=== PATIENT | male | born 1940 | race Caucasian/White ===

== ENCOUNTER → 2023-11-26 09:20 | Outpatient (REF) | payer MEDICARE, OTHER, SELFPAY | LOC: HWRCS 09:20 | PROVIDERS: ATTENDING PHYSICIAN Internal Medicine Cardiovascular Disease; FAMILY PHYSICIAN Family Medicine | DX: I50.20 Unspecified systolic (congestive) heart failure (principal) | CPT/HCPCS: 93306 ==

== ENCOUNTER 2023-12-29 03:27 | Inpatient (IN) | payer MEDICARE, OTHER, SELFPAY ==
[2023-12-28 23:34] VITALS: BP 122/65
[2023-12-28 23:35] VITALS: BP 122/65
[2023-12-28 23:58] LABS: % Basophils 0.3 % (0-2); % Eosinophils 2.2 % (0-6); % Immature Granulocytes 0.3 % (0-0.5); % Lymphocytes 23.5 % (20.5-51.1); % Monocytes 7.6 % (1.7-9.3); % Neutrophils 66.1 % (42.2-75.2); Absolute Eosinophils 0.2 10^3/uL (0-0.7); Absolute Lymphocytes 2.2 10^3/uL (1.2-3.4); Absolute Monocytes 0.7 10^3/uL (0.1-0.6); Hemoglobin 15.1 g/dL (13.0-18.0); Mean Corp Hgb Conc. 35.1 g/dL (33.0-37.0); Mean Corpuscular Hgb 31.5 pg (27.0-31.0); Mean Corpuscular Volume 89.8 fL (80.0-94.0); Mean Platelet Volume 10.3 fL (7.4-10.4); Nucleated Red Blood Cells % 0 % (-); Platelet Count 162 10^3/uL (130-400); Red Blood Cell Count 4.79 10^6/uL (4.70-6.10); Red Cell Dist. Width 15.1 % (11.5-14.5); White Blood Cell Count 9.1 10^3/uL (4.8-10.8)
[2023-12-28 23:59] VITALS: BMI 31.4
[2023-12-29] VITALS (11 sets, daily range): BP systolic 84–128; BP diastolic 59–93; BMI 30.9
[2023-12-29 00:11] LABS: ALT (SGPT) 25 U/L (0-50); AST (SGOT) 31 U/L (17-59); Albumin 4.3 g/dl (3.5-5.0); Alkaline Phosphatase 169 U/L (38-126); Blood Urea Nitrogen 36 mg/dl (9-20); Calcium 9.4 mg/dl (8.4-10.2); Carbon Dioxide 23 mmol/L (22-30); Chloride 104 mmol/L (98-107); Estimated Creatinine Clearance 56 ml/min; Glucose 119 mg/dl (70-99); INR 3.16; PT 32.4 Sec (11.4-14.6); Potassium 5.1 mmol/L (3.5-5.1); Sodium 141 mmol/L (135-145); Total Bilirubin 2.4 mg/dl (0.2-1.3); Total Protein 6.7 g/dl (6.3-8.2); eGFR 55.19
[2023-12-29 00:23] LABS: NT-proBNP 4170 pg/ml; Troponin I < 0.012 ng/ml
--- NOTE | 2023-12-29 00:57 | ED.GENMED ---
History of Present Illness
General
Chief Complaint: Cardiac Symptoms
Source: patient
Exam Limitations: none
Time Seen by Provider: 12/28/23 23:40
Nursing documentation reviewed up to this point in time: agreed with
History of Present Illness
History of Present Illness:
This is an 83-year-old gentleman who has history of permanent A-fib, chronically maintained on Coumadin, history of cardiomyopathy with AICD in place, history of interstitial lung disease/pulmonary fibrosis, PTCA with prior history of stents,
hyperlipidemia, hypertension. He presents tonight with complaints that his defibrillator has repeatedly fired. Prior to tonight he has been feeling well. He denies a sense of palpitations, denies dizziness nor lightheadedness, no chest pain other
than when AICD fires.
3-4 episodes of AICD discharge prior to arrival and then another 3 AICD shocks since arrival to the ED.
AICD replaced in February 2023 due to end-of-life with original AICD. He has remote history of AICD discharge due to tachycardia a number of years ago that resolved with medication change.
No history of AICD discharge with this current defibrillator, he has had no palpitations, no recent URI, no chest pain. He does admit to mild chronic shortness of breath that has been stable and unchanged. No recent change in weight. No leg pain
or swelling.
No recent change in medications.
He follows with Dr. Davenport.
AICD replacement February 2023 performed at [facility].
Echocardiogram November 25 of this year shows EF of 30 to 35%. Normal LV size, mild to moderate . Overall similar and unchanged from previous echo 1 year ago.
Past History
Past History
ED Past Medical History: Arrthythmia (Permanent atrial fibrillation; V. tach), CAD, CHF, HTN and Hypercholesterolemia
ED Past Surgical History: Cardiac (AICD placement x 2 most recently February 2023; PTCA with stents) and Other (Hernia repair)
Social History
Tobacco: Non-smoker
Alcohol: None
Personal:
Living: with family
Employment: Retired
Family History
Family History: Other (Noncontributory)
Phy Exam
Physical Exam
Physical Exam:
GENERAL: 83-year-old gentleman appears his stated age, intermittently yelping in pain which coincides with indiscriminate ICD firing. Magnet immediately applied over ICD with complete cessation of indiscriminate ICD firing
EYE: anicteric
NECK: Supple, nontender, no meningismus, no significant adenopathy. No JVD.
ENT: oral mucosa is moist. No rhinorrhea.
CARDIAC: Irregularly irregular mildly bradycardic,. no murmur.
LUNGS: Clear breath sounds bilaterally, no acute respiratory distress, no wheezes/rales/rhonchi
ABDOMEN: Soft, nondistended, without focal tenderness, normoactive BS.
NEUROLOGICAL: Alert and oriented x3, no focal neuro deficits.
SKIN: Warm and dry, normal color, skin intact. No rash.
MUSCULOSKELETAL: No C/C/E. peripheral pulses are full and equal b/l. No palpable tenderness.
PSYCH: Normal and appropriate interaction.
Course
Orders/Labs/Results
Orders:
Orders
12/28/23 23:45
Electrocardiogram (*1) Urgent
Reason for Study: Other
Other Reason for Exam: Respiratory Distress
Cardiac Monitoring- Treatment ONCE
EKG- Treatment ONCE
IV Insert/Care/Rem.- Treatment PRN
Interrogate Pacemaker- Treatment ONCE
O2 Therapy [RESP] Urgent
Titrate/Wean O2 to maintain O2 sat greater than (%): 93
Special Instructions: TO MAINTAIN CONTINUOUS O2 SATS >/= 93%
Pulse Ox/cont/shift [RESP] Urgent
Quantity: 1
Special Instructions: continuous pulse ox
12/28/23 23:47
Comprehensive Metabolic Panel Urgent
NT-proBNP Urgent
PT/INR [Prothrombin Time] Urgent
Troponin I Urgent
12/28/23 23:48
Complete Blood Count/With Diff Urgent
12/29/23 00:00
CR Chest Portable - 1 View Urgent
Reason For Exam: AICD firing, SOB
Reason Study Needs to be Portable: Patient Unstable
12/29/23 03:20
Admit/Transfer Patient As Directed
Co-Sign Provider:
Level of Care: Inpatient admission
Assign to:: IVU
Physician / Group: Hospitalist
Diagnosis: defribillator firing
Reason for Hospitalization: device firing
Expected length of stay greater than two midnights?: Yes
ELOS- Estimated Length of Stay in days: 2
I certify the patient meets the requirements for IP care: Yes
PRN Pain Medication Management As Directed
May give lesser potent ordered pain med per pt: Yes
preference::
Protocol:: Medication orders for pain may be administered in a
manner that supports deferring to patient preference
when the pt is:
- Requesting an ordered lesser potent pain medication.
Least to most potent pain medications are defined
as: acetaminophen < NSAID < tramadol < opioids
(morphine, oxycodone, hydromorphone).
- Requesting a lesser dose of the same medication IF
ORDERED.
- Requesting a less intrusive route of administration
if both routes are prescribed by the provider (PO <
IV).
12/29/23 03:21
Code Status As Directed
Resuscitation Status: Full Code
12/29/23 04:00
Flush (0.9% Sodium Chloride) [Flush (Nss)] See Dose Instructions IV PER PROTOCOL
12/29/23 04:04
HF DIETARY CONSULT Routine
HF EDUCATOR CONSULT Routine
Comment:
VTE Contraindication Routine
VTE Mechanical Device Contraindication: Medical Contraindication
Pharmocologic Contraindication: Medical Contraindication
Activity As Directed
Activity Level: With Assistance
Intake/ Output As Directed
Frequency: Per unit guidelines
Patient Education As Directed
Type: CHF folder
Comment: give on admission. Document in Interdisciplinary Education record
Sleep Apnea Assessment by RN As Directed
Comment:
Physician Instructions:
Vital Signs As Directed
Frequency: Other
Additional Instructions:: Q12 or per unit guidelines if more frequent.
Weight As Directed
Frequency: Daily
Type of Scale: Standing Scale
Comment: Daily morning weight. If unable to stand, use balanced bed scale.
Weight As Directed
Frequency: Once
Type of Scale: Standing Scale
Comment: Upon Admission. If unable to stand, use balanced bed scale.
O2 Therapy [RESP] Routine
Nasal Cannula Liter Flow: 2 LPM
Titrate/Wean O2 to maintain O2 sat greater than (%): 93
Pulse Ox/cont/shift [RESP] Routine
Quantity: 1
Special Instructions: Daily pulse oximetry at rest. If greater than 92% at rest also obtain pulse oximetry
while ambulating as tolerated.
12/29/23 06:00
Echo 2D MMode Color/Doppler IN AM
Reason for Study: heart failure
Basic Metabolic Panel IN AM
Magnesium IN AM
12/29/23 08:00
Carvedilol [Coreg] 12.5 mg PO BID
Clopidogrel Bisulfate [Plavix] 75 mg PO DAILY
Dorzolamide HCl [Trusopt 2% Ophthalmic Solution] 2 drop BOTH EYES BID
Empagliflozin [Jardiance] 10 mg PO DAILY
Furosemide [Lasix] 40 mg PO DAILY
Rosuvastatin Calcium [Crestor] 5 mg PO MoWeFr@0800
Spironolactone [Aldactone] 25 mg PO DAILY
latanoprost 2 drop BOTH EYES BID
12/29/23 Dinner
Cholesterol Lowering
At Your Request: Full Participation
Cholesterol Lowering: Sodium, 2 Gram
12/29/23 18:00
Warfarin [Coumadin] 5 mg PO MoWeFr@1800
12/29/23 22:00
Magnesium Oxide 500 mg PO HS
Valsartan [Diovan] 160 mg PO HS
12/30/23 06:00
Basic Metabolic Panel IN AM
12/30/23 18:00
Warfarin [Coumadin] 4 mg PO SuTuThSa@1800
12/31/23 06:00
Basic Metabolic Panel IN AM
Abnormal Lab Results
12/28/23 12/28/23
23:47 23:48
MCH 31.5 H pg
(27.0-31.0)
RDW 15.1 H %
(11.5-14.5)
Absolute Monos (auto) 0.7 H 10^3/uL
(0.1-0.6)
PT 32.4 H Sec
(11.4-14.6)
BUN 36 H mg/dl
(9-20)
Glucose 119 H mg/dl
(70-99)
Total Bilirubin 2.4 H mg/dl
(0.2-1.3)
Alkaline Phosphatase 169 H U/L
(38-126)
12/28/23 23:48
12/28/23 23:47
Vital Signs
Initial and Last Documented VS:
Initial Vital Signs
Temp Pulse Resp BP Pulse Ox
98.5 F 78 17 122/65 87
12/28/23 23:34 12/28/23 23:34 12/28/23 23:34 12/28/23 23:34 12/28/23 23:34
Last Documented Vital Signs
Temp Pulse Resp BP Pulse Ox
98.2 F 70 19 126/93 94
12/29/23 04:03 12/29/23 04:01 12/29/23 04:03 12/29/23 04:01 12/29/23 04:09
MDM/Problems Addressed
Differential Diagnosis Includes:
Patient presents with indiscriminate ICD firing that began tonight, multiple episodes of discharge with no associated tachyarrhythmia, no episodes of V. tach or V-fib. He remains hemodynamically stable.
ICD firing has completely resolved after magnet applied over AICD left chest wall.
Monitor shows atrial fibrillation with bradycardic ventricular response with intermittent ventricular pacing that appears to be capturing. He remains hemodynamically stable.
Significant concern for lead rupture/ICD malfunction.
Will check labs, chest x-ray and will consult cardiology.
Will continue nurse monitoring.
Chronic conditions affecting care: HTN, CAD and Cardiomyopathy
*Radiology
Radiology exam reviewed: preliminary read by ED provider ( Chest x-ray shows cardiomegaly, interstitial lung disease with marked increased interstitial markings at the bases concern for infiltrate versus CHF versus chronic interstitial disease. No
old films to compare.)
*Pulse Oximetry
Patient hypoxic: yes
*EKG
Interpreted by ED Provider?: Yes
Interpretation: abnormal
Comparison EKG: changes noted
Rate: bradycardiac
Rhythm: a-fib and ventricular paced
[place]: left axis deviation
QRS Pattern: left bundle branch block
Ischemia: non-specific ST changes
*[employer] C[employer] Spinner Interpretation
Rate: bradycardiac
Interpretation: abnormal
Rhythm: a-fib
*Critical Care Note
Total Time (30-74mins, 75-104mins- exclusive of procedures): Not Applicable
Update Note
Update Note:
12/29/2023 00:30 AM
No further AICD discharge after magnet promptly placed over AICD.
AICD interrogated by [employer] who notes failure of RV wire. [employer] sales representative supervisor has reprogrammed to turn off AICD and to initiate demand pacemaker mode.
Patient remains in atrial fibrillation with slow ventricular response. There has been no episodes of tachyarrhythmia.
I have spoken with cardiology, Doe Bowie. He will speak with [employer] sales representative supervisor himself but request patient be admitted to hospitalist service with consult to cardiology.
Patient remains hemodynamically stable.
Moderate hypoxemia noted on pulse ox but patient continues to have no respiratory distress. He has history of interstitial lung disease/pulmonary fibrosis which I suspect is cause for low pulse ox. Has been placed on nasal cannula oxygen.
Will admit to hospitalist service.
ED Attending Note
-
Portions of this chart may have been created with voice recognition software.� Occasional wrong word or��sound alike� substitutions may have occurred due to the inherent limitations of voice recognition software.
Discharge Plan
Departure
Patient Disposition: Admit
Date of Disposition: 12/29/23
Time of Disposition: 01:06
Admit to: Telemetry
Admit to doctor: Naveed
Presentation/result/management discussed w/ accepting MD/DO: Hospitalist
Condition: Fair
Discharge Problem:
AICD discharge, AICD lead malfunction, Chronic interstitial lung disease, Hypoxemia requiring supplemental oxygen
Interventions
Interventions:
*Risk Screen - Suicide Last Done: 12/29/23 04:02
*General Assessment Last Done: 12/28/23 23:34
*Neglect/Abuse Screening Last Done: 12/29/23 00:06
ED- Fall Risk Assessment Last Done: 12/29/23 00:05
*Nursing Disposition Last Done: 12/29/23 04:09
ED- Pulmonary Assessment Last Done: 12/29/23 00:02
ED- Cardiac Assessment Last Done: 12/29/23 00:02
Discharge Date and Time
Discharge Date/Time: 12/29/23 04:09
--- NOTE | 2023-12-29 01:12 | CON.CAR ---
Consultation
Consultation Request
Date/Time Consultation Requested: 12/29/2023 00 30
Date/Time Consultation Performed: 12/29/2023 115
Requesting Provider: Dr. De La Cruz
Performing Provider: Dr. Bowie
Reason for Consultation: ICD fired/ICD malfunction
Medical History
-
History of Present Illness:
Primary health education specialist Dr. Davenport
83-year-old male with past medical history noted below who presented for multiple ICD shocks. Patient seen and ER and noted to have inappropriate ICD shocks. Remote device interrogation with [employer]. Reviewed with rep. Patient appears to have
RV lead fracture causing inappropriate ICD shocks. Pacing now set at VOO
Patient states that he was feeling fine tonight he was brushing his teeth and then suddenly his defibrillator went off they called the ambulance but his device went off about 5 times at home he thinks it went off in the ambulance and then went off
about 5 times in the ER. Spoke with the ER physician who said device went off even though no arrhythmia was seen..
[employer] device reviewed appears device therapy is off. In total it appears patient had 13 ICD shocks. Pacing thresholds appear stable
Currently without shortness of breath. Prior to ICD shocks no chest discomfort no orthopnea or increased lower extremity edema. weight stable. Since last visit with Dr Davenport n June, Digoxin stopped. no other recent changes in medical therapy.
Patient actually had HRIS SPECIALIST-D upgrade with LB APL 02/2023 then had loss of LBBB capture and had lead revision.
06/2023 revision of ICD with new ICD lead from right subclavian tunneled to generator on left. AV node ablation. (Chronic left-sided LB AP lead extracted new right sided LB AP lead implanted and tunneled to the left)
Past medical history
Ischemic cardiomyopathy ejection fraction 25%
Heart failure reduced ejection fraction
Permanent atrial fibrillation
Chronic anticoagulation with Coumadin
ICD/[employer]ronik
Coronary artery disease. Stenting of RCA and circumflex
ventricular tachycardia
Previous VT ablation 2014
AVJ ablation 06/2023 [facility]
Hypertension
Right bundle branch block hypercholesterolemia
Dilated ascending aorta
ECG with ventricular pacing PVCs and underlying A-fib.
There is a question regarding appropriate pacing based on the space between PVCs. Patient has since had device interrogated pacing status VOO as noted below
06/2023 revision of ICD with new ICD lead from right subclavian tunneled to generator on left. AV node ablation. (Chronic left-sided LB AP lead extracted new right sided LB AP lead implanted and tunneled to the left)
Echocardiogram ejection fraction 30 to 35% mild to moderate aortic stenosis mild to moderate tricuspid regurgitation mild aortic regurgitation PA pressure 47 dilated ascending aorta 4.4 cm
Past Medical History
Past Medical History: Other (Above)
Social History
Tobacco: Former Smoker
Employment: Other (CAD)
Family History
Family History: CAD and Other
Allergies / Home Medications
Allergy/AdvReac Type Severity Reaction Status Date / Time
Cephalosporins Allergy Nausea / Verified 12/28/23 23:33
Vomiting
penicillin G Allergy Nausea / Verified 12/28/23 23:33
Vomiting
Penicillins Allergy Nausea / Verified 12/28/23 23:33
Vomiting
�Medication �Instructions �Recorded �Confirmed �Type
Coreg 12.5 mg PO BID 12/29/23 12/29/23 History
Jardiance 10 mg PO DAILY 12/29/23 12/29/23 History
Lasix 40 mg PO DAILY 12/29/23 12/29/23 History
Plavix 75 mg PO DAILY 12/29/23 12/29/23 History
digoxin 125 mcg PO DAILY 12/29/23 12/29/23 History
dorzolamide 2 drp BOTH EYES BID 12/29/23 12/29/23 History
latanoprost 2 drp BOTH EYES BID 12/29/23 12/29/23 History
magnesium 400 mg PO QHS 12/29/23 12/29/23 History
rosuvastatin 5 mg PO QMWF 12/29/23 12/29/23 History
spironolactone 25 mg PO DAILY 12/29/23 12/29/23 History
valsartan 160 mg PO QHS 12/29/23 12/29/23 History
warfarin 4 mg PO QTUTHSASU 12/29/23 12/29/23 History
warfarin 5 mg PO QMWF 12/29/23 12/29/23 History
Review of Systems
-
All other systems: Negative unless noted
Physical Exam
Vital Signs
Temp Pulse Resp BP Pulse Ox
98.5 F 70 24 128/68 93
12/28/23 23:34 12/29/23 00:30 12/29/23 00:30 12/29/23 00:00 12/29/23 00:30
Lab Results
12/28/23 23:48
12/28/23 23:47
Troponin I < 0.012 ng/ml 12/28/23 23:47
[id number] Pept 4170 pg/ml 12/28/23 23:47
Physical Exam
General: Well Developed
HEENT: Normocephalic
Respiratory: Clear and Wheezes
Cardiac: Regular Rhythm
GI: Non Tender and Non Distended
Genito-urinary: No Costovertebral Tender
Musculoskeletal: No Clubbing, No Cyanosis and No Edema (trace )
Neuro: Awake, Alert, Oriented and AO x 3
Impression / Plan
-
ICD shock. Patient with multiple shocks tonight. [employer] device. Shocks witnessed by ER physician with no apparent arrhythmia.
-Device interrogation 13 shocks
-Reviewed with [employer] rep. Acute RV lead fracture suspected.
-Shock therapy now turned off
- pacing now with VOO at 70
-ICD shock therapy currently turned off
-Monitor on telemetry
-Continue current medical therapy
-Additional review by EP. Patient will need lead revision for RV lead fracture.
.
A-fib. Permanent. Patient has AVJ ablation.
-Hold Coumadin in anticipation of procedure.
-[id number] 5(age greater than 75, hypertension, coronary artery disease, CHF)
.
CAD. Prior history of coronary stenting stable without angina continue current medical therapy
Ischemic cardiomyopathy. EF 30 to 35%
-Some chronic exertional shortness of breath unclear if there is a modest increase in the last couple weeks.
-Trace ankle edema
-Continue current therapy
-Chest x-ray
-Continue to assess volume status and may consider additional diuretic.
History of VT prior VT ablation of 2014. Monitor on telemetry while ICD shock therapy is off.
Data Reviewed
-
EKG: Report Reviewed by me
Medical Tests (Nuc Med, Echo etc): Report Reviewed by me
--- NOTE | 2023-12-29 03:01 | HPS.HSE ---
Family Physician
-
Family Physician: Mendel Parks
Chief Complaint
-
Repeat firing of defibrillator
History of Present Illness
This is an 83-year-old male with past medical history significant for heart failure with reduced EF (about 30%) CAD status post stents, history of ventricular tachycardia, atrial fibrillation and hypertension who presents to the emergency after
noticing firing of his AICD several times at home.
Patient has history of A-fib and recurrent VT status post VT ablation x 2 and IV with blind and Pap, status post BTT OC�ICD with GEN change [employer] upgrade, he had loss of left bundle branch capture and is status post lead revision, and also underwent
AVJ ablation due to frequent A-fib limiting V[employer]. If he follows with cardiology/EP pain.
Patient reports generally being in usual state of health except for approximately 2 weeks of increased dyspnea on exertion. Denies any increased lower extremity edema, increased weight gain or PND. He denies any orthopnea. Denies any cough fevers
or chills. Denies any increase in level of activity. Denies any recurrent lightheadedness or dizziness. He denies feeling any palpitations.
He apparently suddenly noticed approximately 4 defibrillation events at home. He called EMS and had several more defibrillations en route and continued to have them in the emergency department. The defibrillator was stopped via magnet and the the
device rep also deactivated the device. The review of the device showed abnormal firing without any episodes of VT or VFIB.
In the ED he was hemodynamically stable with a blood pressure 120/68 oxygen saturation of 93 5%. Pulse was in the 70s and was afebrile. His chest x-ray shows some interstitial infiltrates which appear to have been present from prior. Labs were
mostly unremarkable with normal WBCs, chemistries were within normal limits. ECG showed a atrial fibrillation at a rate of [address] or T wave changes.
Medical History
Past Medical History
Past Medical History: Reports HTN
Additional Past Medical History:
Permanent AFIB
VTach
S/P BIV ppm AICD
Cardiomyopathy EF ~30%
Past Surgical History: Reports None
Social History
Tobacco: Non-smoker
Alcohol: None
Drug: None
Personal:
Living: With Family
Employment: Retired
Family History
Family History: Not pertinent
Allergies / Home Medications
Allergies reflects when Allergies were last updated in [employer].
Home Medications with original date entered in [employer]
Allergy/Medication List:
Allergies
Allergy/AdvReac Type Severity Reaction Status Date / Time
Cephalosporins Allergy Nausea / Verified 12/28/23 23:33
Vomiting
penicillin G Allergy Nausea / Verified 12/28/23 23:33
Vomiting
Penicillins Allergy Nausea / Verified 12/28/23 23:33
Vomiting
Home Medications
Coreg 12.5 mg PO BID 12/29/23
Jardiance 10 mg PO DAILY 12/29/23
Lasix 40 mg PO DAILY 12/29/23
Plavix 75 mg PO DAILY 12/29/23
dorzolamide 2 drp BOTH EYES BID 12/29/23
latanoprost 2 drp BOTH EYES BID 12/29/23
magnesium 400 mg PO QHS 12/29/23
rosuvastatin 5 mg PO QMWF 12/29/23
spironolactone 25 mg PO DAILY 12/29/23
valsartan 160 mg PO QHS 12/29/23
warfarin 4 mg PO QTUTHSASU 12/29/23
warfarin 5 mg PO QMWF 12/29/23
Review of Systems
-
History Source: Patient
Constitutional: Reports No Symptoms
EENT: Reports No Symptoms
Respiratory: Reports Trouble Breathing
Cardiac: Reports Other (Defibrillator firing)
Abdomen/GI: Reports No Symptoms
: Reports No Symptoms
Musculoskeletal: Reports No Symptoms
Skin: Reports No Symptoms
Neurological: Reports No Symptoms
Endocrine: Reports No Symptoms
Hematologic/Lymphatic: Reports No Symptoms
Psych: Reports No Symptoms
Physical Exam
Vital Signs
Vital Signs
Temp Pulse Resp BP Pulse Ox
98.5 F 70 19 124/76 95
12/28/23 23:34 12/29/23 02:15 12/29/23 02:15 12/29/23 02:00 12/29/23 02:15
Physical Exam
General: Well Developed, Well Nourished and Comfortable
HEENT: NormoCephalic, Anicteric, Moist mucous membranes, Atraumatic, PERRLA and Oxygen
Respiratory: Clear and Crackles
Cardiac: S1/S2 and Irregular Rhythm
Breast: Deferred by me
GI: Soft, Non Tender, Non Distended and Normal Bowel Sounds
Rectal: Deferred by Provider
Genito-urinary: Deferred by me
Musculoskeletal: No Clubbing, No Cyanosis and Other (Trace bilateral lower extremity edema)
Skin: Warm and Dry
Neuro: Awake and AO x 3
Hematologic/Lymphatic: No Lymphadenopathy
Psych: Calm
Laboratory Results
-
12/28/23 23:48
12/28/23 23:47
Laboratory Results
PT 32.4 Sec (11.4-14.6) H 12/28/23 23:47
INR 3.16 12/28/23 23:47
Total Bilirubin 2.4 mg/dl (0.2-1.3) H 12/28/23 23:47
AST 31 U/L (17-59) 12/28/23 23:47
ALT 25 U/L (0-50) 12/28/23 23:47
Alkaline Phosphatase 169 U/L (38-126) H 12/28/23 23:47
Troponin I < 0.012 ng/ml 12/28/23 23:47
Data Reviewed
-
Diagnostic Radiology: Image Personally Visualized and interpreted
Medical Tests (Nuc Med, Echo, EKG etc): Image Personally Visualized and interpreted
Lab Data: Labs Reviewed by me
Old Records: Reviewed
Impression/Plan
-
IMPRESSION:
Patient with extensive EP history as detailed in HPI who presents to ED with unexpected firing of AICD without appropriate trigger. AICD had to be deactivated in ED to stop the firing. Review of records showed about 13 firing events. No
associated VT, VFIB or uncontrolled AFIB. Reports mild dyspnea on exertion for about 2 weeks. Xray with increased interstitial markings but appears to be unchanged from prior. No recent chest pain, palpitations lightheadedness or dizziness.
Reports that paceer rate was recently reduced to 70.
PLAN:
1. AICD - Firing - Device deactivated. Interrogation shows no VF/VT/ uncontrolled AFIB. Suspect lead malfunction per cardiology. Patient is otherwise well appearing, non-toxic and in no acute distress. Follow with EP here and at [facility].
- admit to IVU
- as device is off, will place on zolepads and monitors
- echo in am
- cardiology consulted and EP to follow with approach to management.
2. AFIB - Currently rate controlled at 69. No evidence pacing.
- continue coreg 12. bid
- ac with warfarin
- patient does NOT take digoxin.
- keep K, Mag > 4,2
- follow am pt/inr
3. CHF - CHF with depressed EF. Appears euvolemic with slight increased oxygen requirement. Possibly mild CHF.
- echo as above
- continue lasix 40mg po daily, consider iv lasix per cardiology
- continue GDMT w/ carvedilol, valsartan, aldactone and jardiance
4. TIA - History of TIA for which he was placed on plavix. Had recurrent transient vision loss. Improved since plavix started.
- continue plavix 75
DVT PPX - on warfarin
Code Status - Full Code
--- NOTE | 2023-12-29 04:11 | PTCARENOTE ---
received patient from the ED. AAOx3. at the bedside. denies any pain/sob at this time. 3L NC 94%. Vpaced on tele with PVCs. bp stable. reviewed plan of care with patient and and verbalized understanding. call alonso within reach. educated patient
to call with any changes.
[2023-12-29 06:40] LABS: INR 2.84; PT 29.7 Sec (11.4-14.6)
--- NOTE | 2023-12-29 06:52 | W.PN.HOSP.TC ---
Today's Communication/Plan
-
wean O2 as tolerated
npo after midnight for EP eval and likely Lead Revision, hold coumadin
ECHO tomorrow as well
daily INR checks, hep gtt if INR falls <2
Assessment / Plan
Assessment / Plan
Physical Exam
General: Well Developed, Well Nourished and Comfortable
HEENT: NormoCephalic, Anicteric, Moist mucous membranes, Atraumatic, PERRLA and Oxygen
Respiratory: Clear and Crackles
Cardiac: S1/S2 and Irregular Rhythm
GI: Soft, Non Tender, Non Distended and Normal Bowel Sounds
Musculoskeletal: No Clubbing, No Cyanosis and Other (Trace bilateral lower extremity edema)
Skin: Warm and Dry
Neuro: Awake and AO x 3
Hematologic/Lymphatic: No Lymphadenopathy
Psych: Calm
83M HFrEF CAD stents VT afib Coumadin HTN p/w unexpected firing of AICD without appropriate trigger. AICD had to be deactivated in ED to stop the firing. Review of records showed about 13 firing events. No associate VT, VFIB or uncontrolled AFIB.
Reports mild dyspnea on exertion for about 2 weeks. Xray with increased interstitial markings but appears to be unchanged from prior. No recent chest pain, palpitations lightheadedness or dizziness. Reports that paceer rate was recently reduced
to 70.
PLAN:
1. AICD - Firing - Device deactivated. Interrogation shows no VF/VT/ uncontrolled AFIB. Suspect lead malfunction per cardiology. Patient is otherwise well appearing, non-toxic and in no acute distress. Follow with EP here and at [place].
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
- echo in am
- cardiology consult appreciated
-npo after midnight for EP eval and likely lead revision
2. AFIB rate controlled
- continue coreg 12. bid
- warfarin on hold for lead revision
- INR therapeutic, start hep gtt if INR falls <2
3. CHF - CHF with depressed EF. Appears euvolemic with slight increased oxygen requirement. Possibly mild CHF.
- echo as above
- continue lasix 40mg po daily
- continue GDMT w/ carvedilol, valsartan, aldactone and jardiance
4. TIA - History of TIA for which he was placed on plavix. Had recurrent transient vision loss. Improved since plavix started.
- continue plavix 75
DVT PPX - Therapeutic INR
Code Status - Full Code
Discussed with patient and patient's Jocelin
I spent a total of 50 minutes with the patient or on the floor. More than 50% of this time involved counseling and coordination of care.
Anticipated Discharge: 24 - 48 hours
Subjective/Interval History
-
Date of Service: December 29, 2023
No acute distress. Overall reports feeling well. On nasal cannula supplementation but low dose 1L. Stable respiratory status. present during evaluation.
Objective Data
-
Labs:
Laboratory Results
12/28/23 12/28/23 12/29/23
23:47 23:48 06:07
WBC 9.1
Hgb 15.1
Hct 43.0
Plt Count 162
PT 32.4 H 29.7 H
INR 3.16 2.84
Sodium 141 Pending
Potassium 5.1 Pending
Chloride 104 Pending
Carbon Dioxide 23 Pending
BUN 36 H Pending
Creatinine 1.3 Pending
Glucose 119 H Pending
Calcium 9.4 Pending
Total Bilirubin 2.4 H
AST 31
ALT 25
Alkaline Phosphatase 169 H
Vital Signs:
Vital Signs
Temp Pulse Resp BP Pulse Ox
98.2 F 70 19 126/93 94
12/29/23 04:03 12/29/23 04:01 12/29/23 04:03 12/29/23 04:01 12/29/23 04:09
[2023-12-29 07:43] LABS: Blood Urea Nitrogen 33 mg/dl (9-20); Calcium 9.4 mg/dl (8.4-10.2); Carbon Dioxide 21 mmol/L (22-30); Chloride 106 mmol/L (98-107); Estimated Creatinine Clearance 65 ml/min; Glucose 104 mg/dl (70-99); Magnesium 2.4 mg/dl (1.6-2.3); Potassium 5.2 mmol/L (3.5-5.1); Sodium 138 mmol/L (135-145); eGFR > 60.00
[2023-12-29] MEDS: TRUSOPT 2% OPHTHALMIC SOLUTION 2 DROP BOTH EYES ×2 (08:14→17:39)
[2023-12-29] MEDS: LASIX 40 MG PO (08:14)
[2023-12-29] MEDS: ALDACTONE 25 MG PO (08:14)
[2023-12-29] MEDS: PLAVIX 75 MG PO (08:14)
[2023-12-29] MEDS: JARDIANCE 10 MG PO (08:14)
[2023-12-29] MEDS: COREG 12.5 MG PO ×2 (08:14→19:48)
--- NOTE | 2023-12-29 11:06 | W.PN.UPDATE ---
Update Note
Progress Note Update
See full consult note from early AM.
Patient stable. No events on tele.
Echo and EP consult in AM.
--- NOTE | 2023-12-29 12:14 | PTCARENOTE ---
Assessment and vitals stable as documented. Weaned O2 off - POX 94%. Discussed plan of care and potential timelines. at bedside most of day.
--- NOTE | 2023-12-29 13:44 | PTCARENOTE ---
resumed 2l O2 for pox 90%, Pt denies SOB or HEART
[2023-12-29] MEDS: CRESTOR 5 MG PO (17:36)
[2023-12-29] MEDS: DIOVAN 160 MG PO (22:20)
[2023-12-29] MEDS: XALATAN OPHTHALMIC SOLUTION 1 DROP OPHTH (22:21)
--- NOTE | 2023-12-29 23:13 | PTCARENOTE ---
received patient at the change of shift. AAOx3. denies any pain/sob. independent in the room. Vpaced on tele with underlying afib. bp stable. reviewed plan of care and verbalized understanding. NPO at midnight. call alonso within reach. calls
appropriately.
[2023-12-30] VITALS (12 sets, daily range): BP systolic 80–104; BP diastolic 56–80; BMI 29.9
[2023-12-30 06:11] LABS: Hematocrit 43.9 % (39.0-52.0); Hemoglobin 15.2 g/dL (13.0-18.0); Mean Corp Hgb Conc. 34.6 g/dL (33.0-37.0); Mean Corpuscular Hgb 31.5 pg (27.0-31.0); Mean Corpuscular Volume 90.9 fL (80.0-94.0); Mean Platelet Volume 10.2 fL (7.4-10.4); Platelet Count 153 10^3/uL (130-400); Red Blood Cell Count 4.83 10^6/uL (4.70-6.10); Red Cell Dist. Width 14.7 % (11.5-14.5); White Blood Cell Count 9.3 10^3/uL (4.8-10.8)
[2023-12-30 06:16] LABS: INR 2.31; PT 25.2 Sec (11.4-14.6)
--- NOTE | 2023-12-30 06:17 | PTCARENOTE ---
chest clipped. CHG wipes. new L AC 18G IV placed. no complaints overnight. NPO since midnight.
[2023-12-30 06:30] LABS: Blood Urea Nitrogen 32 mg/dl (9-20); Calcium 9.6 mg/dl (8.4-10.2); Carbon Dioxide 23 mmol/L (22-30); Chloride 105 mmol/L (98-107); Estimated Creatinine Clearance 72 ml/min; Glucose 102 mg/dl (70-99); Magnesium 2.3 mg/dl (1.6-2.3); Phosphorus 4.1 mg/dl (2.5-4.5); Potassium 4.7 mmol/L (3.5-5.1); Sodium 139 mmol/L (135-145); eGFR > 60.00
--- NOTE | 2023-12-30 07:26 | W.PN.HOSP.TC ---
Today's Communication/Plan
-
NPO for EP eval potential lead revision
Assessment / Plan
Assessment / Plan
Physical Exam
General: Well Developed, Well Nourished and Comfortable
HEENT: NormoCephalic, Anicteric, Moist mucous membranes, Atraumatic, PERRLA and Oxygen
Respiratory: Clear and Crackles
Cardiac: S1/S2 and Irregular Rhythm
GI: Soft, Non Tender, Non Distended and Normal Bowel Sounds
Musculoskeletal: No Clubbing, No Cyanosis and Other (Trace bilateral lower extremity edema)
Skin: Warm and Dry
Neuro: Awake and AO x 3
Hematologic/Lymphatic: No Lymphadenopathy
Psych: Calm
83M HFrEF CAD stents VT afib Coumadin HTN p/w unexpected firing of AICD without appropriate trigger. AICD had to be deactivated in ED to stop the firing. Review of records showed about 13 firing events. No associate VT, VFIB or uncontrolled AFIB.
Reports mild dyspnea on exertion for about 2 weeks. Xray with increased interstitial markings but appears to be unchanged from prior. No recent chest pain, palpitations lightheadedness or dizziness. Reports that paceer rate was recently reduced
to 70.
PLAN:
1. AICD - Firing - Device deactivated. Interrogation shows no VF/VT/ uncontrolled AFIB. Suspect lead malfunction per cardiology. Patient is otherwise well appearing, non-toxic and in no acute distress. Follow with EP here and at [place].
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
- echo in am
- cardiology consult appreciated
-npo for EP eval and likely lead revision
2. AFIB rate controlled
- continue coreg 12. bid
- warfarin on hold for lead revision
- INR therapeutic, start hep gtt if INR falls <2
3. CHF - CHF with depressed EF. Appears euvolemic with slight increased oxygen requirement. Possibly mild CHF.
- echo as above
- continue lasix 40mg po daily
- continue GDMT w/ carvedilol, valsartan, aldactone and jardiance
4. TIA - History of TIA for which he was placed on plavix. Had recurrent transient vision loss. Improved since plavix started.
- continue plavix 75
DVT PPX - Therapeutic INR
Code Status - Full Code
I spent a total of 50 minutes with the patient or on the floor. More than 50% of this time involved counseling and coordination of care.
Anticipated Discharge: > 48 hours
Subjective/Interval History
-
Date of Service: December 30, 2023
no acute distress. comfortable
Objective Data
-
Labs:
Laboratory Results
12/30/23
05:54
WBC 9.3
Hgb 15.2
Hct 43.9
Plt Count 153
PT 25.2 H
INR 2.31
Sodium 139
Potassium 4.7
Chloride 105
Carbon Dioxide 23
BUN 32 H
Creatinine 1.0
Glucose 102 H
Calcium 9.6
Vital Signs:
Vital Signs
Temp Pulse Resp BP Pulse Ox
97.9 F 70 18 101/73 94
12/30/23 07:04 12/30/23 06:15 12/30/23 07:04 12/30/23 05:30 12/30/23 07:04
I&O
12/29/23 12/30/23 12/31/23
06:59 06:59 06:59
Intake Total 350 / 350
Balance 350 / 350
[2023-12-30] MEDS: TRUSOPT 2% OPHTHALMIC SOLUTION 2 DROP BOTH EYES (07:40)
[2023-12-30] MEDS: COREG 12.5 MG PO ×2 (08:30→21:25)
[2023-12-30] MEDS: PLAVIX 75 MG PO (08:30)
[2023-12-30] MEDS: JARDIANCE 10 MG PO (08:30)
--- NOTE | 2023-12-30 09:18 | W.PN.CD ---
Today's Communication / Plan
-
- Possible lead revision or extraction and replacement.
Impression / Plan
-
ICD lead failure/ ICD shock.
- Inappropriate shock
- Device interrogation 13 shocks
- Shocks witnessed by ER physician with no apparent arrhythmia.
- Fractured / dislodged RV ICD lead
- s/p LEADERSHIP DEVELOPMENT MANAGER-D with [facility] APL 02/26/2023 then had loss of LBBB capture and had lead revision with removal of the LBB lead and new lead placement from the right and tunneled to the left device 06/2023.
- Has atrial lead, RV ICD lead from the left shoulder and RV LBB lead from right tunneled to left.
- s/p AVJ ablation in 06/2023
- Now 100% paced.
- Atrial fibrillation - 100%
- first shock was Friday night with toothbrushing - multiple shock afterwards.
- Possible RV iCD lead dislodgement vs fracture.
- BiV pacing has gone from 100% to less then 40% over the last 2 days
- Shock therapy now turned off
- pacing now with VOO at 70
- Plan for Venogram on the left arm. Unclear reason for going to right shoulder for redo LBB lead. Obtain records.
- Possible lead revision / extraction and reimplant during this admission.
ventricular tachycardia
- Previous VT ablation 2014
- AVJ ablation 06/2023 [facility]
Ischemic cardiomyopathy ejection fraction 25%
- NYHA class III
- s/p LEADERSHIP DEVELOPMENT MANAGER- now LV paced.
.
A-fib. Permanent. Patient has AVJ ablation.
- Chronic anticoagulation with Coumadin
-Hold Coumadin in anticipation of procedure.
-[id number] 5(age greater than 75, hypertension, coronary artery disease, CHF)
.
CAD. Prior history of coronary stenting stable without angina continue current medical therapy
Ischemic cardiomyopathy. EF 30 to 35%
-Some chronic exertional shortness of breath unclear if there is a modest increase in the last couple weeks.
-Trace ankle edema
-Continue current therapy
-Chest x-ray - possible lead dislodgement.
-Continue to assess volume status and may consider additional diuretic.
Physical Exam
Vital Signs/Labs
Vital Signs
Temp Pulse Resp BP Pulse Ox
97.9 F 70 18 104/80 94
12/30/23 07:04 12/30/23 08:30 12/30/23 07:04 12/30/23 08:30 12/30/23 07:35
12/29/23 12/30/23 12/31/23
06:59 06:59 06:59
Actual Weight 103.1 kg 100 kg
12/30/23 05:54
12/30/23 05:54
PT 25.2 Sec (11.4-14.6) H 12/30/23 05:54
INR 2.31 12/30/23 05:54
Magnesium 2.3 mg/dl (1.6-2.3) 12/30/23 05:54
12/28/23
23:47
Lfy-I-Tgkkyylsmyl Pept 4170
LAB Results
12/28/23
23:47
Troponin I < 0.012
Physical Exam
Constitutional: No acute distress and Comfortable
EENT: Anicteric and Moist mucous membranes
Cardiovascular: Rhythm & rate is regular, Pedal edema is absent, JVD pressure is normal and Systolic murmur absent
Respiratory: Respiratory effort normal, Lungs clear to auscul., Wheeze Absent and Crackles Absent
GI: Soft, Non tender and Normal bowel sounds
Neuro/Psych: Alert, Oriented and AO x 3
Data Reviewed
-
Date of Service: December 30, 2023
Medical Decision Making: Reviewed Test Results, Independent Historian Assessment, Test Interpretation and Review of Case with other Provider
EKG: Tracing Personally Visualized and interpreted
Echo: Tracing Personally Visualized and interpreted
X-Ray/CT/US/MRI/NUC/PET: Image Personally Visualized and interpreted
Labs: Labs Reviewed by me
Old Records: Reviewed
Critical Care Time (in minutes): 55
--- NOTE | 2023-12-30 10:42 | PTCARENOTE ---
Received pt from [facility]. VSS. Pt didn't undergo any procedure. Orders noted. Will monitor.
--- NOTE | 2023-12-30 13:28 | ITS.CL.PN ---
[facility] - Procedure Note
Procedure
Procedure Note:
Patient was brought in for disposition.
Venogram was done that showed dislodged RV lead with proximal ICD defibrillator coil still in the right atrium and the tip of the ICD lead in the liver/IVC. The venogram also showed completely occluded subclavian/innominate vessel. Both atrial and
ICD lead are trapped in the occluded venogram. This explains the need for right-sided left bundle mortgage branch manager placement back in June 2023.
The device was interrogated and showed atrial and ventricular leads are placed from 05/18/2014.
The atrial lead is Biotronik, model number Setox S53: serial #[id number]; implanted 05/18/2014
RV ICD lead; Biotronik model: Linox smart S 65; serial number# [id number]; implanted on 05/18/2014
Left ventricle pacing lead: Model number Medtronic 3830-69 cm; serial number: [id number]; implanted on 07/10/2023
With venogram showing completely occluded vein, the lead revision of the ICD lead is not easily done without lead extraction with laser/mechanical tools. The procedure was aborted. Patient was sent back to the room.
Plan of care
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 Davenport. He also discussed with his implanting senior solutions consultant Dr. Persaud. We explained 3 options for him
1. we can conservatively manage him as he is currently LV paced with his left bundle branch pacing lead with excellent QRS morphology. He does need primary prevention ICD which can be subcutaneous ICD versus LifeVest.
2. Patient can undergo right-sided ICD implantation with a new lead and the left bundle mortgage branch manager can be pulled out from the tunnel to the right side and can be used at ACTING PROFESSOR-P. Patient has permanent atrial fibrillation and does not need atrial
lead.
3. The third option is to undergo extraction of the RV ICD lead and may be atrial lead as well with reimplantation of an ICD lead.
We discussed pros and cons of all the 3 options. Subcutaneous ICD is not a good idea with his tunneled left bundle mortgage branch manager. The knee implant of ICD lead on the right side runs the risk of abandoned ICD lead in the IVC/liver that can migrate to
RV and can cause arrhythmias. 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 At this time we will discuss with the
patient once his more alert and awake discussed with all the physicians involved to choose the best option for him going forward.
[2023-12-30] MEDS: LASIX 40 MG PO (15:47)
[2023-12-30] MEDS: ALDACTONE 25 MG PO (15:47)
--- NOTE | 2023-12-30 16:20 | CM ---
Reviewed chart. Met with Mr. Guidry to review discharge plans. He states prior to admission he resides with his spouse in a two story home with five steps to enter. He states he has a full flight of steps to get to bedroom/full bathroom. He states
he has a powder room on the first floor. He states prior to admission he was independent with ambulation and adls. He states he does not have any DME in the home. He states he has a prescription plan and uses [facility]. Medial work-up in
progress. The discharge plan is to return home with his spouse when medically stable.
[2023-12-30] MEDS: XALATAN OPHTHALMIC SOLUTION 1 DROP OPHTH (21:19)
[2023-12-30] MEDS: TRUSOPT 2% OPHTHALMIC SOLUTION BOTH EYES (21:21)
[2023-12-30] MEDS: DIOVAN PO (23:27)
[2023-12-31] VITALS (11 sets, daily range): BP systolic 81–109; BP diastolic 44–77; PULSE 76–86; O2SAT 90; BMI 29.7
[2023-12-31 04:02] LABS: Hematocrit 45.8 % (39.0-52.0); Hemoglobin 15.9 g/dL (13.0-18.0); Mean Corp Hgb Conc. 34.7 g/dL (33.0-37.0); Mean Corpuscular Volume 92.2 fL (80.0-94.0); Mean Platelet Volume 10.1 fL (7.4-10.4); Platelet Count 158 10^3/uL (130-400); Red Blood Cell Count 4.97 10^6/uL (4.70-6.10); Red Cell Dist. Width 14.7 % (11.5-14.5); White Blood Cell Count 9.5 10^3/uL (4.8-10.8)
[2023-12-31 04:13] LABS: INR 2.04; PT 23.2 Sec (11.4-14.6)
[2023-12-31 04:28] LABS: Blood Urea Nitrogen 32 mg/dl (9-20); Calcium 9.4 mg/dl (8.4-10.2); Carbon Dioxide 21 mmol/L (22-30); Chloride 104 mmol/L (98-107); Estimated Creatinine Clearance 58 ml/min; Glucose 107 mg/dl (70-99); Magnesium 2.2 mg/dl (1.6-2.3); Phosphorus 4.6 mg/dl (2.5-4.5); Potassium 4.5 mmol/L (3.5-5.1); Sodium 139 mmol/L (135-145); eGFR > 60.00
--- NOTE | 2023-12-31 05:52 | PTCARENOTE ---
BP 85/56 pt denies dizziness or lightheadedness. Diovan held per SCOW DERRICK OPERATOR.
--- NOTE | 2023-12-31 07:20 | W.PN.HOSP.TC ---
Today's Communication/Plan
-
wean O2 supplementation as tolerated
cont cardiac monitoring
Potential EP intervention as per cardio
Assessment / Plan
Assessment / Plan
Physical Exam
General: Well Developed, Well Nourished and Comfortable
HEENT: NormoCephalic, Anicteric, Moist mucous membranes, Atraumatic, PERRLA and Oxygen
Respiratory: Clear and Crackles
Cardiac: S1/S2 and Irregular Rhythm
GI: Soft, Non Tender, Non Distended and Normal Bowel Sounds
Musculoskeletal: No Clubbing, No Cyanosis and Other (Trace bilateral lower extremity edema)
Skin: Warm and Dry
Neuro: Awake and AO x 3
Hematologic/Lymphatic: No Lymphadenopathy
Psych: Calm
83M HFrEF CAD stents VT afib Coumadin HTN p/w unexpected firing of AICD without appropriate trigger. AICD had to be deactivated in ED to stop the firing. Review of records showed about 13 firing events. No associate VT, VFIB or uncontrolled AFIB.
Reports mild dyspnea on exertion for about 2 weeks. Xray with increased interstitial markings but appears to be unchanged from prior. No recent chest pain, palpitations lightheadedness or dizziness. Reports that paceer rate was recently reduced
to 70.
PLAN:
# AICD - Firing - Device deactivated. Interrogation shows no VF/VT/ uncontrolled AFIB. Suspect lead malfunction per cardiology. Patient is otherwise well appearing,
#RV lead dislodgement
non-toxic and in no acute distress. Follow with EP here and at [facility].
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
- ECHO appreciated No significant change since the prior study of 11/26/2023 except the RV lead is no longer seen in the RV.
- cardiology consult appreciated ongoing discussions regarding potential solutions/options
# AFIB rate controlled
- continue coreg 12. bid
- warfarin on hold for lead revision
- INR therapeutic, start hep gtt if INR falls <2
# CHF - CHF with depressed EF. Appears euvolemic with slight increased oxygen requirement. Possibly mild CHF.
- echo as above
- continue lasix 40mg po daily
- continue GDMT w/ carvedilol, valsartan, aldactone and jardiance
# TIA - History of TIA for which he was placed on plavix. Had recurrent transient vision loss. Improved since plavix started.
- continue plavix 75
#Acute Hypoxic Respiratory Failure
#Pulmonary Fibrosis
CT chest noted signs suggestive chronic pulmonary fibrosis
Home oxygen assessment notes desaturation on room air requiring 2L to maintain saturation at rest and ambulation
Pulm follow up recommended for outpt pulm function testing
DVT PPX - Therapeutic INR
Code Status - Full Code
I spent a total of 50 minutes with the patient or on the floor. More than 50% of this time involved counseling and coordination of care.
Anticipated Discharge: > 48 hours
Subjective/Interval History
-
Date of Service: December 31, 2023
No acute distress. Remains oxygen dependent.
Objective Data
-
Labs:
Laboratory Results
12/31/23
03:34
WBC 9.5
Hgb 15.9
Hct 45.8
Plt Count 158
PT 23.2 H
INR 2.04
Sodium 139
Potassium 4.5
Chloride 104
Carbon Dioxide 21 L
BUN 32 H
Creatinine 1.1
Glucose 107 H
Calcium 9.4
Vital Signs:
Vital Signs
Temp Pulse Resp BP Pulse Ox
98.5 F 70 16 96/66 93
12/31/23 03:36 12/31/23 03:38 12/31/23 03:36 12/31/23 03:38 12/31/23 03:38
I&O
12/30/23 12/31/23 01/01/24
06:59 06:59 06:59
Intake Total 350 / 350
Balance 350 / 350
[2023-12-31] MEDS: COREG 12.5 MG PO ×2 (08:03→20:36)
[2023-12-31] MEDS: PLAVIX 75 MG PO (08:03)
[2023-12-31] MEDS: ALDACTONE 25 MG PO (08:04)
[2023-12-31] MEDS: LASIX 40 MG PO (08:04)
[2023-12-31] MEDS: JARDIANCE 10 MG PO (08:04)
[2023-12-31] MEDS: TRUSOPT 2% OPHTHALMIC SOLUTION 2 DROP BOTH EYES ×2 (08:06→20:36)
--- NOTE | 2023-12-31 09:06 | PTCARENOTE ---
Rec'd pt this shift awake and alert in bed. Pt denies pain, denies sob. AM meds given. pt remains on 2l n/c oxygen, encouraged coughing and deep breathing and ambulating in room. V-paced on monitor. See worklist for VS/I and O and assessments.
[2023-12-31] MEDS: CRESTOR 5 MG PO (09:37)
--- NOTE | 2023-12-31 10:48 | W.PN.UPDATE ---
Update Note
Progress Note Update
EP Note:
Over 1 hour spent caring for patient today. Extensive discussions with the patient, Biotronik, and my colleagues.
He has ICD malfunction from apparent acute RV lead dislodgement of an RV ICD lead placed in 2014.
He had several procedures involving the RV of his heart but none very recently.
- 02/26/2023 3830 LBBB pacing lead placed via the left side
- 07/10/2023 3830 LBBB lead on left explanted and a new 3830 lead placed via the right chest and tunnelled across to left generator
- AV node ablation on
He is pacemaker dependent but has an escape that is not reliable but present at about 40 bpm
He has had monomorphic VT with syncope controlled with 2 remote VT ablations. No VT in many years
He has been a patient of EP Dr. Gareth Vargas since 2014 and he performed his EP procedures. I have updated Dr. Vargas. I intend to discuss treatment options with Dr. Vargas. Pt prefers to stay here for ICD procedure.
We have many options
- Extraction/reimplantation from the left
- Implant transvenous ICD on right and then return the 3830 lead back to the right that would require opening left ICD pocket
- Implant a extravascular ICD (Medtronic) and leave the pacing from the current ICD in a VOOR setting
- Implant a subcu ICD (Boson) and leave pacing from the current ICD in a VOOR setting
Each option has pros and cons. I am favoring the second choice.
I think the risk of problems from the dislodged ICD lead are less than the risk of extraction.
CT of chest ordered to learn more about ICD location.
--- NOTE | 2023-12-31 13:55 | CM ---
Chart reviewed. Patient is independent of ADLS, lives with his in a 2 S[address], 5 HORTENCIA, 0 DME. Patient currently with no discharge needs. Plan is for the patient to return home. CM to follow
[2023-12-31] MEDS: DIOVAN 160 MG PO (21:27)
[2023-12-31] MEDS: XALATAN OPHTHALMIC SOLUTION 1 DROP OPHTH (21:27)
--- NOTE | 2023-12-31 21:42 | RESPNOTE ---
pt has refused to do the nocturnal study HERIBERTO pond aware
[2024-01-01] VITALS (12 sets, daily range): BP systolic 81–100; BP diastolic 59–73; BMI 29.4
[2024-01-01 04:13] LABS: Mean Corp Hgb Conc. 35.6 g/dL (33.0-37.0); Mean Corpuscular Hgb 32.1 pg (27.0-31.0); Mean Corpuscular Volume 90.2 fL (80.0-94.0); Mean Platelet Volume 10.2 fL (7.4-10.4); Platelet Count 173 10^3/uL (130-400); Red Blood Cell Count 4.99 10^6/uL (4.70-6.10); Red Cell Dist. Width 14.7 % (11.5-14.5); White Blood Cell Count 10.1 10^3/uL (4.8-10.8)
[2024-01-01 04:24] LABS: INR 1.57; PT 18.9 Sec (11.4-14.6)
[2024-01-01 04:42] LABS: Blood Urea Nitrogen 33 mg/dl (9-20); Calcium 9.6 mg/dl (8.4-10.2); Chloride 102 mmol/L (98-107); Estimated Creatinine Clearance 58 ml/min; Glucose 113 mg/dl (70-99); Magnesium 2.2 mg/dl (1.6-2.3); Phosphorus 4.4 mg/dl (2.5-4.5); Potassium 4.5 mmol/L (3.5-5.1); Sodium 139 mmol/L (135-145); eGFR > 60.00
[2024-01-01 04:50] LABS: Carbon Dioxide 19 mmol/L (22-30)
--- NOTE | 2024-01-01 06:23 | PTCARENOTE ---
Pt V paced with PVC on monitor, denies any pain or discomfort. CHG x 2 completed. NPO for ICD placement
--- NOTE | 2024-01-01 07:52 | W.PN.HOSP.TC ---
Today's Communication/Plan
-
AICD repair/replacement as per Cardio
hold Valsartan
resume Coumadin
wean O2 as tolerated
Assessment / Plan
Assessment / Plan
Physical Exam
General: Well Developed, Well Nourished and Comfortable
HEENT: NormoCephalic, Anicteric, Moist mucous membranes, Atraumatic, PERRLA and Oxygen
Respiratory: Clear and Crackles
Cardiac: S1/S2 and Irregular Rhythm
GI: Soft, Non Tender, Non Distended and Normal Bowel Sounds
Musculoskeletal: No Clubbing, No Cyanosis and Other (Trace bilateral lower extremity edema)
Skin: Warm and Dry
Neuro: Awake and AO x 3
Hematologic/Lymphatic: No Lymphadenopathy
Psych: Calm
83M HFrEF CAD stents VT afib Coumadin HTN p/w unexpected firing of AICD without appropriate trigger. AICD had to be deactivated in ED to stop the firing. Review of records showed about 13 firing events. No associate VT, VFIB or uncontrolled AFIB.
Reports mild dyspnea on exertion for about 2 weeks. Xray with increased interstitial markings but appears to be unchanged from prior. No recent chest pain, palpitations lightheadedness or dizziness. Reports that paceer rate was recently reduced
to 70.
PLAN:
# AICD - Firing - Device deactivated. Interrogation shows no VF/VT/ uncontrolled AFIB. Suspect lead malfunction per cardiology. Patient is otherwise well appearing,
#RV lead dislodgement
non-toxic and in no acute distress. Follow with EP here and at [place].
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
- ECHO appreciated No significant change since the prior study of 11/26/2023 except the RV lead is no longer seen in the RV.
- cardiology consult appreciated ongoing discussions regarding potential solutions/options
# AFIB rate controlled
- continue coreg 12. bid
- warfarin on held for lead revision, resumed following procedure as per Cardio no hept gtt/bridging recommended at this time
# CHF - CHF with depressed EF. Appears euvolemic with slight increased oxygen requirement. Possibly mild CHF.
- echo as above
- continue lasix 40mg po daily
- continue GDMT w/ carvedilol, aldactone and jardiance (valsartan placed on hold d/t hypotension)
# TIA - History of TIA for which he was placed on plavix. Had recurrent transient vision loss. Improved since plavix started.
- continue plavix 75
#Acute Hypoxic Respiratory Failure
#Pulmonary Fibrosis
CT chest noted signs suggestive chronic pulmonary fibrosis
Home oxygen assessment notes desaturation on room air requiring 2L to maintain saturation at rest and ambulation (will repeat prior to discharge)
Pulm follow up recommended for outpt pulm function testing
DVT PPX - Warfarin resumed
Code Status - Full Code
I spent a total of 50 minutes with the patient or on the floor. More than 50% of this time involved counseling and coordination of care.
Anticipated Discharge: 24 - 48 hours
Subjective/Interval History
-
Date of Service: January 01, 2024
Objective Data
-
Labs:
Laboratory Results
01/01/24
04:05
WBC 10.1
Hgb 16.0
Hct 45.0
Plt Count 173
PT 18.9 H
INR 1.57
Sodium 139
Potassium 4.5
Chloride 102
Carbon Dioxide 19 L
BUN 33 H
Creatinine 1.1
Glucose 113 H
Calcium 9.6
Vital Signs:
Vital Signs
Temp Pulse Resp BP Pulse Ox
97.4 F 71 20 100/73 97
01/01/24 07:09 01/01/24 04:00 01/01/24 07:09 01/01/24 03:58 01/01/24 07:09
I&O
12/31/23 01/01/24 01/02/24
06:59 06:59 06:59
Intake Total 920 / 920
Balance 920 / 920
[2024-01-01] MEDS: LASIX 40 MG PO (08:38)
[2024-01-01] MEDS: PLAVIX 75 MG PO (08:38)
[2024-01-01] MEDS: FARXIGA 10 MG PO (08:38)
[2024-01-01] MEDS: COREG 12.5 MG PO ×2 (08:38→20:00)
[2024-01-01] MEDS: TRUSOPT 2% OPHTHALMIC SOLUTION 2 DROP BOTH EYES ×2 (08:39→20:01)
[2024-01-01] MEDS: ALDACTONE 25 MG PO (08:43)
--- NOTE | 2024-01-01 11:40 | CM ---
Chart reviewed. Patient is independent of ADLS, lives with his in a [address], 5 [address], 0 DME. Plan is for the patient to return home. CM to follow
[2024-01-01] MEDS: VANCOCIN 300 MG IV (13:53)
[2024-01-01] MEDS: VANCOCIN 300 ML IV (13:53)
--- NOTE | 2024-01-01 14:19 | W.ICD.CONTRA ---
Post ICD/COUNSELING CENTER MANAGER-D
-
History of OK?: Yes
LV Function
Left ventricular function study result?: Ejection Fraction </= 35%
ACEI/ARB/ARNI
Patient already on ACEI/ARB/ARNI: Yes
Beta-Radha
Patient already on Beta Radha: Yes
--- NOTE | 2024-01-01 15:21 | W.PN.CD ---
Today's Communication / Plan
-
- ICD placement today
Impression / Plan
-
ICD lead failure/ ICD shock.
- Inappropriate shock
- Device interrogation 13 shocks
- Shocks witnessed by ER physician with no apparent arrhythmia.
- Fractured / dislodged RV ICD lead
-s/p dual chamber ICD in 2014.
- s/p MARINE STEAMFITTER-D with LB APL 02/26/2023 then had loss of LBBB capture and had lead revision with removal of the LBB lead and new lead placement from the right and tunneled to the left device 06/2023.
- Has atrial lead, RV ICD lead from the left shoulder and RV LBB lead from right tunneled to left.
- s/p AVJ ablation in 06/2023
- Now 100% paced.
- Atrial fibrillation - 100%
- first shock was Friday night with toothbrushing - multiple shock afterwards.
- Possible RV iCD lead dislodgement vs fracture.
- Venogram from the left arm showed long segmental occlusion of the subclavian and the innominate vessel.
- BiV pacing has gone from 100% to less then 40% over the last 2 days
- Shock therapy now turned off
- pacing now with VOO at 70
- Extensive discussions with various providers including Dr. Vargas from [facility]. Various choices were entertained and finally it is decided to abandon the dislodged / fractured RV ICD lead and place a new lead from the left shoulder with open access
to heart.
- Options are to remove the tunneld LBB lead to the right side and place an ICD on the right side. Given the extensive fibrosis, the possibility of the LBB lead to easily tunnel back to right side is potentially difficult. The other option is the
place the ICD lead in the right side and tunnel to the left side with better defibrillation threshold and possibility of use of the atrial lead in case sinus rhythm is seen to avoid AV dyssynchrony.
- Will place ICD on the right side with tunneled to left side.
ventricular tachycardia
- Previous VT ablation 2014
- AVJ ablation 06/2023 [facility]
Ischemic cardiomyopathy ejection fraction 25%
- NYHA class III
- s/p MARINE STEAMFITTER- now LV paced.
.
A-fib. Permanent. Patient has AVJ ablation.
- Chronic anticoagulation with Coumadin
-Hold Coumadin in anticipation of procedure.
-[id number] 5(age greater than 75, hypertension, coronary artery disease, CHF)
.
CAD. Prior history of coronary stenting stable without angina continue current medical therapy
Ischemic cardiomyopathy. EF 30 to 35%
-Some chronic exertional shortness of breath unclear if there is a modest increase in the last couple weeks.
-Trace ankle edema
-Continue current therapy
-Chest x-ray - possible lead dislodgement.
-Continue to assess volume status and may consider additional diuretic.
Physical Exam
Vital Signs/Labs
Vital Signs
Temp Pulse Resp BP Pulse Ox
97.5 F 76 20 90/64 93
01/01/24 11:12 01/01/24 11:45 01/01/24 11:12 01/01/24 11:15 01/01/24 11:15
12/31/23 01/01/24 01/02/24
06:59 06:59 06:59
Actual Weight 99.1 kg 98.4 kg
01/01/24 04:05
01/01/24 04:05
PT 18.9 Sec (11.4-14.6) H 01/01/24 04:05
INR 1.57 01/01/24 04:05
Magnesium 2.2 mg/dl (1.6-2.3) 01/01/24 04:05
12/28/23
23:47
Zat-I-Ncmhsdptbkd Pept 4170
Physical Exam
Constitutional: No acute distress and Comfortable
EENT: Anicteric and Moist mucous membranes
Cardiovascular: Rhythm & rate is regular, Pedal edema is absent, JVD pressure is normal and Systolic murmur present
Respiratory: Respiratory effort normal, Lungs clear to auscul. and Wheeze Absent
GI: Soft, Non tender and Normal bowel sounds
Neuro/Psych: Alert, Oriented and AO x 3
Other: Cardiac Device Site
Data Reviewed
-
Date of Service: January 01, 2024
Medical Decision Making: Reviewed Test Results, Independent Historian Assessment, Test Interpretation and Review of Case with other Provider
EKG: Tracing Personally Visualized and interpreted
Echo: Report Reviewed by me
X-Ray/CT/US/MRI/NUC/PET: Image Personally Visualized and interpreted
Labs: Labs Reviewed by me
Old Records: Reviewed
--- NOTE | 2024-01-01 17:41 | ITS.CL.ICD ---
Drywall Applicator - ICD
Implantable Cardioverter Defibrillator
Procedure Report:
Implantable cardioverter defibrillator with conduction system (left Bundle Branch) pacing lead placement and removal of dislodged left bundle branch sales manager:
Indications:
Dislodged/fractured ICD lead with multiple inappropriate shocks with venous occlusion and loss of access from the left shoulder
Date of the Procedure: 01/01/24
Pre-Operative Diagnosis: Ventricular tachycardia with pacemaker dependency.
Post-Operative Diagnosis: Atrial fibrillation and with pacemaker dependency
Procedure Performed: IMPLANTABLE CARDIOVERTER DEFIBRILLATOR PLACEMENT WITH LEFT BUNDLE BRANCH PACING FOR CARDIAC RESYNCHRONIZATION THERAPY.
Performing physician:
Jt Ruffin MD
Anesthesia:
See anesthesia records
Detailed Description of the Procedure:
The patient was identified using hospital identification and informed consent obtained for the procedure. The risks were explained to the patient and the family including, but not limited to: Bleeding, infection, arrhythmia, stroke,
vascular/cardiac/lung puncture, surgery, pacemaker dependency/device malfunction. All questions were answered.
Anesthesia service provided sedation as reported separately. Antibiotics administered IV for risk of bacterial colonization. After obtaining informed and written consent, the patient was brought to the electrophysiology laboratory.
The initial rhythm was atrial fibrillation with paced rhythm
A timeout was performed immediately before the procedure. The left chest was prepped from the nipple to the angle of the jaw with chlorhexidine, and draped following sterile technique in usual routine.�
A surgical pause and time out was performed immediately prior to the procedure with review of her medical history, recent labs, allergies and medications with site of procedure identified and consent noted in the chart. Antibiotics pre operatively
given. All team members concurred.
The procedure site was meticulously prepared with surgical scrub and allowed to dry with no pooling. Sterile draping was applied to cover the procedure site. The image intensifier was draped with sterile bag and positioned over the patient.
Plan was made to implant ICD lead from the right side and tunneled the lead to the left side to be used for the previously placed ICD generator and embed in the old dislodged/fractured ICD lead.
The right and left infraclavicular regions were prepped and draped in the usual sterile fashion. Local anesthesia was administered subcutaneously using 1% lidocaine / Bupivacaine. �Using the prior incision line on the right shoulder, incision was
made and axillary vein was accessed using micropuncture apparatus. A guidewire was advanced to the inferior vena cava under fluoroscopy guidance.�
An ICD lead was placed from the right side to the right atrium and into the right ventricle and was secured to the apical septal location by engaging the active-fixation apparatus. Excellent sensing, impedance and thresholds were recorded.� This
lead was used for pacing while the left shoulder was prepped and device was accessed as following
The left shoulder previous incision was identified and local anesthesia was given with lidocaine/bupivacaine. The pocket of the ICD was accessed and the device was removed from the pocket. Patient's ICD lead was removed from the generator. The lead
was methodically pulled from the pocket to check for its movement from the tip and possibility of it coming out.� The ICD lead however was stuck and was not able to move.
While evaluating the fractured ICD lead, the left bundle branch sales manager tunneled from the right was noted to have low sensing and high threshold. The lead was checked under fluoroscopy and was noted to be dislodged. Luckily, by this time we already had
ICD lead in the RV and was paced continuously via the RV ICD lead.� With the dislodgment of left bundle branch sales manager as well, decision was made to extract the dislodged left bundle branch sales manager and remove the tunneled wire and place ICD on the right
side.�
The tunneled wire was able to be pulled out from the left to the right shoulder with traction/countertraction. The bundle branch sales manager was loose from the tiedown sleeves.� Sleeves were cut and the lead was removed successfully without any significant
movement to the ICD lead.
Patient's QRS was quite wide with ICD pacing and decision was made to replace the bundle branch/conduction system pacing lead for better cardiac resynchronization therapy.
Following infiltration with local anesthetic, the axillary vein was accessed under fluoroscopy and the venogram guidance using the micro-puncture apparatus. The guide wires were advanced to the inferior vena cava (IVC) under flouro guidance. The
guide wire was advanced to the RA and was advanced to the RV. The preformed curved long hemostatic peel away HIS sheath was advanced into the RV cavity. A left bundle pacing wire was advanced into the sheath to the tip with ventricular signals noted
with unipolar manner. The HIS location was identified under guidance of the flouroscopy and the pacing wire signals. The sheath with the pacing lead was moved deeper into the RV cavity on the septum at a more inferior and distal to the HIS signals.
Once adequate signals were noted on the electrograms of the pacing lead in the sheath with W pattern signals on the RV septum, the lead was advanced and clockwise turns were done under fluoroscopic guidance. The septum was engaged and the lead was
paced intermittently after every 2-3 turns. The Impedance of the lead was measured that remained stable around 1000 Ohm.
The ventricular capture was monitored throughout and the captures gradually changed from RV pacing to non-selective pacing to LBB pacing with R wave on V1.
With RBBB pattern noted on the pacing lead, it was decided to accept the location as optimal location. The long guiding sheath was cut and removed from the RV without change in lead position, impedance, sensing, or capture. The lead was sutured to
the underlying pectoralis fascia with 2-0 Ethibond stitches.
There was excellent sensing, pacing, and impedance from the leads, with no diaphragmatic stimulation at 10 V output.�Bovie cautery, antibiotics, and fluoroscopy were used.
The leads were attached to the pulse generator in standard configuration with acceptable sensing and threshold parameters. The pocket was irrigated with antibiotic solution; the pocket was inspected with no active bleeding noted. The device and the
leads were placed in the pocket.
A Tyrx pouch was placed around the device and the leads.
Deep subcutaneous tissues were closed with 3 layers of 2-0 V loc sutures; and the dermis was reopposed using a running 4-0 VLoc subcuticular suture. Sponge counts / sharp counts were appropriate.
Then the attention was diverted to left-sided pocket. The atrial lead was capped along with dislodged ICD lead heads were capped. The pocket was inspected and washed thoroughly with saline antibiotic soaked solution. A Tyrx pouch was installed
inside the pocket and leads were placed in between the pouch. The wound was closed in layers using 2-0 V-Loc sutures followed by 4�0 V-Loc sutures.
Procedure End:
The procedure was tolerated well. Aquacel bandaged was applied. A pressure dressing was applied.
Estimated Blood loss:
5 cc
Specimens Removed:
No cultures and no specimens were obtained. No intraoperative pathology was identified.
Urine output:
None
Packs / Drains/ Tubes:
None
Instrument / Sponge Count Correct:
Yes
Complications of the Procedure:
None
Condition of Patient at Time of Transfer:
Hemodynamically stable with no neurological or vascular compromise.
Device information:�
Generator:
����������� 4moms; Model: Acticor 7 [id number]�T -[id number]; Serial # [id number]
����������� Right ventricular ICD lead:
����������������������� Biotronik; Model: Plexa Pro MRI [id number]; Serial # [id number]
Measured data in the right atrium was sensing of 22.6 mV, impedance of 618 ohms and threshold of 0.5 V at 0.4ms�(Shock impedance at 98 ohm)
����������� LBB pacing lead:
����������������������� Medtronic; Model: 3830-69; Serial # [id number]
����������������������� Measured data on the RV lead was sensing of 19mV, impedance of 774 ohms and threshold of 1.0 V at 0.4ms
Atrial chamber of the generator was plugged.
Explanted device/leads:
Explanted device: Indica Mike-7 HF-T DF-1 I-S�1 ProMRI; Model #[id number]; serial #[id number];
����������� -Implanted 02/26/2023; explanted 01/01/2024
Dislodged left bundle branch sales manager: 3830�69; serial # [id number]
����������� -Implanted 07/10/2023; explanted on 01/01/2024
Abandoned /capped leads
Atrial lead: Biotronik; Setrox- S53; model #[id number]; serial #[id number]
����������� Implanted on 05/18/2014; capped on 01/01/2024 -left in the left shoulder pocket
ICD lead: Biotronik model: Linox smart S 65; serial number# [id number];
����������� Implanted on 05/18/2014; capped on 01/01/2024 -left in the left shoulder pocket
PROGRAMMING PARAMETERS:�
Brad parameter settings
����������� VVIR 70 -120 �
�����������
�
Summary:
Successful implantation of ICD implantation with conduction system pacing wire placement and removal of dislodged left bundle branch pacing lead with abandoned right atrial and right ventricular ICD leads.�
Results/Recommendations:
-Please follow up CXR�
1. Please provide patient with adequate pain control�
Instructions to be given to patient:�
- Please follow up with [facility] at [address] [place] [address] ([phone]) to get your wound checked in 2 weeks of your discharge. Then follow with
- Do not wet incision site until after it is evaluated at cardiology clinic. No baths or showers until then. Sponge baths / showers are OK but dab dry the dressing after it is wet.�
- Allow 'steri strips' to fall off on their own�
- Do not lift left elbow above shoulder, particularly with sudden jerking movements, for 1 month�
- Do not lift anything weighing more than 5 pounds with the left arm for 1 month�
- If you notice any fevers, shortness of breath, lightheadedness, chest pain, or worsening swelling in the wound site, please contact the arrhythmia clinic, contact your supervisor paper machine, or present to the hospital for evaluation.�
Jt Ruffin MD
Electrophysiology
[2024-01-01 18:40] LABS: Glucose - Point of Care 144 mg/dl (70-99)
[2024-01-01] MEDS: COUMADIN 4 MG PO (20:00)
--- NOTE | 2024-01-01 20:50 | PTCARENOTE ---
Pt. received at change of shift from EP lab post ICD placement. B/L steri strips, aquacell, pressure dressing in place. Immobilizer present on right side. No complaints of pain, just 'soreness at ICD placement'.Pt. AOx3. EKG completed reading
Vpaced. Pt. transported to [facility] around 1999. Pt. transported back to room with no issues. Last BP 91/66 with tele reading vpacing in the 70s. Pt. education completed about limited ROM with right arm. Pt. verbalizes understanding. Continuing to
monitor at this time.
[2024-01-01] MEDS: XALATAN OPHTHALMIC SOLUTION 1 DROP OPHTH (22:21)
[2024-01-02] VITALS (12 sets, daily range): BP systolic 80–103; BP diastolic 53–66; PULSE 70–80; O2SAT 92; BMI 29.8
[2024-01-02 04:35] LABS: Hematocrit 43.9 % (39.0-52.0); Hemoglobin 15.4 g/dL (13.0-18.0); Mean Corp Hgb Conc. 35.1 g/dL (33.0-37.0); Mean Corpuscular Hgb 31.6 pg (27.0-31.0); Mean Corpuscular Volume 90.1 fL (80.0-94.0); Mean Platelet Volume 9.8 fL (7.4-10.4); Platelet Count 170 10^3/uL (130-400); Red Blood Cell Count 4.87 10^6/uL (4.70-6.10); Red Cell Dist. Width 14.6 % (11.5-14.5); White Blood Cell Count 8.4 10^3/uL (4.8-10.8)
[2024-01-02 04:45] LABS: INR 1.61; PT 19.2 Sec (11.4-14.6)
[2024-01-02 04:56] LABS: Blood Urea Nitrogen 43 mg/dl (9-20); Calcium 9.5 mg/dl (8.4-10.2); Carbon Dioxide 16 mmol/L (22-30); Chloride 102 mmol/L (98-107); Estimated Creatinine Clearance 45 ml/min; Glucose 146 mg/dl (70-99); Magnesium 2.3 mg/dl (1.6-2.3); Phosphorus 5.5 mg/dl (2.5-4.5); Potassium 5.1 mmol/L (3.5-5.1); Sodium 137 mmol/L (135-145); eGFR 50.49
--- NOTE | 2024-01-02 07:22 | W.PN.HOSP.TC ---
Today's Communication/Plan
-
hold antihypertensives, reduced coreg as per cardio
cont warfarin
monitor bp
Assessment / Plan
Assessment / Plan
Physical Exam
General: Well Developed, Well Nourished and Comfortable
HEENT: NormoCephalic, Anicteric, Moist mucous membranes, Atraumatic, PERRLA and Oxygen
Respiratory: Clear and Crackles
Cardiac: S1/S2 and Irregular Rhythm
GI: Soft, Non Tender, Non Distended and Normal Bowel Sounds
Musculoskeletal: No Clubbing, No Cyanosis and Other (Trace bilateral lower extremity edema)
Skin: Warm and Dry
Neuro: Awake and AO x 3
Hematologic/Lymphatic: No Lymphadenopathy
Psych: Calm
83M HFrEF CAD stents VT afib Coumadin HTN p/w unexpected firing of AICD without appropriate trigger. AICD had to be deactivated in ED to stop the firing. Review of records showed about 13 firing events. No associate VT, VFIB or uncontrolled AFIB.
Reports mild dyspnea on exertion for about 2 weeks. Xray with increased interstitial markings but appears to be unchanged from prior. No recent chest pain, palpitations lightheadedness or dizziness. Reports that paceer rate was recently reduced
to 70.
PLAN:
# AICD - Firing - Device deactivated. Interrogation shows no VF/VT/ uncontrolled AFIB. Suspect lead malfunction per cardiology. Patient is otherwise well appearing,
#RV lead dislodgement
non-toxic and in no acute distress. Follow with EP here and at [facility].
- court recording monitor
- ECHO appreciated No significant change since the prior study of 11/26/2023 except the RV lead is no longer seen in the RV.
- cardiology consult appreciated s/p right sided ICD lead placement. Right sided new conduction system pacing wire placement 01/01/24.
- s/p extraction of the dislodged LBB pacer lead and tunneled wire.
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
- Now working ICD and LBB pacing from right shoulder.
# AFIB rate controlled
- continue coreg 12. bid
- warfarin held for lead revision, resumed following procedure as per Cardio
# CHF - CHF with depressed EF. Appears euvolemic with slight increased oxygen requirement. Possibly mild CHF.
- echo as above
- lasix 40mg po daily on hold d/t mild Cr elevation with associate hypotension
- continue GDMT w/ carvedilol and jardiance (valsartan aldactone placed on hold and coreg reduced d/t hypotension)
# TIA - History of TIA for which he was placed on plavix. Had recurrent transient vision loss. Improved since plavix started.
- continue plavix 75
#Acute Hypoxic Respiratory Failure
#Pulmonary Fibrosis
CT chest noted signs suggestive chronic pulmonary fibrosis
Home oxygen assessment noted desaturation on room air requiring 2L to maintain saturation at rest and ambulation (will repeat prior to discharge)
Patient eventually weaned off oxygen supplementation stable respiratory status on room air.
Pulm follow up recommended for outpt pulm function testing
DVT PPX - Warfarin
Code Status - Full Code
I spent a total of 50 minutes with the patient or on the floor. More than 50% of this time involved counseling and coordination of care.
Anticipated Discharge: 24 - 48 hours
Subjective/Interval History
-
Date of Service: January 02, 2024
Objective Data
-
Labs:
Laboratory Results
01/02/24
04:13
WBC 8.4
Hgb 15.4
Hct 43.9
Plt Count 170
PT 19.2 H
INR 1.61
Sodium 137
Potassium 5.1
Chloride 102
Carbon Dioxide 16 L
BUN 43 H
Creatinine 1.4 H
Glucose 146 H
Calcium 9.5
Vital Signs:
Vital Signs
Temp Pulse Resp BP Pulse Ox
97.4 F 71 18 93/62 90
01/02/24 07:01 01/02/24 04:30 01/02/24 07:01 01/02/24 03:41 01/02/24 07:01
I&O
01/01/24 01/02/24 01/03/24
06:59 06:59 06:59
Intake Total 920 / 920 840 / 840
Balance 920 / 920 840 / 840
[2024-01-02] MEDS: PLAVIX 75 MG PO (08:12)
[2024-01-02] MEDS: ALDACTONE 25 MG PO (08:12)
--- NOTE | 2024-01-02 08:12 | W.PN.CD ---
Today's Communication / Plan
-
- Device interrogation - done today
- ELIGIBILITY ANALYST-D is working well.
- Decrease Coreg and hold other antihypertensives overnight.
- Observe for a day with change in medications.
- Warfarin restarted.
Impression / Plan
-
ICD lead failure/ ICD shock.
- Inappropriate shock /Fractured / dislodged RV ICD lead -12/28/23
- s/p right sided ICD lead placement. Right sided new conduction system pacing wire placement 01/01/24.
- s/p extraction of the dislodged LBB pacer lead and the tunneled wire.
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
- Now working ICD and LBB pacing from right shoulder.
- Device interrogation today
- Potentially can be discharged.
- Avoid lawn mowing for a month along with routine restrictions.
ventricular tachycardia
- Previous VT ablation 2014
- AVJ ablation 06/2023 [facility]
Ischemic cardiomyopathy ejection fraction 25%
- NYHA class III
- s/p ELIGIBILITY ANALYST-D
.
A-fib. Permanent. Patient has AVJ ablation.
- Chronic anticoagulation with Coumadin
-Warfarin restated. INR is 1.6 today
-[id number] 5 (age greater than 75, hypertension, coronary artery disease, CHF)
.
CAD. Prior history of coronary stenting stable without angina continue current medical therapy
Ischemic cardiomyopathy. EF 30 to 35%
-Now with replaced new ELIGIBILITY ANALYST-D
-Continue current therapy
- On Coreg, valsartan, lasix and digoxin
- Has AVJ ablation and Dig is likely for weak inotropic effect.
- With hypotension over the last few days, will hold Lasix, aldactone and Valsartan for now.
- Restart Aldactone in 3 days. Restart at decreased Valsartan to 80 mg QD in a week.
- Coreg at 12.5 mg - Can decrease to 6.25 mg BID - has PVCs and hx of VT.
Physical Exam
Vital Signs/Labs
Vital Signs
Temp Pulse Resp BP Pulse Ox
97.4 F 71 18 93/62 90
01/02/24 07:01 01/02/24 04:30 01/02/24 07:01 01/02/24 03:41 01/02/24 07:01
01/01/24 01/02/24 01/03/24
06:59 06:59 06:59
Actual Weight 98.4 kg 99.6 kg
01/02/24 04:13
01/02/24 04:13
PT 19.2 Sec (11.4-14.6) H 01/02/24 04:13
INR 1.61 01/02/24 04:13
Magnesium 2.3 mg/dl (1.6-2.3) 01/02/24 04:13
12/28/23
23:47
Jxi-D-Llednrduxog Pept 4170
Physical Exam
Constitutional: No acute distress and Comfortable
EENT: Anicteric and Moist mucous membranes
Cardiovascular: Rhythm & rate is regular, Pedal edema is absent, JVD pressure is normal, Systolic murmur absent and Diastolic murmur absent
Respiratory: Respiratory effort normal, Lungs clear to auscul., Wheeze Absent and Crackles Absent
GI: Soft, Distention absent, Non tender and Normal bowel sounds
Neuro/Psych: Alert, Oriented, AO x 3 and Motor deficits absent
Other: Cardiac Device Site
Data Reviewed
-
Date of Service: January 02, 2024
Medical Decision Making: Reviewed Test Results, Tests Ordered, Independent Historian Assessment, Test Interpretation and Review of Case with other Provider
EKG: Tracing Personally Visualized and interpreted
X-Ray/CT/US/MRI/NUC/PET: Image Personally Visualized and interpreted
Medical Tests (PFT, Pathology etc): Discussed with Physician, Discussed with Nurse and Discussed with Patient
Labs: Labs Reviewed by me
Old Records: Reviewed
[2024-01-02] MEDS: COREG 12.5 MG PO (08:13)
[2024-01-02] MEDS: FARXIGA 10 MG PO (08:13)
[2024-01-02] MEDS: CRESTOR 5 MG PO (08:15)
[2024-01-02] MEDS: TRUSOPT 2% OPHTHALMIC SOLUTION 2 DROP BOTH EYES ×2 (08:16→19:07)
[2024-01-02] MEDS: LASIX PO (08:20)
--- NOTE | 2024-01-02 12:00 | CM ---
Chart reviewed. Patient is independent of ADLS, lives with his in a [address], 5 [address], 0 DME. Plan is for the patient to return home.
--- NOTE | 2024-01-02 16:17 | PTCARENOTE ---
Patient having low blood pressures, Dr. Ruffin is altering the antihypertensives. Pt is V paced on the monitor in the 60-70s. Bilateral chest aquacels CDI with scant drainage, no evidence of hematoma. No complaints from pt at this time. Call alonso
within reach.
[2024-01-02] MEDS: COUMADIN 5 MG PO (17:50)
--- NOTE | 2024-01-02 20:00 | PTCARENOTE ---
Pt. received at change of shift. Pt. assessed in room AOx3. No complaints of pain at this time. Aquacell covering on b/l shoulders. Tele reading v pacing. BP in the 80s-90s/60s. 8pm coreg HELD per MD order. Continuing to monitor the pt at this time.
[2024-01-02] MEDS: XALATAN OPHTHALMIC SOLUTION 1 DROP OPHTH (21:56)
[2024-01-03 03:33] VITALS: BP 100/75
[2024-01-03 03:34] VITALS: BMI 29.6
[2024-01-03 03:41] LABS: Hematocrit 41.9 % (39.0-52.0); Hemoglobin 14.6 g/dL (13.0-18.0); Mean Corp Hgb Conc. 34.8 g/dL (33.0-37.0); Mean Corpuscular Hgb 31.2 pg (27.0-31.0); Mean Corpuscular Volume 89.5 fL (80.0-94.0); Mean Platelet Volume 9.8 fL (7.4-10.4); Platelet Count 163 10^3/uL (130-400); Red Blood Cell Count 4.68 10^6/uL (4.70-6.10); Red Cell Dist. Width 14.5 % (11.5-14.5); White Blood Cell Count 13.4 10^3/uL (4.8-10.8)
[2024-01-03 03:49] LABS: INR 1.96; PT 22.1 Sec (11.4-14.6)
[2024-01-03 04:00] LABS: Blood Urea Nitrogen 57 mg/dl (9-20); Calcium 9.4 mg/dl (8.4-10.2); Carbon Dioxide 19 mmol/L (22-30); Chloride 99 mmol/L (98-107); Estimated Creatinine Clearance 42 ml/min; Glucose 116 mg/dl (70-99); Magnesium 2.3 mg/dl (1.6-2.3); Phosphorus 4.4 mg/dl (2.5-4.5); Potassium 4.6 mmol/L (3.5-5.1); Sodium 134 mmol/L (135-145); eGFR 46.48
--- NOTE | 2024-01-03 07:09 | W.PN.HOSP.TC ---
Today's Communication/Plan
-
discharge
Assessment / Plan
Assessment / Plan
Physical Exam
General: Well Developed, Well Nourished and Comfortable
HEENT: NormoCephalic, Anicteric, Moist mucous membranes, Atraumatic, PERRLA and Oxygen
Respiratory: Clear and Crackles
Cardiac: S1/S2 and Irregular Rhythm
GI: Soft, Non Tender, Non Distended and Normal Bowel Sounds
Musculoskeletal: No Clubbing, No Cyanosis and Other (Trace bilateral lower extremity edema)
Skin: Warm and Dry
Neuro: AO x 3
83M HFrEF CAD stents VT afib Coumadin HTN p/w unexpected firing of AICD without appropriate trigger. AICD had to be deactivated in ED to stop the firing. Review of records showed about 13 firing events. No associate VT, VFIB or uncontrolled AFIB.
Reports mild dyspnea on exertion for about 2 weeks. Xray with increased interstitial markings but appears to be unchanged from prior. No recent chest pain, palpitations lightheadedness or dizziness. Reports that paceer rate was recently reduced
to 70.
PLAN:
# AICD - Firing - Device deactivated. Interrogation shows no VF/VT/ uncontrolled AFIB. Suspect lead malfunction per cardiology. Patient is otherwise well appearing,
#RV lead dislodgement
non-toxic and in no acute distress. Follow with EP here and at [facility].
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
- ECHO appreciated No significant change since the prior study of 11/26/2023 except the RV lead is no longer seen in the RV.
- cardiology consult appreciated s/p right sided ICD lead placement. Right sided new conduction system pacing wire placement 01/01/24.
- s/p extraction of the dislodged LBB pacer lead and tunneled wire.
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
- Now working ICD and LBB pacing from right shoulder.
Hypotension
BP often noted systolic 80s 90s
Patient otherwise asymptomatic denies light headedness
Cardio eval appreciated stable for discharged on reduced meds and BMP early next week Tu
Per Cardio
-Coreg reduced to 6.25
-Aldactone to remain on hold at this time until renal function and BP are back to baseline
-Valsartan reduced to 80 mg QHS
-No digoxin until renal function back to baseline
-home Lasix to resume tomorrow
# AFIB rate controlled
- continue coreg 12. bid
- warfarin held for lead revision, resumed following procedure as per Cardio
# CHF - CHF with depressed EF. Appears euvolemic with slight increased oxygen requirement. Possibly mild CHF.
- echo appreciated as above
- lasix 40mg po daily on hold d/t mild Cr elevation with associate hypotension, to resume tomorrow following discharge as per Cardio
- continue GDMT w/ carvedilol, jardiance, valsartan (aldactone placed on hold, coreg and valsartan reduced d/t hypotension- as above)
# TIA - History of TIA for which he was placed on plavix. Had recurrent transient vision loss. Improved since plavix started.
- continue plavix 75
#Acute Hypoxic Respiratory Failure
#Pulmonary Fibrosis
CT chest noted signs suggestive chronic pulmonary fibrosis
Home oxygen assessment noted desaturation on room air requiring 2L to maintain saturation at rest and ambulation
Patient however since improved eventually weaned off oxygen supplementation stable respiratory status on room air, noted ambulating without issues SOB
Pt recommended to follow up with his nurse wound for repeat pulm function testing
DVT PPX - Warfarin
Code Status - Full Code
Medically stable for discharge home with home services and outpatient follow up recommendations
discussed with patient, patient's Jocelin, and Cardiology
Total Time Preparing Discharge ___50____ minutes including examination of the patient, summary of the hospital stay, instructions for continuing care to all relevant caregivers; and preparation of discharge records, prescriptions, and referral
forms if necessary.
Anticipated Discharge: Today
Subjective/Interval History
-
Date of Service: January 03, 2024
No acute distress. Appears comfortable sitting in chair. Very eager to go home. Frustrated with length of stay.
Objective Data
-
Labs:
Laboratory Results
01/03/24
03:29
WBC 13.4 H
Hgb 14.6
Hct 41.9
Plt Count 163
PT 22.1 H
INR 1.96
Sodium 134 L
Potassium 4.6
Chloride 99
Carbon Dioxide 19 L
BUN 57 H
Creatinine 1.5 H
Glucose 116 H
Calcium 9.4
Vital Signs:
Vital Signs
Temp Pulse Resp BP Pulse Ox
97.6 F 71 18 100/75 90
01/03/24 03:33 01/03/24 03:33 01/02/24 21:55 01/03/24 03:33 01/03/24 03:33
I&O
01/02/24 01/03/24 01/04/24
06:59 06:59 06:59
Intake Total 840 / 840
Balance 840 / 840
[2024-01-03 08:25] VITALS: BP 89/60
[2024-01-03 08:26] VITALS: BP 99/66
[2024-01-03] MEDS: PLAVIX 75 MG PO (08:39)
[2024-01-03] MEDS: TRUSOPT 2% OPHTHALMIC SOLUTION 2 DROP BOTH EYES (08:40)
[2024-01-03 11:47] VITALS: BP 85/68
[2024-01-03 11:48] VITALS: BP 91/58
--- NOTE | 2024-01-03 12:08 | W.PN.CD ---
Today's Communication / Plan
-
OK for home on reduced meds
BMP early next week
As BP returns to his baseline at home he will slowly resume usual doses of meds
For now
- Coreg 6.25 bid
- No Aldactone, resume when renal function at baseline and BP back to his baseline
- Valsartan 80 mg qhs
- No digoxin until renal function back to baseline
Impression / Plan
-
ICD lead failure/ ICD shock.
- Inappropriate shock /Fractured / dislodged RV ICD lead -12/28/23
- s/p right sided ICD lead placement. Right sided new conduction system pacing wire placement 01/01/24.
- s/p extraction of the dislodged LBB pacer lead and the tunneled wire.
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
- Now working ICD and LBB pacing from right shoulder.
- Device interrogation yesterday => good function
- Potentially can be discharged.
- Avoid lawn mowing for a month along with routine restrictions.
ventricular tachycardia
- Previous VT ablation 2014
- AVJ ablation 06/2023 [facility]
Ischemic cardiomyopathy ejection fraction 25%
- NYHA class III
- s/p [employer]
.
A-fib. Permanent. Patient has AVJ ablation.
- Chronic anticoagulation with Coumadin
-Warfarin restated. INR is 1.6 today
-[id number] 5 (age greater than 75, hypertension, coronary artery disease, CHF)
.
CAD. Prior history of coronary stenting stable without angina continue current medical therapy
Ischemic cardiomyopathy. EF 30 to 35%
-Now with replaced new [employer]D
-Continue current therapy
- On Coreg, valsartan, lasix and digoxin
- Has AVJ ablation and Dig is likely for weak inotropic effect.
-
MEDS decreased for asymptomatic low BP with plans to resume as he normalizes BP/Cr
Physical Exam
Vital Signs/Labs
Vital Signs
Temp Pulse Resp BP Pulse Ox
97.6 F 80 22 99/66 90
01/03/24 11:50 01/03/24 10:00 01/03/24 11:50 01/03/24 08:26 01/03/24 11:50
01/02/24 01/03/24 01/04/24
06:59 06:59 06:59
Actual Weight 99.6 kg 98.9 kg
01/03/24 03:29
01/03/24 03:29
PT 22.1 Sec (11.4-14.6) H 01/03/24 03:29
INR 1.96 01/03/24 03:29
Magnesium 2.3 mg/dl (1.6-2.3) 01/03/24 03:29
12/28/23
23:47
[id number] Pept 4170
Physical Exam
Constitutional: No acute distress
EENT: Anicteric
Cardiovascular: Rhythm & rate is regular and Pedal edema is absent
Respiratory: Respiratory effort normal and Lungs clear to auscul.
GI: Soft and Distention absent
Other: Cardiac Device Site (normal no hematoma or bleed)
Data Reviewed
-
Date of Service: January 03, 2024
--- NOTE | 2024-01-03 13:25 | W.DCSUMMARY ---
Discharge Summary
Discharge Data
Date of Admission: 12/29/23
Date of Discharge: 01/03/24
-
Pending Results: No
Discharge Plan
-
Patient Disposition: Home with Home Care
Discharge Diagnosis/Procedures: ICD implant malfunction repair/replacement/adjustment as per Cardiology
History Ventricular Tachycardia
Coronary Artery Disease
Mild Hypermagnesemia resolved
Hypotension
Heart Failure with reduced ejection fraction
Atrial Fibrillation
Acute Hypoxic Respiratory Failure Resolved
Pulmonary Fibrosis
Condition: Fair
Diet: Low Cholesterol and 2 Gram Sodium
Activity: With Walker and No strenuous activity
Driving Restrictions: No driving for 1 week
Bathing Restrictions: OK to Shower
Blood Work: Repeat BMP with Cardiology Tu01/06/24
Others Tests: Please follow up with your denture technician in 2-4 weeks of discharge for repeat pulmonary function testing
Other Services: PT
Specialty Instructions: Weigh Daily- Call MD for wt gain/loss 3 lbs overnight/5 lbs in 1 week
Activity Restrictions/Additional Instructions:
Please keep your appointment with Cardiology and follow up wiht your primary care provider in 1 week of discharge and Calender Worker Helper in 2-4 weeks of discharge.
Coreg and Valsartan have been reduced due to hypotension as per Cardio.
Digoxin and Aldactone have been placed on hold due to mild acute kidney injury
Magnesium supplementation has been discontinued as your Magnesium level has been consistently within normal limits without it. Further Mg was slightly elevated on admission, improved with discontinuation Magnesium supplement.
Please take medications as prescribed/recommended and follow up with primary care provider and/or other healthcare provider involved in your care for further adjustments to your medication regimen as necessary.
Please keep a daily log of your pressures at home to present on follow up visits with Cardiology for further adjustment blood pressure medications as necessary.
Stand Alone Forms: DC Inst - Implanted Device
Referrals:
Mendel Parks DO [Family Provider] - in one week
Conor Davenport MD [Active] - 01/20/24 2:20 pm
Additional Discharge Medication Instructions: Magnesium supplementation discontinued due to mild hypermagnesemia
Prescriptions:
New
carvedilol 12.5 mg Tablet
6.25 mg PO BID 30 Days Qty: 30 0RF
valsartan 80 mg Tablet
80 mg PO HS 30 Days Qty: 30 0RF
Continued
Jardiance 10 mg
10 mg PO DAILY
Lasix 40 mg
40 mg PO DAILY
Plavix 75 mg
75 mg PO DAILY
dorzolamide
2 drp BOTH EYES BID
latanoprost
1 drp BOTH EYES ONCE PM
rosuvastatin 5 mg
5 mg PO QMWF
warfarin 4 mg
4 mg PO [id number]
warfarin 5 mg
5 mg PO QMWF
Held
digoxin 125 mcg
125 mcg PO DAILY
Hold Instructions: Follow up with Cardiology to determine when safe to resume and/or if further adjustment is necessary.
spironolactone 25 mg
25 mg PO DAILY
Hold Instructions: Follow up with Cardiology to determine when safe to resume and/or if further adjustment is necessary.
Discontinued
Coreg 12.5 mg
12.5 mg PO BID
magnesium 400 mg
400 mg PO QHS
valsartan 160 mg
160 mg PO QHS
Discharge Orders:
Discharge Patient (As Directed); Ordered 01/03/24
Ordered By: Ashwini Souza
Care Plan Goals
Care Plan Goals:
Problem: Readiness for enhanced knowledge related to diagnosis and treatment plan
Goal: Understand your diagnosis and treatment plan needs, including medications if applicable.
Instructions: Know your diagnosis, underlying causes and treatment plan options, including medications if applicable. Consult with your health care team to learn about your diagnosis and treatment plan, including medications if applicable.
Discharge Date and Time
Print Language: ICELANDIC
[2024-01-03 14:51] VITALS: BP 101/71
--- NOTE | 2024-01-03 15:26 | PTCARENOTE ---
d/c instructions read to pt and pt verbalized understanding. iv and tele removed. pt left via wheelchair with staff member. all belongings from room with pt.
== END 2024-01-03 15:28 | disposition home or self-care (01) | DRG 265 ==
LOC: IVU 03:27
PROVIDERS: Internal Medicine Cardiovascular Disease; ADMITTING PHYSICIAN Internal Medicine; ATTENDING PHYSICIAN Internal Medicine; CONSULT PHYSICIAN Internal Medicine Cardiovascular Disease; EMERGENCY PHYSICIAN Emergency Medicine; FAMILY PHYSICIAN Family Medicine
PROC: 4B02XTZ Measurement of Cardiac Defibrillator, External Approach (ICD-10-PCS; 2023-12-29)
PROC: 02PA3MZ Removal of Cardiac Lead from Heart, Percutaneous Approach (ICD-10-PCS; 2024-01-01)
PROC: 02H63KZ Insertion of Defibrillator Lead into Right Atrium, Percutaneous Approach (ICD-10-PCS; 2024-01-01)
PROC: 02HK3KZ Insertion of Defibrillator Lead into Right Ventricle, Percutaneous Approach (ICD-10-PCS; 2024-01-01)
PROC: 02HL3KZ Insertion of Defibrillator Lead into Left Ventricle, Percutaneous Approach (ICD-10-PCS; 2024-01-01)
DX: T82.190A Other mechanical complication of cardiac electrode, initial encounter (principal); J96.01 Acute respiratory failure with hypoxia; I45.2 Bifascicular block; I48.21 Permanent atrial fibrillation; I50.22 Chronic systolic (congestive) heart failure; I82.B11 Acute embolism and thrombosis of right subclavian vein; I47.20 Ventricular tachycardia, unspecified; I25.10 Atherosclerotic heart disease of native coronary artery without angina pectoris; I11.0 Hypertensive heart disease with heart failure; I25.5 Ischemic cardiomyopathy; Y71.2 Prosthetic and other implants, materials and accessory cardiovascular devices associated with adverse incidents; E78.00 Pure hypercholesterolemia, unspecified; I77.810 Thoracic aortic ectasia; E83.41 Hypermagnesemia; I95.9 Hypotension, unspecified; J84.10 Pulmonary fibrosis, unspecified; Z79.01 Long term (current) use of anticoagulants; Z79.02 Long term (current) use of antithrombotics/antiplatelets; Z79.899 Other long term (current) drug therapy; Z86.73 Personal history of transient ischemic attack (TIA), and cerebral infarction without residual deficits; Z87.891 Personal history of nicotine dependence; Z95.5 Presence of coronary angioplasty implant and graft; Z95.810 Presence of automatic (implantable) cardiac defibrillator
CPT/HCPCS: 93308; 33241; 33244; 33249; 36005; 71045; 71046; 71250; 75825; 80048; 80053; 82962; 83735; 83880; 84100; 84484; 85025; 85027; 85610; 86850; 86900; 86901; 93005; 93289; 93321; 93325; 97116; 97162; 97166; 99285; C1769; C1777; C1882; C1887; C1892; C1898; Q9967

== ENCOUNTER 2024-02-01 04:17 | Inpatient (IN) | payer MEDICARE, OTHER, SELFPAY ==
[2024-01-31 21:36] VITALS: BP 109/74; BMI 29.9
[2024-01-31 22:00] VITALS: BP 97/78
[2024-01-31 22:04] LABS: % Basophils 0.1 % (0-2); % Eosinophils 0.5 % (0-6); % Immature Granulocytes 0.4 % (0-0.5); % Lymphocytes 7.3 % (20.5-51.1); % Monocytes 8.1 % (1.7-9.3); % Neutrophils 83.6 % (42.2-75.2); Absolute Eosinophils 0.1 10^3/uL (0-0.7); Absolute Immature Granulocytes 0.1 10^3/uL (0-0.05); Absolute Lymphocytes 1.1 10^3/uL (1.2-3.4); Absolute Monocytes 1.2 10^3/uL (0.1-0.6); Absolute Neutrophils 12.6 10^3/uL (1.4-6.5); Hematocrit 43.6 % (39.0-52.0); Hemoglobin 15.1 g/dL (13.0-18.0); Mean Corp Hgb Conc. 34.6 g/dL (33.0-37.0); Mean Corpuscular Hgb 31.8 pg (27.0-31.0); Mean Corpuscular Volume 91.8 fL (80.0-94.0); Mean Platelet Volume 9.8 fL (7.4-10.4); Nucleated Red Blood Cells % 0 % (-); Platelet Count 190 10^3/uL (130-400); Red Blood Cell Count 4.75 10^6/uL (4.70-6.10); Red Cell Dist. Width 15.5 % (11.5-14.5)
[2024-01-31 22:12] LABS: PT 37.5 Sec (11.4-14.6)
[2024-01-31 22:19] LABS: COVID-19 Antigen Negative (Negative)
[2024-01-31 22:19] LABS: B.E. -0.7 mmol/L; HCO3 21.6 mmol/L (21-28); PCO2 29 mmHg (35-48); PO2 103 mmHg (83-108); pH 7.48 (7.35-7.45)
--- NOTE | 2024-01-31 22:22 | ED.GENMED ---
History of Present Illness
General
Chief Complaint: Breathing Problem
Source: patient, spouse and previous hospital records (Recent hospitalization 1 month ago, December 27 to January 02 due to recurrent AICD discharge)
Exam Limitations: none
Time Seen by Provider: 01/31/24 22:02
Nursing documentation reviewed up to this point in time: agreed with
History of Present Illness
History of Present Illness:
This is an 83-year-old gentleman who resides at home with his . He has a history of permanent A-fib, chronically maintained on Coumadin, history of cardiomyopathy with AICD in place, history of interstitial lung disease/pulmonary fibrosis, PTCA
with stents, hyperlipidemia, hypertension. Recently hospitalized 1 month ago due to abnormal recurrent AICD firing which was found to be related to RV lead disruption. A new RV lead was placed. During that hospitalization he was noted to have
persistently low blood pressure and medications were adjusted including reduced dose of Coreg to 6.25 mg, reduce dose of valsartan to 80 mg and Aldactone was held. He continues with regular Lasix 40 mg daily.
He had been feeling fairly well but complains of some sinus congestion over the past several days with progressive shortness of breath over the past 3 days, much worse tonight prompting call to 911. Upon EMS arrival initial room air pulse ox of
70%, with brief exertion pulse ox dropped precipitously to 50%. He was placed on nonrebreather mask and given DuoNeb nebulizer en route with marked improvement in dyspnea.
He has been compliant with daily weights and states his weight has been dropping over the past month, perhaps 5 to 10 pound weight loss.
He denies fever nor chills, no leg pain nor swelling, no chest pain nor palpitations.
He does not require home oxygen.
Past History
Past History
ED Past Medical History: Arrthythmia (Permanent atrial fibrillation; V. tach), CAD, CHF, HTN and Hypercholesterolemia
ED Past Surgical History: Cardiac (AICD placement x 2 most recently February 2023; PTCA with stents) and Other (Hernia repair)
Social History
Tobacco: Non-smoker
Alcohol: None
Personal:
Living: with family
Employment: Retired
Family History
Family History: Other (Noncontributory)
Phy Exam
Physical Exam
Physical Exam:
GENERAL: 83-year-old gentleman appears his stated age, awake and alert, appears in mild to moderate respiratory distress but mentating normally, bright and alert, able to speak in full sentences. is accompanying.
EYE: pupils equal and reactive. anicteric
NECK: Supple, nontender, no meningismus, no significant adenopathy. Mild JVD.
ENT: oral mucosa is dry. Mildly boggy turbinates without rhinorrhea. Nonrebreather mask in place.
CARDIAC: Regular rate and rhythm with occasional ectopy. 2/6 holosystolic murmur left dental border
LUNGS: Mild resting tachypnea with coarse rales throughout
ABDOMEN: Soft, nondistended, without focal tenderness
NEUROLOGICAL: Alert and oriented x3, no focal neuro deficits.
SKIN: Warm and dry, normal color, skin intact. No rash.
MUSCULOSKELETAL: No C/C/E. peripheral pulses are full and equal b/l. No palpable tenderness.
PSYCH: Normal and appropriate interaction.
Scores
Heart Failure Risk
Heart Failure Risk Score: Yes
History of Stroke or TIA: No
History of intubation for respiratory distress: No
Heart rate on ED arrival >/= 110: No
SaO2 <90% on arrival on room air: Yes
HR >/=110 during 3min walk test (or too ill to perform test): Yes
ECG has acute ischemic changes: No
Urea >/=12mmol/L (BUN 33.6mg/dL): No
Serum CO2>/=35mmol/L: No
Troponin I or T elevated to [place] Level (0.4mg/dL): No
NT-proBNP >/=5,000ng/L (5,000pg/ml): Yes
HF Risk Score: 4
Admission Status: HIGH RISK 26.1% Consider SNF treatment or admission to hospital
Course
Orders/Labs/Results
Orders:
Orders
01/31/24 21:35
Electrocardiogram (*1) Urgent
Reason for Study: Other
Other Reason for Exam: Respiratory Distress
Cardiac Monitoring- Treatment ONCE
EKG- Treatment ONCE
IV Insert/Care/Rem.- Treatment PRN
O2 Therapy [RESP] Urgent
Titrate/Wean O2 to maintain O2 sat greater than (%): 93
Special Instructions: TO MAINTAIN CONTINUOUS O2 SATS >/= 93%
Pulse Ox/cont/shift [RESP] Urgent
Quantity: 1
Special Instructions: continuous pulse ox
01/31/24 21:36
Interrogate Pacemaker- Treatment ONCE
01/31/24 21:52
COVID-19 Antigen Urgent
Source: Nasal Swab
Complete Blood Count/With Diff Urgent
Prothrombin Time Urgent
Influenza A+B Rapid Molecular Urgent
SIM Source: Nasal Swab
Specimen Description:
01/31/24 21:53
Add On- LAB Urgent
Tests Added?: pt/inr
01/31/24 21:55
Portable Chest Xray [CR Chest Portable - 1 View] Urgent
Comment:
Reason For Exam: sob, coto
Reason Study Needs to be Portable: Patient Unstable
01/31/24 22:09
ABG [Arterial Blood Gas] Urgent
%Oxygen/Room Air: 100
Comment: 15L non-rebreather
01/31/24 22:34
Comprehensive Metabolic Panel Urgent
NT-proBNP Urgent
Troponin I Urgent
01/31/24 23:46
Furosemide [Lasix] 40 mg IV NOW STA
01/31/24 23:47
Procalcitonin Urgent
PCT Algorithmm Indication: Respiratory
02/01/24 03:04
Admit/Transfer Patient As Directed
Co-Sign Provider:
Level of Care: Inpatient admission
Assign to:: IMU- Intermediate Care
Physician / Group: Krishna
Diagnosis: Acute Hypoxemic Respiratory Failure
Reason for Hospitalization: Acute Hypoxemic Respiratory Failure
Expected length of stay greater than two midnights?: Yes
ELOS- Estimated Length of Stay in days: 3
I certify the patient meets the requirements for IP care: Yes
PRN Pain Medication Management As Directed
May give lesser potent ordered pain med per pt: Yes
preference::
Protocol:: Medication orders for pain may be administered in a
manner that supports deferring to patient preference
when the pt is:
- Requesting an ordered lesser potent pain medication.
Least to most potent pain medications are defined
as: acetaminophen < NSAID < tramadol < opioids
(morphine, oxycodone, hydromorphone).
- Requesting a lesser dose of the same medication IF
ORDERED.
- Requesting a less intrusive route of administration
if both routes are prescribed by the provider (PO <
IV).
02/01/24 03:05
Code Status As Directed
Resuscitation Status: Do not resuscitate
Reached after discussion with pt or family/Healthcare POA: Yes
02/01/24 03:06
DNR Bracelet Application ONCE
02/01/24 04:21
Acetaminophen [Tylenol] 650 mg PO Q4HPRN PRN
02/01/24 04:21
CARDIOLOGY CONSULT Routine
Consulting Provider: Wang Mcclain
Was physician already notified: No
Reason for consult: CHF
Consult Notification Routine
Specialty to Notify: Cardiology
Date consulting provider notified: 02/01/24
Time consulting provider notified: 07:07
Notified:: Provider
Consult Notification Routine
Specialty to Notify: Pulmonary
Date consulting provider notified: 02/01/24
Time consulting provider notified: 07:07
Notified:: Provider
PULMONARY CONSULT Routine
Consulting Provider: Yolanda Santamaria
Was physician already notified: No
Reason for consult: Acute Hypoxemic Respiratory Failure
Activity As Directed
Activity Level: Ambulate
With Assistance
Bladder Scan As Directed
Follow Bladder Retention/Intermittent Cath Algorithm?: Yes
PRN if no void in __ hours: 6
Frequency: Per Retention Algorithm
If Bladder Scan Result >: 400
then:: Straight cath
EKG with chest pain [ECG as needed] As Directed
ECG as needed for:: Chest Pain
I/O [Intake/ Output] As Directed
Frequency: Per unit guidelines
Orthostatic Vital Signs As Directed
Orthostatic VS Frequency: BID
Pneumatic Compression Sleeves As Directed
Type: Knee high
Straight Cath As Directed
Frequency: Per Retention Algorithm
Additional Instructions: straight cath as needed per acute urinary retention algorithm for 24 hrs
Additional Instructions: for bladder scan greater than 400 mL
Vital Signs As Directed
Frequency: Per unit guidelines
Weight As Directed
Frequency: Daily
Oxygen Therapy [O2 Therapy] [RESP] Routine
Titrate/Wean O2 to maintain O2 sat greater than (%): 94
Ot Eval And Treat Routine
PT Consult [Pt Eval And Treat] Routine
Activity Level: Ambulate
With Assistance
DX Deep Vein Thrombosis Video Routine
02/01/24 04:42
Basic Metabolic Panel IN AM
Complete Blood Count/No Diff IN AM
Prothrombin Time IN AM
Troponin I Q6H
02/01/24 Breakfast
Regular
At Your Request: Full Participation
Fluid Restriction: 1440 mL/day (48 oz)
02/01/24 08:00
Carvedilol [Coreg] 6.25 mg PO BID
Clopidogrel Bisulfate [Plavix] 75 mg PO DAILY
Furosemide [Lasix] 40 mg IV DAILY
02/01/24 10:21
Troponin I Q6H
02/01/24 16:21
Troponin I Q6H
02/01/24 18:00
Warfarin [Coumadin] 4 mg PO DAILY@1800
02/02/24 06:00
Prothrombin Time IN AM
02/02/24 20:00
Rosuvastatin Calcium [Crestor] 5 mg PO MoWeFr@2000
02/03/24 06:00
Prothrombin Time IN AM
02/04/24 06:00
Prothrombin Time IN AM
Abnormal Lab Results
01/31/24 01/31/24 01/31/24
21:52 22:09 22:34
WBC 15.0 H 10^3/uL
(4.8-10.8)
MCH 31.8 H pg
(27.0-31.0)
RDW 15.5 H %
(11.5-14.5)
Abs Immat Gran (auto) 0.1 H 10^3/uL
(0-0.05)
Absolute Neuts (auto) 12.6 H 10^3/uL
(1.4-6.5)
Absolute Lymphs (auto) 1.1 L 10^3/uL
(1.2-3.4)
Absolute Monos (auto) 1.2 H 10^3/uL
(0.1-0.6)
Neutrophils % 83.6 H %
(42.2-75.2)
Lymphocytes % 7.3 L %
(20.5-51.1)
PT 37.5 H Sec
(11.4-14.6)
pH 7.48 H
(7.35-7.45)
pCO2 29 L mmHg
(35-48)
ABG O2 Sat (Measured) 99.0 H %
(94-98)
Carbon Dioxide 20 L mmol/L
(22-30)
BUN 25 H mg/dl
(9-20)
Glucose 120 H mg/dl
(70-99)
Total Bilirubin 4.2 H mg/dl
(0.2-1.3)
Alkaline Phosphatase 136 H U/L
(38-126)
01/31/24 21:52
01/31/24 22:34
Vital Signs
Initial and Last Documented VS:
Initial Vital Signs
Temp Pulse Resp BP Pulse Ox
98.4 F 76 30 109/74 94
01/31/24 21:36 01/31/24 21:36 01/31/24 21:36 01/31/24 21:36 01/31/24 21:36
Last Documented Vital Signs
Temp Pulse Resp BP Pulse Ox
98.6 F 80 23 91/63 92
02/01/24 04:27 02/01/24 06:03 02/01/24 06:03 02/01/24 06:03 02/01/24 06:03
MDM/Problems Addressed
Differential Diagnosis Includes:
Concern for acute on chronic CHF, acute exacerbation of interstitial lung disease, pneumonia.
Chronically maintained on Coumadin, INR has remained therapeutic, PE is unlikely.
[employer] ICD interrogated and I have spoken with [employer] rep who knows this patient well. Thoracic impedance unchanged from 1 month ago and with patient's reported weight loss, CHF is less likely but still consideration.
[employer] rep notes interventricular pacing at only 76% ideally this should be closer to 100%.
Patient's blood pressure in the 90s, remains somewhat soft and apparently this was an issue during most recent hospitalization. He continues to deny dizziness nor lightheadedness. Due to concern for acute CHF, ongoing hypotension, pacing rate
increased from 70-80.
Due to severe acute hypoxic respiratory failure, patient will require acute hospitalization for further evaluation and stabilization.
Chronic conditions affecting care: CAD, Cardiomyopathy, Arrhythmia, COPD (Interstitial lung disease) and Kidney disease (Chronic kidney disease stage III)
*Radiology
Radiology exam reviewed: preliminary read by ED provider (Chest x-ray shows severe interstitial lung disease overall similar to previous film last month.)
*Pulse Oximetry
Patient hypoxic: yes
*EKG
Interpreted by ED Provider?: Yes
Interpretation: abnormal
Comparison EKG: no changes
Rate: normal
Rhythm: ventricular paced
*Primer Powder Blender Wet Interpretation
Rate: normal
Rhythm: ventricular paced
*Critical Care Note
Total Time (30-74mins, 75-104mins- exclusive of procedures): 30
comment:
Critical care statement: A total of 30 minutes of critical care time was provided for this patient. This includes management of unstable vital signs, evaluation of the patient at bedside, reviewing the patient's pertinent medical records, discussion
with consultants, review of old EKGs and review of pertinent medical records. This time with separate from time utilized to perform the aforementioned documented procedures
Update Note
Update Note:
Patient resting comfortably on nonrebreather mask.
ABG shows mild respiratory alkalosis with normal bicarb, pO2 on nonrebreather of 103.
BNP is elevated at 6400, has trended up from last month of 4000.
INR is slightly supratherapeutic at 3.8.
White blood cell count has trended up from twelve 1 month ago to 15. He continues to have no significant cough and remains afebrile. Due to elevated white blood cell count 13 is some concern for pneumonia but will check procalcitonin.
Due to uptrend in BNP, reduced EF, concern for CHF and will give an IV dose of Lasix 40 mg now.
Will admit to hospitalist service.
ED Attending Note
-
Portions of this chart may have been created with voice recognition software.� Occasional wrong word or��sound alike� substitutions may have occurred due to the inherent limitations of voice recognition software.
Discharge Plan
Departure
Patient Disposition: Admit
Date of Disposition: 01/31/24
Time of Disposition: 23:54
Admit to: IMU
Admit to doctor: Krishna
Presentation/result/management discussed w/ accepting MD/DO: Hospitalist
Condition: Serious
Discharge Problem:
Acute hypoxemic respiratory failure
Interventions
Interventions:
*Risk Screen - Suicide Last Done: 01/31/24 21:36
*General Assessment Last Done: 01/31/24 21:36
*Neglect/Abuse Screening Last Done: 01/31/24 21:36
*ED COVID-19 Vaccine History Last Done: 01/31/24 21:36
*Nursing Disposition Last Done: 02/01/24 04:24
ED- Cardiac Assessment Last Done: 01/31/24 22:30
ED- Pulmonary Assessment Last Done: 01/31/24 22:30
Discharge Date and Time
Discharge Date/Time: 02/01/24 04:24
[2024-01-31 23:00] VITALS: BP 91/58
[2024-01-31 23:00] LABS: ALT (SGPT) 21 U/L (0-50); AST (SGOT) 32 U/L (17-59); Albumin 4.1 g/dl (3.5-5.0); Alkaline Phosphatase 136 U/L (38-126); Blood Urea Nitrogen 25 mg/dl (9-20); Calcium 9.4 mg/dl (8.4-10.2); Carbon Dioxide 20 mmol/L (22-30); Chloride 105 mmol/L (98-107); Estimated Creatinine Clearance 64 ml/min; Glucose 120 mg/dl (70-99); Potassium 3.8 mmol/L (3.5-5.1); Sodium 142 mmol/L (135-145); Total Bilirubin 4.2 mg/dl (0.2-1.3); Total Protein 6.5 g/dl (6.3-8.2); eGFR > 60.00
[2024-01-31 23:03] LABS: Troponin I 0.014 ng/ml
[2024-01-31 23:26] LABS: NT-proBNP 6430 pg/ml
[2024-02-01] VITALS (26 sets, daily range): BP systolic 82–111; BP diastolic 56–79; PULSE 80–87; O2SAT 96–97; BMI 28.9
[2024-02-01] MEDS: LASIX 40 MG IV ×2 (00:02→09:14)
--- NOTE | 2024-02-01 03:10 | HPS.HSE ---
Family Physician
-
Family Physician: Mendel Parks
Chief Complaint
-
SOB
History of Present Illness
Patient is an 83y M with PMH significant for ASCVD, CHFrEF and pulmonary fibrosis who presents to ED complaining of SOB. Patient states that he has been feeling SOB with activity since Friday. His symptoms have gradually increased since that
time and this evening became severe. He called 911 and when EMS arrived his SpO2 was in the 70s on room air. Patient was brought to the ED for further evaluation. he has bene placed on NRB mask and his O2 saturations are in the mid-90s. He feels
improved from admission. Patient denies any symptoms of chest pain / pressure, palpitations, nausea, etc.
Patient was recently admitted (12/28 - 01/02) for ICD malfunction and repeated firing. He had revision / replacement of RV lead with resolution of this issue.
During that hospital stay, patient had borderline hypotension. His medications were adjusted including decreased doses of carvedilol and losartan and holding of spironolactone.
Patient states that he has lost about 5 pounds since that hospital stay. He denies any LE swelling / edema.
He denies any cough, fevers / chills or other new symptoms.
Medical History
Past Medical History
Past Medical History: Reports Other
Additional Past Medical History:
ASCVD
Chronic HFrEF (35%)
Pulmonary Fibrosis / ILD
Permanent Atrial Fibrillation
Ventricular Tachycardia
Past Surgical History: Reports Other
Additional Past Surgical History:
Thoracotomy
ICD Placement / Lead Changes
Hernia Repair
VT Ablations
Cataracts
Social History
Tobacco: Former Smoker
Alcohol: None
Drug: None
Family History
Family History: Not pertinent
Allergies / Home Medications
Allergies reflects when Allergies were last updated in [facility].
Home Medications with original date entered in [facility]
Allergy/Medication List:
Allergies
Allergy/AdvReac Type Severity Reaction Status Date / Time
Cephalosporins Allergy Nausea / Verified 01/01/24 17:36
Vomiting
latex Allergy Blisters Verified 12/30/23 18:35
penicillin G Allergy Nausea / Verified 01/01/24 17:36
Vomiting
Penicillins Allergy Nausea / Verified 01/01/24 17:36
Vomiting
Home Medications
carvedilol 12.5 mg tablet 6.25 mg (1/2 x 12.5 mg) PO BID 30 days #30 tabs 01/03/24
valsartan 80 mg tablet 80 mg PO HS 30 days #30 tabs 01/03/24
clopidogrel 75 mg tablet 75 mg PO DAILY 01/31/24
dorzolamide 2 % eye drops 2 drp ophthalmic (eye) DAILY 01/31/24
empagliflozin 10 mg tablet (Jardiance) 10 mg PO DAILY 01/31/24
furosemide 40 mg tablet 40 mg PO DAILY 01/31/24
latanoprost 0.005 % eye drops 1 drp ophthalmic (eye) QPM 01/31/24
rosuvastatin 5 mg tablet 5 mg PO MOWEFR 01/31/24
warfarin 4 mg tablet 4 mg PO SUTUTHSA 01/31/24
warfarin 5 mg tablet 5 mg PO MOWEFR 01/31/24
Review of Systems
-
History Source: Patient
A 12 point ROS was completed and negative except as noted: Yes
Constitutional: Reports Weight Loss and Fatigue; Denies Fever or Chills
EENT: Denies Sore Throat
Respiratory: Reports Trouble Breathing; Denies Cough
Cardiac: Denies Chest Pain or Palpitations
Abdomen/GI: Denies Abdominal Pain, Nausea, Vomiting or Diarrhea
: Denies Dysuria, Frequency or Flank Pain
Musculoskeletal: Denies Edema
Neurological: Denies Dizzy or Headache
Psych: Denies Depression or Anxiety
Physical Exam
Vital Signs
Vital Signs
Temp Pulse Resp BP Pulse Ox
98.4 F 80 8 95/61 97
01/31/24 21:36 02/01/24 02:00 02/01/24 02:00 02/01/24 02:00 02/01/24 02:00
Physical Exam
General: Other (83y M in no acute distress with NRB mask in pace.)
HEENT: Moist mucous membranes, PERRLA and Other (No JVD, Pos HJR.)
Respiratory: Other (Diffuse rales in all lung ang. No wheeze / rhonchi.)
Cardiac: S1/S2 and Regular Rhythm; No Murmur
GI: Soft, Non Tender, Non Distended and Normal Bowel Sounds
Musculoskeletal: No Clubbing, No Cyanosis and No Edema
Neuro: AO x 3
Laboratory Results
-
01/31/24 21:52
01/31/24 22:34
Laboratory Results
PT 37.5 Sec (11.4-14.6) H 01/31/24 21:52
INR 3.80 01/31/24 21:52
pH 7.48 (7.35-7.45) H 01/31/24 22:09
pCO2 29 mmHg (35-48) L 01/31/24 22:09
pO2 103 mmHg (83-108) 01/31/24 22:09
HCO3 21.6 mmol/L (21-28) 01/31/24 22:09
Total Bilirubin 4.2 mg/dl (0.2-1.3) H 01/31/24 22:34
AST 32 U/L (17-59) 01/31/24 22:34
ALT 21 U/L (0-50) 01/31/24 22:34
Alkaline Phosphatase 136 U/L (38-126) H 01/31/24 22:34
Troponin I 0.014 ng/ml 01/31/24 22:34
Impression/Plan
-
A/P: Patient is an 83y M with PMH significant for ILD and CHF who presents to ED complaining of SOB.
Acute Hypoxemic Respiratory Failure
- Admit to IMU for further evaluation and treatment.
- Suspect that this is multifactorial - see individual issues as noted below.
- Continue supplemental O2 support and wean off / down as able.
- Follow for any new / worsening symptoms.
Acute on Chronic HFrEF
- Last EF (12/2023) estimated at 35% with RV dilation / hypokinesis.
- Pos HJR on exam and recent med changes include cessation of spironolactone.
- However, patient states that his weight has gone DOWN since last hospital stay.
- IV Lasix x 1 given in the ED. Will continue with IV dose daily for now and follow I/Os, daily weights, etc.
- Follow for continued clinical improvement.
- Cardiology evaluation for additional recommendations.
ILD
- Chronic interstitial lung disease followed by Pulmonary.
- ? flare of ILD if no improvement with diuresis.
- Pulmonary evaluation for additional recommendations.
- Not currently on chronic home O2. Not on any maintenance medications, inhalers, etc.
Hypotension
- Adjust / hold medications to allow for effective diuresis.
- Follow BP and continued to titrate meds as needed.
ASCVD
- Stable. No current chest pain.
- Continue Plavix, statin, etc.
- Follow for any new symptoms.
Permanent Atrial Fibrillation
- Stable. Continue carvedilol with holding parameters.
- PPM in place.
- Continue Coumadin for stroke risk reduction and adjust based on INR.
DVT Prophylaxis: On Coumadin
Code Status: DNR
--- NOTE | 2024-02-01 04:26 | PTCARENOTE ---
Pt arrived to floor on stretcher from ED. Pulled over to bed; Pt tachypneic on 15L O2 via NRB with SpO2 ~ 95%; VSS; 100% A-V Paced on monitor, HR = 80; AAO x 3, Denies pain; Light red blanchable area on sacrum; Trace pitting edema in ankles;
Oriented to room, call alonso within reach. Will continue to monitor and assess.
[2024-02-01 05:03] LABS: Hematocrit 42.1 % (39.0-52.0); Hemoglobin 14.5 g/dL (13.0-18.0); Mean Corp Hgb Conc. 34.4 g/dL (33.0-37.0); Mean Corpuscular Hgb 30.9 pg (27.0-31.0); Mean Corpuscular Volume 89.6 fL (80.0-94.0); Mean Platelet Volume 9.7 fL (7.4-10.4); Platelet Count 177 10^3/uL (130-400); Red Cell Dist. Width 15.4 % (11.5-14.5); White Blood Cell Count 11.1 10^3/uL (4.8-10.8)
[2024-02-01 05:14] LABS: INR 3.99
[2024-02-01 05:27] LABS: Blood Urea Nitrogen 25 mg/dl (9-20); Calcium 9.3 mg/dl (8.4-10.2); Carbon Dioxide 22 mmol/L (22-30); Chloride 106 mmol/L (98-107); Estimated Creatinine Clearance 64 ml/min; Glucose 109 mg/dl (70-99); Potassium 3.6 mmol/L (3.5-5.1); Sodium 143 mmol/L (135-145); eGFR > 60.00
[2024-02-01 05:42] LABS: Troponin I 0.016 ng/ml
[2024-02-01] MEDS: PLAVIX 75 MG PO (09:11)
[2024-02-01] MEDS: COREG 6.25 MG PO ×2 (09:13→19:40)
--- NOTE | 2024-02-01 09:39 | W.PN.HOSP.TC ---
Today's Communication/Plan
-
Lasix
Pulm eval, cardio eval
US RUQ
Bronchodilators
Assessment / Plan
Assessment / Plan
83yo M with PMHx of Afib, SSS s/p PPM, HFrEF with ICD, pulmonary fibrosis, recent PPM/ICD replacement since previous leads were broken (1 month ago) came after he started to feel worsening SOB on exertion 2 days ago, found hypoxic and needed NRB in
ED. Admitted for CHF/lung fibrosis
A/P:
#Acute hypoxic respiratory failure 2/2 acute on chronic HFrEF exacerbation and lung fibrosis
Lasix, daily weights and electrolytes
Cardiology eval
Wean off O2
Echo in Sept: pulmonary HTN, EF 35%, moderate TR, ischemic CM signs
ProBNP elevated to 6430 (previous 4170)
#Pulmonary fibrosis
unclear if in exacerbation
no wheezing
Pulm for mgmt: with fluid overload questioning if needs steroids
Bronchodilators
#Supratherapeutic INR
Follow INR and adjust warfarin to target INR 2.0-3.0
#mild leukocytosis
XR without pneumonia
check UA
COVID-19 and Influenza neg
Improving off Abx
#Eleavted bilirubin
#Asymptomatic cholelithiasis
no abd tenderness
check LFT, LDH
US RUQ
#HLD
#Essential HTN
#CAD, stable s/p PCI
#Afib, permanent
cont home meds
DVT ppx on Coumadin
DNR/DNI
I have spent at least 57min reviewing chart, test results, communication with consultants and direct patient care
Anticipated Discharge: > 48 hours
Subjective/Interval History
-
Date of Service: February 01, 2024
Objective Data
-
Labs:
Laboratory Results
01/31/24 01/31/2424
21:52 22:09 22:34
WBC 15.0 H
Hgb 15.1
Hct 43.6
Plt Count 190
PT 37.5 H
INR 3.80
HCO3 21.6
Sodium Cancelled 142
Potassium Cancelled 3.8
Chloride Cancelled 105
Carbon Dioxide Cancelled 20 L
BUN Cancelled 25 H
Creatinine Cancelled 1.0
Glucose Cancelled 120 H
Calcium Cancelled 9.4
Total Bilirubin Cancelled 4.2 H
AST Cancelled 32
ALT Cancelled 21
Alkaline Phosphatase Cancelled 136 H
02/01/24
04:42
WBC 11.1 H
Hgb 14.5
Hct 42.1
Plt Count 177
PT 39.0 H
INR 3.99
HCO3
Sodium 143
Potassium 3.6
Chloride 106
Carbon Dioxide 22
BUN 25 H
Creatinine 1.0
Glucose 109 H
Calcium 9.3
Total Bilirubin
AST
ALT
Alkaline Phosphatase
Vital Signs:
Vital Signs
Temp Pulse Resp BP Pulse Ox
98.2 F 82 23 101/77 92
02/01/24 07:52 02/01/24 09:13 02/01/24 06:03 02/01/24 09:13 02/01/24 06:03
I&O
01/31/24 02/01/24 02/02/24
06:59 06:59 06:59
Intake Total 240 / 240
Output Total 1000 / 1000
Balance -760 / -760
Review of Systems
-
History Source: Patient
All other systems: Reviewed and negative
Respiratory: Reports Trouble Breathing
Physical Exam
-
General: No Apparent Distress
HEENT: Normocephalic
Respiratory: Crackles (bibasilar); Negative Wheezes
Cardiac: Irregular Rhythm
GI: Soft, Nontender and Nondistended
Musculoskeletal: No Clubbing, No Cyanosis, Edema, Right Lower Extrem and Edema, Left Lower Extrem
Neuro: Awake, Alert, Oriented and AO x 3
Psych: Calm
[2024-02-01 10:25] LABS: ALT (SGPT) 19 U/L (0-50); AST (SGOT) 28 U/L (17-59); Albumin 3.8 g/dl (3.5-5.0); Alkaline Phosphatase 135 U/L (38-126); Direct Bilirubin 0.5 mg/dl (0.0-0.4); LDH 345 U/L (120-246); Total Bilirubin 3.9 mg/dl (0.2-1.3); Total Protein 6.2 g/dl (6.3-8.2)
[2024-02-01] MEDS: DUONEB 3 ML INH ×3 (11:03→19:53)
--- NOTE | 2024-02-01 11:30 | CON.PUL ---
Consultation
Consultation Request
Date/Time Consultation Requested: 02/01/24
Date/Time Consultation Performed: 02/01/24
Performing Provider: Rosalio
Reason for Consultation: Hypoxia
Medical History
-
History of Present Illness:
Patient is an 83-year-old male with previous history of heart failure reduced EF, pulmonary fibrosis, A-fib presenting to ER with shortness of breath for the past 2 days. He was notably hypoxemic into the 70s per EMS. He was placed on a
nonrebreather mask in the ER with saturation improvement to the 90s. Has a prior history of IPF being followed by Dr Davis as OP, previously followed by pulmonology at [facility]. Last PFT in office demonstrated restrictive lung disease, he
was not placed on inhalers due to being asymptomatic. Antifibrotic therapy was discussed but not initiated. He was not known to be on oxygen at home.
.
Past Medical History
Past Medical History: Other (see list below)
Social History
Tobacco: Non-smoker
Alcohol: None
Drug: None
Family History
Family History: Reviewed & Not Pertinent
Allergies / Home Medications
Allergies
Allergy/AdvReac Type Severity Reaction Status Date / Time
Cephalosporins Allergy Nausea / Verified 01/01/24 17:36
Vomiting
latex Allergy Blisters Verified 12/30/23 18:35
penicillin G Allergy Nausea / Verified 01/01/24 17:36
Vomiting
Penicillins Allergy Nausea / Verified 01/01/24 17:36
Vomiting
Home Medications
�Medication �Instructions �Recorded �Confirmed �Last Taken �Type
carvedilol 12.5 mg tablet 6.25 mg (1/2 x 12.5 mg) PO BID 30 01/03/24 01/31/24 Unknown Rx
days #30 tabs
valsartan 80 mg tablet 80 mg PO HS 30 days #30 tabs 01/03/24 01/31/24 Unknown Rx
clopidogrel 75 mg tablet 75 mg PO DAILY 01/31/24 01/31/24 Unknown History
dorzolamide 2 % eye drops 2 drp ophthalmic (eye) DAILY 01/31/24 01/31/24 Unknown History
empagliflozin 10 mg tablet 10 mg PO DAILY 01/31/24 01/31/24 Unknown History
(Jardiance)
furosemide 40 mg tablet 40 mg PO DAILY 01/31/24 01/31/24 Unknown History
latanoprost 0.005 % eye drops 1 drp ophthalmic (eye) QPM 01/31/24 01/31/24 Unknown History
rosuvastatin 5 mg tablet 5 mg PO MOWEFR 01/31/24 01/31/24 Unknown History
warfarin 4 mg tablet 4 mg PO SUTUTHSA 01/31/24 01/31/24 Unknown History
warfarin 5 mg tablet 5 mg PO MOWEFR 01/31/24 01/31/24 Unknown History
Review of Systems
-
History Source: Patient
All other systems: Negative unless noted
Vitals / Labs / Diagnostic Testing
Vital Signs
Temp Pulse Resp BP Pulse Ox
98.2 F 85 20 101/77 93
02/01/24 07:52 02/01/24 11:06 02/01/24 11:06 02/01/24 09:13 02/01/24 11:06
Lab Data
02/01/24 04:42
02/01/24 04:42
Laboratory Results
01/31/24 01/31/24 02/01/24
21:52 22:09 04:42
PT 37.5 H 39.0 H
INR 3.80 3.99
pH 7.48 H
pCO2 29 L
pO2 103
HCO3 21.6
O2 Delivery Level Not Reportable
Microbiology
01/31/24 21:52 Nasal Swab Influenza Types A & B ([facility]ANG) - Final
Negative for Influenza A & B, NAAT
Negative results must be combined with clinical observations
and patient history.
Nucleic Acid Amplification test (NAAT)performed on the
[employer] platform.
Diagnostic Testing:
Physical Exam
-
HEENT: Normocephalic, Anicteric and Moist Mucous Membranes
Cardiovascular: S1/S2, Regular Rhythm and Peripheral Edema (2+)
Respiratory: Rales and Non-Labored Respirations
GI: Soft, Non Distended and Non Tender
Neurology: Awake, Alert, Oriented, No Motor Deficits and Other (lethargic but arousable)
Skin: Warm, Dry and Good Color
General: Comfortable and Other (NAD)
Assessment
-
Patient is an 83-year-old male with previous history of heart failure reduced EF, pulmonary fibrosis, A-fib presenting to ER with shortness of breath for the past 2 days. He was notably hypoxemic into the 70s per EMS. He was placed on a
nonrebreather mask in the ER with saturation improvement to the 90s. Has a prior history of IPF being followed by Dr Davis as OP, previously followed by pulmonology at [facility]. Last PFT in office demonstrated restrictive lung disease, he
was not placed on inhalers due to being asymptomatic. Antifibrotic therapy was discussed but not initiated. He was not known to be on oxygen at home. We are consulted for eval.
Acute hypoxic respiratory failure
Acute on chronic heart failure w/ rEF exacerbation
Worsening SOB
LE edema
Conditions present prior to admission
HUP- pacemaker, AV node ablation, revision of ICD (new ICD from Right subclavian tunnelled to generator on left 07/10/2023)
CHF/Cardiomyopathy EF 35% s/p HUP- new defibrillator 02/26/2023
Moderately dilated and hypokinetic right ventricle, mod PH on ECHO
Afib s/p ablation
Mixed hyperlipidemia
RBBB
HTN
MVR
Lung Surgery 35 years ago/Thorectomy 1986
Hayfever
Glaucoma
Osteoarthritis
Hernia repair 2002
Carpel tunnel
Cataracts Bilateral 2009
Plan
Hypoxemia noted on arrival, placed on 11L midflow
Wean as tolerated
No oxygen use history at home
Home O2 evaluation eventually
Prior history of lung disease is noted including IPF
Had seen Dr Davis in past, but not on inhalers
CT showing stable findings, not significantly progressed from interval CT 12/2023 <-- 12/2022
Suspect patient has CHF superimposed on baseline IPF
CXR/CT obtained indicating cephalization/vascular congestion, LE edema 2+ on exam
proBNP 6430 increased from 4170 on 12/28/23
Agree with IV lasix
He is not currently on IV steroids, but not actively wheezing
Prior ECHO results are reviewed indicating LV and RV dysfunction, moderate PH
EF 35%
Follow daily weights, IOs
Cards following
CPAP can be used PRN which has been helpful in CHF management
Will need outpatient pulmonary evaluation in our office for PFTs and 6MWT/post discharge planning
Reviewed with patient
We will follow
Diagnostic Data
Chest X-Ray: 01/31/24- Stable right-sided cardiac conduction device. Retained leads again noted on the left. Low lung volumes. Subsegmental atelectasis in the bilateral lung bases. Chain sutures project over the medial right lung apex. No large
pleural effusion or pneumothorax. Stable enlargement of the cardiac silhouette.
01/01/24- There is no other significant interval change.
CT Scan: CHEST 12/31/23- Placement of ICD in the interval since prior CT. Three ICD leads seen one of which extends into the superior right atrium. Additional two leads are seen one extending into the right ventricle distal portion appearing to extend
superiorly. The additional lead is adjacent to the first ventricular lead and appears to extend to the distal right atrium adjacent to the mitral valve, most likely with lead tip in the right atrium proper although evaluation somewhat limited due to
some beam hardening artifact. Cholelithiasis. Stable mild aneurysmal dilatation of the ascending thoracic aorta at approximately 4.6 cm with some atherosclerotic changes. Marked coronary artery calcifications. Widespread bilateral prominent
pulmonary interstitial markings again seen most likely chronic such as pulmonary fibrosis. Few scattered subcentimeter mediastinal lymph nodes, some of which slightly smaller in comparison to prior CT.
CHEST 01/07/23- Aneurysmal dilatation of the ascending thoracic aorta measuring 4.6 cm with some calcific atherosclerotic changes. Prominent caliber bilateral main pulmonary arteries, right slightly larger than left. Marked coronary artery
calcifications. Elevation of right hemidiaphragm. Predominantly widespread bilateral prominent interstitial markings which, if chronic, is consistent with pulmonary fibrosis. Cholelithiasis.
Echo: 12/30/23- Moderate LV dysfunction. Moderately dilated and hypokinetic right ventricle. Severely dilated right atrium. Moderate tricuspid regurgitation. Estimated PASP 54 mmHg assuming RA 15 mmHg. No pericardial effusion. The ICD lead is no
longer visualized in the RV. No significant change since the prior study of 11/26/2023 except the RV lead is no longer seen in the RV.
PFT's:
Reports and relevant images were personally reviewed.
Total time spent on this consultation __75__ includes review of history, physical exam, medications, laboratory data, personal review of imaging, extensive review of outpatient records, discussion with care team and respiratory therapy.
[2024-02-01 12:03] LABS: TSH Reflex To Free T4 1.35 uIU/ml (0.47-4.68)
[2024-02-01 12:10] LABS: Troponin I < 0.012 ng/ml
[2024-02-01] MEDS: TRUSOPT 2% OPHTHALMIC SOLUTION 2 DROP OPHTH (13:47)
--- NOTE | 2024-02-01 16:34 | PTCARENOTE ---
pt able to tolerate sitting on the side of the bed with PT. unable to bend over and put socks on, desatting to low 80's. did not attempt to stand patient for orthostatic vital sign assessment. Midflow oxygen remains at 11 L; pox 90-92%. Denies
dyspnea. Continuing to monitor
--- NOTE | 2024-02-01 17:45 | CON.CAR ---
Consultation
Consultation Request
Date/Time Consultation Requested: 02/01/24, 7am
Date/Time Consultation Performed: 02/01/24, 12pm
Requesting Provider: Lucio
Performing Provider: Sarahi
Reason for Consultation: heart failure
Medical History
-
Chief Complaint: SOB
History of Present Illness:
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 He reports worsening HEART over the weekend.
Called 911, and was hypoxic when EMS arrived. There was no chest pain.
Past Medical History
Past Medical History: Arrhythmias (permanent A fib, VT), CAD, CHF (chronic systolic), Hypercholesterolemia and Valvular Disease (moderate TR)
Social History
Tobacco: Former Smoker
Family History
Family History: Other (brother with A fib)
Allergies / Home Medications
Allergy/AdvReac Type Severity Reaction Status Date / Time
Cephalosporins Allergy Nausea / Verified 01/01/24 17:36
Vomiting
latex Allergy Blisters Verified 12/30/23 18:35
penicillin G Allergy Nausea / Verified 01/01/24 17:36
Vomiting
Penicillins Allergy Nausea / Verified 01/01/24 17:36
Vomiting
�Medication �Instructions �Recorded �Confirmed �Type
carvedilol 12.5 mg tablet 6.25 mg (1/2 x 12.5 mg) PO BID 30 01/03/24 01/31/24 Rx
days #30 tabs
valsartan 80 mg tablet 80 mg PO HS 30 days #30 tabs 01/03/24 01/31/24 Rx
clopidogrel 75 mg tablet 75 mg PO DAILY 01/31/24 01/31/24 History
dorzolamide 2 % eye drops 2 drp ophthalmic (eye) DAILY 01/31/24 01/31/24 History
empagliflozin 10 mg tablet 10 mg PO DAILY 01/31/24 01/31/24 History
(Jardiance)
furosemide 40 mg tablet 40 mg PO DAILY 01/31/24 01/31/24 History
latanoprost 0.005 % eye drops 1 drp ophthalmic (eye) QPM 01/31/24 01/31/24 History
rosuvastatin 5 mg tablet 5 mg PO MOWEFR 01/31/24 01/31/24 History
warfarin 4 mg tablet 4 mg PO SUTUTHSA 01/31/24 01/31/24 History
warfarin 5 mg tablet 5 mg PO MOWEFR 01/31/24 01/31/24 History
Review of Systems
-
History Source: Patient and Family
All other systems: Negative unless noted
Constitutional: Fatigue
Respiratory: Trouble Breathing
Musculoskeletal: Edema
Neurological: Weakness
Physical Exam
Vital Signs
Temp Pulse Resp BP Pulse Ox
98.4 F 90 30 102/62 95
02/01/24 15:42 02/01/24 16:00 02/01/24 16:00 02/01/24 14:00 02/01/24 14:52
Lab Results
02/01/24 04:42
02/01/24 04:42
Troponin I < 0.012 ng/ml D 02/01/24 11:32
Rsu-W-Ctdaahkdwoq Pept 6430 pg/ml 01/31/24 22:34
Physical Exam
General: Respiratory Distress
HEENT: Normocephalic
Respiratory: Crackles and Accessory Resp Muscle Use
Cardiac: S1/S2 (normal), Irregular Rhythm, Murmur (none) and Peripheral Edema (trace LE edema)
Musculoskeletal: No Clubbing, No Cyanosis and Edema (trace LE edema)
Skin: Warm and Dry
Neuro: AO x 3
Psych: Calm
Impression / Plan
-
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
#SOB and hypoxia
-likely combo of underlying lung disease and HF
-pulmonology has also been consulted for his lung disease
# Acute on chronic HFrEF
-also a component of RV failure and pulm HTN with his lung disease
-weight is now lower than previously thought dry weight
-will diurese and monitor renal function closely: may need to reset dry weight
# ICM EF 35%
-cont coreg 6.25mg bid, and farxiga 10mg daily (takes jardiance at home)
-GDMT has been limited by BP, and valsartan is currently on hold
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
-revised 12/2023 at
# Permanent A fib
-cont coreg
-warfarin on hold due to INR 3.99 on admit
-trend INR
# CAD, prior stenting
-he is on Plavix as outpatient due to h/o amaurosis fugax/TIA per records
-stable, no angina, and normal troponin
Testing
Echo 12/30/23: EF 35%, RV dilation/dysfunction, moderate TR, PASP 54
Cath 10/2021: [facility], stable CAD
Data Reviewed
-
EKG: Tracing Personally Visualized and interpreted (A fib, V paced, PVC's)
Medical Tests (Nuc Med, Echo etc): Report Reviewed by me (echo and cath per note)
Labs: Labs Reviewed by me
[2024-02-01] MEDS: XALATAN OPHTHALMIC SOLUTION 1 DROP OPHTH (18:11)
[2024-02-01] MEDS: FARXIGA 10 MG PO (18:11)
[2024-02-01 18:24] LABS: Urine Albumin Negative (Neg - Trace); Urine Bilirubin Negative (Negative); Urine Character Clear (Clear); Urine Color Yellow; Urine Glucose 2+ (Negative); Urine Ketone Negative (Negative); Urine Leukocyte Negative (Negative); Urine Nitrite Negative (Negative); Urine Occult Blood Negative (Negative); Urine Urobilinogen Negative (Neg - 1+)
[2024-02-01 18:45] LABS: Troponin I < 0.012 ng/ml
[2024-02-02] VITALS (22 sets, daily range): BP systolic 81–122; BP diastolic 55–80; PULSE 85–96; BMI 29.0
--- NOTE | 2024-02-02 02:17 | PTCARENOTE ---
Pt continues with 11L O2 via Midflow cannula, SpO2 ~ 90-94% overnight. Reports feeling 'dry', saline nasal ordered. Able to stand at bedside for ortho VS without issue, denied SOB while standing and saturation was 89-90%. AV paced on monitor;
Will continue to monitor and assess.
[2024-02-02 04:45] LABS: % Basophils 0.3 % (0-2); % Immature Granulocytes 0.7 % (0-0.5); % Lymphocytes 13.4 % (20.5-51.1); % Monocytes 8.1 % (1.7-9.3); % Neutrophils 73.5 % (42.2-75.2); Absolute Eosinophils 0.5 10^3/uL (0-0.7); Absolute Immature Granulocytes 0.1 10^3/uL (0-0.05); Absolute Lymphocytes 1.6 10^3/uL (1.2-3.4); Absolute Neutrophils 8.7 10^3/uL (1.4-6.5); Hematocrit 41.6 % (39.0-52.0); Hemoglobin 14.2 g/dL (13.0-18.0); Mean Corp Hgb Conc. 34.1 g/dL (33.0-37.0); Mean Corpuscular Hgb 30.7 pg (27.0-31.0); Mean Platelet Volume 9.5 fL (7.4-10.4); Nucleated Red Blood Cells % 0 % (-); Platelet Count 169 10^3/uL (130-400); Red Blood Cell Count 4.62 10^6/uL (4.70-6.10); Red Cell Dist. Width 15.4 % (11.5-14.5); White Blood Cell Count 11.8 10^3/uL (4.8-10.8)
[2024-02-02 04:57] LABS: INR 3.74
[2024-02-02 05:09] LABS: ALT (SGPT) 19 U/L (0-50); AST (SGOT) 28 U/L (17-59); Albumin 3.6 g/dl (3.5-5.0); Alkaline Phosphatase 151 U/L (38-126); Blood Urea Nitrogen 35 mg/dl (9-20); Carbon Dioxide 23 mmol/L (22-30); Chloride 102 mmol/L (98-107); Direct Bilirubin 0.3 mg/dl (0.0-0.4); Estimated Creatinine Clearance 64 ml/min; Glucose 114 mg/dl (70-99); Magnesium 2.1 mg/dl (1.6-2.3); Potassium 3.5 mmol/L (3.5-5.1); Sodium 140 mmol/L (135-145); Total Bilirubin 3.3 mg/dl (0.2-1.3); Total Protein 6.1 g/dl (6.3-8.2); eGFR > 60.00
[2024-02-02] MEDS: DUONEB 3 ML INH ×4 (07:33→19:54)
[2024-02-02] MEDS: PROTONIX 40 MG PO (08:29)
[2024-02-02] MEDS: COREG 6.25 MG PO ×2 (08:29→20:43)
[2024-02-02] MEDS: PLAVIX 75 MG PO (08:30)
[2024-02-02] MEDS: FARXIGA 10 MG PO (08:30)
[2024-02-02] MEDS: LASIX 40 MG IV (08:31)
[2024-02-02] MEDS: TRUSOPT 2% OPHTHALMIC SOLUTION 2 DROP OPHTH (08:42)
--- NOTE | 2024-02-02 09:30 | W.PN.CD ---
Today's Communication / Plan
-
Continue IV diuresis, Na+/fluid restrict
Add back ARB once aggressive diuresis completed
Increase activity
Impression / Plan
-
83 yo male with PMH of CAD, prior stents, ICM EF 35%, chronic systolic HF, VT, heart block (AV node ablatoin), BiV ICD (Biotronik) with LICENSED AND CERTIFIED MIDWIFE via left bundle pacing lead (Biotronik), permanent A fib on warfarin, IPF is admitted with SOB and hypoxia.
Dyspnea
- Mixed heart failure and some lung disease
Acute on chronic HFrEF with ischemic cardiomyopathy, LVEF 35%
- Admit pBNP 6430 (on 12/28/2023 pBNP 4170)
- Feeling better
- IV diuresing, still with edema
- Will need new dry weight and new diuretic regimen at discharge => weight is lower than Dec 2023 admit
- Coreg 6.25mg bid, and Farxiga 10mg daily (takes Jardiance at home)
- GDMT has been limited by BP, and valsartan is currently
- Will advance med Rx as able
- LICENSED AND CERTIFIED MIDWIFE via left bundle pacing lead
Lung disease, per pulmonary
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
VT
- Well controlled (prior ablation at [facility], remote)
- Biotronik ICD in place
Permanent rate controlled A fib on warfarin
Stable CAD, prior stenting, no angina
H/o amaurosis fugax/TIA per records => clopidogrel in addition to warfarin
Subjective:
Feels a bit better
Testing
Echo 12/30/23: EF 35%, RV dilation/dysfunction, moderate TR, PASP 54
Cath 10/2021: [facility], stable CAD
Physical Exam
Vital Signs/Labs
Vital Signs
Temp Pulse Resp BP Pulse Ox
98.5 F 83 24 100/67 93
10/07/24 07:35 02/02/24 07:35 02/02/24 07:35 02/02/24 02:00 02/02/24 07:35
02/01/24 02/02/24 02/03/24
06:59 06:59 06:59
Actual Weight 96.6 kg 96.9 kg
02/02/24 04:27
02/02/24 04:27
PT 37.0 Sec (11.4-14.6) H 02/02/24 04:27
INR 3.74 02/02/24 04:27
Magnesium 2.1 mg/dl (1.6-2.3) 02/02/24 04:27
01/31/24 01/31/24
21:52 22:34
Sew-A-Mqnayifongo Pept Cancelled 6430
LAB Results
01/31/24 01/31/24 02/01/24
21:52 22:34 04:42
Troponin I Cancelled 0.014 0.016
02/01/24 02/01/24
11:32 18:13
Troponin I < 0.012 D < 0.012
Physical Exam
Constitutional: No acute distress
EENT: Anicteric
Cardiovascular: Rhythm & rate is regular and Pedal edema present
Respiratory: Respiratory effort normal and Crackles Present (at bases)
GI: Soft and Distention absent
Neuro/Psych: AO x 3
Other: Cardiac Device Site (bilat sites look perfect, CXR shows stable dislodged RV lead in low RA)
Data Reviewed
-
Date of Service: February 02, 2024
--- NOTE | 2024-02-02 09:44 | W.PN.PUL.V3 ---
Today's Communication / Plan
-
Wean oxygen
Increase activity
Diuresis
Outpatient pulmonary evaluation
Assessment
-
Patient is an 83-year-old male with previous history of heart failure reduced EF, pulmonary fibrosis, A-fib presenting to ER with shortness of breath for the past 2 days. He was notably hypoxemic into the 70s per EMS. He was placed on a
nonrebreather mask in the ER with saturation improvement to the 90s. Has a prior history of IPF being followed by Dr Davis as OP, previously followed by pulmonology at [facility]. Last PFT in office demonstrated restrictive lung disease, he
was not placed on inhalers due to being asymptomatic. Antifibrotic therapy was discussed but not initiated. He was not known to be on oxygen at home. We are consulted for eval.
Acute hypoxic respiratory failure
Acute on chronic heart failure w/ rEF exacerbation
Worsening SOB
LE edema
Conditions present prior to admission:
HUP- pacemaker, AV node ablation, revision of ICD (new ICD from Right subclavian tunnelled to generator on left 07/10/2023)
CHF/Cardiomyopathy EF 35% s/p HUP- defibrillator 02/26/2023
Moderately dilated and hypokinetic right ventricle, mod PH on ECHO
Interstitial lung disease-serology unrevealing, inflammatory markers not elevated, observational approach-follows Dr. Davis
Afib s/p ablation
Mixed hyperlipidemia
RBBB
HTN
MVR
Lung Surgery 35 years ago/Thorectomy 1986
Hayfever
Glaucoma
Osteoarthritis
Hernia repair 2002
Carpel tunnel
Cataracts Bilateral 2009
Plan
Respiratory status somewhat stabilized-continues on mid flow-attempt to wean to nasal cannula
Supplemental oxygen as needed-assess discharge supplemental oxygen needs
High flow oxygen if needed
Noninvasive ventilation if needed
DNR status noted
Nebulizers as needed-currently not bronchospastic
Mucolytics
Aspiration precautions
Observe off steroids
Prior history of lung disease is noted including IPF
Had seen Dr Davis in past, but not on inhalers
CT showing stable findings, not significantly progressed from interval CT 12/2023 <-- 12/2022
Suspect CHF component on top of baseline IPF
Diuresis as tolerated
Monitor renal function, electrolytes, intake/output, lower extremity edema and weight
Replace electrolytes as needed
Previous echocardiogram noted-EF 35%
Cardiology following-correspondence reviewed
Last saw Dr. Davis 04/29/2023-canceled PFT/appointment 01/27/2024
Will need outpatient pulmonary evaluation in our office for PFTs and 6MWT/post discharge planning-with Dr. Davis
Diagnostic Data
Chest X-Ray: 01/31/24- Stable right-sided cardiac conduction device. Retained leads again noted on the left. Low lung volumes. Subsegmental atelectasis in the bilateral lung bases. Chain sutures project over the medial right lung apex. No large
pleural effusion or pneumothorax. Stable enlargement of the cardiac silhouette.
01/01/24- There is no other significant interval change.
CT chest 01/07/23-[place] coronary artery calcifications, elevated right hemidiaphragm, cholelithiasis, widespread bilateral interstitial markings consistent with possible pulmonary fibrosis, aneurysmal dilation of the ascending thoracic aorta at 4.6
cm, prominent caliber bilateral main pulmonary arteries, scattered small nonspecific mediastinal lymph nodes, largest measuring 1.[address] Scan: CHEST 12/31/23- Placement of ICD in the interval since prior CT. Three ICD leads seen one of which extends into the superior right atrium. Additional two leads are seen one extending into the right ventricle distal portion appearing to extend
superiorly. The additional lead is adjacent to the first ventricular lead and appears to extend to the distal right atrium adjacent to the mitral valve, most likely with lead tip in the right atrium proper although evaluation somewhat limited due to
some beam hardening artifact. Cholelithiasis. Stable mild aneurysmal dilatation of the ascending thoracic aorta at approximately 4.6 cm with some atherosclerotic changes. Marked coronary artery calcifications. Widespread bilateral prominent
pulmonary interstitial markings again seen most likely chronic such as pulmonary fibrosis. Few scattered subcentimeter mediastinal lymph nodes, some of which slightly smaller in comparison to prior CT.
Echo: 12/30/23- Moderate LV dysfunction. Moderately dilated and hypokinetic right ventricle. Severely dilated right atrium. Moderate tricuspid regurgitation. Estimated PASP 54 mmHg assuming RA 15 mmHg. No pericardial effusion. The ICD lead is no
longer visualized in the RV. No significant change since the prior study of 11/26/2023 except the RV lead is no longer seen in the RV.
PFT 01/27/23-FEV1 2.47-86%, FVC 2.9-72%, TLC 56%, RV 36%, DLCO 39%, DLCO/VA 69%. Mild to moderate restriction and moderate reduction in diffusing capacity.�������
Spirometry 04/29/23-FEV1 2.12-74%, FVC 2.62-65%. Moderate restriction.
6 minute walk test 01/27/23-Ambulating 90 feet with desaturation britany 96% of maximum heart rate of 109.��Dyspnea scale score 0. No supplemental oxygen required.
ILD Serology 04/23/23-normal Sjogren's, MERRITT, anti-scleroderma, MYRA-433, anti-DNA, anti-Angie 1, aldolase,������
Eosinophils, 04/23/23-300�������
ESR 04/23/23-4�������
Alpha-1 antitrypsin level and phenotype-156,
rheumatoid factor-Less than 10
C-reactive protein-3
Subjective Data
-
Date of Service:
Date of Service: February 02, 2024
Chief Complaint: Pulmonary Follow Up and Dyspnea Follow Up
Subjective:
Feels about the same, no complaints of shortness of breath, chest pain or abdominal pain, not exerting himself
Review of Systems
General: Other (Per HPI)
Objective Data
Data Reviewed
Vital Signs / I&O:
Vital Signs
Temp Pulse Resp BP Pulse Ox
98.5 F 83 24 100/67 93
02/02/24 07:35 02/02/24 07:35 02/02/24 07:35 02/02/24 02:00 02/02/24 07:35
Intake and Output
02/01/24 02/02/24 02/03/24
06:59 06:59 06:59
Intake Total 240 / 240 1200 / 1200 240 / 240
Output Total 1000 / 1000 1900 / 1900
Balance -760 / -760 -700 / -700 240 / 240
SaO2: 93
Nasal Cannula flow liters per minute: 12
Physical Exam
General: Respiratory Distress (n) and Comfortable
HEENT: Normocephalic and Moist Mucous Membranes
Cardiovascular: Regular Rhythm
Respiratory: Crackles (Bibasilar), Non-Labored Respirations, Accessory Resp Muscle Use (n) and Stridor
GI: Soft, Non Distended and Non Tender
Neurology: Awake, Alert and No Motor Deficits
Skin: Warm, Good Color, Cyanosis (n) and Jaundice (n)
Labs/Micro/Reports
Lab Data
02/02/24 04:27
02/02/24 04:27
Laboratory Results
02/02/24
04:27
PT 37.0 H
INR 3.74
Microbiology
01/31/24 21:52 Nasal Swab Influenza Types A & B ([facility]ANG) - Final
Negative for Influenza A & B, NAAT
Negative results must be combined with clinical observations
and patient history.
Nucleic Acid Amplification test (NAAT)performed on the
[employer] platform.
--- NOTE | 2024-02-02 10:29 | W.PN.HOSP.TC ---
Today's Communication/Plan
-
cont diuresis as per cardio
plan to increase LAsix to BID if CTA chest will not show alternative causes of significant hypoxia
Assessment / Plan
Assessment / Plan
83yo M with PMHx of Afib, SSS s/p PPM, HFrEF with ICD, pulmonary fibrosis, recent PPM/ICD replacement since previous leads were broken (1 month ago) came after he started to feel worsening SOB on exertion 2 days ago, found hypoxic and needed NRB in
ED. Admitted for CHF/lung fibrosis
A/P:
#Acute hypoxic respiratory failure 2/2 acute on chronic HFrEF exacerbation and lung fibrosis
Lasix, daily weights and electrolytes
Cardiology eval
Wean off O2
Echo in Dec: pulmonary HTN, EF 35%, moderate TR, ischemic CM signs
ProBNP elevated to 6430 (previous 4170)
With no significant weight difference since last admission - very unclear picture with CHF/ILD overlap. With high O2 requirements CTA to r/o PE is appropriate even in the settings of diuresis
#Pulmonary fibrosis
unclear if in exacerbation
no wheezing
Pulm for mgmt: with fluid overload - no steroids
Bronchodilators
#Supratherapeutic INR
Follow INR and adjust warfarin to target INR 2.0-3.0
#mild leukocytosis
XR without pneumonia
check UA
COVID-19 and Influenza neg
Improving off Abx
#Elevated bilirubin
#Asymptomatic cholelithiasis
no abd tenderness
check LFT, LDH
US RUQ
#HLD
#Essential HTN
#CAD, stable s/p PCI
#Afib, permanent
cont home meds
DVT ppx on Coumadin
DNR/DNI
I have spent at least 57min reviewing chart, test results, communication with consultants and direct patient care
Anticipated Discharge: > 48 hours
Subjective/Interval History
-
Date of Service: February 02, 2024
Objective Data
-
Labs:
Laboratory Results
02/02/24
04:27
WBC 11.8 H
Hgb 14.2
Hct 41.6
Plt Count 169
PT 37.0 H
INR 3.74
Sodium 140
Potassium 3.5
Chloride 102
Carbon Dioxide 23
BUN 35 H
Creatinine 1.0
Glucose 114 H
Calcium 9.0
Total Bilirubin 3.3 H
AST 28
ALT 19
Alkaline Phosphatase 151 H
Vital Signs:
Vital Signs
Temp Pulse Resp BP Pulse Ox
98.5 F 83 24 100/67 93
02/02/24 07:35 02/02/24 07:35 02/02/24 07:35 02/02/24 02:00 02/02/24 09:44
I&O
02/01/24 02/02/24 02/03/24
06:59 06:59 06:59
Intake Total 240 / 240 1200 / 1200 240 / 240
Output Total 1000 / 1000 1900 / 1900
Balance -760 / -760 -700 / -700 240 / 240
Review of Systems
-
History Source: Patient
All other systems: Reviewed and negative
Physical Exam
-
General: No Apparent Distress
HEENT: Normocephalic
Respiratory: Crackles (bibasilar)
Cardiac: Regular Rhythm
GI: Soft, Nontender and Nondistended
Musculoskeletal: No Clubbing, No Cyanosis and No Edema (maybe trace b/l)
Skin: Warm
Neuro: Awake, Alert, Oriented and AO x 3
Psych: Calm
--- NOTE | 2024-02-02 14:44 | W.PN.UPDATE ---
Update Note
Progress Note Update
CT chest concerning for pneumonia:
Rocephin (allergy listed as nausea/vomiting most likely a side effect, will closely monitor) and Doxy
Legionella and S.pneumonia urinary Ag
Sputum Cx
--- NOTE | 2024-02-02 15:33 | PTCARENOTE ---
see nursing shift assessment. av paced on monitor.pt oob in chair this am. pt on 11 liters midflow o2. sob with exertion. ct of chest completed. appetite good. voiding yellow urine in urinal. sytoloc bps in 90s at times. pt has no complaints at this
time.
[2024-02-02] MEDS: STERILE WATER FOR INJECTION 10 ML IV (17:00)
[2024-02-02] MEDS: ROCEPHIN 1000 MG IV (17:00)
--- NOTE | 2024-02-02 17:27 | CM ---
Patient with Dx Acute hypoxic respiratory failure, HF exacerbation, Pulmonary fibrosis. O2 10L midflow. Receiving IV Lasix, IV Abx. PT/OT recommend HH.
Met with patient who resides with his in a 2 story house with 5 HORTENC[address].
The patient has been independent in ADLs and ambulation.
No DME
VN - recent [facility]
No prior SNF
PCP - Mendel Parks
Pharmacy - [facility]
Offered VN for SN/PT/OT and patient responds he will consider [facility] again and wants to wait and see.
Plan watch for home O2 needs.
Plan offer VN again when closer to d/c.
[2024-02-02] MEDS: XALATAN OPHTHALMIC SOLUTION 1 DROP OPHTH (18:03)
--- NOTE | 2024-02-02 19:40 | PTCARENOTE ---
Received pt from day shift. Pt aaox3. 95% on 13L MFNC. VSS. Pt refused SCD's and hygiene, despite educating patient on importance. Pt resting in bed with call alonso in reach.
[2024-02-02] MEDS: CRESTOR 5 MG PO (20:43)
[2024-02-02] MEDS: VIBRAMYCIN 100 MG PO (20:44)
[2024-02-03] VITALS (17 sets, daily range): BP systolic 87–118; BP diastolic 56–86; PULSE 78–91; BMI 28.9
[2024-02-03 05:32] LABS: % Basophils 0.3 % (0-2); % Immature Granulocytes 0.7 % (0-0.5); % Lymphocytes 11.9 % (20.5-51.1); % Monocytes 8.7 % (1.7-9.3); % Neutrophils 76.4 % (42.2-75.2); Absolute Eosinophils 0.3 10^3/uL (0-0.7); Absolute Immature Granulocytes 0.1 10^3/uL (0-0.05); Absolute Lymphocytes 1.5 10^3/uL (1.2-3.4); Absolute Monocytes 1.1 10^3/uL (0.1-0.6); Absolute Neutrophils 9.4 10^3/uL (1.4-6.5); Hematocrit 44.1 % (39.0-52.0); Mean Corpuscular Hgb 31.4 pg (27.0-31.0); Mean Corpuscular Volume 92.3 fL (80.0-94.0); Mean Platelet Volume 9.9 fL (7.4-10.4); Nucleated Red Blood Cells % 0 % (-); Platelet Count 183 10^3/uL (130-400); Red Blood Cell Count 4.78 10^6/uL (4.70-6.10); White Blood Cell Count 12.3 10^3/uL (4.8-10.8)
[2024-02-03 05:34] LABS: INR 3.26; PT 33.2 Sec (11.4-14.6)
[2024-02-03 05:46] LABS: ALT (SGPT) 18 U/L (0-50); AST (SGOT) 27 U/L (17-59); Albumin 3.7 g/dl (3.5-5.0); Alkaline Phosphatase 137 U/L (38-126); Blood Urea Nitrogen 29 mg/dl (9-20); Carbon Dioxide 25 mmol/L (22-30); Chloride 100 mmol/L (98-107); Estimated Creatinine Clearance 71 ml/min; Glucose 110 mg/dl (70-99); Potassium 3.5 mmol/L (3.5-5.1); Sodium 140 mmol/L (135-145); Total Bilirubin 4.6 mg/dl (0.2-1.3); Total Protein 6.2 g/dl (6.3-8.2); eGFR > 60.00
[2024-02-03] MEDS: DUONEB 3 ML INH ×4 (07:59→20:18)
--- NOTE | 2024-02-03 08:25 | W.PN.CD ---
Today's Communication / Plan
-
-
Increase Lasix to BID
-
Impression / Plan
-
83 yo male with PMH of CAD, prior stents, ICM EF 35%, chronic systolic HF, VT, heart block (AV node ablatoin), BiV ICD (Biotronik) with FLUSH TESTER via left bundle pacing lead (Biotronik), permanent A fib on warfarin, IPF is admitted with SOB and hypoxia.
Dyspnea
- Mixed heart failure and some lung disease
Acute on chronic HFrEF with ischemic cardiomyopathy, LVEF 35%
- Admit pBNP 6430 (on 12/28/2023 pBNP 4170)
- Feeling better
- IV diuresing, less edema. Weight is not decreasing
- Will need new dry weight and new diuretic regimen at discharge => weight is lower than Dec 2023 admit
- Coreg 6.25mg bid, and Farxiga 10mg daily (takes Jardiance at home)
- GDMT has been limited by BP, and valsartan is currently
- Will advance med Rx as able
- FLUSH TESTER via left bundle pacing lead
Lung disease, per pulmonary
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
VT
- Well controlled (prior ablation at [facility], remote)
- Biotronik ICD in place
Permanent rate controlled A fib on warfarin
Stable CAD, prior stenting, no angina
H/o amaurosis fugax/TIA per records => clopidogrel in addition to warfarin
Subjective:
Feels a bit better. Need to lose more weight
Testing
Echo 12/30/23: EF 35%, RV dilation/dysfunction, moderate TR, PASP 54
Cath 10/2021: [facility], stable CAD
Physical Exam
Vital Signs/Labs
Vital Signs
Temp Pulse Resp BP Pulse Ox
98.4 F 80 16 109/64 96
02/03/24 07:49 02/03/24 08:07 02/03/24 08:07 02/03/24 07:06 02/03/24 08:07
02/02/24 02/03/24 02/04/24
06:59 06:59 06:59
Actual Weight 96.9 kg 96.6 kg
02/03/24 04:39
02/03/24 04:39
PT 33.2 Sec (11.4-14.6) H 02/03/24 04:39
INR 3.26 02/03/24 04:39
Magnesium 2.1 mg/dl (1.6-2.3) 02/02/24 04:27
01/31/24 01/31/24
21:52 22:34
Kue-E-Xxxjqtimpgc Pept Cancelled 6430
LAB Results
01/31/24 01/31/24 02/01/24
21:52 22:34 04:42
Troponin I Cancelled 0.014 0.016
02/01/24 02/01/24
11:32 18:13
Troponin I < 0.012 D < 0.012
Physical Exam
Constitutional: No acute distress
Cardiovascular: Rhythm & rate is regular and Pedal edema present (just trace)
Respiratory: Respiratory effort normal and Crackles Present
GI: Soft and Distention absent
Neuro/Psych: AO x 3
Data Reviewed
-
Date of Service: February 03, 2024
[2024-02-03] MEDS: COREG 6.25 MG PO ×2 (08:48→19:39)
[2024-02-03] MEDS: VIBRAMYCIN 100 MG PO ×2 (08:49→19:39)
[2024-02-03] MEDS: FARXIGA 10 MG PO (08:49)
[2024-02-03] MEDS: PROTONIX 40 MG PO (08:49)
[2024-02-03] MEDS: PLAVIX 75 MG PO (08:49)
[2024-02-03] MEDS: TRUSOPT 2% OPHTHALMIC SOLUTION 2 DROP OPHTH (08:50)
[2024-02-03] MEDS: LASIX IV (08:56)
[2024-02-03] MEDS: LASIX 40 MG IV ×2 (09:10→15:33)
--- NOTE | 2024-02-03 10:16 | W.PN.PUL.V3 ---
Today's Communication / Plan
-
Empiric antibiotics initiated
Increase diuresis
Attempt to wean FiO2
Consider steroids if diuresis does not decrease FiO2 requirements
Assessment
-
Patient is an 83-year-old male with previous history of heart failure reduced EF, pulmonary fibrosis, A-fib presenting to ER with shortness of breath for the past 2 days. He was notably hypoxemic into the 70s per EMS. He was placed on a
nonrebreather mask in the ER with saturation improvement to the 90s. Has a prior history of IPF being followed by Dr Davis as OP, previously followed by pulmonology at [facility]. Last PFT in office demonstrated restrictive lung disease, he
was not placed on inhalers due to being asymptomatic. Antifibrotic therapy was discussed but not initiated. He was not known to be on oxygen at home. We are consulted for eval.
Acute hypoxic respiratory failure
Acute on chronic heart failure w/ rEF exacerbation
Worsening SOB
LE edema
DNR
Conditions present prior to admission:
HUP- pacemaker, AV node ablation, revision of ICD (new ICD from Right subclavian tunnelled to generator on left 07/10/2023)
CHF/Cardiomyopathy EF 35% s/p HUP- defibrillator 02/26/2023
Moderately dilated and hypokinetic right ventricle, mod PH on ECHO
Interstitial lung disease-serology unrevealing, inflammatory markers not elevated, observational approach-follows Dr. Davis
Afib s/p ablation
Mixed hyperlipidemia
RBBB
HTN
MVR
Lung Surgery 35 years ago/Thorectomy 1986
Hayfever
Glaucoma
Osteoarthritis
Hernia repair 2002
Carpel tunnel
Cataracts Bilateral 2009
Plan
Respiratory status still somewhat tenuous with high FiO2 requirements
Supplemental oxygen as needed-assess discharge supplemental oxygen needs-does not use oxygen at home
High flow oxygen if needed
Noninvasive ventilation if needed
DNR status noted
Nebulizers as needed-currently not bronchospastic
Mucolytics
Aspiration precautions
Consider steroids if diuresis does not result in decreased FiO2 requirements
CT chest 02/02/2024-no pulmonary embolism, severe bilateral groundglass densities which have progressed, severe cardiomegaly and pulmonary hypertension
Prior history of lung disease is noted including IPF
Had seen Dr Davis in past, but not on inhalers
CT showing stable findings, not significantly progressed from interval CT 12/2023 <-- 12/2022
CT chest with possible pneumonia-clinically not behaving like pneumonia, no temperature, procalcitonin negative, mild leukocytosis, no chest congestion or sputum-possibly CHF
Check cultures
Urine Legionella negative
Influenza negative
Streptococcal pneumo antigen negative
Unable to produce sputum
Empiric antibiotics initiated-ceftriaxone and doxycycline-finite course
Suspect CHF component on top of baseline IPF
Continue diuresis as tolerated
Monitor renal function, electrolytes, intake/output, lower extremity edema and weight
Replace electrolytes as needed
Previous echocardiogram noted-EF 35%
Cardiology following-correspondence reviewed-diuresis increased
DVT prophylaxis recommended-Lovenox initiated
GI prophylaxis-on pantoprazole
Nutrition
Increase activity
Last saw Dr. Davis 04/29/2023-canceled PFT/appointment 01/27/2024
Will need outpatient pulmonary evaluation in our office for PFTs and 6MWT/post discharge planning-with Dr. Davis
Diagnostic Data
Chest X-Ray: 01/31/24- Stable right-sided cardiac conduction device. Retained leads again noted on the left. Low lung volumes. Subsegmental atelectasis in the bilateral lung bases. Chain sutures project over the medial right lung apex. No large
pleural effusion or pneumothorax. Stable enlargement of the cardiac silhouette.
01/01/24- There is no other significant interval change.
CT chest 01/07/23-[place] coronary artery calcifications, elevated right hemidiaphragm, cholelithiasis, widespread bilateral interstitial markings consistent with possible pulmonary fibrosis, aneurysmal dilation of the ascending thoracic aorta at 4.6
cm, prominent caliber bilateral main pulmonary arteries, scattered small nonspecific mediastinal lymph nodes, largest measuring 1.[address] Scan: CHEST 12/31/23- Placement of ICD in the interval since prior CT. Three ICD leads seen one of which extends into the superior right atrium. Additional two leads are seen one extending into the right ventricle distal portion appearing to extend
superiorly. The additional lead is adjacent to the first ventricular lead and appears to extend to the distal right atrium adjacent to the mitral valve, most likely with lead tip in the right atrium proper although evaluation somewhat limited due to
some beam hardening artifact. Cholelithiasis. Stable mild aneurysmal dilatation of the ascending thoracic aorta at approximately 4.6 cm with some atherosclerotic changes. Marked coronary artery calcifications. Widespread bilateral prominent
pulmonary interstitial markings again seen most likely chronic such as pulmonary fibrosis. Few scattered subcentimeter mediastinal lymph nodes, some of which slightly smaller in comparison to prior CT.
Echo: 12/30/23- Moderate LV dysfunction. Moderately dilated and hypokinetic right ventricle. Severely dilated right atrium. Moderate tricuspid regurgitation. Estimated PASP 54 mmHg assuming RA 15 mmHg. No pericardial effusion. The ICD lead is no
longer visualized in the RV. No significant change since the prior study of 11/26/2023 except the RV lead is no longer seen in the RV.
PFT 01/27/23-FEV1 2.47-86%, FVC 2.9-72%, TLC 56%, RV 36%, DLCO 39%, DLCO/VA 69%. Mild to moderate restriction and moderate reduction in diffusing capacity.�������
Spirometry 04/29/23-FEV1 2.12-74%, FVC 2.62-65%. Moderate restriction.
6 minute walk test 01/27/23-Ambulating 90 feet with desaturation britany 96% of maximum heart rate of 109.��Dyspnea scale score 0. No supplemental oxygen required.
ILD Serology 04/23/23-normal Sjogren's, MERRITT, anti-scleroderma, MYRA-43, anti-DNA, anti-Angie 1, aldolase,������
Eosinophils, 04/23/23-300�������
ESR 04/23/23-4�������
Alpha-1 antitrypsin level and phenotype-156,
rheumatoid factor-Less than 10
C-reactive protein-3
Subjective Data
-
Date of Service:
Date of Service: February 03, 2024
Chief Complaint: Pulmonary Follow Up and Dyspnea Follow Up
Subjective:
Still requiring significant FiO2, denies any shortness of breath, chest pain, abdominal pain or productive cough
Review of Systems
General: Other (Per HPI)
Objective Data
Data Reviewed
Vital Signs / I&O:
Vital Signs
Temp Pulse Resp BP Pulse Ox
98.4 F 80 16 103/66 96
02/03/24 07:49 02/03/24 08:07 02/03/24 08:07 02/03/24 08:48 02/03/24 08:07
Intake and Output
02/02/24 02/03/24 02/04/24
06:59 06:59 06:59
Intake Total 1200 / 1200 340 / 340
Output Total 1900 / 1900 2075 / 2075 600 / 600
Balance -700 / -700 -1735 / -1735 -600 / -600
SaO2: 96
Nasal Cannula flow liters per minute: 15
Physical Exam
General: Respiratory Distress (n) and Comfortable
HEENT: Normocephalic and Moist Mucous Membranes
Cardiovascular: Regular Rhythm
Respiratory: Crackles (Bibasilar), Non-Labored Respirations, Accessory Resp Muscle Use (n) and Stridor
GI: Soft, Non Distended and Non Tender
Neurology: Awake, Alert and No Motor Deficits
Skin: Warm, Good Color, Cyanosis (n) and Jaundice (n)
Labs/Micro/Reports
Lab Data
02/03/24 04:39
02/03/24 04:39
Laboratory Results
02/03/24
04:39
PT 33.2 H
INR 3.26
Microbiology
02/03/24 01:56 Urine Legionella Urinary Antigen - Final
Negative for Legionella pneumophila Serogroup 1 antigen.
A negative result does not rule out the possiblity of
Legionella infection due to other serogroups or species of
Legionella. Clinical correlation is recommended.
02/03/24 01:56 Urine Streptococcus pneumoniae Antigen (M - Final
Negative for Streptococcus pneumoniae antigen.
A negative result does not exclude infection with
Streptococcus pneumoniae. Clinical correlation is
recommended.
01/31/24 21:52 Nasal Swab Influenza Types A & B ([facility]ANG) - Final
Negative for Influenza A & B, NAAT
Negative results must be combined with clinical observations
and patient history.
Nucleic Acid Amplification test (NAAT)performed on the
[employer] platform.
--- NOTE | 2024-02-03 11:30 | W.PN.HOSP.TC ---
Today's Communication/Plan
-
Continue patient supplementation with attempt to wean off.
Intensify diuresis with Lasix dose increased to 40 mg twice a day.
Empiric antibiotics covering community-acquired pathogens
Speech and swallow evaluation.
Consideration of systemic steroids.
Hold warfarin given supratherapeutic INR.
Assessment / Plan
Assessment / Plan
83yo M with PMHx of Afib, SSS s/p PPM, HFrEF with ICD, pulmonary fibrosis, recent PPM/ICD replacement since previous leads were broken (1 month ago) came after he started to feel worsening SOB on exertion 2 days ago, found hypoxic and needed NRB in
ED. Admitted for CHF/lung fibrosis
A/P:
#Acute hypoxic respiratory failure 2/2 acute on chronic HFrEF exacerbation and lung fibrosis
Not on home O2 prior to patient
Lasix, daily weights and electrolytes
Cardiology eval
Wean off O2
Echo in Sept: pulmonary HTN, EF 35%, moderate TR, ischemic CM signs
ProBNP elevated to 6430 (previous 4170)
With no significant weight difference since last admission - very unclear picture with CHF/ILD overlap. With high O2 requirements CTA to r/o PE is appropriate even in the settings of diuresis
#Pulmonary fibrosis
unclear if in exacerbation
no wheezing
Pulm for mgmt: with fluid overload - no steroids
Bronchodilators.
Concern for bilateral pneumonia.
CT scan of the chest on 02/01 with diffuse groundglass infiltrates. Negative for pulmonary embolism.
Speech and swallow consult.
Antibiotics: Ceftriaxone/doxycycline initiated on 02/01.
#Supratherapeutic INR
Follow INR and adjust warfarin to target INR 2.0-3.0
#Elevated bilirubin
#Asymptomatic cholelithiasis
no abd tenderness
check LFT, LDH
US RUQ
#HLD
#Essential HTN
#CAD, stable s/p PCI
#Afib, permanent
cont home meds
DVT ppx on Coumadin
DNR/DNI
I have spent at least 57min reviewing chart, test results, communication with consultants and direct patient care
Anticipated Discharge: > 48 hours
Subjective/Interval History
-
Date of Service: February 03, 2024
Objective Data
-
Labs:
Laboratory Results
02/03/24
04:39
WBC 12.3 H
Hgb 15.0
Hct 44.1
Plt Count 183
PT 33.2 H
INR 3.26
Sodium 140
Potassium 3.5
Chloride 100
Carbon Dioxide 25
BUN 29 H
Creatinine 0.9
Glucose 110 H
Calcium 9.0
Total Bilirubin 4.6 H
AST 27
ALT 18
Alkaline Phosphatase 137 H
Vital Signs:
Vital Signs
Temp Pulse Resp BP Pulse Ox
98.0 F 87 27 109/73 96
02/03/24 11:19 02/03/24 10:00 02/03/24 10:00 02/03/24 09:44 02/03/24 10:16
I&O
02/02/24 02/03/24 02/04/24
06:59 06:59 06:59
Intake Total 1200 / 1200 340 / 340
Output Total 1900 / 1900 2074 / 2074 600 / 600
Balance -700 / -700 -1735 / -1735 -600 / -600
Physical Exam
-
General: No Apparent Distress
HEENT: Normocephalic
Respiratory: Crackles (bibasilar)
Cardiac: Regular Rhythm
GI: Soft, Nontender and Nondistended
Musculoskeletal: No Clubbing, No Cyanosis and No Edema (maybe trace b/l)
Skin: Warm
Neuro: Awake, Alert, Oriented and AO x 3
Psych: Calm
--- NOTE | 2024-02-03 14:45 | PTCARENOTE ---
Pt presents as assessed. Aox3. Sating high 80's to low 90's on 13L MFNC. AV paced with PVC's on tele monitor. OOB to chair throughout the day. Voiding in urinal. Care as documented. Ringing appropriately, call alonso within reach.
[2024-02-03] MEDS: STERILE WATER FOR INJECTION 10 ML IV (15:33)
[2024-02-03] MEDS: KCL 40 MEQ PO (15:33)
[2024-02-03] MEDS: ROCEPHIN 1000 MG IV (15:33)
--- NOTE | 2024-02-03 15:57 | PTCARENOTE ---
Pt with 17 beat run VT, broke spontaneously. Dr. Reinoso and Dr. Carrasco notified via TT.
[2024-02-03] MEDS: XALATAN OPHTHALMIC SOLUTION 1 DROP OPHTH (18:35)
--- NOTE | 2024-02-03 21:00 | PTCARENOTE ---
Received pt from day shift. Pt aaox3. 93% on 13L MFNC. HANG medications given (see MAR). Pt refusing hygiene despite educating on importance. Pt resting in bed with call alonso in reach
[2024-02-04] VITALS (13 sets, daily range): BP systolic 88–116; BP diastolic 58–81; BMI 28.9
[2024-02-04 05:48] LABS: INR 2.68; PT 28.4 Sec (11.4-14.6)
[2024-02-04 06:03] LABS: Blood Urea Nitrogen 37 mg/dl (9-20); Calcium 9.2 mg/dl (8.4-10.2); Carbon Dioxide 25 mmol/L (22-30); Chloride 99 mmol/L (98-107); Estimated Creatinine Clearance 64 ml/min; Glucose 110 mg/dl (70-99); Potassium 3.8 mmol/L (3.5-5.1); Sodium 138 mmol/L (135-145); eGFR > 60.00
[2024-02-04] MEDS: DUONEB 3 ML INH ×4 (07:21→19:32)
[2024-02-04] MEDS: COREG 6.25 MG PO ×2 (08:03→21:01)
[2024-02-04] MEDS: PROTONIX 40 MG PO (08:04)
[2024-02-04] MEDS: VIBRAMYCIN 100 MG PO ×2 (08:04→21:01)
[2024-02-04] MEDS: PLAVIX 75 MG PO (08:04)
[2024-02-04] MEDS: LASIX 40 MG IV (08:04)
[2024-02-04] MEDS: FARXIGA 10 MG PO (08:04)
[2024-02-04] MEDS: TRUSOPT 2% OPHTHALMIC SOLUTION 2 DROP OPHTH (08:06)
--- NOTE | 2024-02-04 09:05 | W.PN.PUL.V3 ---
Today's Communication / Plan
-
Antibiotics continue
Continue diuresis
Begin steroids
Attempt to decrease FiO2
Assessment
-
Patient is an 83-year-old male with previous history of heart failure reduced EF, pulmonary fibrosis, A-fib presenting to ER with shortness of breath for the past 2 days. He was notably hypoxemic into the 70s per EMS. He was placed on a
nonrebreather mask in the ER with saturation improvement to the 90s. Has a prior history of IPF being followed by Dr Davis as OP, previously followed by pulmonology at [facility]. Last PFT in office demonstrated restrictive lung disease, he
was not placed on inhalers due to being asymptomatic. Antifibrotic therapy was discussed but not initiated. He was not known to be on oxygen at home. We are consulted for eval.
Acute hypoxic respiratory failure
Acute on chronic heart failure w/ rEF exacerbation
Worsening SOB
LE edema
DNR
Conditions present prior to admission:
HUP- pacemaker, AV node ablation, revision of ICD (new ICD from Right subclavian tunnelled to generator on left 07/10/2023)
CHF/Cardiomyopathy EF 35% s/p HUP- defibrillator 02/26/2023
Moderately dilated and hypokinetic right ventricle, mod PH on ECHO
Interstitial lung disease-serology unrevealing, inflammatory markers not elevated, observational approach-follows Dr. Davis
Afib s/p ablation
Mixed hyperlipidemia
RBBB
HTN
MVR
Lung Surgery 35 years ago/Thorectomy 1986
Hayfever
Glaucoma
Osteoarthritis
Hernia repair 2002
Carpel tunnel
Cataracts Bilateral 2009
Plan
Respiratory status still somewhat tenuous with high FiO2 requirements-might need high flow oxygen-reviewed with HORTICULTURAL MANAGER
Supplemental oxygen as needed-assess discharge supplemental oxygen needs-does not use oxygen at home
High flow oxygen if needed
Noninvasive ventilation if needed
DNR status noted
Nebulizers as needed-currently not bronchospastic
Mucolytics
Aspiration precautions
Steroids will be initiated with hypoxemia persistent despite diuresis
CT chest 02/02/2024-no pulmonary embolism, severe bilateral groundglass densities which have progressed, severe cardiomegaly and pulmonary hypertension
Prior history of lung disease is noted including IPF
Had seen Dr Davis in past, but not on inhalers
CT showing stable findings, not significantly progressed from interval CT 12/2023 <-- 12/2022
CT chest with possible pneumonia-clinically not behaving like pneumonia, no temperature, procalcitonin negative, mild leukocytosis, no chest congestion or sputum-possibly CHF
Check cultures
Urine Legionella negative
Influenza negative
Streptococcal pneumo antigen negative
Unable to produce sputum
Empiric antibiotics initiated-ceftriaxone and doxycycline-finite course
Suspect CHF component on top of baseline IPF
Continue diuresis as tolerated--2 L / 24 hours, however, weight is not changed
Monitor renal function, electrolytes, intake/output, lower extremity edema and weight
Replace electrolytes as needed
Previous echocardiogram noted-EF 35%
Cardiology following-correspondence reviewed-diuresis increased
DVT prophylaxis-Coumadin on hold-INR still elevated 2.6
GI prophylaxis-on pantoprazole
Nutrition
Increase activity
Last saw Dr. Davis 04/29/2023-canceled PFT/appointment 01/27/2024
Will need outpatient pulmonary evaluation in our office for PFTs and 6MWT/post discharge planning-with Dr. Davis
Diagnostic Data
Chest X-Ray: 01/31/24- Stable right-sided cardiac conduction device. Retained leads again noted on the left. Low lung volumes. Subsegmental atelectasis in the bilateral lung bases. Chain sutures project over the medial right lung apex. No large
pleural effusion or pneumothorax. Stable enlargement of the cardiac silhouette.
01/01/24- There is no other significant interval change.
CT chest 01/07/23-[place] coronary artery calcifications, elevated right hemidiaphragm, cholelithiasis, widespread bilateral interstitial markings consistent with possible pulmonary fibrosis, aneurysmal dilation of the ascending thoracic aorta at 4.6
cm, prominent caliber bilateral main pulmonary arteries, scattered small nonspecific mediastinal lymph nodes, largest measuring 1.[address] Scan: CHEST 12/31/23- Placement of ICD in the interval since prior CT. Three ICD leads seen one of which extends into the superior right atrium. Additional two leads are seen one extending into the right ventricle distal portion appearing to extend
superiorly. The additional lead is adjacent to the first ventricular lead and appears to extend to the distal right atrium adjacent to the mitral valve, most likely with lead tip in the right atrium proper although evaluation somewhat limited due to
some beam hardening artifact. Cholelithiasis. Stable mild aneurysmal dilatation of the ascending thoracic aorta at approximately 4.6 cm with some atherosclerotic changes. Marked coronary artery calcifications. Widespread bilateral prominent
pulmonary interstitial markings again seen most likely chronic such as pulmonary fibrosis. Few scattered subcentimeter mediastinal lymph nodes, some of which slightly smaller in comparison to prior CT.
Echo: 12/30/23- Moderate LV dysfunction. Moderately dilated and hypokinetic right ventricle. Severely dilated right atrium. Moderate tricuspid regurgitation. Estimated PASP 54 mmHg assuming RA 15 mmHg. No pericardial effusion. The ICD lead is no
longer visualized in the RV. No significant change since the prior study of 11/26/2023 except the RV lead is no longer seen in the RV.
PFT 01/27/23-FEV1 2.47-86%, FVC 2.9-72%, TLC 56%, RV 36%, DLCO 39%, DLCO/VA 69%. Mild to moderate restriction and moderate reduction in diffusing capacity.�������
Spirometry 04/29/23-FEV1 2.12-74%, FVC 2.62-65%. Moderate restriction.
6 minute walk test 01/27/23-Ambulating 90 feet with desaturation britany 96% of maximum heart rate of 109.��Dyspnea scale score 0. No supplemental oxygen required.
ILD Serology 04/23/23-normal Sjogren's, MERRITT, anti-scleroderma, MYRA-43, anti-DNA, anti-Angie 1, aldolase,������
Eosinophils, 04/23/23-300�������
ESR 04/23/23-4�������
Alpha-1 antitrypsin level and phenotype-156,
rheumatoid factor-Less than 10
C-reactive protein-3
Subjective Data
-
Date of Service:
Date of Service: February 04, 2024
Chief Complaint: Pulmonary Follow Up and Dyspnea Follow Up
Subjective:
Still on high FiO2, denies any shortness of breath at rest, no chest pain or abdominal pain, no productive cough
Review of Systems
General: Other (Per HPI)
Objective Data
Data Reviewed
Vital Signs / I&O:
Vital Signs
Temp Pulse Resp BP Pulse Ox
97.3 F 82 28 105/75 93
02/04/24 08:42 02/04/24 07:28 02/04/24 07:28 02/04/24 06:00 02/04/24 07:28
Intake and Output
02/03/24 02/04/24 02/05/24
06:59 06:59 06:59
Intake Total 340 / 340 100 / 100
Output Total 2074 / 2074 2425 / 2425
Balance -1735 / -1735 -2325 / -2325
SaO2: 93
Nasal Cannula flow liters per minute: 13
Physical Exam
General: Respiratory Distress (n) and Comfortable
HEENT: Normocephalic and Moist Mucous Membranes
Cardiovascular: Regular Rhythm
Respiratory: Crackles (Bibasilar), Non-Labored Respirations, Accessory Resp Muscle Use (n) and Stridor
GI: Soft, Non Distended and Non Tender
Neurology: Awake, Alert and No Motor Deficits
Skin: Warm, Good Color, Cyanosis (n) and Jaundice (n)
Labs/Micro/Reports
Lab Data
02/03/24 04:39
02/04/24 04:49
Laboratory Results
02/04/24
04:49
PT 28.4 H
INR 2.68
Microbiology
02/03/24 01:56 Urine Legionella Urinary Antigen - Final
Negative for Legionella pneumophila Serogroup 1 antigen.
A negative result does not rule out the possiblity of
Legionella infection due to other serogroups or species of
Legionella. Clinical correlation is recommended.
02/03/24 01:56 Urine Streptococcus pneumoniae Antigen (M - Final
Negative for Streptococcus pneumoniae antigen.
A negative result does not exclude infection with
Streptococcus pneumoniae. Clinical correlation is
recommended.
--- NOTE | 2024-02-04 09:07 | W.PN.CD ---
Today's Communication / Plan
-
-
Not losing much weight
Just went from Lasix 40 IV daily to 40 BID => will try 60 IV BID. Note LE edema improved and so we may not have much more to diurese
Add low dose Aldactone
Pulmonary considering steroid if O2 requirements remain high
Ready for warfarin
Impression / Plan
-
83 yo male with PMH of CAD, prior stents, ICM EF 35%, chronic systolic HF, VT, heart block (AV node ablatoin), BiV ICD (Biotronik) with COMPENSATION ADMINISTRATOR via left bundle pacing lead (Biotronik), permanent A fib on warfarin, IPF is admitted with SOB and hypoxia.
Dyspnea
- Mixed heart failure and lung disease (IPF)
Acute on chronic HFrEF with ischemic cardiomyopathy, LVEF 35%
- Admit pBNP 6430 (on 12/28/2023 pBNP 4170)
- Feeling better
- IV diuresing, edema improved. Weight is not decreasing
- Will need new dry weight and new diuretic regimen at discharge => weight is lower than Dec 2023 admit
- Coreg 6.25mg bid, and Farxiga 10mg daily (takes Jardiance at home)
- GDMT has been limited by BP, and valsartan is currently
- Will advance med Rx as able
- COMPENSATION ADMINISTRATOR via left bundle pacing lead
Lung disease, per pulmonary
- Pulmonary considering steroids
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
VT
- Well controlled (prior ablation at [facility], remote)
- Biotronik ICD in place
Permanent rate controlled A fib on warfarin
Stable CAD, prior stenting, no angina
H/o amaurosis fugax/TIA per records => clopidogrel in addition to warfarin
Subjective:
Feels a bit better. Need to lose more weight
Testing
Echo 12/30/23: EF 35%, RV dilation/dysfunction, moderate TR, PASP 54
Cath 10/2021: [facility], stable CAD
Physical Exam
Vital Signs/Labs
Vital Signs
Temp Pulse Resp BP Pulse Ox
97.3 F 82 28 105/75 93
02/04/24 08:42 02/04/24 07:28 02/04/24 07:28 02/04/24 06:00 02/04/24 09:05
02/03/24 02/04/24 02/05/24
06:59 06:59 06:59
Actual Weight 96.6 kg 96.5 kg
02/03/24 04:39
02/04/24 04:49
PT 28.4 Sec (11.4-14.6) H 02/04/24 04:49
INR 2.68 02/04/24 04:49
Magnesium 2.1 mg/dl (1.6-2.3) 02/02/24 04:27
01/31/24 01/31/24
21:52 22:34
Khy-G-Ymewmzgkfcb Pept Cancelled 6430
LAB Results
02/01/24 02/01/24
11:32 18:13
Troponin I < 0.012 D < 0.012
Physical Exam
Constitutional: No acute distress
Cardiovascular: Rhythm & rate is regular and Pedal edema is absent
Respiratory: Respiratory effort normal and Crackles Present
GI: Soft and Distention absent
Neuro/Psych: AO x 3
Data Reviewed
-
Date of Service: February 04, 2024
[2024-02-04] MEDS: DECADRON 4 MG IV ×2 (11:31→17:21)
[2024-02-04] MEDS: ALDACTONE 12.5 MG PO (11:31)
--- NOTE | 2024-02-04 14:07 | W.PN.HOSP.TC ---
Today's Communication/Plan
-
Intensified diuresis with higher dose of furosemide and addition of spironolactone.
Empiric steroid trial.
Continue antibiotics per
Resume warfarin.
Attempt to wean off oxygen as tolerates
Assessment / Plan
Assessment / Plan
83yo M with PMHx of Afib, SSS s/p PPM, HFrEF with ICD, pulmonary fibrosis, recent PPM/ICD replacement since previous leads were broken (1 month ago) came after he started to feel worsening SOB on exertion 2 days ago, found hypoxic and needed NRB in
ED. Admitted for CHF/lung fibrosis
Impression:
Acute hypoxic respiratory failure.
Acute on chronic heart failure reduced EF exacerbation
Bilateral pulmonary infiltrates with concern for worsening of pulmonary fibrosis, pneumonia.
Other conditions:
Status post pacemaker, AV node ablation, revision of AICD
CHF, ischemic cardiomyopathy with LVEF of 35%.
Interstitial lung disease with unrevealing serology.
Paroxysmal AF status post ablation
Dyslipidemia
Hypertension
Plan
#Acute hypoxic respiratory failure 2/2 acute on chronic HFrEF exacerbation and lung fibrosis
Not on home O2 prior to patient
Lasix, daily weights and electrolytes
Cardiology eval
Wean off O2
Echo in Sept: pulmonary HTN, EF 35%, moderate TR, ischemic CM signs
ProBNP elevated to 6430 (previous 4170)
With no significant weight difference since last admission - very unclear picture with CHF/ILD overlap. With high O2 requirements CTA to r/o PE is appropriate even in the settings of diuresis
#Pulmonary fibrosis
unclear if in exacerbation
no wheezing
Pulm for mgmt: with fluid overload -.
Steroid trial initiated with Decadron on 02/03
Bronchodilators.
Concern for bilateral pneumonia.
CT scan of the chest on 02/01 with diffuse groundglass infiltrates. Negative for pulmonary embolism.
Speech and swallow consult.
Antibiotics: Ceftriaxone/doxycycline initiated on 02/01.
#Supratherapeutic INR
Follow INR and adjust warfarin to target INR 2.0-3.0
#Elevated bilirubin
#Asymptomatic cholelithiasis
no abd tenderness
check LFT, LDH
US RUQ
#HLD
#Essential HTN
#CAD, stable s/p PCI
#Afib, permanent
cont home meds
DVT ppx on Coumadin
DNR/DNI
I have spent at least 57min reviewing chart, test results, communication with consultants and direct patient care
Anticipated Discharge: > 48 hours
Subjective/Interval History
-
Date of Service: February 04, 2024
Objective Data
-
Labs:
Laboratory Results
02/04/24
04:49
PT 28.4 H
INR 2.68
Sodium 138
Potassium 3.8
Chloride 99
Carbon Dioxide 25
BUN 37 H
Creatinine 1.0
Glucose 110 H
Calcium 9.2
Vital Signs:
Vital Signs
Temp Pulse Resp BP Pulse Ox
97.7 F 80 24 90/58 97
02/04/24 11:50 02/04/24 11:21 02/04/24 11:21 02/04/24 10:00 02/04/24 11:21
I&O
02/03/24 02/04/24 02/05/24
06:59 06:59 06:59
Intake Total 340 / 340 100 / 100
Output Total 2074 2425 / 242
Balance -1735 / -1735 -2325 / -2325
Physical Exam
-
General: No Apparent Distress
HEENT: Normocephalic
Respiratory: Crackles (bibasilar)
Cardiac: Regular Rhythm
GI: Soft, Nontender and Nondistended
Musculoskeletal: No Clubbing, No Cyanosis and No Edema (maybe trace b/l)
Skin: Warm
Neuro: Awake, Alert, Oriented and AO x 3
Psych: Calm
--- NOTE | 2024-02-04 14:22 | PTCARENOTE ---
Pt presents as assessed. Aox3. Angry and agitated beginning of shift, mood improving throughout the day. Sating high 80's to low 90's on 13-15L MFNC. AV paced with PVC's on tele monitor. OOB to chair throughout the day. Voiding in urinal. Care as
documented. Ringing appropriately, call alonso within reach.
--- NOTE | 2024-02-04 17:03 | CM ---
Patient with Dx Acute hypoxic respiratory failure, HF exacerbation, Pulmonary fibrosis. O2 13L midflow. Receiving Receiving IV Lasix, IV Abx, IV Decadron. PT 01/31 & OT 01/31 recommend HH - PT held yesterday.
Plan watch for home O2 needs.
Plan follow patient's mobility with PT/OT.
Plan offer VN again when closer to d/c.
[2024-02-04] MEDS: STERILE WATER FOR INJECTION 10 ML IV (17:21)
[2024-02-04] MEDS: ROCEPHIN 1000 MG IV (17:21)
[2024-02-04] MEDS: LASIX 60 MG IV (17:22)
[2024-02-04] MEDS: COUMADIN 4 MG PO (17:22)
[2024-02-04] MEDS: XALATAN OPHTHALMIC SOLUTION OPHTH ×2 (17:26→17:49)
[2024-02-04] MEDS: CRESTOR 5 MG PO (21:09)
[2024-02-05] VITALS (12 sets, daily range): BP systolic 90–108; BP diastolic 62–79; BMI 28.0
--- NOTE | 2024-02-05 02:12 | PTCARENOTE ---
Pt AAOx3. During night Pt oxygen upped to 15L due to spo2 falling to 85%, spo2 now 95%. Pt has had no complaints at this time. Assessment care and vitals as charted.
[2024-02-05] MEDS: DECADRON 4 MG IV ×3 (03:16→19:24)
--- NOTE | 2024-02-05 03:39 | PTCARENOTE ---
Received pt from previous RN. Pt resting comfortable. Pt on 15L midflow, O2 sat 98%. VSS. No new changes.
[2024-02-05 05:54] LABS: % Basophils 0.1 % (0-2); % Immature Granulocytes 0.4 % (0-0.5); % Lymphocytes 7.9 % (20.5-51.1); % Neutrophils 88.6 % (42.2-75.2); Absolute Lymphocytes 0.7 10^3/uL (1.2-3.4); Absolute Monocytes 0.3 10^3/uL (0.1-0.6); Absolute Neutrophils 8.1 10^3/uL (1.4-6.5); Hematocrit 42.2 % (39.0-52.0); Hemoglobin 14.7 g/dL (13.0-18.0); Mean Corp Hgb Conc. 34.8 g/dL (33.0-37.0); Mean Corpuscular Hgb 31.3 pg (27.0-31.0); Mean Platelet Volume 9.6 fL (7.4-10.4); Nucleated Red Blood Cells % 0 % (-); Platelet Count 198 10^3/uL (130-400); Red Blood Cell Count 4.69 10^6/uL (4.70-6.10); Red Cell Dist. Width 13.9 % (11.5-14.5); White Blood Cell Count 9.1 10^3/uL (4.8-10.8)
[2024-02-05 06:02] LABS: INR 2.99; PT 31.5 Sec (11.4-14.6)
[2024-02-05 06:27] LABS: Blood Urea Nitrogen 45 mg/dl (9-20); Calcium 9.2 mg/dl (8.4-10.2); Carbon Dioxide 24 mmol/L (22-30); Chloride 99 mmol/L (98-107); Estimated Creatinine Clearance 64 ml/min; Glucose 147 mg/dl (70-99); Potassium 4.2 mmol/L (3.5-5.1); Sodium 140 mmol/L (135-145); eGFR > 60.00
--- NOTE | 2024-02-05 08:15 | W.PN.CD ---
Today's Communication / Plan
-
continue diuresis
Impression / Plan
-
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
Dyspnea
- Mixed heart failure and lung disease (IPF)
Acute on chronic HFrEF with ischemic cardiomyopathy, LVEF 35%
- Admit pBNP 6430 (on 12/28/2023 pBNP 4170)
- Feeling better
- IV diuresing, edema improved. Weight is finally down.
-continue IV BID with intensive monitoring of lytes
- Will need new dry weight and new diuretic regimen at discharge => weight is lower than Dec 2023 admit
- Coreg 6.25mg bid, and Farxiga 10mg daily (takes Jardiance at home)
- GDMT has been limited by BP, and valsartan is currently
- Will advance med Rx as able
- [employer] LA[employer]CH COMMANDER via left bundle pacing lead
Lung disease, per pulmonary
-oxygen requirement and degree of CHF oop to each other, suspect the hypoxia is more attributable to a pulm source, which of course will be better managed when 'dry'.
- Pulmonary considering steroids
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
-recent lead placement after dislodgement
VT
- Well controlled (prior ablation at [facility], remote)
- Biotronik ICD in place .
Permanent rate controlled A fib on warfarin
Stable CAD, prior stenting, no angina
H/o amaurosis fugax/TIA per records => clopidogrel in addition to warfarin
Subjective:
Feels a bit better. oxygen being weaned
Testing
Echo 12/30/23: EF 35%, RV dilation/dysfunction, moderate TR, PASP 54
Cath 10/2021: [facility], stable CAD
Physical Exam
Vital Signs/Labs
Vital Signs
Temp Pulse Resp BP Pulse Ox
97.5 F 80 27 108/72 89
02/05/24 07:00 02/05/24 06:00 02/05/24 06:00 02/05/24 06:00 02/05/24 06:00
02/04/24 02/05/24 02/06/24
06:59 06:59 06:59
Actual Weight 96.5 kg 93.5 kg
02/05/24 05:23
02/05/24 05:23
PT 31.5 Sec (11.4-14.6) H 02/05/24 05:23
INR 2.99 02/05/24 05:23
Magnesium 2.1 mg/dl (1.6-2.3) 02/02/24 04:27
01/31/24 01/31/24
21:52 22:34
Ahn-P-Erihyeqxqtg Pept Cancelled 6430
Physical Exam
Constitutional: No acute distress
Cardiovascular: Rhythm & rate is regular, Pedal edema is absent, Systolic murmur absent, Diastolic murmur absent and JVD present (+HJR)
Respiratory: Crackles Present (bibasilar)
Neuro/Psych: AO x 3
Data Reviewed
-
Date of Service: February 05, 2024
EKG: Other (tele v pace with pvcs )
[2024-02-05] MEDS: DUONEB 3 ML INH ×4 (08:34→19:19)
--- NOTE | 2024-02-05 09:52 | W.PN.PUL.V3 ---
Today's Communication / Plan
-
Finite course of antibiotics
Wean FiO2
Continue antibiotics
Continue steroids
Continue diuresis
Assessment
-
Patient is an 83-year-old male with previous history of heart failure reduced EF, pulmonary fibrosis, A-fib presenting to ER with shortness of breath for the past 2 days. He was notably hypoxemic into the 70s per EMS. He was placed on a
nonrebreather mask in the ER with saturation improvement to the 90s. Has a prior history of IPF being followed by Dr Davis as OP, previously followed by pulmonology at [facility]. Last PFT in office demonstrated restrictive lung disease, he
was not placed on inhalers due to being asymptomatic. Antifibrotic therapy was discussed but not initiated. He was not known to be on oxygen at home. We are consulted for eval.
Acute hypoxic respiratory failure
Acute on chronic heart failure w/ rEF exacerbation
Worsening SOB
LE edema
DNR
Conditions present prior to admission:
HUP- pacemaker, AV node ablation, revision of ICD (new ICD from Right subclavian tunnelled to generator on left 07/10/2023)
CHF/Cardiomyopathy EF 35% s/p HUP- defibrillator 02/26/2023
Moderately dilated and hypokinetic right ventricle, mod PH on ECHO
Interstitial lung disease-serology unrevealing, inflammatory markers not elevated, observational approach-follows Dr. Davis
Afib s/p ablation
Mixed hyperlipidemia
RBBB
HTN
MVR
Lung Surgery 35 years ago/Thorectomy 1986
Hayfever
Glaucoma
Osteoarthritis
Hernia repair 2002
Carpel tunnel
Cataracts Bilateral 2009
Plan
Respiratory status remains tenuous with increased FiO2 requirements-currently on 14 L mid flow
Supplemental oxygen as needed-assess discharge supplemental oxygen needs-does not use oxygen at home
High flow oxygen if needed
Noninvasive ventilation if needed
DNR status noted-not to be intubated
Nebulizers as needed-currently not bronchospastic
Mucolytics
Aspiration precautions
Steroids initiated with persistent hypoxemia despite diuresis
CT chest 02/02/2024-no pulmonary embolism, severe bilateral groundglass densities which have progressed, severe cardiomegaly and pulmonary hypertension
Prior history of lung disease is noted including IPF
Had seen Dr Davis in past, but not on inhalers
CT showing stable findings, not significantly progressed from interval CT 12/2023 <-- 12/2022
CT chest with possible pneumonia-clinically not behaving like pneumonia, no temperature, procalcitonin negative, mild leukocytosis, no chest congestion or sputum-possibly CHF
Cultures reviewed
Urine Legionella negative
Influenza negative
Streptococcal pneumo antigen negative
Unable to produce sputum
Empiric antibiotics initiated-ceftriaxone and doxycycline-finite course
Suspect CHF component on top of baseline IPF
Continue diuresis as tolerated--2 L / 24 hours, however, weight is not changed
Monitor renal function, electrolytes, intake/output, lower extremity edema and weight
Replace electrolytes as needed
Previous echocardiogram noted-EF 35%
Cardiology following-correspondence reviewed-diuresis increased
DVT prophylaxis-Coumadin on hold-INR still elevated 2.99
GI prophylaxis-on pantoprazole
Nutrition
Increase activity
Last saw Dr. Davis 04/29/2023-canceled PFT/appointment 01/27/2024
Will need outpatient pulmonary evaluation in our office for PFTs and 6MWT/post discharge planning-with Dr. Davis
Diagnostic Data
Chest X-Ray: 01/31/24- Stable right-sided cardiac conduction device. Retained leads again noted on the left. Low lung volumes. Subsegmental atelectasis in the bilateral lung bases. Chain sutures project over the medial right lung apex. No large
pleural effusion or pneumothorax. Stable enlargement of the cardiac silhouette.
01/01/24- There is no other significant interval change.
CT chest 01/07/23-[place] coronary artery calcifications, elevated right hemidiaphragm, cholelithiasis, widespread bilateral interstitial markings consistent with possible pulmonary fibrosis, aneurysmal dilation of the ascending thoracic aorta at 4.6
cm, prominent caliber bilateral main pulmonary arteries, scattered small nonspecific mediastinal lymph nodes, largest measuring 1.[address] Scan: CHEST 12/31/23- Placement of ICD in the interval since prior CT. Three ICD leads seen one of which extends into the superior right atrium. Additional two leads are seen one extending into the right ventricle distal portion appearing to extend
superiorly. The additional lead is adjacent to the first ventricular lead and appears to extend to the distal right atrium adjacent to the mitral valve, most likely with lead tip in the right atrium proper although evaluation somewhat limited due to
some beam hardening artifact. Cholelithiasis. Stable mild aneurysmal dilatation of the ascending thoracic aorta at approximately 4.6 cm with some atherosclerotic changes. Marked coronary artery calcifications. Widespread bilateral prominent
pulmonary interstitial markings again seen most likely chronic such as pulmonary fibrosis. Few scattered subcentimeter mediastinal lymph nodes, some of which slightly smaller in comparison to prior CT.
Echo: 12/30/23- Moderate LV dysfunction. Moderately dilated and hypokinetic right ventricle. Severely dilated right atrium. Moderate tricuspid regurgitation. Estimated PASP 54 mmHg assuming RA 15 mmHg. No pericardial effusion. The ICD lead is no
longer visualized in the RV. No significant change since the prior study of 11/26/2023 except the RV lead is no longer seen in the RV.
PFT 01/27/23-FEV1 2.47-86%, FVC 2.9-72%, TLC 56%, RV 36%, DLCO 39%, DLCO/VA 69%. Mild to moderate restriction and moderate reduction in diffusing capacity.�������
Spirometry 04/29/23-FEV1 2.12-74%, FVC 2.62-65%. Moderate restriction.
6 minute walk test 01/27/23-Ambulating 90 feet with desaturation britany 96% of maximum heart rate of 109.��Dyspnea scale score 0. No supplemental oxygen required.
ILD Serology 04/23/23-normal Sjogren's, MERRITT, anti-scleroderma, MYRA-43, anti-DNA, anti-Angie 1, aldolase,������
Eosinophils, 04/23/23-300�������
ESR 04/23/23-4�������
Alpha-1 antitrypsin level and phenotype-156,
rheumatoid factor-Less than 10
C-reactive protein-3
Subjective Data
-
Date of Service:
Date of Service: February 05, 2024
Chief Complaint: Pulmonary Follow Up and Dyspnea Follow Up
Subjective:
Patient states that he feels better, no complaints of shortness of breath at rest, no chest congestion, productive cough or abdominal pain, slept well
Review of Systems
General: Other (Per HPI)
Objective Data
Data Reviewed
Vital Signs / I&O:
Vital Signs
Temp Pulse Resp BP Pulse Ox
97.5 F 80 18 105/75 94
02/05/24 07:00 02/05/24 08:38 02/05/24 08:38 02/05/24 08:00 02/05/24 08:38
Intake and Output
02/04/24 02/05/24 02/06/24
06:59 06:59 06:59
Intake Total 100 / 100 1170 / 1170
Output Total 2425 / 2425 2700 / 2700
Balance -2325 / -2325 -1530 / -1530
SaO2: 94
Nasal Cannula flow liters per minute: 12
Physical Exam
General: Respiratory Distress (n) and Comfortable
HEENT: Normocephalic and Moist Mucous Membranes
Cardiovascular: Regular Rhythm
Respiratory: Crackles (Bibasilar), Non-Labored Respirations, Accessory Resp Muscle Use (n) and Stridor
GI: Soft, Non Distended and Non Tender
Neurology: Awake, Alert and No Motor Deficits
Skin: Warm, Good Color, Cyanosis (n) and Jaundice (n)
Labs/Micro/Reports
Lab Data
02/05/24 05:23
10/10/24 05:23
Laboratory Results
02/05/24
05:23
PT 31.5 H
INR 2.99
Microbiology
02/03/24 01:56 Urine Legionella Urinary Antigen - Final
Negative for Legionella pneumophila Serogroup 1 antigen.
A negative result does not rule out the possiblity of
Legionella infection due to other serogroups or species of
Legionella. Clinical correlation is recommended.
02/03/24 01:56 Urine Streptococcus pneumoniae Antigen (M - Final
Negative for Streptococcus pneumoniae antigen.
A negative result does not exclude infection with
Streptococcus pneumoniae. Clinical correlation is
recommended.
[2024-02-05] MEDS: ALDACTONE 12.5 MG PO (09:54)
[2024-02-05] MEDS: COREG 6.25 MG PO ×2 (09:55→20:06)
[2024-02-05] MEDS: FARXIGA 10 MG PO (09:55)
[2024-02-05] MEDS: LASIX 60 MG IV ×2 (09:56→15:29)
[2024-02-05] MEDS: PROTONIX 40 MG PO (09:58)
[2024-02-05] MEDS: PLAVIX 75 MG PO (09:58)
[2024-02-05] MEDS: TRUSOPT 2% OPHTHALMIC SOLUTION 2 DROP OPHTH (10:03)
[2024-02-05] MEDS: VIBRAMYCIN 100 MG PO ×2 (10:05→20:05)
--- NOTE | 2024-02-05 10:47 | PTCARENOTE ---
Pt received from night stocker RN. Ox3 and appropriate, he states he had a good night. AV paced on tele, some soft BP's overnight. Pt weaned down to 10L MFNC with sat currently 92%. Crackles at the bases, pt complains of a nonproductive cough. Pt
using the urinal appropriately. Makes needs known. Call alonso within reach.
--- NOTE | 2024-02-05 11:14 | W.PN.HOSP.TC ---
Today's Communication/Plan
-
IV diuresis.
Corticosteroids.
Antibiotics covering community-acquired pathogens
Attempt to wean off O2 as tolerates
Assessment / Plan
Assessment / Plan
83yo M with PMHx of Afib, SSS s/p PPM, HFrEF with ICD, pulmonary fibrosis, recent PPM/ICD replacement since previous leads were broken (1 month ago) came after he started to feel worsening SOB on exertion 2 days ago, found hypoxic and needed NRB in
ED. Admitted for CHF/lung fibrosis
Impression:
Acute hypoxic respiratory failure.
Acute on chronic heart failure reduced EF exacerbation
Bilateral pulmonary infiltrates with concern for worsening of pulmonary fibrosis, pneumonia.
Other conditions:
Status post pacemaker, AV node ablation, revision of AICD
CHF, ischemic cardiomyopathy with LVEF of 35%.
Interstitial lung disease with unrevealing serology.
Paroxysmal AF status post ablation
Dyslipidemia
Hypertension
Plan
#Acute hypoxic respiratory failure 2/2 acute on chronic HFrEF exacerbation and lung fibrosis
Not on home O2 prior to patient
Lasix, daily weights and electrolytes
Cardiology eval
Wean off O2
Echo in Sept: pulmonary HTN, EF 35%, moderate TR, ischemic CM signs
ProBNP elevated to 6430 (previous 4170)
With no significant weight difference since last admission - very unclear picture with CHF/ILD overlap. With high O2 requirements CTA to r/o PE is appropriate even in the settings of diuresis
#Pulmonary fibrosis
unclear if in exacerbation
Pulm for mgmt: with fluid overload -.
Steroid trial initiated with Decadron on 02/03
Bronchodilators.
Concern for bilateral pneumonia.
CT scan of the chest on 02/01 with diffuse groundglass infiltrates. Negative for pulmonary embolism.
Speech and swallow consult.
Antibiotics: Ceftriaxone/doxycycline initiated on 02/01.
#Supratherapeutic INR
Follow INR and adjust warfarin to target INR 2.0-3.0
#Elevated bilirubin
#Asymptomatic cholelithiasis
no abd tenderness
check LFT, LDH
US RUQ
#HLD
#Essential HTN
#CAD, stable s/p PCI
#Afib, permanent
cont home meds
DVT ppx on Coumadin
DNR/DNI
Anticipated Discharge: > 48 hours
Subjective/Interval History
-
Date of Service: February 05, 2024
Objective Data
-
Labs:
Laboratory Results
02/05/24
05:23
WBC 9.1
Hgb 14.7
Hct 42.2
Plt Count 198
PT 31.5 H
INR 2.99
Sodium 140
Potassium 4.2
Chloride 99
Carbon Dioxide 24
BUN 45 H
Creatinine 1.0
Glucose 147 H
Calcium 9.2
Vital Signs:
Vital Signs
Temp Pulse Resp BP Pulse Ox
97.5 F 80 27 92/66 96
02/05/24 07:00 02/05/24 10:00 02/05/24 10:00 02/05/24 10:00 02/05/24 10:00
I&O
02/04/24 02/05/24 02/06/24
06:59 06:59 06:59
Intake Total 100 / 100 1170 / 1170
Output Total 2425 / 2425 2700 / 2700
Balance -2325 / -2325 -1530 / -1530
Physical Exam
-
General: No Apparent Distress
HEENT: Normocephalic
Respiratory: Crackles (bibasilar)
Cardiac: Regular Rhythm
GI: Soft, Nontender and Nondistended
Musculoskeletal: No Clubbing, No Cyanosis and No Edema (maybe trace b/l)
Skin: Warm
Neuro: Awake, Alert, Oriented and AO x 3
Psych: Calm
--- NOTE | 2024-02-05 12:42 | CM ---
[facility] called; patient known to them
PT/OT follow-up still pending
CM will continue to monitor for home oxygen needs
Plan: to be determined; if home health is recommended will resume with w/ [facility]
[2024-02-05] MEDS: STERILE WATER FOR INJECTION 10 ML IV (15:29)
[2024-02-05] MEDS: ROCEPHIN 1000 MG IV (15:29)
[2024-02-05] MEDS: XALATAN OPHTHALMIC SOLUTION 1 DROP OPHTH (19:24)
[2024-02-05] MEDS: COUMADIN 1 MG PO (19:24)
--- NOTE | 2024-02-05 23:08 | PTCARENOTE ---
Addendum entered by Aliyah Pappas RN 02/05/24 23:08:
patient is on 7L midflow and sats are 97-98. Patient is AV paced. Patient has pneumatic compression sleeves ordered but refused. education given on purpose and importance. Patient is resting in bed with call alonso in reach.
Original Note:
assumed care of patient from previous RN. Patient is Aox3. Patientis
[2024-02-06] VITALS (18 sets, daily range): BP systolic 87–120; BP diastolic 52–85; PULSE 79–85; O2SAT 93; BMI 28.1
[2024-02-06] MEDS: DECADRON 4 MG IV ×3 (00:55→17:52)
[2024-02-06 05:30] LABS: INR 3.71; PT 37.3 Sec (11.4-14.6)
[2024-02-06 05:50] LABS: Blood Urea Nitrogen 55 mg/dl (9-20); Calcium 9.4 mg/dl (8.4-10.2); Carbon Dioxide 27 mmol/L (22-30); Chloride 96 mmol/L (98-107); Estimated Creatinine Clearance 58 ml/min; Glucose 164 mg/dl (70-99); Potassium 3.7 mmol/L (3.5-5.1); Sodium 140 mmol/L (135-145); eGFR > 60.00
[2024-02-06 06:07] LABS: % Basophils 0.1 % (0-2); % Immature Granulocytes 0.6 % (0-0.5); % Lymphocytes 6.3 % (20.5-51.1); % Monocytes 2.4 % (1.7-9.3); % Neutrophils 90.6 % (42.2-75.2); Absolute Immature Granulocytes 0.1 10^3/uL (0-0.05); Absolute Lymphocytes 0.9 10^3/uL (1.2-3.4); Absolute Monocytes 0.3 10^3/uL (0.1-0.6); Absolute Neutrophils 12.9 10^3/uL (1.4-6.5); Hematocrit 42.9 % (39.0-52.0); Hemoglobin 14.8 g/dL (13.0-18.0); Mean Corp Hgb Conc. 34.5 g/dL (33.0-37.0); Mean Corpuscular Hgb 30.5 pg (27.0-31.0); Mean Corpuscular Volume 88.3 fL (80.0-94.0); Mean Platelet Volume 10.2 fL (7.4-10.4); Nucleated Red Blood Cells % 0 % (-); Platelet Count 248 10^3/uL (130-400); Red Blood Cell Count 4.86 10^6/uL (4.70-6.10); Red Cell Dist. Width 14.1 % (11.5-14.5); White Blood Cell Count 14.3 10^3/uL (4.8-10.8)
[2024-02-06] MEDS: DUONEB 3 ML INH ×4 (07:55→19:46)
--- NOTE | 2024-02-06 10:21 | W.PN.PUL.V3 ---
Today's Communication / Plan
-
Diuresis as tolerated
Wean FiO2
Continue steroids-no change-consider reduction in the next 24-48 hours
Finite course of antibiotics
Assessment
-
Patient is an 83-year-old male with previous history of heart failure reduced EF, pulmonary fibrosis, A-fib presenting to ER with shortness of breath for the past 2 days. He was notably hypoxemic into the 70s per EMS. He was placed on a
nonrebreather mask in the ER with saturation improvement to the 90s. Has a prior history of IPF being followed by Dr Davis as OP, previously followed by pulmonology at [facility]. Last PFT in office demonstrated restrictive lung disease, he
was not placed on inhalers due to being asymptomatic. Antifibrotic therapy was discussed but not initiated. He was not known to be on oxygen at home. We are consulted for eval.
Acute hypoxic respiratory failure
Acute on chronic heart failure w/ rEF exacerbation
Worsening SOB
LE edema
DNR
Conditions present prior to admission:
HUP- pacemaker, AV node ablation, revision of ICD (new ICD from Right subclavian tunnelled to generator on left 07/10/2023)
CHF/Cardiomyopathy EF 35% s/p HUP- defibrillator 02/26/2023
Moderately dilated and hypokinetic right ventricle, mod PH on ECHO
Interstitial lung disease-serology unrevealing, inflammatory markers not elevated, observational approach-follows Dr. Davis
Afib s/p ablation
Mixed hyperlipidemia
RBBB
HTN
MVR
Lung Surgery 35 years ago/Thorectomy 1986
Hayfever
Glaucoma
Osteoarthritis
Hernia repair 2002
Carpel tunnel
Cataracts Bilateral 2009
Plan
Respiratory status remains somewhat tenuous with increased FiO2 requirements-still on mid flow
Supplemental oxygen as needed-assess discharge supplemental oxygen needs-does not use oxygen at home
High flow oxygen if needed
Noninvasive ventilation if needed
DNR status noted-not to be intubated
Nebulizers as needed-currently not bronchospastic
Mucolytics
Aspiration precautions
Steroids initiated with persistent hypoxemia despite diuresis-Decadron 4 mg IV every 8 hours-begin to reduce in the next 24-[address] chest 02/02/2024-no pulmonary embolism, severe bilateral groundglass densities which have progressed, severe cardiomegaly and pulmonary hypertension
Prior history of lung disease is noted including IPF
Had seen Dr Davis in past, but not on inhalers
CT showing stable findings, not significantly progressed from interval CT 12/2023 <-- 12/2022
CT chest with possible pneumonia-clinically not behaving like pneumonia, no temperature, procalcitonin negative, mild leukocytosis, no chest congestion or sputum-possibly CHF
Cultures reviewed
Urine Legionella negative
Influenza negative
Streptococcal pneumo antigen negative
Unable to produce sputum
Empiric antibiotics initiated-ceftriaxone and doxycycline-finish a finite course
CHF component on top of baseline IPF
Continue diuresis as tolerated--2 L / 24 hours, however, weight is not changed-actually increased 0.4 kg / 24 hours
Monitor renal function, electrolytes, intake/output, lower extremity edema and weight
Replace electrolytes as needed
Previous echocardiogram noted-EF 35%
Cardiology following-correspondence reviewed-diuresis increased
Consider right heart catheterization-reviewed with Dr. Davenport 02/05/2024-would be difficult with recent procedures
DVT prophylaxis-Coumadin on hold-INR still elevated 3.7
GI prophylaxis-on pantoprazole
Nutrition
Increase activity
Last saw Dr. Davis 04/29/2023-canceled PFT/appointment 01/27/2024
Will need outpatient pulmonary evaluation in our office for PFTs and 6MWT/post discharge planning-with Dr. Davis
Diagnostic Data
Chest X-Ray: 01/31/24- Stable right-sided cardiac conduction device. Retained leads again noted on the left. Low lung volumes. Subsegmental atelectasis in the bilateral lung bases. Chain sutures project over the medial right lung apex. No large
pleural effusion or pneumothorax. Stable enlargement of the cardiac silhouette.
01/01/24- There is no other significant interval change.
CT chest 01/07/23-[place] coronary artery calcifications, elevated right hemidiaphragm, cholelithiasis, widespread bilateral interstitial markings consistent with possible pulmonary fibrosis, aneurysmal dilation of the ascending thoracic aorta at 4.6
cm, prominent caliber bilateral main pulmonary arteries, scattered small nonspecific mediastinal lymph nodes, largest measuring 1.[address] Scan: CHEST 12/31/23- Placement of ICD in the interval since prior CT. Three ICD leads seen one of which extends into the superior right atrium. Additional two leads are seen one extending into the right ventricle distal portion appearing to extend
superiorly. The additional lead is adjacent to the first ventricular lead and appears to extend to the distal right atrium adjacent to the mitral valve, most likely with lead tip in the right atrium proper although evaluation somewhat limited due to
some beam hardening artifact. Cholelithiasis. Stable mild aneurysmal dilatation of the ascending thoracic aorta at approximately 4.6 cm with some atherosclerotic changes. Marked coronary artery calcifications. Widespread bilateral prominent
pulmonary interstitial markings again seen most likely chronic such as pulmonary fibrosis. Few scattered subcentimeter mediastinal lymph nodes, some of which slightly smaller in comparison to prior CT.
Echo: 12/30/23- Moderate LV dysfunction. Moderately dilated and hypokinetic right ventricle. Severely dilated right atrium. Moderate tricuspid regurgitation. Estimated PASP 54 mmHg assuming RA 15 mmHg. No pericardial effusion. The ICD lead is no
longer visualized in the RV. No significant change since the prior study of 11/26/2023 except the RV lead is no longer seen in the RV.
PFT 01/27/23-FEV1 2.47-86%, FVC 2.9-72%, TLC 56%, RV 36%, DLCO 39%, DLCO/VA 69%. Mild to moderate restriction and moderate reduction in diffusing capacity.�������
Spirometry 04/29/23-FEV1 2.12-74%, FVC 2.62-65%. Moderate restriction.
6 minute walk test 10/2/23-Ambulating 90 feet with desaturation britany 96% of maximum heart rate of 109.��Dyspnea scale score 0. No supplemental oxygen required.
ILD Serology 04/23/23-normal Sjogren's, MERRITT, anti-scleroderma, MYRA-43, anti-DNA, anti-Angie 1, aldolase,������
Eosinophils, 04/23/23-300�������
ESR 04/23/23-4�������
Alpha-1 antitrypsin level and phenotype-156,
rheumatoid factor-Less than 10
C-reactive protein-3
Subjective Data
-
Date of Service:
Date of Service: February 06, 2024
Chief Complaint: Pulmonary Follow Up and Dyspnea Follow Up
Subjective:
Still on high FiO2, no worsening shortness of breath, offers no complaints of chest pain, chest congestion, productive cough or abdominal pain
Review of Systems
General: Other (Per HPI)
Objective Data
Data Reviewed
Vital Signs / I&O:
Vital Signs
Temp Pulse Resp BP Pulse Ox
97.0 F 81 18 120/82 96
02/06/24 07:05 02/06/24 07:58 02/06/24 07:58 02/06/24 04:00 02/06/24 10:07
Intake and Output
02/05/24 02/06/24 02/07/24
06:59 06:59 06:59
Intake Total 1170 / 1170 650 / 650 240 / 240
Output Total 2700 / 2700 2450 / 2450 225 / 225
Balance -1530 / -1530 -1800 / -1800 15 / 15
SaO2: 96
Nasal Cannula flow liters per minute: 5
Physical Exam
General: Respiratory Distress (n) and Comfortable
HEENT: Normocephalic and Moist Mucous Membranes
Cardiovascular: Regular Rhythm
Respiratory: Crackles (Bibasilar), Non-Labored Respirations, Accessory Resp Muscle Use (n) and Stridor
GI: Soft, Non Distended and Non Tender
Neurology: Awake, Alert and No Motor Deficits
Skin: Warm, Good Color, Cyanosis (n) and Jaundice (n)
Labs/Micro/Reports
Lab Data
02/06/24 05:08
02/06/24 05:08
Laboratory Results
02/06/24
05:08
PT 37.3 H
INR 3.71
Microbiology
02/03/24 01:56 Urine Legionella Urinary Antigen - Final
Negative for Legionella pneumophila Serogroup 1 antigen.
A negative result does not rule out the possiblity of
Legionella infection due to other serogroups or species of
Legionella. Clinical correlation is recommended.
02/03/24 01:56 Urine Streptococcus pneumoniae Antigen (M - Final
Negative for Streptococcus pneumoniae antigen.
A negative result does not exclude infection with
Streptococcus pneumoniae. Clinical correlation is
recommended.
[2024-02-06] MEDS: TRUSOPT 2% OPHTHALMIC SOLUTION 2 DROP OPHTH (10:30)
[2024-02-06] MEDS: VIBRAMYCIN 100 MG PO ×2 (10:31→19:45)
[2024-02-06] MEDS: PROTONIX 40 MG PO (10:31)
[2024-02-06] MEDS: COREG 6.25 MG PO (10:31)
[2024-02-06] MEDS: PLAVIX 75 MG PO (10:32)
[2024-02-06] MEDS: LASIX 60 MG IV (10:32)
[2024-02-06] MEDS: ALDACTONE 12.5 MG PO (10:32)
[2024-02-06] MEDS: FARXIGA 10 MG PO (10:32)
--- NOTE | 2024-02-06 11:59 | W.PN.CD ---
Addendum entered and electronically signed by Eddi Bowie MD 02/06/24 12:56:
feels better. some low BPs yesterday evening and Coreg held.
May be reaching limit of diuresis
Reduce Coreg to 3.125 to allow additonal BP room
- change lasix to IV daily dosing today
Original Note:
Today's Communication / Plan
-
continue IV diuresis and monitoring lytes, daily weights
Impression / Plan
-
83 yo male with CAD with prior stents, ICM EF 35%, chronic systolic HF, VT, heart block (AV node ablatoin), BiV ICD (Biotronik) with JUNIOR QA ANALYST via left bundle pacing lead (Biotronik), permanent A fib on warfarin, IPF is admitted with SOB and hypoxia.
Dyspnea
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
- Improving.
Acute on chronic HFrEF with ischemic cardiomyopathy, LVEF 35%
- Admit pBNP 6430 (on 12/28/2023 pBNP 4170)
- Feeling better, was able to ambulate in the hallway and his room today with symptoms
- IV diuresis continued, lytes stable and weight is down
- Will need new dry weight and new diuretic regimen at discharge => weight is lower than Dec 2023 admit
- Coreg 6.25mg bid, and Farxiga 10mg daily (takes Jardiance at home)
- GDMT has been limited by hypotension as valsartan has been held
- Will advance med Rx as able
- JUNIOR QA ANALYST via left bundle pacing lead
Lung disease
- ILD, per pulmonary
- oxygen requirement and degree of CHF out of proportion to each other, suspect the hypoxia is more attributable to a pulmonary source, which of course will be better managed when 'dry'.
Complete heart block via AV node ablation at [facility], view as pacer dependent but has an escape at near 40 bpm
- recent lead placement after dislodgement
VT
- Well controlled (prior ablation at [facility], remote)
- Biotronik ICD in place, no discharges
Permanent rate controlled A fib on warfarin
- asymptomatic
- follow INR closely
CAD
- stable w/o angina
- prior stenting
H/o amaurosis fugax/TIA per records
- stable on clopidogrel in addition to warfarin
Subjective:
feeling well today
ambulating the halls and room w/o SOB/HEART
oxygen now at 3L NC
Testing
Echo 12/30/23: EF 35%, RV dilation/dysfunction, moderate TR, PASP 54
Cath 10/2021: [facility], stable CAD
Physical Exam
Vital Signs/Labs
Vital Signs
Temp Pulse Resp BP Pulse Ox
97.0 F 80 23 120/82 92
02/06/24 07:05 02/06/24 11:24 02/06/24 11:24 02/06/24 04:00 02/06/24 11:37
02/05/24 02/06/24 02/07/24
06:59 06:59 06:59
Actual Weight 206 lb 2.115 oz 207 lb 0.225 oz
02/06/24 05:08
02/06/24 05:08
PT 37.3 Sec (11.4-14.6) H 02/06/24 05:08
INR 3.71 02/06/24 05:08
Magnesium 2.1 mg/dl (1.6-2.3) 02/02/24 04:27
01/31/24 01/31/24
21:52 22:34
Vtx-X-Oregzzzaumt Pept Cancelled 6430
Physical Exam
Constitutional: No acute distress and Comfortable
EENT: Anicteric and Moist mucous membranes
Cardiovascular: Rhythm/rate is irregular (paced with occasional PVCs)
Respiratory: Respiratory effort normal and Crackles Present (dry rales bibasilar)
GI: Soft and Normal bowel sounds
Neuro/Psych: AO x 3
Other: Skin (warm, dry)
Data Reviewed
-
Date of Service: February 06, 2024
Medical Decision Making: Reviewed Test Results
EKG: Tracing Personally Visualized and interpreted
Echo: Report Reviewed by me
Labs: Labs Reviewed by me
Old Records: Reviewed
--- NOTE | 2024-02-06 13:54 | PTCARENOTE ---
Pt presents as assessed. Aox3. Reports feeling well. Sating mid 90's on 4L MFNC. AV paced with PVC's on tele monitor. OOB to chair throughout the day. Voiding in urinal. Ambulated in vines with PT. Care as documented. Ringing appropriately, call alonso
within reach.
--- NOTE | 2024-02-06 14:15 | W.PN.HOSP.TC ---
Today's Communication/Plan
-
Overall improving with multi modal therapy including IV diuresis, corticosteroids and antibiotics per
Oxygen requirements improved and down to 6 L of mid flow today.
Continue IV Lasix
Continue steroids, dose to be no change today.
Continue antibiotics per
Attempt to wean off oxygen as tolerates.
Assessment / Plan
Assessment / Plan
83yo M with PMHx of Afib, SSS s/p PPM, HFrEF with ICD, pulmonary fibrosis, recent PPM/ICD replacement since previous leads were broken (1 month ago) came after he started to feel worsening SOB on exertion 2 days ago, found hypoxic and needed NRB in
ED. Admitted for CHF/lung fibrosis
Impression:
Acute hypoxic respiratory failure.
Acute on chronic heart failure reduced EF exacerbation
Bilateral pulmonary infiltrates with concern for worsening of pulmonary fibrosis, pneumonia.
Other conditions:
Status post pacemaker, AV node ablation, revision of AICD
Acute CHF, ischemic cardiomyopathy with LVEF of 35%.
Interstitial lung disease with unrevealing serology.
Paroxysmal AF status post ablation
Dyslipidemia
Hypertension
Plan
#Acute hypoxic respiratory failure 2/2 acute on chronic HFrEF exacerbation and lung fibrosis
Acute CHF reduced EF
Echo in Sept: pulmonary HTN, EF 35%, moderate TR, ischemic CM signs
ProBNP elevated to 6430 (previous 4170)
Continue IV diuresis
#Pulmonary fibrosis
unclear if in exacerbation
Pulm for mgmt: with fluid overload -.
Steroid trial initiated with Decadron on 02/03
Bronchodilators.
Concern for bilateral pneumonia.
CT scan of the chest on 02/01 with diffuse groundglass infiltrates. Negative for pulmonary embolism.
Speech and swallow consult.
Antibiotics: Ceftriaxone/doxycycline initiated on 02/01.
#Supratherapeutic INR
Follow INR and adjust warfarin to target INR 2.0-3.0
#Elevated bilirubin
#Asymptomatic cholelithiasis
no abd tenderness
check LFT, LDH
US RUQ
#HLD
#Essential HTN
#CAD, stable s/p PCI
#Afib, permanent
cont home meds
DVT ppx on Coumadin
DNR/DNI
Anticipated Discharge: > 48 hours
Subjective/Interval History
-
Date of Service: February 06, 2024
Objective Data
-
Labs:
Laboratory Results
02/06/24
05:08
WBC 14.3 H
Hgb 14.8
Hct 42.9
Plt Count 248 D
PT 37.3 H
INR 3.71
Sodium 140
Potassium 3.7
Chloride 96 L
Carbon Dioxide 27
BUN 55 H
Creatinine 1.1
Glucose 164 H
Calcium 9.4
Vital Signs:
Vital Signs
Temp Pulse Resp BP Pulse Ox
97.0 F 84 24 113/76 95
02/06/24 07:05 02/06/24 12:00 02/06/24 12:00 02/06/24 12:00 02/06/24 13:17
I&O
02/05/24 02/06/24 02/07/24
06:59 06:59 06:59
Intake Total 1170 / 1170 650 / 650 240 / 240
Output Total 2700 / 2700 2450 / 2450 225 / 225
Balance -1530 / -1530 -1800 / -1800
Physical Exam
-
General: No Apparent Distress
HEENT: Normocephalic
Respiratory: Crackles (bibasilar)
Cardiac: Regular Rhythm
GI: Soft, Nontender and Nondistended
Musculoskeletal: No Clubbing, No Cyanosis and No Edema (maybe trace b/l)
Skin: Warm
Neuro: Awake, Alert, Oriented and AO x 3
Psych: Calm
--- NOTE | 2024-02-06 16:50 | CM ---
Patient with Dx Acute hypoxic respiratory failure, HF exacerbation, Pulmonary fibrosis. O2 3L. Receiving IV Lasix, IV Abx, IV Decadron. PT & OT recommend HH.
Spoke with patient who agrees to [facility] again for home SN/PT/OT. Patient states that if he needs home O2 he would prefer a POC/portable O2 concentrator.
Referral to [facility].
Plan watch for home O2 needs -if home O2 needed request POC.
Plan home with [facility].
[2024-02-06] MEDS: ROCEPHIN 1000 MG IV (17:51)
[2024-02-06] MEDS: XALATAN OPHTHALMIC SOLUTION 1 DROP OPHTH (17:51)
[2024-02-06] MEDS: STERILE WATER FOR INJECTION 10 ML IV (17:52)
[2024-02-06] MEDS: CRESTOR 5 MG PO (19:45)
[2024-02-06] MEDS: COREG 3.125 MG PO (19:45)
[2024-02-07] VITALS (12 sets, daily range): BP systolic 103–135; BP diastolic 71–83; BMI 28.0
--- NOTE | 2024-02-07 00:08 | PTCARENOTE ---
Assumed care for patient from previous RN. Patient Aox3 on 4L midflow and sating well at 97%. Patient using urinal. Patient resting in bed with call alonso in reach.
[2024-02-07] MEDS: DECADRON 4 MG IV ×3 (02:00→17:23)
[2024-02-07 06:18] LABS: % Basophils 0.1 % (0-2); % Immature Granulocytes 0.8 % (0-0.5); % Lymphocytes 5.3 % (20.5-51.1); % Monocytes 3.5 % (1.7-9.3); % Neutrophils 90.3 % (42.2-75.2); Absolute Immature Granulocytes 0.1 10^3/uL (0-0.05); Absolute Lymphocytes 0.9 10^3/uL (1.2-3.4); Absolute Monocytes 0.6 10^3/uL (0.1-0.6); Absolute Neutrophils 15.1 10^3/uL (1.4-6.5); Hematocrit 42.1 % (39.0-52.0); Hemoglobin 14.8 g/dL (13.0-18.0); Mean Corp Hgb Conc. 35.2 g/dL (33.0-37.0); Mean Corpuscular Hgb 31.6 pg (27.0-31.0); Mean Corpuscular Volume 89.8 fL (80.0-94.0); Mean Platelet Volume 9.7 fL (7.4-10.4); Nucleated Red Blood Cells % 0 % (-); Platelet Count 248 10^3/uL (130-400); Red Blood Cell Count 4.69 10^6/uL (4.70-6.10); Red Cell Dist. Width 13.9 % (11.5-14.5); White Blood Cell Count 16.7 10^3/uL (4.8-10.8)
[2024-02-07 06:25] LABS: INR 3.09; PT 31.8 Sec (11.4-14.6)
[2024-02-07 06:47] LABS: Blood Urea Nitrogen 58 mg/dl (9-20); Calcium 9.4 mg/dl (8.4-10.2); Carbon Dioxide 27 mmol/L (22-30); Chloride 97 mmol/L (98-107); Estimated Creatinine Clearance 58 ml/min; Glucose 154 mg/dl (70-99); Potassium 3.8 mmol/L (3.5-5.1); Sodium 137 mmol/L (135-145); eGFR > 60.00
[2024-02-07] MEDS: VIBRAMYCIN 100 MG PO ×2 (07:29→19:34)
[2024-02-07] MEDS: ALDACTONE 12.5 MG PO (07:29)
[2024-02-07] MEDS: COREG 3.125 MG PO ×2 (07:29→19:34)
[2024-02-07] MEDS: FARXIGA 10 MG PO (07:29)
[2024-02-07] MEDS: LASIX 60 MG IV ×2 (07:29→17:22)
[2024-02-07] MEDS: PROTONIX 40 MG PO (07:30)
[2024-02-07] MEDS: PLAVIX 75 MG PO (07:30)
[2024-02-07] MEDS: TRUSOPT 2% OPHTHALMIC SOLUTION 2 DROP OPHTH ×2 (07:31→18:42)
[2024-02-07] MEDS: DUONEB 3 ML INH ×4 (08:03→20:03)
--- NOTE | 2024-02-07 08:29 | W.PN.CD ---
Addendum entered and electronically signed by Eddi Bowie MD 02/07/24 11:12:
I saw and examined the patient.
The TIMBER INCISOR OPERATOR's note was reviewed and I agree with the note.
Patient now on 6 L. He states they increased his O2 overnight currently comfortable few fine crackles at bases no wheezes or rhonchi. Blood pressures appear stable we will go back to giving Lasix 60 mg IV twice daily. Yesterday he just got them
daily. White count appears to be rising he has had a elevated white count through most of the hospitalization but there is been an upward trend over the last couple days.
-Repeat chest x-ray
Continued optimization of pulmonary issues as directed by pulmonary and primary team
Original Note:
Today's Communication / Plan
-
continue to monitor daily weights and BMP
Lasix IV once daily
tolerating current cardiac medications
Impression / Plan
-
83 yo male with CAD with prior stents, ICM EF 35%, chronic systolic HF, VT, heart block (AV node ablatoin), BiV ICD (Biotronik) with WORKCELL OPERATOR via left bundle pacing lead (Biotronik), permanent A fib on warfarin, IPF is admitted with SOB and hypoxia.
Dyspnea
- Improving with HF and pulmonary/IPF treatments.
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
Acute on chronic HFrEF with ischemic cardiomyopathy, LVEF 35%
- Admit pBNP 6430 (on 12/28/2023 pBNP 4170)
- Feeling better, was able to ambulate in the hallway and his room today with symptoms
- IV diuresis once daily Lasix, weight down to 206 lbs today
- Likely at his new dry weight 206 lbs and will need new diuretic regimen at discharge => weight is lower than Dec 2023 admit
- He is on Lasix 40mg daily at home, likely needs 80mg daily.
- Coreg now at 3.125mg bid, tolerating Aldactone 12.5mg daily and Farxiga 10mg daily here in hospital (takes Jardiance at home)
- GDMT has been limited by hypotension, as Valsartan has been held
- WORKCELL OPERATOR via left bundle pacing lead
Lung disease
- ILD, per pulmonary
- oxygen weaning, 6L NC this am
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
- recent lead placement after dislodgement
VT
- Well controlled (prior ablation at [facility], remote)
- Biotronik ICD in place, no discharges
Permanent rate controlled A fib on warfarin
- asymptomatic
- follow INR closely, 3 today
CAD
- stable w/o angina
- prior stenting
H/o amaurosis fugax/TIA per records
- stable on clopidogrel in addition to warfarin
Subjective:
feeling well today, denies CP, SOB, palps
oxygen 6L NC this am
Testing
Echo 12/30/23: EF 35%, RV dilation/dysfunction, moderate TR, PASP 54
Cath 10/2021: [facility], stable CAD
Physical Exam
Vital Signs/Labs
Vital Signs
Temp Pulse Resp BP Pulse Ox
98.5 F 82 19 122/82 93
02/07/24 07:40 02/07/24 07:29 02/07/24 06:00 02/07/24 07:29 02/07/24 06:00
02/06/24 02/07/24 02/08/24
06:59 06:59 06:59
Actual Weight 207 lb 0.225 oz 206 lb 5.643 oz
02/07/24 06:08
02/07/24 06:08
PT 31.8 Sec (11.4-14.6) H 02/07/24 06:08
INR 3.09 02/07/24 06:08
Magnesium 2.1 mg/dl (1.6-2.3) 02/02/24 04:27
01/31/24 01/31/24
21:52 22:34
Gye-U-Euvtpxojpzw Pept Cancelled 2731
Physical Exam
Constitutional: No acute distress and Comfortable
EENT: Anicteric and Moist mucous membranes
Cardiovascular: Rhythm/rate is irregular
Respiratory: Respiratory effort normal and Crackles Present (mild bibasilar)
GI: Soft, Non tender and Normal bowel sounds
Neuro/Psych: AO x 3
Other: Skin (warm, dry)
Data Reviewed
-
Date of Service: February 07, 2024
Medical Decision Making: Reviewed Test Results
EKG: Tracing Personally Visualized and interpreted
Echo: Report Reviewed by me
Labs: Labs Reviewed by me
Old Records: Reviewed
--- NOTE | 2024-02-07 08:30 | PTCARENOTE ---
Patient received from table games shift manager. Patient resting comfortably in bed. AAO, VSS. No events noted overnight. No complaints of pain at this time. Currnetly on 6L N/C, will attempt to wean down. No fluids through IV. Continuing IV ABX and
Steroids. No test scheduled. Call alonso in reach.
--- NOTE | 2024-02-07 12:26 | W.PN.HOSP.TC ---
Today's Communication/Plan
-
IV steroids continue
Complete antibiotic course
IV Lasix dose increased
INR therapeutic
Assessment / Plan
Assessment / Plan
83yo M with PMHx of Afib, SSS s/p PPM, HFrEF with ICD, pulmonary fibrosis, recent PPM/ICD replacement since previous leads were broken (1 month ago) came after he started to feel worsening SOB on exertion 2 days ago, found hypoxic and needed NRB in
ED. Admitted for CHF/lung fibrosis
Impression:
Acute hypoxic respiratory failure.
Acute on chronic heart failure reduced EF exacerbation
Bilateral pulmonary infiltrates with concern for worsening of pulmonary fibrosis, pneumonia.
Leukocytosis likely secondary to steroids
Other conditions:
Status post pacemaker, AV node ablation, revision of AICD
Acute CHF, ischemic cardiomyopathy with LVEF of 35%.
Interstitial lung disease with unrevealing serology.
Paroxysmal AF status post ablation
Dyslipidemia
Hypertension
Plan
#Acute hypoxic respiratory failure 2/2 acute on chronic HFrEF exacerbation and lung fibrosis
Acute CHF reduced EF
Echo in Sept: pulmonary HTN, EF 35%, moderate TR, ischemic CM signs
ProBNP elevated to 6430 (previous 4170)
Lasix 60mg increased to BID DOSING
#Pulmonary fibrosis
unclear if in exacerbation
Pulm for mgmt: with fluid overload -.
Steroid trial initiated with Decadron on 02/03 4mg TID
Bronchodilators.
Concern for bilateral pneumonia.
CT scan of the chest on 02/01 with diffuse groundglass infiltrates. Negative for pulmonary embolism.
Speech and swallow consult.
Antibiotics: Ceftriaxone/doxycycline initiated on 02/01.
#Supratherapeutic INR
Follow INR and adjust warfarin to target INR 2.0-3.0
#Elevated bilirubin
#Asymptomatic cholelithiasis
no abd tenderness
check LFT, LDH
US RUQ
#HLD
#Essential HTN
#CAD, stable s/p PCI
#Afib, permanent
cont home meds
DVT ppx on Coumadin
DNR/DNI
Anticipated Discharge: > 48 hours
Subjective/Interval History
-
Date of Service: February 07, 2024
states improvement in breathing
overnight needed to be on 6L oxygen
Objective Data
-
Labs:
Laboratory Results
02/07/24
06:08
WBC 16.7 H
Hgb 14.8
Hct 42.1
Plt Count 248
PT 31.8 H
INR 3.09
Sodium 137
Potassium 3.8
Chloride 97 L
Carbon Dioxide 27
BUN 58 H
Creatinine 1.1
Glucose 154 H
Calcium 9.4
Vital Signs:
Vital Signs
Temp Pulse Resp BP Pulse Ox
97.5 F 84 23 122/82 93
02/07/24 11:25 02/07/24 11:16 02/07/24 11:16 02/07/24 07:29 02/07/24 12:02
I&O
02/06/24 02/07/24 02/08/24
06:59 06:59 06:59
Intake Total 650 / 650 480 / 480
Output Total 2450 / 2450 1945 / 1945 550 / 550
Balance -1800 / -1800 -1465 / -1465 -550 / -550
Physical Exam
-
General: Well Developed, Well Nourished and No Apparent Distress
HEENT: Normocephalic and Oxygen (6L)
Respiratory: Crackles (bibasilar)
Cardiac: Regular Rhythm
GI: Soft, Nontender, Nondistended and Normal Bowel Sounds
Musculoskeletal: No Clubbing, No Cyanosis and No Edema (maybe trace b/l)
Skin: Warm
Neuro: Awake, Alert, Oriented and AO x 3
Psych: Calm
Data Reviewed
-
Total Time Spent with Patient (in minutes): 51
--- NOTE | 2024-02-07 14:27 | W.PN.PUL3 ---
Today's Communication / Plan
-
Continue IV corticosteroids, predict transition to oral steroids by Friday.
Continue IV diuresis
Complete antibiotics today
Continue to wean down oxygen, may need supplemental oxygen to go home
Assessment
-
Patient is an 83-year-old male with previous history of heart failure reduced EF, pulmonary fibrosis, A-fib presenting to ER with shortness of breath for the past 2 days. He was notably hypoxemic into the 70s per EMS. He was placed on a
nonrebreather mask in the ER with saturation improvement to the 90s. Has a prior history of IPF being followed by Dr Davis as OP, previously followed by pulmonology at [facility]. Last PFT in office demonstrated restrictive lung disease, he
was not placed on inhalers due to being asymptomatic. Antifibrotic therapy was discussed but not initiated. He was not known to be on oxygen at home. We are consulted for eval.
Acute hypoxic respiratory failure
Acute on chronic heart failure w/ rEF exacerbation
Worsening SOB
LE edema
DNR
Conditions present prior to admission:
HUP- pacemaker, AV node ablation, revision of ICD (new ICD from Right subclavian tunnelled to generator on left 07/10/2023)
CHF/Cardiomyopathy EF 35% s/p HUP- defibrillator 02/26/2023
Moderately dilated and hypokinetic right ventricle, mod PH on ECHO
Interstitial lung disease-serology unrevealing, inflammatory markers not elevated, observational approach-follows Dr. Davis
Afib s/p ablation
Mixed hyperlipidemia
RBBB
HTN
MVR
Lung Surgery 35 years ago/Thorectomy 1986
Hayfever
Glaucoma
Osteoarthritis
Hernia repair 2002
Carpel tunnel
Cataracts Bilateral 2009
Plan
Oxygenation improved down to 4 L-pulse ox with conversation 92-93%. 02/07/2024.
Supplemental oxygen as needed-assess discharge supplemental oxygen needs-does not use oxygen at home
DNR status noted-not to be intubated
Nebulizers as needed-currently not bronchospastic
Mucolytics
Aspiration precautions
Steroids initiated with persistent hypoxemia despite diuresis-Decadron 4 mg IV every 8 hours-will reduce steroids tomorrow. Hopefully can transition to prednisone in the next 48 hours depending on clinical situation. This will cover any potential
inflammatory pneumonitis/IPF flareup.
CT chest 02/02/2024-no pulmonary embolism, severe bilateral groundglass densities which have progressed, severe cardiomegaly and pulmonary hypertension
Prior history of lung disease is noted including IPF
Had seen Dr Davis in past, but not on inhalers
CT showing stable findings, not significantly progressed from interval CT 12/2023 <-- 12/2022
CT chest with possible pneumonia-clinically not behaving like pneumonia, no temperature, procalcitonin negative, mild leukocytosis, no chest congestion or sputum-possibly CHF.
Leukocytosis likely steroid driven.
Cultures reviewed-negative
Urine Legionella negative
Influenza negative
Streptococcal pneumo antigen negative
Unable to produce sputum
Empiric antibiotics initiated-ceftriaxone and doxycycline-will complete total of 5 days. Complete antibiotics today 02/07/2024.
CHF component on top of baseline IPF
Continue diuresis as tolerated--2 L / 24 hours, however, weight is not changed-actually increased 0.4 kg / 24 hours
Monitor renal function, electrolytes, intake/output, lower extremity edema and weight
Previous echocardiogram noted-EF 35%
Cardiology following-correspondence reviewed-diuresis increased
DVT prophylaxis-Coumadin on hold-INR still elevated 3.7
GI prophylaxis-on pantoprazole
Dr. Melara updated patient and 02/07/2024.
Last saw Dr. Davis 04/29/2023-canceled PFT/appointment 01/27/2024
Will need outpatient pulmonary evaluation in our office for PFTs and 6MWT/post discharge planning-with Dr. Davis
Diagnostic Data
Chest X-Ray: 01/31/24- Stable right-sided cardiac conduction device. Retained leads again noted on the left. Low lung volumes. Subsegmental atelectasis in the bilateral lung bases. Chain sutures project over the medial right lung apex. No large
pleural effusion or pneumothorax. Stable enlargement of the cardiac silhouette.
01/01/24- There is no other significant interval change.
CT chest 01/07/23-[place] coronary artery calcifications, elevated right hemidiaphragm, cholelithiasis, widespread bilateral interstitial markings consistent with possible pulmonary fibrosis, aneurysmal dilation of the ascending thoracic aorta at 4.6
cm, prominent caliber bilateral main pulmonary arteries, scattered small nonspecific mediastinal lymph nodes, largest measuring 1.[address] Scan: CHEST 12/31/23- Placement of ICD in the interval since prior CT. Three ICD leads seen one of which extends into the superior right atrium. Additional two leads are seen one extending into the right ventricle distal portion appearing to extend
superiorly. The additional lead is adjacent to the first ventricular lead and appears to extend to the distal right atrium adjacent to the mitral valve, most likely with lead tip in the right atrium proper although evaluation somewhat limited due to
some beam hardening artifact. Cholelithiasis. Stable mild aneurysmal dilatation of the ascending thoracic aorta at approximately 4.6 cm with some atherosclerotic changes. Marked coronary artery calcifications. Widespread bilateral prominent
pulmonary interstitial markings again seen most likely chronic such as pulmonary fibrosis. Few scattered subcentimeter mediastinal lymph nodes, some of which slightly smaller in comparison to prior CT.
Echo: 12/30/23- Moderate LV dysfunction. Moderately dilated and hypokinetic right ventricle. Severely dilated right atrium. Moderate tricuspid regurgitation. Estimated PASP 54 mmHg assuming RA 15 mmHg. No pericardial effusion. The ICD lead is no
longer visualized in the RV. No significant change since the prior study of 11/26/2023 except the RV lead is no longer seen in the RV.
PFT 01/27/23-FEV1 2.47-86%, FVC 2.9-72%, TLC 56%, RV 36%, DLCO 39%, DLCO/VA 69%. Mild to moderate restriction and moderate reduction in diffusing capacity.�������
Spirometry 04/29/23-FEV1 2.12-74%, FVC 2.62-65%. Moderate restriction.
6 minute walk test 01/27/23-Ambulating 90 feet with desaturation britany 96% of maximum heart rate of 109.��Dyspnea scale score 0. No supplemental oxygen required.
ILD Serology 04/23/23-normal Sjogren's, MERRITT, anti-scleroderma, MYRA-43, anti-DNA, anti-Angie 1, aldolase,������
Eosinophils, 04/23/23-300�������
ESR 04/23/23-4�������
Alpha-1 antitrypsin level and phenotype-156,
rheumatoid factor-Less than 10
C-reactive protein-3
Subjective Data
-
Date of Service:
Date of Service: February 07, 2024
Chief Complaint: Pulmonary Follow Up and Dyspnea Follow Up
Subjective:
Patient states that he feels better
Remains on supplemental oxygen
Denies any cough or phlegm production
Denies hemoptysis
Weight trending lower
Denies any leg edema
Review of Systems
Cardiopulmonary: Dyspnea on Exertion (Improved), Cough (Not significant) and Sputum Production (None)
Objective Data
Data Reviewed
Vital Signs / I&O / Oxygen:
Vital Signs
Temp Pulse Resp BP Pulse Ox
97.5 F 81 21 108/72 90
02/07/24 11:25 02/07/24 14:00 02/07/24 14:00 02/07/24 14:00 02/07/24 14:00
Intake and Output
02/06/24 02/07/24 02/08/24
06:59 06:59 06:59
Intake Total 650 / 650 480 / 480
Output Total 2450 / 2450 1945 / 1945 550 / 550
Balance -1800 / -1800 -1465 / -1465 -550 / -550
SaO2 90
Nasal Cannula flow liters per 4
minute
Physical Exam
General: Respiratory Distress (n) and Comfortable
HEENT: Normocephalic and Moist Mucous Membranes
Cardiovascular: Regular Rhythm
Respiratory: Crackles (Bibasilar), Non-Labored Respirations, Accessory Resp Muscle Use (n) and Stridor
GI: Soft, Non Distended and Non Tender
Neurology: Awake, Alert, AO x 3 and No Motor Deficits
Skin: Warm, Good Color, Cyanosis (n) and Jaundice (n)
Labs/Micro/Reports
Lab Data
02/07/24 06:08
02/07/24 06:08
Laboratory Results
02/07/24
06:08
PT 31.8 H
INR 3.09
[2024-02-07] MEDS: STERILE WATER FOR INJECTION 10 ML IV (17:22)
[2024-02-07] MEDS: ROCEPHIN 1000 MG IV (17:22)
[2024-02-07] MEDS: XALATAN OPHTHALMIC SOLUTION OPHTH ×2 (17:23→18:51)
[2024-02-07] MEDS: XALATAN OPHTHALMIC SOLUTION 1 DROP OPHTH (22:43)
[2024-02-08] VITALS (16 sets, daily range): BP systolic 92–127; BP diastolic 59–105; PULSE 82; O2SAT 93; BMI 27.9
[2024-02-08] MEDS: DECADRON 4 MG IV ×2 (02:10→11:32)
--- NOTE | 2024-02-08 02:53 | PTCARENOTE ---
Assumed care of Pt at change of shift; Pt resting comfortably in bed. Maintained on 4L O2 throughout the night with SpO2 ~ 90-95%; AV paced with PVC's on monitor. Will continue to monitor and assess.
[2024-02-08 06:08] LABS: INR 2.65; PT 28.1 Sec (11.4-14.6)
[2024-02-08] MEDS: PROTONIX 40 MG PO (08:09)
[2024-02-08] MEDS: FARXIGA 10 MG PO (08:10)
[2024-02-08] MEDS: ALDACTONE 12.5 MG PO (08:10)
[2024-02-08] MEDS: COREG 3.125 MG PO ×2 (08:10→20:02)
[2024-02-08] MEDS: PLAVIX 75 MG PO (08:10)
[2024-02-08] MEDS: LASIX 60 MG IV ×2 (08:11→15:34)
[2024-02-08] MEDS: VIBRAMYCIN 100 MG PO (08:12)
[2024-02-08] MEDS: TRUSOPT 2% OPHTHALMIC SOLUTION 2 DROP OPHTH ×2 (08:12→20:03)
[2024-02-08] MEDS: FLUSH (NSS) 2 FLUSH IV ×4 (08:14→18:19)
[2024-02-08] MEDS: DUONEB 3 ML INH ×3 (08:20→20:07)
--- NOTE | 2024-02-08 10:26 | W.PN.HOSP.TC ---
Addendum entered and electronically signed by Rik Wilkerson MD 02/08/24 15:31:
per Rn epiaode of epistaxis thus plavix and coumaidin held
Original Note:
Today's Communication/Plan
-
trend lft
IV steroids
IV abx to complete course
wean o2 as tolerated
restart Coumadin
Assessment / Plan
Assessment / Plan
83yo M with PMHx of Afib, SSS s/p PPM, HFrEF with ICD, pulmonary fibrosis, recent PPM/ICD replacement since previous leads were broken (1 month ago) came after he started to feel worsening SOB on exertion 2 days ago, found hypoxic and needed NRB in
ED. Admitted for CHF/lung fibrosis
Impression:
Acute hypoxic respiratory failure.
Acute on chronic heart failure reduced EF exacerbation
Bilateral pulmonary infiltrates with concern for worsening of pulmonary fibrosis, pneumonia.
Leukocytosis likely secondary to steroids
Other conditions:
Status post pacemaker, AV node ablation, revision of AICD
Acute CHF, ischemic cardiomyopathy with LVEF of 35%.
Interstitial lung disease with unrevealing serology.
Paroxysmal AF status post ablation
Dyslipidemia
Hypertension
Plan
#Acute hypoxic respiratory failure 2/2 acute on chronic HFrEF exacerbation and lung fibrosis
Acute CHF reduced EF
Echo in Sept: pulmonary HTN, EF 35%, moderate TR, ischemic CM signs
ProBNP elevated to 6430 (previous 4170)
Lasix 60mg increased to BID DOSING
#Pulmonary fibrosis
unclear if in exacerbation
Pulm for mgmt: with fluid overload -.
Steroid trial initiated with Decadron on 02/03 4mg TID
Bronchodilators.
Concern for bilateral pneumonia.
CT scan of the chest on 02/01 with diffuse groundglass infiltrates. Negative for pulmonary embolism.
Speech and swallow consult.
Antibiotics: Ceftriaxone/doxycycline-complete 7d course.
#Supratherapeutic INR
Follow INR and adjust warfarin to target INR 2.0-3.0
INR at 2.65 and restarted coumadin
#Elevated bilirubin
#Asymptomatic cholelithiasis
no abd tenderness
check LFT, LDH
US RUQ-remarable. No obstruciton.
#HLD
#Essential HTN
#CAD, stable s/p PCI
#Afib, permanent
cont home meds
DVT ppx on Coumadin
DNR/DNI
Anticipated Discharge: > 48 hours
Subjective/Interval History
-
Date of Service: February 08, 2024
working with PT
Feeling mild sob with activity
Increase o2 requirement with activity
at rest pt comfortable
Objective Data
-
Labs:
Laboratory Results
02/08/24
05:43
PT 28.1 H
INR 2.65
Vital Signs:
Vital Signs
Temp Pulse Resp BP Pulse Ox
97.6 F 80 18 119/82 94
02/08/24 07:31 02/08/24 08:21 02/08/24 08:21 02/08/24 08:11 02/08/24 08:25
I&O
02/07/24 02/08/24 02/09/24
06:59 06:59 06:59
Intake Total 480 / 480 400 / 400
Output Total 1945 / 1945 3425 / 3425
Balance -1465 / -1465 -3025 / -3025
Data Reviewed
-
Total Time Spent with Patient (in minutes): 52
--- NOTE | 2024-02-08 11:25 | W.PN.CD ---
Today's Communication / Plan
-
Patient is currently comfortable now back down to 4 L nasal cannula
Treatment with steroids and antibiotics as directed by pulmonary patient will be completing antibiotics soon and going to oral steroids as noted by Dr. Melara.
Remains on IV Lasix but will transition to oral soon
Will check follow-up proBNP
echo tomorrow
Impression / Plan
-
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
Dyspnea
- Improving with HF and pulmonary/IPF treatments.
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
Acute on chronic HFrEF with ischemic cardiomyopathy, LVEF 35%
- Admit pBNP 6430 (on 12/28/2023 pBNP 4170)
- Feeling better, was able to ambulate in the hallway and his room today with symptoms
- IV diuresis once daily Lasix, weight down to 206 lbs today
- Likely at his new dry weight 206 lbs and will need new diuretic regimen at discharge => weight is lower than Dec 2023 admit
- He is on Lasix 40mg daily at home, likely needs 80mg daily.
- Coreg now at 3.125mg bid, tolerating Aldactone 12.5mg daily and Farxiga 10mg daily here in hospital (takes Jardiance at home)
- GDMT has been limited by hypotension, as Valsartan has been held
- RECEIVER/LABORER via left bundle pacing lead
Lung disease
- ILD, per pulmonary
- oxygen weaning, 6L NC this am
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
- recent lead placement after dislodgement
VT
- Well controlled (prior ablation at [facility], remote)
- Biotronik ICD in place, no discharges
Permanent rate controlled A fib on warfarin
- asymptomatic
- follow INR closely, 3 today
CAD
- stable w/o angina
- prior stenting
H/o amaurosis fugax/TIA per records
- stable on clopidogrel in addition to warfarin
Subjective:
feeling well today, denies CP, SOB, palps
oxygen 6L NC this am
Testing
Echo 12/30/23: EF 35%, RV dilation/dysfunction, moderate TR, PASP 54
Cath 10/2021: [facility], stable CAD
Physical Exam
Vital Signs/Labs
Vital Signs
Temp Pulse Resp BP Pulse Ox
97.6 F 80 18 119/82 93
02/08/24 07:31 02/08/24 11:22 02/08/24 11:22 02/08/24 08:11 02/08/24 11:22
02/07/24 02/08/24 02/09/24
06:59 06:59 06:59
Actual Weight 93.6 kg 93.1 kg
02/07/24 06:08
02/07/24 06:08
PT 28.1 Sec (11.4-14.6) H 02/08/24 05:43
INR 2.65 02/08/24 05:43
Magnesium 2.1 mg/dl (1.6-2.3) 02/02/24 04:27
01/31/24 01/31/24
21:52 22:34
Rrh-O-Kuvpnhgksbb Pept Cancelled 6430
Physical Exam
Constitutional: No acute distress
Cardiovascular: Rhythm & rate is regular
Respiratory: Respiratory effort normal and Wheeze Absent
GI: Non tender
Neuro/Psych: Alert
Data Reviewed
-
Date of Service: February 08, 2024
Medical Decision Making: Reviewed Test Results
Medical Tests (PFT, Pathology etc): Report Reviewed by me
Labs: Labs Reviewed by me
--- NOTE | 2024-02-08 13:30 | W.PN.PUL3 ---
Today's Communication / Plan
-
Home oxygen assessment tomorrow
Decrease IV dexamethasone today, transition to prednisone 40 mg tomorrow with a slow taper
Likely will need supplemental oxygen to go home
Consider discharge in the next 24-48 hours
Assessment
-
Patient is an 83-year-old male with previous history of heart failure reduced EF, pulmonary fibrosis, A-fib presenting to ER with shortness of breath for the past 2 days. He was notably hypoxemic into the 70s per EMS. He was placed on a
nonrebreather mask in the ER with saturation improvement to the 90s. Has a prior history of IPF being followed by Dr Davis as OP, previously followed by pulmonology at [facility]. Last PFT in office demonstrated restrictive lung disease, he
was not placed on inhalers due to being asymptomatic. Antifibrotic therapy was discussed but not initiated. He was not known to be on oxygen at home. We are consulted for eval.
Acute hypoxic respiratory failure
Acute on chronic heart failure w/ rEF exacerbation
Worsening SOB
LE edema
DNR
Conditions present prior to admission:
HUP- pacemaker, AV node ablation, revision of ICD (new ICD from Right subclavian tunnelled to generator on left 07/10/2023)
CHF/Cardiomyopathy EF 35% s/p HUP- defibrillator 02/26/2023
Moderately dilated and hypokinetic right ventricle, mod PH on ECHO
Interstitial lung disease-serology unrevealing, inflammatory markers not elevated, observational approach-follows Dr. Davis
Afib s/p ablation
Mixed hyperlipidemia
RBBB
HTN
MVR
Lung Surgery 35 years ago/Thorectomy 1986
Hayfever
Glaucoma
Osteoarthritis
Hernia repair 2002
Carpel tunnel
Cataracts Bilateral 2009
Plan
Oxygenation improved down to 4 L-pulse ox with conversation 92-93%. 02/07/2024.
Supplemental oxygen as needed-assess discharge supplemental oxygen needs-does not use oxygen at home-order placed for 02/09/2024
DNR status noted-not to be intubated
Nebulizers as needed-currently not bronchospastic
Mucolytics
Aspiration precautions
Steroids initiated with persistent hypoxemia despite diuresis-Decadron reduced to 2 mg IV every 8 hours 02/08/2024. Transition to prednisone 02/09/2024 40 mg with a very slow taper going forward over the next several weeks until seen by
Ryan. This will cover any potential inflammatory pneumonitis/IPF flareup.
CT chest 02/02/2024-no pulmonary embolism, severe bilateral groundglass densities which have progressed, severe cardiomegaly and pulmonary hypertension
Prior history of lung disease is noted including IPF
Had seen Dr Davis in past, but not on inhalers
CT showing stable findings, not significantly progressed from interval CT 12/2023 <-- 12/2022
CT chest with possible pneumonia-clinically not behaving like pneumonia, no temperature, procalcitonin negative, mild leukocytosis, no chest congestion or sputum-possibly CHF.
Leukocytosis likely steroid driven.
Cultures reviewed-negative
Urine Legionella negative
Influenza negative
Streptococcal pneumo antigen negative
Unable to produce sputum
Empiric antibiotics initiated-ceftriaxone and doxycycline-will complete total of 5 days. Completed antibiotics today 02/07/2024.
CHF component on top of baseline IPF
Continue diuresis as tolerated--2 L / 24 hours, however, weight is not changed-actually increased 0.4 kg / 24 hours
Monitor renal function, electrolytes, intake/output, lower extremity edema and weight
Previous echocardiogram noted-EF 35%
Cardiology following-correspondence reviewed-diuresis increased
DVT prophylaxis-Coumadin on hold-INR still elevated 3.7
GI prophylaxis-on pantoprazole
Dr. Melara updated patient and 02/07/2024.
Last saw Dr. Davis 04/29/2023-canceled PFT/appointment 01/27/2024
Will need outpatient pulmonary evaluation in our office for PFTs and 6MWT/post discharge planning-with Dr. Davis
Diagnostic Data
Chest X-Ray: 01/31/24- Stable right-sided cardiac conduction device. Retained leads again noted on the left. Low lung volumes. Subsegmental atelectasis in the bilateral lung bases. Chain sutures project over the medial right lung apex. No large
pleural effusion or pneumothorax. Stable enlargement of the cardiac silhouette.
01/01/24- There is no other significant interval change.
CT chest 01/07/23-[place] coronary artery calcifications, elevated right hemidiaphragm, cholelithiasis, widespread bilateral interstitial markings consistent with possible pulmonary fibrosis, aneurysmal dilation of the ascending thoracic aorta at 4.6
cm, prominent caliber bilateral main pulmonary arteries, scattered small nonspecific mediastinal lymph nodes, largest measuring 1.[address] Scan: CHEST 12/31/23- Placement of ICD in the interval since prior CT. Three ICD leads seen one of which extends into the superior right atrium. Additional two leads are seen one extending into the right ventricle distal portion appearing to extend
superiorly. The additional lead is adjacent to the first ventricular lead and appears to extend to the distal right atrium adjacent to the mitral valve, most likely with lead tip in the right atrium proper although evaluation somewhat limited due to
some beam hardening artifact. Cholelithiasis. Stable mild aneurysmal dilatation of the ascending thoracic aorta at approximately 4.6 cm with some atherosclerotic changes. Marked coronary artery calcifications. Widespread bilateral prominent
pulmonary interstitial markings again seen most likely chronic such as pulmonary fibrosis. Few scattered subcentimeter mediastinal lymph nodes, some of which slightly smaller in comparison to prior CT.
Echo: 12/30/23- Moderate LV dysfunction. Moderately dilated and hypokinetic right ventricle. Severely dilated right atrium. Moderate tricuspid regurgitation. Estimated PASP 54 mmHg assuming RA 15 mmHg. No pericardial effusion. The ICD lead is no
longer visualized in the RV. No significant change since the prior study of 11/26/2023 except the RV lead is no longer seen in the RV.
PFT 01/27/23-FEV1 2.47-86%, FVC 2.9-72%, TLC 56%, RV 36%, DLCO 39%, DLCO/VA 69%. Mild to moderate restriction and moderate reduction in diffusing capacity.�������
Spirometry 04/29/23-FEV1 2.12-74%, FVC 2.62-65%. Moderate restriction.
6 minute walk test 01/27/23-Ambulating 90 feet with desaturation britany 96% of maximum heart rate of 109.��Dyspnea scale score 0. No supplemental oxygen required.
ILD Serology 04/23/23-normal Sjogren's, MERRITT, anti-scleroderma, MYRA-43, anti-DNA, anti-Angie 1, aldolase,������
Eosinophils, 04/23/23-300�������
ESR 04/23/23-4�������
Alpha-1 antitrypsin level and phenotype-156,
rheumatoid factor-Less than 10
C-reactive protein-3
Subjective Data
-
Date of Service:
Date of Service: February 08, 2024
Chief Complaint: Pulmonary Follow Up and Dyspnea Follow Up
Subjective:
Feels better
Was able to ambulate with physical therapy in the hallway, complaint of shortness of breath
Remains on 3-1/2-4 L of supplemental oxygen
Denies cough or phlegm production, denies hemoptysis.
Denies leg edema or chest
Review of Systems
Cardiopulmonary: Dyspnea, Dyspnea on Exertion, Cough (n) and Sputum Production (n)
Objective Data
Data Reviewed
Vital Signs / I&O / Oxygen:
Vital Signs
Temp Pulse Resp BP Pulse Ox
97.7 F 82 21 92/70 93
02/08/24 11:00 02/08/24 12:01 02/08/24 12:01 02/08/24 12:01 02/08/24 12:01
Intake and Output
02/07/24 02/08/24 02/09/24
06:59 06:59 06:59
Intake Total 480 / 480 400 / 400 240 / 240
Output Total 1945 / 1945 3425 / 3425 1425 / 1425
Balance -1465 / -1465 -3025 / -3025 -1185 / -1185
SaO2 93
Nasal Cannula flow liters per 4
minute
Physical Exam
General: Respiratory Distress (n) and Comfortable
HEENT: Normocephalic and Moist Mucous Membranes
Cardiovascular: Regular Rhythm
Respiratory: Crackles (Bibasilar), Non-Labored Respirations, Accessory Resp Muscle Use (n) and Stridor
GI: Soft, Non Distended and Non Tender
Neurology: Awake, Alert, AO x 3 and No Motor Deficits
Skin: Warm, Good Color, Cyanosis (n) and Jaundice (n)
Labs/Micro/Reports
Lab Data
02/07/24 06:08
02/08/24 11:28
Laboratory Results
02/08/24
05:43
PT 28.1 H
INR 2.65
[2024-02-08 14:01] LABS: NT-proBNP 3990 pg/ml
--- NOTE | 2024-02-08 15:31 | PTCARENOTE ---
Patient reports nose bleeding after he blew his nose. Pt has a constant dripping, but not saturating tissue. Pressure applied an ice to bridge of nose, Dr. Wilkerson notified and order received to hold Coumadin and plavix. Bleeding has stopped after
approx 10 mins. Pt comfortable and denies pain, is at bedside.,
[2024-02-08] MEDS: DUONEB INH (15:54)
[2024-02-08] MEDS: AFRIN NASAL SPRAY 2 SPRAYS NASAL (15:58)
[2024-02-08] MEDS: STERILE WATER FOR INJECTION IV (15:59)
--- NOTE | 2024-02-08 16:11 | PTCARENOTE ---
Assumed care of pt this am after morning report. He is alert and oriented x 3. 100% AV paced with occasional PVC. Pt denies chest pain, discomfort. Trace bilateral ankle and foot edema. Pt continues on IV Lasix, Urine is clear yellow, pt using
urinal independently. Oxygen at 4L N C, Lungs decreased bilateral, dyspneic and tachypneic on exertion.Non productive cough, no coughing with meals. Abdomen soft with active bowel tones. Pt did have BM today. OOB with standby assist and wheeled
walker, gait is slow and steady, no dizziness or lightheadedness. OOB in chair for 3 hours, wathcing football with his at bedside.
[2024-02-08] MEDS: DECADRON 2 MG IV (18:19)
[2024-02-08] MEDS: XALATAN OPHTHALMIC SOLUTION 1 DROP OPHTH (21:54)
[2024-02-09] VITALS (11 sets, daily range): BP systolic 94–135; BP diastolic 54–98; BMI 27.9
[2024-02-09] MEDS: DECADRON 2 MG IV ×2 (01:47→09:11)
--- NOTE | 2024-02-09 04:20 | PTCARENOTE ---
Pt called to report nose bleed; Pressure and ice applied to bridge of nose and bleeding ceased after ~ 5 minutes. Pt cleaned up and AYR saline gel applied to nasal membranes. No further issue. Weaned to 2L O2 via midflow cannula with SpO2 ~ 93%.
Will continue to monitor and assess.
[2024-02-09 06:49] LABS: % Basophils 0.2 % (0-2); % Eosinophils 0.1 % (0-6); % Immature Granulocytes 1.4 % (0-0.5); % Lymphocytes 6.1 % (20.5-51.1); % Monocytes 4.6 % (1.7-9.3); % Neutrophils 87.6 % (42.2-75.2); Absolute Immature Granulocytes 0.2 10^3/uL (0-0.05); Absolute Monocytes 0.8 10^3/uL (0.1-0.6); Absolute Neutrophils 14.7 10^3/uL (1.4-6.5); Hematocrit 44.9 % (39.0-52.0); Hemoglobin 15.7 g/dL (13.0-18.0); Mean Corpuscular Hgb 30.4 pg (27.0-31.0); Mean Platelet Volume 10.4 fL (7.4-10.4); Nucleated Red Blood Cells % 0 % (-); Platelet Count 277 10^3/uL (130-400); Red Blood Cell Count 5.16 10^6/uL (4.70-6.10); Red Cell Dist. Width 13.8 % (11.5-14.5); White Blood Cell Count 16.8 10^3/uL (4.8-10.8)
[2024-02-09 06:54] LABS: INR 2.17
[2024-02-09 07:03] LABS: ALT (SGPT) 71 U/L (0-50); AST (SGOT) 47 U/L (17-59); Albumin 3.9 g/dl (3.5-5.0); Alkaline Phosphatase 174 U/L (38-126); Calcium 9.5 mg/dl (8.4-10.2); Carbon Dioxide 28 mmol/L (22-30); Chloride 93 mmol/L (98-107); Glucose 149 mg/dl (70-99); Magnesium 2.3 mg/dl (1.6-2.3); Phosphorus 3.8 mg/dl (2.5-4.5); Potassium 3.7 mmol/L (3.5-5.1); Sodium 136 mmol/L (135-145); Total Bilirubin 1.8 mg/dl (0.2-1.3); Total Protein 6.4 g/dl (6.3-8.2)
[2024-02-09 07:12] LABS: Blood Urea Nitrogen 60 mg/dl (9-20); Estimated Creatinine Clearance 58 ml/min; eGFR > 60.00
--- NOTE | 2024-02-09 07:40 | W.PN.PUL3 ---
Today's Communication / Plan
-
Home oxygen assessment performed today shows he needs 5 L/min with rest/activity; consult case management to set up home O2
Cardiology consulted, defer diuresis to them; recs appreciated
Transition from IV systemic steroids to OCS taper, starting at 40mg daily and reduce by 10mg every 6th day until off; we will also follow with him in the office
PT/OT --> rec'd home health
Hopefully he can be discharged home tomorrow
Assessment
-
Patient is an 83-year-old male with previous history of heart failure reduced EF, pulmonary fibrosis, A-fib presenting to ER with shortness of breath for the past 2 days. He was notably hypoxemic into the 70s per EMS. He was placed on a
nonrebreather mask in the ER with saturation improvement to the 90s. Has a prior history of IPF being followed by Dr Davis as OP, previously followed by pulmonology at [facility]. Last PFT in office demonstrated restrictive lung disease, he
was not placed on inhalers due to being asymptomatic. Antifibrotic therapy was discussed but not initiated. He was not known to be on oxygen at home. We are consulted for eval.
Impression:
Acute hypoxic respiratory failure suspect due to ILD exacerbation
Suspected acute on chronic HFrEF exacerbation
Worsening SOB
LE edema
Moderate pulmonary hypertension (improved compared to prior echo in December 2023)
DNR
Conditions present prior to admission:
HUP- pacemaker, AV node ablation, revision of ICD (new ICD from Right subclavian tunnelled to generator on left 07/10/2023)
CHF/Cardiomyopathy EF 35% s/p HUP- defibrillator 02/26/2023
Moderately dilated and hypokinetic right ventricle, mod PH on ECHO
Interstitial lung disease-serology unrevealing, inflammatory markers not elevated, observational approach-follows Dr. Davis
Afib s/p ablation
Mixed hyperlipidemia
RBBB
HTN
MVR
Lung Surgery 35 years ago/Thorectomy 1986
Hayfever
Glaucoma
Osteoarthritis
Hernia repair 2002
Carpel tunnel
Cataracts Bilateral 2009
Plan
Oxygenation improved down to 2L/min NC with SpO2 91% at rest
Wean down O2 as needed to keep sats >90-94% - check home O2 assessment prior to discharge (performed today and shows he needs 5L/min with rest/activity)
DNR status noted-not to be intubated
DuoNebs QID
Mucolytics prn
Aspiration precautions
Steroids initiated with persistent hypoxemia despite diuresis-Decadron reduced to 2 mg IV every 8 hours 02/08/2024. Transition to prednisone today (02/09/2024) 40 mg with a very slow taper going forward over the next several weeks until seen by
Ryan. This will cover any potential inflammatory pneumonitis/IPF flareup.
CT chest 02/02/2024-no pulmonary embolism, severe bilateral groundglass densities which have progressed, severe cardiomegaly and pulmonary hypertension
Prior history of lung disease is noted including IPF
Had seen Dr Davis in past, but not on inhalers
CT showing stable findings, not significantly progressed from interval CT 12/2023 <-- 12/2022
CT chest with possible pneumonia-clinically not behaving like pneumonia, no temperature, procalcitonin negative, mild leukocytosis, no chest congestion or sputum-possibly CHF.
Leukocytosis likely steroid driven.
Cultures reviewed-negative
Urine Legionella antigen negative
Influenza negative
Streptococcal pneumo antigen negative
Unable to produce sputum
Empiric antibiotics initiated-ceftriaxone and doxycycline-will complete total of 5 days. Completed antibiotics on 02/07/2024. --> continue to monitor
CHF component on top of baseline IPF
Continue diuresis as tolerated
Monitor renal function, electrolytes, intake/output, lower extremity edema and weight
Echo done today (02/09/2024) and LVEF remains at 35% with moderate PH
Cardiology following-correspondence reviewed
DVT prophylaxis-Coumadin with goal INR 2-3
GI prophylaxis- N/A
Dr. Melara updated patient and 02/07/2024.
Last saw Dr. Davis 04/29/2023-canceled PFT/appointment 01/27/2024
Will need outpatient pulmonary evaluation in our office for PFTs and 6MWT/post discharge planning-with Dr. Davis
Pulmonary service will continue to follow along
Diagnostic Data
CXR 02/07/2024: There is moderate groundglass and linear interstitial airspace disease throughout the lower two thirds of the right lung as well as at the left lung base consistent with pneumonia and similar to that seen on the 02/02/2024 CT
examination
Chest X-Ray: 01/31/24- Stable right-sided cardiac conduction device. Retained leads again noted on the left. Low lung volumes. Subsegmental atelectasis in the bilateral lung bases. Chain sutures project over the medial right lung apex. No large
pleural effusion or pneumothorax. Stable enlargement of the cardiac silhouette.
01/01/24- There is no other significant interval change.
CT chest 01/07/23-[place] coronary artery calcifications, elevated right hemidiaphragm, cholelithiasis, widespread bilateral interstitial markings consistent with possible pulmonary fibrosis, aneurysmal dilation of the ascending thoracic aorta at 4.6
cm, prominent caliber bilateral main pulmonary arteries, scattered small nonspecific mediastinal lymph nodes, largest measuring 1.[address] Scan: CHEST 12/31/23- Placement of ICD in the interval since prior CT. Three ICD leads seen one of which extends into the superior right atrium. Additional two leads are seen one extending into the right ventricle distal portion appearing to extend
superiorly. The additional lead is adjacent to the first ventricular lead and appears to extend to the distal right atrium adjacent to the mitral valve, most likely with lead tip in the right atrium proper although evaluation somewhat limited due to
some beam hardening artifact. Cholelithiasis. Stable mild aneurysmal dilatation of the ascending thoracic aorta at approximately 4.6 cm with some atherosclerotic changes. Marked coronary artery calcifications. Widespread bilateral prominent
pulmonary interstitial markings again seen most likely chronic such as pulmonary fibrosis. Few scattered subcentimeter mediastinal lymph nodes, some of which slightly smaller in comparison to prior CT.
Echo: 12/30/23- Moderate LV dysfunction. Moderately dilated and hypokinetic right ventricle. Severely dilated right atrium. Moderate tricuspid regurgitation. Estimated PASP 54 mmHg assuming RA 15 mmHg. No pericardial effusion. The ICD lead is no
longer visualized in the RV. No significant change since the prior study of 11/26/2023 except the RV lead is no longer seen in the RV.
PFT 01/27/23-FEV1 2.47-86%, FVC 2.9-72%, TLC 56%, RV 36%, DLCO 39%, DLCO/VA 69%. Mild to moderate restriction and moderate reduction in diffusing capacity.�������
Spirometry 04/29/23-FEV1 2.12-74%, FVC 2.62-65%. Moderate restriction.
6 minute walk test 01/27/23-Ambulating 90 feet with desaturation britany 96% of maximum heart rate of 109.��Dyspnea scale score 0. No supplemental oxygen required.
ILD Serology 04/23/23-normal Sjogren's, MERRITT, anti-scleroderma, MYRA-43, anti-DNA, anti-Angie 1, aldolase,������
Eosinophils, 04/23/23-300�������
ESR 04/23/23-4�������
Alpha-1 antitrypsin level and phenotype-156,
rheumatoid factor-Less than 10
C-reactive protein-3
Total time spent today was 38 minutes for this encounter. Time includes reviewing laboratory test/imaging results, reviewing pertinent medical records, obtaining and reviewing medical history, performing an appropriate exam, ordering medications,
tests and procedures. Time also includes documentation of this encounter, coordinating patient care and communicating with other healthcare professionals. Total time does not include separately billed tests performed on this date of service.
Subjective Data
-
Date of Service:
Date of Service: February 09, 2024
Chief Complaint: Pulmonary Follow Up and Dyspnea Follow Up
Subjective:
Patient was seen and evaluated today at bedside. He is sitting in chair in no acute distress. He had a nosebleed overnight which disturbed his sleep. Currently no nosebleed. Heart rate 80, BP 135/87 and saturating 91% on 2 L/min nasal cannula.
He denies chest pain, SHORT, abdominal pain, nausea, fevers or chills.
Review of Systems
General: Other (Negative unless mentioned above)
Objective Data
Data Reviewed
Vital Signs / I&O / Oxygen:
Vital Signs
Temp Pulse Resp BP Pulse Ox
97.4 F 80 22 128/98 93
02/09/24 04:48 02/09/24 06:00 02/09/24 06:00 02/09/24 06:00 02/09/24 06:00
Intake and Output
02/08/24 02/09/24 02/10/24
06:59 06:59 06:59
Intake Total 400 / 400 720 / 720
Output Total 3425 / 3425 2625 / 2625
Balance -3025 / -3025 -1905 / -1905
SaO2 93
Nasal Cannula flow liters per 4
minute
Physical Exam
General: Respiratory Distress (n), Comfortable, Chills (negative) and Sweats (negative)
HEENT: Normocephalic, Anicteric and Moist Mucous Membranes
Cardiovascular: S1-S2 and Peripheral Edema (negative)
Respiratory: Wheeze (negative), Crackles (Bilateral mainly in the bases), Rhonchi (negative), Non-Labored Respirations, Accessory Resp Muscle Use (n) and Stridor (negative)
GI: Soft, Non Distended, Non Tender and Normal Bowel Sounds
Neurology: AO x 3 and Tremors (negative)
Skin: Warm, Dry, Cyanosis (n) and Jaundice (n)
Labs/Micro/Reports
Lab Data
02/09/24 05:58
02/09/24 05:58
Laboratory Results
02/09/24
05:58
PT 24.0 H
INR 2.17
[2024-02-09 07:42] LABS: Erythrocyte Sed Rate 15 mm/hour (0-20)
[2024-02-09] MEDS: DUONEB 3 ML INH ×4 (07:51→19:37)
--- NOTE | 2024-02-09 08:52 | W.PN.CD ---
Today's Communication / Plan
-
Weight is down to 91 kg which is the lowest it has been since early in December proBNP went from 1864-2083 which is even lower than it was in December.
Patient remains on Lasix 60 mg IV twice daily. Eventually will transition to Lasix 80 mg a day
Continued management of interstitial lung disease including treatment with steroids as directed by pulmonary
Avoiding right heart cath due to recent ICD lead revision.
Suspect patient will be discharged on O2. Down from 4 L to 2 L today and is comfortable.
Continue to monitor renal function. Patient will receive his IV Lasix this morning and then we will transition him to Lasix 80 mg p.o. once a day.
After discharge patient will follow-up with Dr. Davenport
Impression / Plan
-
83 yo male with CAD with prior stents, ICM EF 35%, chronic systolic HF, VT, heart block (AV node ablatoin), BiV ICD (Biotronik) with WARP SPINNER via left bundle pacing lead (Biotronik), permanent A fib on warfarin, IPF is admitted with SOB and hypoxia.
Dyspnea
- Improving with HF and pulmonary/IPF treatments.
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
Acute on chronic HFrEF with ischemic cardiomyopathy, LVEF 35%
- Admit pBNP 6430 (on 12/28/2023 pBNP 4170)
- Feeling better, was able to ambulate in the hallway and his room today with symptoms
- IV diuresis once daily Lasix, weight down to 91 kg which is the lowest it has been including admission in early December. Down 3 to 4 kg since admission
- -Remains on Lasix 60 mg IV twice daily. Still with O2 requirements. Avoiding right heart cath due to recent ICD lead replacement
- He is on Lasix 40mg daily at home, likely needs 80mg daily.
- Coreg now at 3.125mg bid, tolerating Aldactone 12.5mg daily and Farxiga 10mg daily here in hospital (takes Jardiance at home)
- GDMT has been limited by hypotension, as Valsartan has been held
- WARP SPINNER via left bundle pacing lead
Lung disease
- ILD, per pulmonary
-Elevated C-reactive protein 02/09/2024
-Weaning O2 which is currently at 2 L as of 02/09/2024
-Steroids as directed by primary team
Complete heart block via AV node ablation at [facility], view as pacer dependent but has an escape at near 40 bpm
- recent lead placement after dislodgement
VT
- Well controlled (prior ablation at [facility], remote)
- Biotronik ICD in place, no discharges
Permanent rate controlled A fib on warfarin
- asymptomatic
- follow INR closely, 3 today
CAD
- stable w/o angina
- prior stenting
H/o amaurosis fugax/TIA per records
- stable on clopidogrel in addition to warfarin
Subjective:
feeling well today, denies CP, SOB, palps
oxygen 6L NC this am
Testing
Echo 12/30/23: EF 35%, RV dilation/dysfunction, moderate TR, PASP 54
Cath 10/2021: [facility], stable CAD
Physical Exam
Vital Signs/Labs
Vital Signs
Temp Pulse Resp BP Pulse Ox
97.7 F 82 18 128/98 92
02/09/24 07:03 02/09/24 07:52 02/09/24 07:52 02/09/24 06:00 02/09/24 07:52
02/08/24 02/09/24 02/10/24
06:59 06:59 06:59
Actual Weight 93.1 kg 93.1 kg
02/09/24 05:58
02/09/24 05:58
PT 24.0 Sec (11.4-14.6) H 02/09/24 05:58
INR 2.17 02/09/24 05:58
Magnesium 2.3 mg/dl (1.6-2.3) 02/09/24 05:58
01/31/24 01/31/24 02/08/24
21:52 22:34 13:19
Gcj-A-Heerwpfrhkd Pept Cancelled [id number]
Physical Exam
Constitutional: No acute distress
Cardiovascular: Rhythm & rate is regular
Respiratory: Wheeze Absent and Rhonchi Absent
GI: Soft and Non tender
Neuro/Psych: Alert
Data Reviewed
-
Date of Service: February 09, 2024
Medical Decision Making: Reviewed Test Results
Medical Tests (PFT, Pathology etc): Report Reviewed by me
Labs: Labs Reviewed by me
[2024-02-09] MEDS: LASIX 60 MG IV ×2 (09:10→15:11)
[2024-02-09] MEDS: PROTONIX 40 MG PO (09:10)
[2024-02-09] MEDS: COREG 3.125 MG PO ×2 (09:11→20:08)
[2024-02-09] MEDS: ALDACTONE 12.5 MG PO (09:11)
[2024-02-09] MEDS: FARXIGA 10 MG PO (09:11)
[2024-02-09] MEDS: AFRIN NASAL SPRAY 30 SPRAYS NASAL (09:12)
[2024-02-09] MEDS: TRUSOPT 2% OPHTHALMIC SOLUTION 2 DROP OPHTH ×2 (09:13→20:05)
[2024-02-09] MEDS: AYR SALINE NASAL GEL 1 APPLIC NASAL (09:14)
[2024-02-09] MEDS: DELTASONE 40 MG PO (15:11)
--- NOTE | 2024-02-09 16:04 | CM ---
Patient with Dx Acute hypoxic respiratory failure, HF exacerbation, Pulmonary fibrosis. O2 2L. Home O2 Assessment noted. PT & OT recommend HH.
Confirmed with Dr Reinoso home O2 request is for O2 5L with ambulation.
Spoke with patient's Jocelin; she agrees to a home O2 setup through [facility], and understands patient will receive concentrator and portables. Informed that patient will not be able to receive a POC tank until his follow up visit that
determines need for ongoing O2. prefers portable tank delivery to hospital room for d/c.
Spoke with Susanna Hanna; she will fill the O2 order and deliver portable tank to patient's room tomorrow. Cyndi confirms that [facility] cannot deliver POC tank until follow up appt and also patient will need to be on < 5L O2. Referral with O2
script faxed.
Spoke with Ronit Su; provided update probable d/c tomorrow with home O2.
Plan home tomorrow with home O2 through [facility], with Ronit ASENCIO.
--- NOTE | 2024-02-09 17:38 | W.PN.HOSP.TC ---
Today's Communication/Plan
-
Home O2 assessment
Transition to oral diuretic.
Transition to oral corticosteroid
Discharge plan
Assessment / Plan
Assessment / Plan
83yo M with PMHx of Afib, SSS s/p PPM, HFrEF with ICD, pulmonary fibrosis, recent PPM/ICD replacement since previous leads were broken (1 month ago) came after he started to feel worsening SOB on exertion 2 days ago, found hypoxic and needed NRB in
ED. Admitted for CHF/lung fibrosis
Impression:
Acute hypoxic respiratory failure.
Acute on chronic heart failure reduced EF exacerbation
Bilateral pulmonary infiltrates with concern for worsening of pulmonary fibrosis, pneumonia.
Leukocytosis likely secondary to steroids
Other conditions:
Status post pacemaker, AV node ablation, revision of AICD
Acute CHF, ischemic cardiomyopathy with LVEF of 35%.
Interstitial lung disease with unrevealing serology.
Paroxysmal AF status post ablation
Dyslipidemia
Hypertension
Plan
#Acute hypoxic respiratory failure 2/2 acute on chronic HFrEF exacerbation and lung fibrosis
Acute CHF reduced EF
Echo in Sept: pulmonary HTN, EF 35%, moderate TR, ischemic CM signs
ProBNP elevated to 6430 (previous 4170)
Lasix 60mg increased to BID DOSING
Good response to diuresis
Transition to oral Lasix
#Pulmonary fibrosis
unclear if in exacerbation
Pulm for mgmt: with fluid overload -.
Steroid trial initiated with Decadron on 02/03 4mg TID
Transition to prednisone taper
Bronchodilators.
Concern for bilateral pneumonia.
CT scan of the chest on 02/01 with diffuse groundglass infiltrates. Negative for pulmonary embolism.
Speech and swallow consult.
Antibiotics: Ceftriaxone/doxycycline-complete 7d course.
#Supratherapeutic INR
Follow INR and adjust warfarin to target INR 2.0-3.0
INR at 2.65 and restarted coumadin
#Elevated bilirubin
#Asymptomatic cholelithiasis
no abd tenderness
check LFT, LDH
US RUQ-remarable. No obstruciton.
#HLD
#Essential HTN
#CAD, stable s/p PCI
#Afib, permanent
cont home meds
DVT ppx on Coumadin
DNR/DNI
Anticipated Discharge: 24 - 48 hours
Subjective/Interval History
-
Date of Service: February 09, 2024
Objective Data
-
Labs:
Laboratory Results
02/09/24
05:58
WBC 16.8 H
Hgb 15.7
Hct 44.9
Plt Count 277
PT 24.0 H
INR 2.17
Sodium 136
Potassium 3.7
Chloride 93 L
Carbon Dioxide 28
BUN 60 H
Creatinine 1.1
Glucose 149 H
Calcium 9.5
Total Bilirubin 1.8 H
AST 47
ALT 71 H
Alkaline Phosphatase 174 H
Vital Signs:
Vital Signs
Temp Pulse Resp BP Pulse Ox
97.4 F 79 18 100/77 92
02/09/24 11:05 02/09/24 15:05 02/09/24 15:05 02/09/24 12:00 02/09/24 12:00
I&O
02/08/24 02/09/24 02/10/24
06:59 06:59 06:59
Intake Total 400 / 400 720 / 720
Output Total 3425 / 3425 2625 / 2625
Balance -3025 / -3025 -1905 / -1905
Physical Exam
-
General: Well Developed, Well Nourished and No Apparent Distress
HEENT: Normocephalic and Oxygen (6L)
Respiratory: Crackles (bibasilar)
Cardiac: Regular Rhythm
GI: Soft, Nontender, Nondistended and Normal Bowel Sounds
Musculoskeletal: No Clubbing, No Cyanosis and No Edema (maybe trace b/l)
Skin: Warm
Neuro: Awake, Alert, Oriented and AO x 3
Psych: Calm
[2024-02-09] MEDS: COUMADIN 1.5 MG PO (17:52)
--- NOTE | 2024-02-09 20:00 | PTCARENOTE ---
Received pt from previous shift; AAOx3, 100% AV-paced on the monitor, SpO2 93% on 3L O2 NC, lungs are diminished bilaterally. Pt offers no complaints at this time, just tired and would like to go to sleep. Remainder of assessment as documented. Pt
updated on POC for the evening, resting comfortably in bed, call alonso on his bedside table within reach.
[2024-02-09] MEDS: CRESTOR 5 MG PO (20:07)
[2024-02-09] MEDS: AFRIN NASAL SPRAY 4 SPRAYS NASAL (20:08)
[2024-02-09] MEDS: XALATAN OPHTHALMIC SOLUTION 1 DROP OPHTH (22:21)
[2024-02-10] VITALS (7 sets, daily range): BP systolic 101–123; BP diastolic 68–86; BMI 27.3
[2024-02-10 04:37] LABS: Blood Urea Nitrogen 63 mg/dl (9-20); Calcium 9.5 mg/dl (8.4-10.2); Carbon Dioxide 31 mmol/L (22-30); Chloride 91 mmol/L (98-107); Estimated Creatinine Clearance 58 ml/min; Glucose 155 mg/dl (70-99); Potassium 3.8 mmol/L (3.5-5.1); Sodium 136 mmol/L (135-145); eGFR > 60.00
[2024-02-10 04:42] LABS: INR 1.74; PT 20.2 Sec (11.4-14.6)
[2024-02-10] MEDS: DUONEB 3 ML INH ×2 (08:10→12:16)
[2024-02-10] MEDS: LASIX 80 MG PO (08:36)
[2024-02-10] MEDS: DELTASONE 40 MG PO (08:36)
[2024-02-10] MEDS: ALDACTONE 12.5 MG PO (08:37)
[2024-02-10] MEDS: FARXIGA 10 MG PO (08:37)
[2024-02-10] MEDS: AFRIN NASAL SPRAY 30 SPRAYS NASAL (08:37)
[2024-02-10] MEDS: PROTONIX 40 MG PO (08:37)
[2024-02-10] MEDS: COREG 3.125 MG PO (08:37)
[2024-02-10] MEDS: TRUSOPT 2% OPHTHALMIC SOLUTION 2 DROP OPHTH (08:38)
--- NOTE | 2024-02-10 08:47 | W.PN.CD ---
Today's Communication / Plan
-
stable on current regimen
discharge planning, with BMP in one week
we will call him for follow up
please call us with additional questions
Impression / Plan
-
83 yo male with CAD with prior stents, ICM EF 35%, chronic systolic HF, VT, heart block (AV node ablatoin), BiV ICD (Biotronik) with HAND SAMPLE MAKER via left bundle pacing lead (Biotronik), permanent A fib on warfarin, IPF is admitted with SOB and hypoxia.
Dyspnea
- Improving with HF and pulmonary/IPF treatments.
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
Acute on chronic HFrEF with ischemic cardiomyopathy, LVEF 35%: improved s/p IV lasix, looks good at 91kg
- Admit pBNP 6430 (on 12/28/2023 pBNP 4170)
- Avoiding right heart cath due to recent ICD lead replacement
- He is on Lasix 40mg daily at home: increased to lasix 80mg PO daily.
- Coreg now at 3.125mg bid, tolerating Aldactone 12.5mg daily and Farxiga 10mg daily here in hospital (takes Jardiance at home)
- GDMT has been limited by hypotension, as Valsartan has been held
- HAND SAMPLE MAKER via left bundle pacing lead
Lung disease
- ILD, per pulmonary
-Elevated C-reactive protein 02/09/2024
-Weaning O2 which is currently at 2 L as of 02/09/2024
-Steroids as directed by primary team
Complete heart block via AV node ablation at [facility], view as pacer dependent but has an escape at near 40 bpm
- recent lead placement after dislodgement
VT
- Well controlled (prior ablation at [facility], remote)
- Biotronik ICD in place, no discharges
Permanent rate controlled A fib on warfarin
- asymptomatic
- follow INR closely, 3 today
CAD
- stable w/o angina
- prior stenting
- on Plavix/warfarin
H/o amaurosis fugax/TIA per records
- stable on clopidogrel in addition to warfarin
Subjective:
feels back to baseline
Testing
Echo 12/30/23: EF 35%, RV dilation/dysfunction, moderate TR, PASP 54
Cath 10/2021: [facility], stable CAD
Physical Exam
Vital Signs/Labs
Vital Signs
Temp Pulse Resp BP Pulse Ox
97.6 F 80 22 101/78 92
02/10/24 07:47 02/10/24 08:36 02/10/24 08:11 02/10/24 08:36 02/10/24 08:11
02/09/24 02/10/24 02/11/24
06:59 06:59 06:59
Actual Weight 93.1 kg 91.2 kg
02/09/24 05:58
02/10/24 03:57
PT 20.2 Sec (11.4-14.6) H 02/10/24 03:57
INR 1.74 02/10/24 03:57
Magnesium 2.3 mg/dl (1.6-2.3) 02/09/24 05:58
01/31/24 01/31/24 02/08/24
21:52 22:34 13:19
Qnk-E-Kvaprwqlorv Pept Cancelled [id number]
Physical Exam
Constitutional: No acute distress
EENT: Moist mucous membranes
Cardiovascular: Rhythm & rate is regular, Pedal edema is absent, Rhythm/rate is irregular and JVD present
Respiratory: Labored respirations
Neuro/Psych: AO x 3
Data Reviewed
-
Date of Service: February 10, 2024
--- NOTE | 2024-02-10 09:12 | W.PN.PUL3 ---
Today's Communication / Plan
-
O2 via home O2 assessment testing - CM assisting with DC needs
Cardiology consulted, defer diuresis to them; recs appreciated
Continue slow prednisone taper starting at 40mg daily and reduce by 10mg every 6th day until off; we will also follow with him in the office
PT/OT --> rec'd home health
Patient be prepared for discharge home with home health recommended by PT/OT. Case management has set up oxygen through [employer]. Pulmonary service will now sign off. Please reconsult if there are any additional questions/concerns, or if patient's
respiratory status deteriorates.
Assessment
-
Patient is an 83-year-old male with previous history of heart failure reduced EF, pulmonary fibrosis, A-fib presenting to ER with shortness of breath for the past 2 days. He was notably hypoxemic into the 70s per EMS. He was placed on a
nonrebreather mask in the ER with saturation improvement to the 90s. Has a prior history of IPF being followed by Dr Davis as OP, previously followed by pulmonology at [facility]. Last PFT in office demonstrated restrictive lung disease, he
was not placed on inhalers due to being asymptomatic. Antifibrotic therapy was discussed but not initiated. He was not known to be on oxygen at home. We are consulted for eval.
Impression:
Acute hypoxic respiratory failure suspect due to ILD exacerbation
Suspected acute on chronic HFrEF exacerbation
Worsening SOB - markedly improved
LE edema
Moderate pulmonary hypertension (improved compared to prior echo in December 2023)
DNR
Conditions present prior to admission:
HUP- pacemaker, AV node ablation, revision of ICD (new ICD from Right subclavian tunnelled to generator on left 07/10/2023)
CHF/Cardiomyopathy EF 35% s/p HUP- defibrillator 02/26/2023
Moderately dilated and hypokinetic right ventricle, mod PH on ECHO
Interstitial lung disease-serology unrevealing, inflammatory markers not elevated, observational approach-follows Dr. Davis
Afib s/p ablation
Mixed hyperlipidemia
RBBB
HTN
MVR
Lung Surgery 35 years ago/Thorectomy 1986
Hayfever
Glaucoma
Osteoarthritis
Hernia repair 2002
Carpel tunnel
Cataracts Bilateral 2009
Plan
Oxygenation improved down to 2-3L/min NC with SpO2 91% at rest
Wean down O2 as needed to keep sats >90-94% - check home O2 assessment prior to discharge (performed yesterday and shows he needs 5L/min with activity, 3L/min with rest)
DNR/DNI
DuoNebs QID
Mucolytics prn
Aspiration precautions
Steroids initiated with persistent hypoxemia despite diuresis-Decadron reduced to 2 mg IV every 8 hours 02/08/2024. Transitioned to prednisone on 02/09/2024 40 mg with a very slow taper going forward over the next several weeks until seen by .
Ryan. This will cover any potential inflammatory pneumonitis/IPF flareup.
CT chest 02/02/2024-no pulmonary embolism, severe bilateral groundglass densities which have progressed, severe cardiomegaly and pulmonary hypertension
Prior history of lung disease is noted including IPF
Had seen Dr Davis in past, but not on inhalers
CT showing stable findings, not significantly progressed from interval CT 12/2023 <-- 12/2022
CT chest with possible pneumonia-clinically not behaving like pneumonia, no temperature, procalcitonin negative, mild leukocytosis, no chest congestion or sputum-possibly CHF.
Leukocytosis likely steroid driven.
Cultures reviewed-negative
Urine Legionella and Strep PNA urine antigens both negative
Influenza negative
Unable to produce sputum
Empiric antibiotics initiated-ceftriaxone and doxycycline-will complete total of 5 days. Completed antibiotics on 02/07/2024. --> continue to monitor off ABx
CHF component on top of baseline IPF
Continue diuresis as tolerated
Monitor renal function, electrolytes, intake/output, lower extremity edema and weight
Echo done on 02/09/2024 - LVEF remains at 35% with moderate PH
Cardiology following-correspondence reviewed
DVT prophylaxis-Coumadin with goal INR 2-3
GI prophylaxis- N/A
Dr. Melara updated patient and 02/07/2024.
Last saw Dr. Davis 04/29/2023-canceled PFT/appointment 01/27/2024
Will need outpatient pulmonary evaluation in our office for PFTs and 6MWT/post discharge planning-with Dr. Davis
Patient be prepared for discharge home with home health recommended by PT/OT. Case management has set up oxygen through [facility]. Pulmonary service will now sign off. Thank you for allowing us to be involved in the care of this patient. Please
reconsult if there are any additional questions/concerns, or if patient's respiratory status deteriorates.
Diagnostic Data
CXR 02/07/2024: There is moderate groundglass and linear interstitial airspace disease throughout the lower two thirds of the right lung as well as at the left lung base consistent with pneumonia and similar to that seen on the 02/02/2024 CT
examination
Chest X-Ray: 01/31/24- Stable right-sided cardiac conduction device. Retained leads again noted on the left. Low lung volumes. Subsegmental atelectasis in the bilateral lung bases. Chain sutures project over the medial right lung apex. No large
pleural effusion or pneumothorax. Stable enlargement of the cardiac silhouette.
01/01/24- There is no other significant interval change.
CT chest 01/07/23-Griffin coronary artery calcifications, elevated right hemidiaphragm, cholelithiasis, widespread bilateral interstitial markings consistent with possible pulmonary fibrosis, aneurysmal dilation of the ascending thoracic aorta at 4.6
cm, prominent caliber bilateral main pulmonary arteries, scattered small nonspecific mediastinal lymph nodes, largest measuring 1.[address] Scan: CHEST 12/31/23- Placement of ICD in the interval since prior CT. Three ICD leads seen one of which extends into the superior right atrium. Additional two leads are seen one extending into the right ventricle distal portion appearing to extend
superiorly. The additional lead is adjacent to the first ventricular lead and appears to extend to the distal right atrium adjacent to the mitral valve, most likely with lead tip in the right atrium proper although evaluation somewhat limited due to
some beam hardening artifact. Cholelithiasis. Stable mild aneurysmal dilatation of the ascending thoracic aorta at approximately 4.6 cm with some atherosclerotic changes. Marked coronary artery calcifications. Widespread bilateral prominent
pulmonary interstitial markings again seen most likely chronic such as pulmonary fibrosis. Few scattered subcentimeter mediastinal lymph nodes, some of which slightly smaller in comparison to prior CT.
Echo: 12/30/23- Moderate LV dysfunction. Moderately dilated and hypokinetic right ventricle. Severely dilated right atrium. Moderate tricuspid regurgitation. Estimated PASP 54 mmHg assuming RA 15 mmHg. No pericardial effusion. The ICD lead is no
longer visualized in the RV. No significant change since the prior study of 11/26/2023 except the RV lead is no longer seen in the RV.
PFT 01/27/23-FEV1 2.47-86%, FVC 2.9-72%, TLC 56%, RV 36%, DLCO 39%, DLCO/VA 69%. Mild to moderate restriction and moderate reduction in diffusing capacity.�������
Spirometry 04/29/23-FEV1 2.12-74%, FVC 2.62-65%. Moderate restriction.
6 minute walk test 01/27/23-Ambulating 90 feet with desaturation britany 96% of maximum heart rate of 109.��Dyspnea scale score 0. No supplemental oxygen required.
ILD Serology 04/23/23-normal Sjogren's, MERRITT, anti-scleroderma, MYRA-43, anti-DNA, anti-Angie 1, aldolase,������
Eosinophils, 04/23/23-300�������
ESR 04/23/23-4�������
Alpha-1 antitrypsin level and phenotype-156,
rheumatoid factor-Less than 10
C-reactive protein-3
Total time spent today was 38 minutes for this encounter. Time includes reviewing laboratory test/imaging results, reviewing pertinent medical records, obtaining and reviewing medical history, performing an appropriate exam, ordering medications,
tests and procedures. Time also includes documentation of this encounter, coordinating patient care and communicating with other healthcare professionals. Total time does not include separately billed tests performed on this date of service.
Subjective Data
-
Date of Service:
Date of Service: February 10, 2024
Chief Complaint: Pulmonary Follow Up and Dyspnea Follow Up
Subjective:
Pt seen this AM. No acute events reported overnight. Being planned for DC today. He denies chest pain, SHORT, abd pain, N/V/f/c.
Review of Systems
General: Other (negative unless mentioned above)
Objective Data
Data Reviewed
Vital Signs / I&O / Oxygen:
Vital Signs
Temp Pulse Resp BP Pulse Ox
97.6 F 79 16 110/72 84
02/10/24 07:47 02/10/24 09:59 02/10/24 09:59 02/10/24 10:00 02/10/24 10:06
Intake and Output
02/09/24 02/10/24 02/11/24
06:59 06:59 06:59
Intake Total 720 / 720 920 / 920
Output Total 2625 / 2625 4115 / 4115
Balance -1905 / -1905 -3195 / -3195
SaO2 84
Nasal Cannula flow liters per 3
minute
Physical Exam
General: Respiratory Distress (n), Comfortable, Chills (negative) and Sweats (negative)
HEENT: Normocephalic, Anicteric and Moist Mucous Membranes
Cardiovascular: S1-S2 and Peripheral Edema (negative)
Respiratory: Wheeze (negative), Crackles (Bibasilar), Rhonchi (negative), Non-Labored Respirations, Accessory Resp Muscle Use (n) and Stridor (negative)
GI: Soft, Non Distended, Non Tender and Normal Bowel Sounds
Neurology: AO x 3 and Tremors (negative)
Skin: Warm, Dry, Cyanosis (n) and Jaundice (n)
Labs/Micro/Reports
Lab Data
02/09/24 05:58
02/10/24 03:57
Laboratory Results
02/10/24
03:57
PT 20.2 H
INR 1.74
--- NOTE | 2024-02-10 10:58 | PTCARENOTE ---
Patient with no complaints this morning. VSS. 4L NC 94%. Awaiting discharge arrangements. Will closely monitor.
--- NOTE | 2024-02-10 11:02 | W.DS.TRANS ---
DC Summary - Stitcher Around
-
Discharge Instructions:
Discharge Diagnosis/Procedures Impression:
Acute hypoxic respiratory failure.
Acute on chronic heart failure reduced EF
exacerbation
Bilateral pulmonary infiltrates with concern for
worsening of pulmonary fibrosis, pneumonia.
Leukocytosis likely secondary to steroids
Other conditions:
Status post pacemaker, AV node ablation,
revision of AICD
Acute CHF, ischemic cardiomyopathy with LVEF of
35%.
Interstitial lung disease with unrevealing
serology.
Paroxysmal AF status post ablation
Dyslipidemia
Hypertension
Diet Regular
Blood Work BMP in one week INR in one week
Instructions:
Stand-Alone Forms:
Changes to Home Medications: Yes
Discharge Medications:
DC Medications w/original date entered in [facility]
clopidogrel 75 mg tablet 75 mg PO DAILY Blood Clot Prevention/Tx 01/31/24
dorzolamide 2 % eye drops 2 drp ophthalmic (eye) BID Eye Condition 01/31/24
empagliflozin 10 mg tablet (Jardiance) 10 mg PO DAILY Heart Disease/Condition 01/31/24
latanoprost 0.005 % eye drops 1 drp ophthalmic (eye) QPM Eye Condition 01/31/24
rosuvastatin 5 mg tablet 5 mg PO MOWEFR High Cholesterol 01/31/24
warfarin 4 mg tablet 4 mg PO [facility] Blood Clot Prevention/Tx 01/31/24
warfarin 5 mg tablet 5 mg PO MOWEFR Blood Clot Prevention/Tx 01/31/24
carvedilol 3.125 mg tablet 3.125 mg PO BID #60 tabs 02/10/24
furosemide 80 mg tablet 80 mg PO DAILY #60 tabs 02/10/24
pantoprazole 40 mg tablet,delayed release 40 mg PO DAILY #30 tabs 02/10/24
prednisone 10 mg tablet 10 mg PO DIRECTED #50 tabs 02/10/24
spironolactone 25 mg tablet 12.5 mg (1/2 x 25 mg) PO DAILY #30 tabs 02/10/24
Home Medication Changes
Valsartan discontinued due to marginal BP.
Prednisone taper.
Coreg dose reduced.
Furosemide increased.
PPI added.
Home O2 initiated at 5 L
Pending Results: No
--- NOTE | 2024-02-10 13:00 | PTCARENOTE ---
VSS on discharge. Patient with no complaints. O2 delivered to bedside and at home. on her way to pick patient up. Tele and IV removed. DC paperwork reviewed with patient in detail and to be reviewed with again when she arrives. Wheelchair
waiting to take patient out.
--- NOTE | 2024-02-10 14:40 | CM ---
Patient with Dx Acute hypoxic respiratory failure, HF exacerbation, Pulmonary fibrosis. O2 3L. Home O2 Assessment today.
Spoke with Susanna Hanna who requested repeat Home O2 assessment, as patient is on 5L Medicare also requires documentation of testing on 4L. Cyndi confirmed home O2 delivery to home and portable tank to hospital.
Met with patient and spoke with Jocelin; both agree to d/c home today with home O2. IMM completed. confirms home O2 concentrator delivered to home today. Portable O2 delivered to hospital. will provide transport home.
Ronit notified of d/c via [facility] & responded.
Plan home today with home O2 through [facility], with Ronit VN.
== END 2024-02-10 13:51 | disposition home health service (06) | DRG 196 ==
LOC: IMU 04:17
PROVIDERS: Hospitalist; Internal Medicine; Internal Medicine Cardiovascular Disease; Internal Medicine Critical Care Medicine; Student in an Organized Health Care Education/Training Program; ADMITTING PHYSICIAN Hospitalist; ATTENDING PHYSICIAN Internal Medicine; CONSULT PHYSICIAN Internal Medicine; EMERGENCY PHYSICIAN Emergency Medicine; FAMILY PHYSICIAN Family Medicine
DX: J84.9 Interstitial pulmonary disease, unspecified (principal); J18.9 Pneumonia, unspecified organism; J96.01 Acute respiratory failure with hypoxia; I50.22 Chronic systolic (congestive) heart failure; I48.21 Permanent atrial fibrillation; I47.20 Ventricular tachycardia, unspecified; Z11.52 Encounter for screening for COVID-19; Z87.891 Personal history of nicotine dependence; I11.0 Hypertensive heart disease with heart failure; I95.9 Hypotension, unspecified; I25.10 Atherosclerotic heart disease of native coronary artery without angina pectoris; Z79.02 Long term (current) use of antithrombotics/antiplatelets; Z66 Do not resuscitate; I25.5 Ischemic cardiomyopathy; J84.10 Pulmonary fibrosis, unspecified; E78.2 Mixed hyperlipidemia
CPT/HCPCS: 93308; 71045; 71046; 71275; 76700; 80048; 80053; 81003; 82248; 82805; 83615; 83735; 83880; 84100; 84145; 84443; 84484; 85025; 85027; 85610; 85652; 86140; 86880; 87449; 87502; 87811; 87899; 92610; 93005; 93321; 93325; 94640; 96374; 97116; 97163; 97167; 97535; 99291; Q9967

== ENCOUNTER 2024-03-12 20:47 | Inpatient (IN) | payer MEDICARE, OTHER, SELFPAY ==
[2024-03-12] VITALS (22 sets, daily range): BP systolic 77–119; BP diastolic 42–63; BMI 29.5; BMI 28.5
[2024-03-12 16:09] LABS: % Basophils 0.3 % (0-2); % Eosinophils 0.3 % (0-6); % Immature Granulocytes 1.1 % (0-0.5); % Lymphocytes 10.2 % (20.5-51.1); % Monocytes 7.7 % (1.7-9.3); % Neutrophils 80.4 % (42.2-75.2); Absolute Immature Granulocytes 0.1 10^3/uL (0-0.05); Absolute Lymphocytes 1.2 10^3/uL (1.2-3.4); Absolute Monocytes 0.9 10^3/uL (0.1-0.6); Absolute Neutrophils 9.3 10^3/uL (1.4-6.5); Hematocrit 38.8 % (39.0-52.0); Hemoglobin 13.4 g/dL (13.0-18.0); Mean Corp Hgb Conc. 34.5 g/dL (33.0-37.0); Mean Corpuscular Hgb 31.5 pg (27.0-31.0); Mean Corpuscular Volume 91.3 fL (80.0-94.0); Mean Platelet Volume 9.3 fL (7.4-10.4); Nucleated Red Blood Cells % 0 % (-); Platelet Count 278 10^3/uL (130-400); Red Blood Cell Count 4.25 10^6/uL (4.70-6.10); Red Cell Dist. Width 15.4 % (11.5-14.5); White Blood Cell Count 11.6 10^3/uL (4.8-10.8)
[2024-03-12 16:24] LABS: ALT (SGPT) 29 U/L (0-50); AST (SGOT) 43 U/L (17-59); Albumin 3.5 g/dl (3.5-5.0); Alkaline Phosphatase 115 U/L (38-126); Blood Urea Nitrogen 32 mg/dl (9-20); Calcium 9.1 mg/dl (8.4-10.2); Carbon Dioxide 27 mmol/L (22-30); Chloride 95 mmol/L (98-107); Estimated Creatinine Clearance 58 ml/min; Glucose 129 mg/dl (70-99); Sodium 134 mmol/L (135-145); Total Bilirubin 2.1 mg/dl (0.2-1.3); Total Protein 6.1 g/dl (6.3-8.2); eGFR > 60.00
[2024-03-12 16:27] LABS: NT-proBNP 9650 pg/ml
[2024-03-12 16:54] LABS: INR 2.46; PT 26.7 Sec (11.4-14.6)
[2024-03-12 16:55] LABS: APTT 43.2 Sec (23.4-35.0)
[2024-03-12 17:03] LABS: Procalcitonin 0.54 ng/ml (0.0-0.25)
[2024-03-12] MEDS: NSS 500 IV (18:14)
[2024-03-12] MEDS: MAXIPIME 1000 MG IV (18:21)
--- NOTE | 2024-03-12 18:24 | ED.GENMED ---
History of Present Illness
General
Chief Complaint: Breathing Problem
Source: patient, records and spouse
Exam Limitations: none
Time Seen by Provider: 03/12/24 15:50
Nursing documentation reviewed up to this point in time: agreed with
History of Present Illness
History of Present Illness:
83-year-old male with a past medical history of hypertension, hyperlipidemia, paroxysmal atrial fibrillation, CHF, pacemaker, pulmonary fibrosis, chronic respiratory failure (recently started on home oxygen) who presents to the emergency room with
his for evaluation of shortness of breath. Patient was notably admitted to this hospital 02/01/2024 until 02/10/2024; was admitted for acute respiratory failure with hypoxia secondary to CHF and interstitial pneumonia/pulmonary fibrosis. He
was discharged on home oxygen and has been wearing 4 L of oxygen at home since. He says that over the past 48 hours he has had increasing shortness of breath. He says he has had nasal congestion. He reports nonproductive cough. He has not
noticed any increase swelling in his legs ( thinks perhaps his ankles have been slightly more swollen as she had trouble putting his sneakers on today but she says not much worse than usual). Denies any weight gain. Denies any chest pain. No
fever or chills noted. With worsening symptoms however called EMS to come to the hospital. Per EMS report patient was saturating 86% on his normal 4 L of oxygen and was increased to 6 L.
Past History
Past History
ED Past Medical History: Arrthythmia (Permanent atrial fibrillation; V. tach), CAD, CHF, HTN and Hypercholesterolemia
ED Past Surgical History: Cardiac (AICD placement x 2 most recently February 2023; PTCA with stents) and Other (Hernia repair)
Social History
Tobacco: Non-smoker
Alcohol: None
Personal:
Living: with family
Employment: Retired
Family History
Family History: Other (Noncontributory)
Review of Systems
Review of Systems
All Other Systems: ROS reviewed and negative except as documented in HPI and ROS
Constitutional: Denies fever, weight gain or chills
EENT: Reports other (Nasal congestion); Denies sore throat
Respiratory: Reports cough and trouble breathing
Cardiac: Denies chest pain, palpitations or syncope
ABD/GI: Denies abdominal pain, nausea or vomiting
: Denies flank pain
Musculoskeletal: Reports edema (Stable); Denies neck pain or back pain
Neurological: Denies dizzy or headache
Phy Exam
Physical Exam
Physical Exam:
General: Awake, alert; no acute distress
Head: Normocephalic, atraumatic
Eyes: Conjunctiva normal, EOMI
Throat: Airway intact, handling secretions
Neck: Trachea midline, no JVD noted
Lungs: Patient has rales at the lung bases bilaterally; pulse ox 89% on 6 L oxygen, mild tachypnea but no increased work of breathing, no cyanosis
Heart: Regular rate and rhythm, no murmurs, gallops, or rubs appreciated
Abd: Soft, non distended, nontender
Neuro: No gross deficits
Extremities: Trace edema at the ankles bilaterally, equal pulses in all extremities
Scores
Heart Failure Risk
Heart Failure Risk Score: Not Applicable
Heart Score for Chest Pain Patients
STEMI patient?: Not applicable
Withdrawal Assessment of Alcohol
Withdrawal Assessment Completed?: Not applicable
Course
Orders/Labs/Results
Orders:
Orders
03/12/24 15:40
Electrocardiogram (*1) Urgent
Reason for Study: Shortness of Breath
EKG- Treatment ONCE
03/12/24 15:49
CMP [Comprehensive Metabolic Panel] Urgent
Complete Blood Count/With Diff Urgent
NT-proBNP Urgent
Procalcitonin Urgent
PCT Algorithmm Indication: Respiratory
03/12/24 15:54
CXR Port [CR Chest Portable - 1 View] Urgent
Comment:
Reason For Exam: SOB
Reason Study Needs to be Portable: Patient Unstable
03/12/24 16:29
Add On- LAB Urgent
Tests Added?: procalcitonin
03/12/24 16:36
PTT Urgent
Prothrombin Time Urgent
03/12/24 18:07
0.9% Sodium Chloride 500 ml [Nss] 500 ml IV BOLUS
Cefepime HCl [Maxipime] 1,000 mg IV NOW STA
Vancomycin [Vancocin] 2,000 mg 0.9% Sodium Chloride 500 ml [Nss] 500 ml IV NOW
03/12/24 18:12
Sterile Water [Sterile Water For Injection] 20 ml .ROUTE .STK-MED
03/12/24 18:20
Blood Culture Q30M
SIM Source: Blood/Venous
Specimen Description:
03/12/24 18:21
Blood Culture Q30M
SIM Source: Blood/Venous
Specimen Description:
03/12/24 18:30
COVID-19 Antigen Urgent
Source: Nasal Swab
Influenza A+B Rapid Molecular Urgent
SIM Source: Nasal Swab
Specimen Description:
Abnormal Lab Results
03/12/24 03/12/24
15:49 16:36
WBC 11.6 H 10^3/uL
(4.8-10.8)
RBC 4.25 L 10^6/uL
(4.70-6.10)
Hct 38.8 L %
(39.0-52.0)
MCH 31.5 H pg
(27.0-31.0)
RDW 15.4 H %
(11.5-14.5)
Abs Immat Gran (auto) 0.1 H 10^3/uL
(0-0.05)
Absolute Neuts (auto) 9.3 H 10^3/uL
(1.4-6.5)
Absolute Monos (auto) 0.9 H 10^3/uL
(0.1-0.6)
Immature Gran % 1.1 H %
(0-0.5)
Neutrophils % 80.4 H %
(42.2-75.2)
Lymphocytes % 10.2 L %
(20.5-51.1)
PT 26.7 H Sec
(11.4-14.6)
APTT 43.2 H Sec
(23.4-35.0)
Sodium 134 L mmol/L
(135-145)
Chloride 95 L mmol/L
(98-107)
BUN 32 H mg/dl
(9-20)
Glucose 129 H mg/dl
(70-99)
Total Bilirubin 2.1 H mg/dl
(0.2-1.3)
Total Protein 6.1 L g/dl
(6.3-8.2)
Procalcitonin 0.54 H ng/ml
(0.0-0.25)
03/12/24 15:49
03/12/24 15:49
Vital Signs
Blood pressure: 103/60
Initial and Last Documented VS:
Initial Vital Signs
Temp Pulse Resp BP Pulse Ox
37.0 C 80 20 85/48 92
03/12/24 15:38 03/12/24 15:38 03/12/24 15:38 03/12/24 15:38 03/12/24 15:38
Last Documented Vital Signs
Temp Pulse Resp BP Pulse Ox
37.0 C 82 27 103/60 97
03/12/24 15:38 03/12/24 18:45 03/12/24 18:45 03/12/24 18:44 03/12/24 18:45
MDM/Problems Addressed
Differential Diagnosis Includes:
Pneumonia, CHF/pulmonary edema, pulmonary fibrosis, PE less likely as patient is on Coumadin
MDM/Problems Addressed:
83-year-old male presents to the emergency room for evaluation of increasing shortness of breath and cough, noted to have increasing oxygen requirement. Vitals and exam as above. Will place an IV send labs including a CBC and a CMP, coags. Check
proBNP. Check chest x-ray and EKG. Monitor closely reassess after the above. Patient is hypotensive to 80s over 50s�at least some clinical concern for CHF; consider fluids pending chest x-ray.
Pulse ox remains 89% on 6 L oxygen will transition to mid flow oxygen for additional respiratory support.
Labs reviewed: CBC shows leukocytosis to 11.6. CMP shows no clinically significant abnormalities. proBNP is elevated to 9650; chest x-ray shows likely bilateral pneumonia although CHF not excluded. We did send a procalcitonin which is elevated
and with this finding in conjunction with leukocytosis suspect likely that this represents pneumonia as primary cause of his symptoms and respiratory failure. While proBNP is elevated he has not had increased edema, no JVD. Furthermore his mucous
membranes are slightly dry. Will proceed with some gentle IV fluids with frequent reassessments for worsening respiratory symptoms or objective respiratory status. Will treat with antibiotics. Blood culture sent off prior to antibiotics. Will
admit for continued treatment and monitoring. Case discussed with hospitalist for admission.
Reassessment after initial fluids blood pressure has improved, respiratory status stable. Continue to monitor. Admitted to hospitalist as above.
Chronic conditions affecting care:
Chronic respiratory failure
Acute Exacerbation and/or Progression of Chronic Illness:
Acute on chronic respiratory failure treated with oxygen
*Radiology
Radiology exam reviewed: preliminary read by ED provider and radiology read reviewed
*Pulse Oximetry
Patient hypoxic: yes
*EKG
Interpreted by ED Provider?: Yes
Heart Rate: 80
Rhythm: av sequential
*Critical Care Note
Total Time (30-74mins, 75-104mins- exclusive of procedures): 33
comment:
Critical care statement: A total of 33 minutes of critical care time was provided for this patient. This includes management of unstable vital signs, evaluation of the patient at bedside, frequent reassessment, discussion with
consultants/hospitalist, and review of pertinent medical records. This time was separate from time utilized to perform any aforementioned documented procedures
Data Reviewed
Review of Other/Old Records Reveals: Labs, Records and Discharge Summary
Source: patient, records and spouse
Patient Management
Discussion with other providers: Hospitalist (Discussed with hospitalist)
Escalation/DeEscalation of care consider admission/obs:
Admission indicated
ED Attending Note
-
Portions of this chart may have been created with voice recognition software.� Occasional wrong word or��sound alike� substitutions may have occurred due to the inherent limitations of voice recognition software.
Discharge Plan
Departure
Patient with high blood pressure during this ER visit?: No
Discharge Problem:
Pneumonia, Acute on chronic respiratory failure
Prescriptions:
No Action
latanoprost 0.005 % Drops
1 drp BOTH EYES HS
clopidogrel 75 mg Tablet
75 mg PO DAILY
warfarin 4 mg Tablet
4 mg PO SUMOWEFRSA@1800
warfarin 5 mg Tablet
5 mg PO TUTH@1800
dorzolamide 2 % Drops
1 drp BOTH EYES BID
rosuvastatin 5 mg Tablet
5 mg PO MOWEFR
Jardiance 10 mg Tablet
10 mg PO DAILY
spironolactone 25 mg Tablet
12.5 mg PO DAILY Qty: 30 0RF
carvedilol 3.125 mg Tablet
3.125 mg PO BID Qty: 60 0RF
furosemide 80 mg Tablet
80 mg PO DAILY Qty: 60 0RF
pantoprazole 40 mg Tablet,Delayed Release (Dr/Ec)
40 mg PO DAILY Qty: 30 0RF
valsartan 80 mg Tablet
80 mg PO DAILY
acetaminophen [Tylenol Extra Strength] 500 mg Tablet
1,000 mg PO Q6HPRN PRN (Reason: mild pain)
PreserVision AREDS 4,296 mcg-226 mg-90 mg Capsule
1 cap PO DAILY
Referrals:
Mendel Parks, DO [Family Provider] -
Interventions
Interventions:
*Risk Screen - Suicide Last Done: 03/12/24 15:38
*General Assessment Last Done: 03/12/24 15:38
*Neglect/Abuse Screening Last Done: 03/12/24 15:38
ED- Fall Risk Assessment Last Done: 03/12/24 15:38
*ED COVID-19 Vaccine History Last Done: 03/12/24 15:38
ED- Cardiac Assessment Last Done: 03/12/24 15:38
ED- Pulmonary Assessment Last Done: 03/12/24 15:38
Discharge Date and Time
Print Language: SAMI
[2024-03-12] MEDS: VANCOCIN 540 MG IV (18:45)
[2024-03-12 18:55] LABS: COVID-19 Antigen Negative (Negative)
--- NOTE | 2024-03-12 19:51 | HPS.HSE ---
Family Physician
-
Family Physician: Mendel Parks
Chief Complaint
-
SOB, Cough, Congestion
History of Present Illness
Patient is a an 83y M with PMH significant for ASCVD, CHFrEF and pulmonary fibrosis who presents to ED complaining of SOB. Patient was recently hospitalized here from 01/31 - 02/09 for similar complaints. He was treated at that time for
multifactorial dyspnea with IV abx, IV diuretics and IV steroids. He was discharged to home on increased dose of Lasix, oral prednisone taper and home O2 - which was new for him - at 4-5 lpm.
Patient states that he was doing fairly well until about 3-4 days ago. He began with nasal / sinus congestion, followed by development of cough and increased shortness of breath.
No subjective fevers or chills. No chest pain or palpitations. No GI or symptoms.
He has completed his steroid taper. His valsartan - discontinued during prior admission - was restarted a week or two ago.
Patient states that he was following his weight at home; however, he has not done so for the past week or two.
He notes some increase in ankle swelling.
No other new complaints or concerns.
No sick contacts in the home.
Medical History
Past Medical History
Past Medical History: Reports Other
Additional Past Medical History:
ASCVD
Chronic HFrEF (35%)
Pulmonary Fibrosis / ILD
Permanent Atrial Fibrillation
Ventricular Tachycardia
Past Surgical History: Reports Other
Additional Past Surgical History:
Thoracotomy
ICD Placement / Lead Changes
Hernia Repair
VT Ablations
Cataracts
Social History
Tobacco: Former Smoker
Alcohol: None
Drug: None
Family History
Family History: Not pertinent
Allergies / Home Medications
Allergies reflects when Allergies were last updated in [facility].
Home Medications with original date entered in [facility]
Allergy/Medication List:
Allergies
Allergy/AdvReac Type Severity Reaction Status Date / Time
Cephalosporins Allergy Nausea / Verified 03/12/24 15:47
Vomiting
latex Allergy Blisters Verified 03/12/24 15:47
penicillin G Allergy Nausea / Verified 03/12/24 15:47
Vomiting
Penicillins Allergy Nausea / Verified 03/12/24 15:47
Vomiting
Home Medications
clopidogrel 75 mg tablet 75 mg PO DAILY Blood Clot Prevention/Tx 01/31/24
dorzolamide 2 % eye drops 1 drp BOTH EYES BID Eye Condition 01/31/24
empagliflozin 10 mg tablet (Jardiance) 10 mg PO DAILY Heart Disease/Condition 01/31/24
latanoprost 0.005 % eye drops 1 drp BOTH EYES HS Eye Condition 01/31/24
rosuvastatin 5 mg tablet 5 mg PO MOWEFR High Cholesterol 01/31/24
warfarin 4 mg tablet 4 mg PO SUMOWEFRSA@1800 Blood Clot Prevention/Tx 01/31/24
warfarin 5 mg tablet 5 mg PO TUTH@1800 Blood Clot Prevention/Tx 01/31/24
carvedilol 3.125 mg tablet 3.125 mg PO BID #60 tabs 02/10/24
furosemide 80 mg tablet 80 mg PO DAILY #60 tabs 02/10/24
pantoprazole 40 mg tablet,delayed release 40 mg PO DAILY #30 tabs 02/10/24
spironolactone 25 mg tablet 12.5 mg (1/2 x 25 mg) PO DAILY #30 tabs 02/10/24
acetaminophen 500 mg tablet (Tylenol Extra Strength) 1,000 mg PO Q6HPRN PRN mild pain 03/12/24
valsartan 80 mg tablet 80 mg PO DAILY 03/12/24
vitamins A,C,G-iofl-mjkmfh 4,296 mcg-226 mg-90 mg capsule (PreserVision AREDS) 1 cap PO DAILY 03/12/24
Review of Systems
-
History Source: Patient
A 12 point ROS was completed and negative except as noted: Yes
Constitutional: Reports Fatigue; Denies Fever or Chills
EENT: Reports Other (Nasal sinus congestion); Denies Sore Throat
Respiratory: Reports Cough and Trouble Breathing
Cardiac: Denies Chest Pain or Palpitations
Abdomen/GI: Denies Abdominal Pain, Nausea, Vomiting or Diarrhea
: Denies Dysuria, Frequency or Flank Pain
Musculoskeletal: Reports Edema; Denies Joint Pain
Neurological: Denies Dizzy or Headache
Psych: Denies Depression or Anxiety
Physical Exam
Vital Signs
Vital Signs
Temp Pulse Resp BP Pulse Ox
98.6 F 80 25 105/53 97
03/12/24 15:38 03/12/24 19:00 03/12/24 19:00 03/12/24 19:00 03/12/24 18:45
Physical Exam
General: Other (83y M in no acute distress.)
HEENT: Moist mucous membranes, PERRLA and Other (No JVD, Pos HJR.)
Respiratory: Other (Bibasilar rales about 1/3 up. No focal wheeze / rhonchi.)
Cardiac: S1/S2, Regular Rhythm and Murmur (II/ MICHAEL)
GI: Soft, Non Tender, Non Distended and Normal Bowel Sounds
Musculoskeletal: No Clubbing, No Cyanosis and Other (1+ pitting edema b/l ankles.)
Neuro: AO x 3
Laboratory Results
-
03/12/24 15:49
03/12/24 15:49
Laboratory Results
PT 26.7 Sec (11.4-14.6) H 03/12/24 16:36
INR 2.46 03/12/24 16:36
APTT 43.2 Sec (23.4-35.0) H 03/12/24 16:36
Total Bilirubin 2.1 mg/dl (0.2-1.3) H 03/12/24 15:49
AST 43 U/L (17-59) 03/12/24 15:49
ALT 29 U/L (0-50) 03/12/24 15:49
Alkaline Phosphatase 115 U/L (38-126) 03/12/24 15:49
Impression/Plan
-
A/P: Patient is an 83y M with PMH significant for ILD and CHF who presents to ED complaining of SOB and cough x 3-4 days.
Acute on Chronic Hypoxemic Respiratory Failure
- Admit to IMU for further evaluation and treatment.
- Suspect that this is multifactorial - see individual issues as noted below.
- Continue supplemental O2 support and wean off / down as able.
- Patient was discharged to home on 4-5 lpm - he is currently requiring 6-8 lpm for adequate oxygenation.
- Follow for any new / worsening symptoms.
Bibasilar Pneumonia / Pneumonitis
- Patient with leukocytosis / L shift and elevated procalcitonin (for what it is worth).
- Recent cough, nasal / sinus congestion and tactile fever on exam.
- Will treat with IV abx for now and follow for clinical improvement.
- Nebs, chest PT, mucolytics, etc.
- COVID / Flu negative in the ED.
ILD
- During recent admission, dyspnea and hypoxemia persisted despite abx and IV diuresis - patient ultimately required IV steroids for any improvement.
- Has since completed outpatient PO steroid taper.
- With recurrent symptoms, would resume IV steroids for now and taper quickly if able.
- Pulmonary re-evaluation for additional recommendations.
Acute on Chronic HFrEF
- Weight is increased from recent discharge (91kg to 98kg).
- BNP elevated, increased edema, etc.
- Exam / CXR somewhat difficult to follow given known ILD.
- With current hypotension (see below), would hold on any aggressive diuresis for now.
- May benefit from IV Lasix trial once BP stabilizes.
Hypotension
- BP 77/44 on arrival - improved with 500cc of volume.
- Hold valsartan which was restarted after last admission.
- Hold spironolactone
- Holding parameters for carvedilol.
ASCVD
- Stable. No current chest pain.
- Continue Plavix, statin, etc.
- Follow for any new symptoms.
Permanent Atrial Fibrillation
- Stable. Continue carvedilol with holding parameters.
- PPM in place.
- Continue Coumadin for stroke risk reduction and adjust based on INR.
DVT Prophylaxis: On Coumadin
Code Status: DNR
[2024-03-12] MEDS: COREG 3.125 MG PO (23:08)
[2024-03-12] MEDS: MUCINEX 600 MG PO (23:08)
[2024-03-12] MEDS: SOLU-MEDROL PF 60 MG IV (23:09)
[2024-03-12] MEDS: DUONEB 3 ML INH (23:12)
--- NOTE | 2024-03-12 23:18 | RESPNOTE ---
IS refused at this time
[2024-03-12 23:29] LABS: Erythrocyte Sed Rate 49 mm/hour (0-20)
[2024-03-13] VITALS (23 sets, daily range): BP systolic 80–117; BP diastolic 56–83; PULSE 80–83; O2SAT 94–95; BMI 28.3
[2024-03-13] MEDS: XALATAN OPHTHALMIC SOLUTION 1 DROP BOTH EYES ×2 (01:54→23:07)
[2024-03-13] MEDS: TRUSOPT 2% OPHTHALMIC SOLUTION 1 DROP BOTH EYES ×3 (01:55→19:52)
[2024-03-13] MEDS: MAXIPIME 2000 MG IV ×4 (01:55→23:07)
[2024-03-13] MEDS: LASIX 20 MG IV (02:00)
--- NOTE | 2024-03-13 02:44 | PTCARENOTE ---
Pts O2 demand gradually increasing,midflow increased to 12 liters,pts resp rate 31-33,pt had received m/n earlier tolerated well.HR remains at 80,BP stable,midflow removed,NRB applied,O2 sats 91% to 92%,[employer] notified,pt assessed and Lasix 20 mg IV
ordered and given.Resp rate varies from 28 - 32.Close observation ongoing.
[2024-03-13 04:46] LABS: Venous Blood Gas B.E. -0.7 mmol/L (-4 to +4); Venous Blood Gas HCO3 23.2 mmol/L (22-27); Venous Blood Gas O2 Sat % 99.4 %; Venous Blood Gas pCO2 35 mmHg (35-48); Venous Blood Gas pH 7.43 (7.32-7.43); Venous Blood Gas pO2 125 mmHg (30-50)
[2024-03-13 04:47] LABS: Venous Blood Gas O2 Therapy 6L/min
[2024-03-13 04:49] LABS: Hematocrit 34.9 % (39.0-52.0); Hemoglobin 12.1 g/dL (13.0-18.0); Mean Corp Hgb Conc. 34.7 g/dL (33.0-37.0); Mean Corpuscular Hgb 31.5 pg (27.0-31.0); Mean Corpuscular Volume 90.9 fL (80.0-94.0); Mean Platelet Volume 9.4 fL (7.4-10.4); Platelet Count 258 10^3/uL (130-400); Red Blood Cell Count 3.84 10^6/uL (4.70-6.10); Red Cell Dist. Width 15.4 % (11.5-14.5); White Blood Cell Count 11.5 10^3/uL (4.8-10.8)
[2024-03-13 04:59] LABS: INR 2.61; PT 27.9 Sec (11.4-14.6)
[2024-03-13 05:17] LABS: Blood Urea Nitrogen 29 mg/dl (9-20); Calcium 8.6 mg/dl (8.4-10.2); Carbon Dioxide 23 mmol/L (22-30); Chloride 100 mmol/L (98-107); Estimated Creatinine Clearance 64 ml/min; Glucose 148 mg/dl (70-99); Potassium 4.2 mmol/L (3.5-5.1); Sodium 136 mmol/L (135-145); eGFR > 60.00
--- NOTE | 2024-03-13 05:27 | PTCARENOTE ---
Pt has voided 600 mls since IV Lasix,pt states he feels alittle better,NRB remains intact O2 sats 93%,resp rate 28-30.SBP 104.
--- NOTE | 2024-03-13 06:48 | PTCARENOTE ---
The Venous blood gas this am was done on NRB.
--- NOTE | 2024-03-13 07:34 | W.PN.UPDATE ---
Update Note
Progress Note Update
RN notfied [employer] patient was having increase of work with breathing. Patient seen and evaluated. Lungs b/l rales, RR 32, oxygen status 85-88-% BP 105/60, HR 80. Patient stated mild shortness of breath, denies any chest pain. Will give Iv lasix 20mg
now.
--- NOTE | 2024-03-13 07:36 | W.PN.HOSP.TC ---
Today's Communication/Plan
-
O2 supplementation as necessary goal 92%
diuresis
abx
steroids and bronchodilators
Pulm Cardio ID eval
Assessment / Plan
Assessment / Plan
Physical Exam
General: no acute distress appears comfortable at this time
HEENT: Moist mucous membranes, PERRLA Hard of Hearing
Respiratory: diffuse crackles
Cardiac: S1/S2, Regular Rhythm and Murmur (II/ MICHAEL)
GI: Soft, Non Tender, Non Distended and Normal Bowel Sounds
Musculoskeletal: No Clubbing, No Cyanosis, No edema
Neuro: AO x 3
A/P: Patient is an 83y M with PMH significant for ILD and CHF who presents to ED complaining of SOB and cough x 3-4 days.
Acute on Chronic Hypoxemic Respiratory Failure
- IMU admit
- Etiology likely multifactorial, multiple issues as below
- wean O2 as tolerated but maintain saturation goal 92%
- Patient was discharged to home on 4-5 lpm - he is currently requiring 15L for adequate oxygenation.
Bibasilar Pneumonia / Pneumonitis
- Leukocytosis Procal elevation
- Recent cough, nasal / sinus congestion
- Cont IV cefipime, ID eval requested
- Nebs, chest PT, mucolytics, etc.
- COVID / Flu negative in the ED.
ILD
- During recent admission, dyspnea and hypoxemia persisted despite abx and IV diuresis - patient ultimately required IV steroids for any improvement.
- Has since completed outpatient PO steroid taper.
- IV solumedrol 60 mg Q12H
- Pulmonary eval requested
Acute on Chronic HFrEF
- Weight increased since recent hospitalization/discharge
- BNP elevated, auscultation consistent with fluid overload
- Exam / CXR somewhat difficult to follow given known ILD.
-Diuresis limited by hypotension, cont home lasix for now, Cardio eval requested
-cont coreg with holding parameters, Aldactone Valsartan on hold as below
-daily weights I/O
Hypotension
- BP 77/44 on arrival - improved with 500cc of volume.
- Hold valsartan which was restarted after last admission.
- Hold spironolactone
- Holding parameters for carvedilol.
ASCVD
- Stable. No current chest pain.
- Continue Plavix, statin
Permanent Atrial Fibrillation
- Stable. Continue carvedilol with holding parameters.
- PPM /AICD in place.
- Continue Coumadin INR goal 2-3
DVT Prophylaxis: On Coumadin
Code Status: DNR
discussed with patient and patient's Jocelin
I spent a total of 50 minutes with the patient or on the floor. More than 50% of this time involved counseling and coordination of care.
Anticipated Discharge: > 48 hours
Subjective/Interval History
-
Date of Service: March 13, 2024
Seen and examined at bedside in no acute distress sitting up comfortably in bed. respiratory status appears stable non-labored respiration though patient is on 15L midflow. Patient otherwise reports feeling well.
Objective Data
-
Labs:
Laboratory Results
03/13/24
04:36
WBC 11.5 H
Hgb 12.1 L
Hct 34.9 L
Plt Count 258
PT 27.9 H
INR 2.61
Sodium 136
Potassium 4.2
Chloride 100
Carbon Dioxide 23
BUN 29 H
Creatinine 1.0
Glucose 148 H
Calcium 8.6
Vital Signs:
Vital Signs
Temp Pulse Resp BP Pulse Ox
99.3 F 80 26 90/60 91
03/13/24 07:00 03/13/24 06:15 03/13/24 06:15 03/13/24 06:00 03/13/24 06:15
I&O
03/12/24 03/13/24 03/14/24
06:59 06:59 06:59
Output Total 1200 / 1200
Balance -1200 / -1200
[2024-03-13] MEDS: DUONEB 3 ML INH ×4 (07:45→20:25)
--- NOTE | 2024-03-13 08:30 | PTCARENOTE ---
Assumed care of pt at 0715 following shift report. Pt resting quietly in bed. Denies c/o pain or SOB while wearing Midflow O2 @ 15l/min w/ 100% NRB mask. Pox 98%. Physical assessment completed as documented. Call alonso w/in pt reach. Pt encouraged to
call and order breakfast. Safe environment maintained.
[2024-03-13] MEDS: LASIX 80 MG PO (08:37)
[2024-03-13] MEDS: PLAVIX 75 MG PO (08:37)
[2024-03-13] MEDS: MUCINEX 600 MG PO ×2 (08:38→19:51)
[2024-03-13] MEDS: FARXIGA 10 MG PO (08:38)
[2024-03-13] MEDS: COREG 3.125 MG PO (08:38)
--- NOTE | 2024-03-13 08:42 | CON.PUL ---
Consultation
Consultation Request
Date/Time Consultation Requested: 03/12/2024 - 2214
Date/Time Consultation Performed: 03/13/2024 - 839
Requesting Provider: Dr. Keller
Performing Provider: Dr. Iniguez
Reason for Consultation: SOB/Hypoxia
Medical History
-
Chief Complaint: Worsening SOB
History of Present Illness:
83-year-old male with a past medical history of chronic HFrEF, chronic respiratory failure on 3-4 L/min nasal cannula, IPF, A-fib on Coumadin, mixed hyperlipidemia, mitral valve regurgitation, history of left-sided thoracotomy, history of hayfever,
glaucoma and osteoarthritis who presents with worsening shortness of breath. He reports he uses 4 L/min O2 [id number]. EMS found patient's O2 saturation to be 86% on 4 L/min. When he arrived to the ER he was not 92% on 6 L/min, with BP
85/48, heart rate 80, breathing at 20 breaths/minute and afebrile to 98.6 �F. Patient reports a dry cough and no recent fever. Patient was recently hospitalized here at from 01/31 - 02/10/2024 and treated with antibiotics, diuretics + steroids.
He was discharged home on oxygen (which was new), prednisone taper and increased dose of Lasix. He was doing well until about 4 days prior to arrival with worsening cough, shortness of breath and sinus congestion. He also noticed some worsening
ankle swelling. No recent sick contacts reported. Currently, initial labs were significant for leukocytosis to 11.6, Hb 13.4, ESR 49, INR 2.46, serum sodium 134, glucose 129, T. bili 2.1, procalcitonin 0.54, and proBNP 9650. Of note, COVID 19
antigen was negative. In the ER he was given cefepime/vancomycin, and IVF with 500 cc NS 0.9% bolus. He was admitted to the IMU and pulmonary consulted for additional management/recommendations.
Of note, patient follows with us in the pulmonary office, last visit on 03/03/2024 with NATHALIE Nam due to posthospitalization follow-up with history of pulmonary fibrosis, recent pneumonia and chronic CHF. At that time he was saturating 94%
on 4 L/min. Patient's last PFT was on 01/27/2023 which showed a severe restrictive lung defect with TLC 56% predicted (FVC: 72% / 2.92L) and a severe gas change capacity defect which was mildly reduced when accounting for alveolar volume involved in
gas exchange (DLco: 39%, DLco/VA: 69%). He did have a subsequent spirometry on 04/29/2023 which showed FVC: 65% predicted (2.62 L).
PMHx: Chronic HFrEF, ILD (IPF), chronic respiratory failure on home O2 at 3-4 L/min ATC, traction bronchiectasis, A-fib on warfarin, history of VT, mixed hyperlipidemia, RBBB, MVR, history of thoracotomy (left side) due to benign lung nodule,
history of hayfever, glaucoma, osteoarthritis
PSHx: History of thoracotomy, s/p ICD, hernia repair, VT ablation, cataract surgery, carpal tunnel surgery
Past Medical History
Past Medical History: Other (Above as per HPI)
Past Surgical History: Other (Above as per HPI)
Social History
Tobacco: Former Smoker ([id number] history, quit >30 years ago)
Alcohol: Occasional
Drug: None
Personal:
Employment: Retired ([employer] x 42 years)
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
Family History
Family History: Other (Family history of heart failure; Brother: A-fib)
Allergies / Home Medications
Allergies
Allergy/AdvReac Type Severity Reaction Status Date / Time
Cephalosporins Allergy Nausea / Verified 03/12/24 15:47
Vomiting
latex Allergy Blisters Verified 03/12/24 15:47
penicillin G Allergy Nausea / Verified 03/12/24 15:47
Vomiting
Penicillins Allergy Nausea / Verified 03/12/24 15:47
Vomiting
Home Medications
�Medication �Instructions �Recorded �Confirmed �Last Taken �Type
clopidogrel 75 mg tablet 75 mg PO DAILY Blood Clot 01/31/24 03/12/24 03/12/24 History
Prevention/Tx
dorzolamide 2 % eye drops 1 drp BOTH EYES BID Eye Condition 01/31/24 03/12/24 03/12/24 History
empagliflozin 10 mg tablet 10 mg PO DAILY Heart 01/31/24 03/12/24 03/12/24 History
(Jardiance) Disease/Condition
latanoprost 0.005 % eye drops 1 drp BOTH EYES HS Eye Condition 01/31/24 03/12/24 03/11/24 History
rosuvastatin 5 mg tablet 5 mg PO MOWEFR High Cholesterol 01/31/24 03/12/24 03/12/24 History
warfarin 4 mg tablet 4 mg PO SUMOWEFRSA@1800 Blood Clot 01/31/24 03/12/24 03/10/24 History
Prevention/Tx
warfarin 5 mg tablet 5 mg PO TUTH@1800 Blood Clot 01/31/24 03/12/24 03/11/24 History
Prevention/Tx
carvedilol 3.125 mg tablet 3.125 mg PO BID #60 tabs 02/10/24 03/12/24 03/12/24 Rx
furosemide 80 mg tablet 80 mg PO DAILY #60 tabs 02/10/24 03/12/24 03/12/24 Rx
pantoprazole 40 mg tablet,delayed 40 mg PO DAILY #30 tabs 02/10/24 03/12/24 03/12/24 Rx
release
spironolactone 25 mg tablet 12.5 mg (1/2 x 25 mg) PO DAILY #30 02/10/24 03/12/24 03/12/24 Rx
tabs
acetaminophen 500 mg tablet 1,000 mg PO Q6HPRN PRN mild pain 03/12/24 03/12/24 03/11/24 History
(Tylenol Extra Strength)
valsartan 80 mg tablet 80 mg PO DAILY Blood Pressure 03/12/24 03/12/24 03/12/24 History
vitamins A,C,D-leyz-khmnrw 4,296 1 cap PO DAILY Supplement 03/12/24 03/12/24 03/12/24 History
mcg-226 mg-90 mg capsule
(PreserVision AREDS)
Review of Systems
-
History Source: Patient
All other systems: Negative unless noted
Vitals / Labs / Diagnostic Testing
Vital Signs
Temp Pulse Resp BP Pulse Ox
99.3 F 80 30 94/57 92
03/13/24 07:00 03/13/24 08:38 03/13/24 07:56 03/13/24 08:38 03/13/24 07:56
Lab Data
03/13/24 04:36
03/13/24 04:36
Laboratory Results
03/12/24 03/13/24
16:36 04:36
PT 26.7 H 27.9 H
INR 2.46 2.61
APTT 43.2 H
Microbiology
03/12/24 18:30 Nasal Swab Influenza Types A & B ([facility]) - Final
Negative for Influenza A & B, NAAT
Negative results must be combined with clinical observations
and patient history.
Nucleic Acid Amplification test (NAAT)performed on the
[employer] platform.
Diagnostic Testing:
Physical Exam
-
HEENT: Normocephalic and Anicteric
Cardiovascular: S1/S2 and Peripheral Edema (+1 lower extremity ankle edema b/l)
Respiratory: Wheeze (negative), Rales (Bibasilar), Rhonchi (negative), Non-Labored Respirations and Other (Diminished breath sounds in the mid to upper lung ang bilaterally)
GI: Soft, Distended (Abdominal obesity), Non Tender and Normal Bowel Sounds
Neurology: AO x 3 and Tremors (negative)
Skin: Warm and Dry
General: Respiratory Distress (negative), Comfortable, Fever (negative) and Chills (negative)
Assessment
-
Assessment: 83-year-old male with a PMHx of chronic HFrEF, chronic respiratory failure on 3-4 L/min nasal cannula, IPF, A-fib on Coumadin, mixed hyperlipidemia, mitral valve regurgitation, history of left-sided thoracotomy, history of hayfever,
glaucoma and osteoarthritis who presents with worsening shortness of breath. He reports he uses 4 L/min O2 [id number]-lsm-[id number]. EMS found patient's O2 saturation to be 86% on 4 L/min. When he arrived to the ER he was not 92% on 6 L/min, with BP
85/48, heart rate 80, breathing at 20 breaths/minute and afebrile to 98.6 �F. Patient reports a dry cough and no recent fever. Patient was recently hospitalized here at from 01/31 - 02/10/2024 and treated with antibiotics, diuretics + steroids.
He was discharged home on oxygen (which was new), prednisone taper and increased dose of Lasix. He was doing well until about 4 days prior to arrival with worsening cough, shortness of breath and sinus congestion. He also noticed some worsening
ankle swelling. No recent sick contacts reported. Currently, initial labs were significant for leukocytosis to 11.6, Hb 13.4, ESR 49, INR 2.46, serum sodium 134, glucose 129, T. bili 2.1, procalcitonin 0.54, and proBNP 9650. Of note, COVID 19
antigen was negative. In the ER he was given cefepime/vancomycin, and IVF with 500 cc NS 0.9% bolus. He was admitted to the IMU and pulmonary consulted for additional management/recommendations.
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
lung nodule, history of hayfever, glaucoma, osteoarthritis
Impression:
#Acute on chronic respiratory failure with hypoxia on supplemental oxygen likely due to acute decompensated heart failure and possibly pneumonia
#Acute HFrEF exacerbation
#Hx of ILD/pulmonary fibrosis with prior CTD workup unrevealing
#Leukocytosis
#Elevated proBNP
#Anemia
#Elevated T. bili (chronic)
#Chronic anticoagulation with Coumadin therapeutic INR
#A-fib on Coumadin
#History of severe restrictive lung defect (T% predicted, FVC 74% predicted with DLco: 39% via PFT from 01/27/2023)
Plan:
- CXR is concerning for volume overload likely due to acute decompensated heart failure
- proBNP is 9650 which is the highest that it has been since December 2023
- Would change from PO to IV lasix and maintain net negative fluid balance as tolerated with strict I/O; trend sCr, sNa and UOP
- Procalcitonin is mildly elevated at 0.54 so would continue with antibiotics given that we are unable to rule out pneumonia on current CXR
- If further lung parenchyma visualization is needed then would check CT chest especially if we are unable to wean down O2 or if he deteriorates
- Continue broad spectrum ABx (cefepime/IV vanco)
- Check MRSA swab and if negative then DC IV vanco
- DuoNebs QID
- Considering he has ILD and has previously improved with steroids, continue systemic steroids (SoluMedrol 60mg IV q12hr) and wean as he clinically improves)
- Follow-up blood cultures (collected 03/12/2024 � TD); collect sputum culture if patient able to produce a decent sample; check urine antigens for Legionella + strep pneumonia
- ID consulted and recs pending
- Heart rate control with goal <110
- replete K>4, Mg>2
- Cardiology consulted and recs appreciated
- Maintain SpO2 >90-94% with supplemental O2 as needed
- Incentive spirometer encouraged
- Maintain euglycemia with goal BG >100 and <180
- prn nebulized bronchodilators - not currently bronchospastic
- DVT ppx: VKA
Pulmonary service will continue to follow along. Outpatient follow-up will be arranged; he has an upcoming appointment on 04/09/2024 at 4:[address] Davis - he was advised to keep that appt.
Data:
CXR 03/12/2024:
Cardiomegaly. Stable.
Slightly progressed findings suggesting mild bilateral pneumonia. CHF cannot be excluded.
Outpatient [facility] data:
PFT:
������PFT 01/27/23-FEV1 2.47-86%, FVC 2.9-72%, TLC 56%, RV 36%, DLCO 39%, DLCO/VA 69%. Mild to moderate restriction and moderate reduction in diffusing capacity.
Spirometry 04/29/23-FEV1 2.12-74%, FVC 2.62-65%. Moderate restriction.
6 MWT:
������6 minute walk test 01/27/23-Ambulating 90 feet with desaturation britany 96% of maximum heart rate of 109.
Dyspnea scale score 0. No supplemental oxygen required.
6MWT 03/03/24: At rest, O2 95% on room air, heart rate 75. After 2 minutes of ambulation, O2 dropped to 87%. Patient required 4 L O2 to keep O2 above 88%.� Max heart rate 106. 3/10 on dyspnea scale. Ambulated 600 feet.
FENO:
������FeNO 01/27/23- 23ppb.
Total time spent today was 76 minutes for this encounter. Time includes reviewing laboratory test/imaging results, reviewing pertinent medical records, obtaining and reviewing medical history, performing an appropriate exam, ordering medications,
tests and procedures. Time also includes documentation of this encounter, coordinating patient care and communicating with other healthcare professionals. Total time does not include separately billed tests performed on this date of service.
--- NOTE | 2024-03-13 08:45 | PHA.VAN.IN ---
Assessment
- Assessment
Renal Function: Appears similar to baseline
Concomitant Antimicrobials: cefepime
AUC Dosing Plan
- Dosing Variables
Dosing Weight (kg): 95
Dosing CrCl (ml/min): 64
Vd coefficient (L/kg): 0.7
- Empiric Dosing
Initial / Loading Dose: 2000 mg - given 03/12 1845
Maintenance Regimen: 1750 mg q24h - first dose 1200 03/13 the 0600 therafter
Estimated AUC (mcg*h/mL): 484
Estimated Peak (mcg*h/mL): 35.2
Estimated Trough (mcg/ml): 10
Estimated Half Life (H): 12
Pharmacokinetics Vancomycin I
- -
Patient Age: 83
Patient Sex: Male
Vancomycin Day #: 1
Indication: Pulmonary/Respiratory
Requesting Provider: Krishna
Pertinent Antimicrobial Allergies:
cephalosporins, latex, penicillins (n/v)
Height / Weight:
Height 6 ft 0.05 in
Actual Weight 94.8 kg
Pertinent Past Medical History: recent hosp 01/31-02/09
- Vital Signs / Lab Results
Temp Pulse Resp BP Pulse Ox
99.3 F 80 30 94/57 92
03/13/24 07:00 03/13/24 08:38 03/13/24 07:56 03/13/24 08:38 03/13/24 07:56
Lab Results - Hematology
03/12/24 03/13/24
15:49 04:36
WBC 11.6 H 11.5 H
Lab Results - Chemistry
03/12/24 03/13/24
15:49 04:36
BUN 32 H 29 H
Creatinine 1.1 1.0
Estimated Creat Clear 58 64
Albumin 3.5
Microbiology Results
03/12/24 18:30 Influenza Types A & B ([facility]) - Final
Nasal Swab Negative for Influenza A & B, NAAT
Negative results must be combined with clinical observations
and patient history.
Nucleic Acid Amplification test (NAAT)performed on the
[employer] platform.
--- NOTE | 2024-03-13 09:23 | CON.CAR ---
Addendum entered and electronically signed by Wolfgang Ken MD 03/13/24 11:03:
I saw and examined the patient.
The BOTTLE LABELER's note was reviewed and I agree with the note.
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 HE was hospitalized last month with acute hypoxic respiratory failure with CHF, pulm fibrosis, and PNA.
He is here again with SOB, requiring increased O2 by NC. He is in no distress at the time of my assessment, but is on 15 L NC (typically on 4).
- IV lasix as able home weight is about 201 lbs
Original Note:
Consultation
Consultation Request
Date/Time Consultation Requested: 03/13/24851
Date/Time Consultation Performed: 03/13/24922
Requesting Provider: Dr. Souza
Performing Provider: Ana ZELAYA for Dr. Ken
Reason for Consultation: CHF
Medical History
-
Chief Complaint: SOB
History of Present Illness:
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 HE was hospitalized last month with acute hypoxic respiratory failure with CHF, pulm fibrosis, and PNA. He is
here again with SOB, requiring increased O2 by NC. He is in no distress at the time of my assessment, but is on 15 L NC (typically on 4).
Of note, he was in hospital in December after dislodgement of RV ICD lead - he had complex revision with Dr. Ruffin and the acutely dislodged RV lead from 2014 was abandoned/left in place in low right atrium, a new system was placed on right side.
Past Medical History
Past Medical History: Arrhythmias, CAD, CHF, Hypercholesterolemia and Other (ILD. Otherwise, as above.)
Social History
Tobacco: Former Smoker
Personal:
Living: With Family
Family History
Family History: Reviewed & Not Pertinent
Allergies / Home Medications
Allergy/AdvReac Type Severity Reaction Status Date / Time
Cephalosporins Allergy Nausea / Verified 03/12/24 15:47
Vomiting
latex Allergy Blisters Verified 03/12/24 15:47
penicillin G Allergy Nausea / Verified 03/12/24 15:47
Vomiting
Penicillins Allergy Nausea / Verified 03/12/24 15:47
Vomiting
�Medication �Instructions �Recorded �Confirmed �Type
clopidogrel 75 mg tablet 75 mg PO DAILY Blood Clot 01/31/24 03/12/24 History
Prevention/Tx
dorzolamide 2 % eye drops 1 drp BOTH EYES BID Eye Condition 01/31/24 03/12/24 History
empagliflozin 10 mg tablet 10 mg PO DAILY Heart 01/31/24 03/12/24 History
(Jardiance) Disease/Condition
latanoprost 0.005 % eye drops 1 drp BOTH EYES HS Eye Condition 01/31/24 03/12/24 History
rosuvastatin 5 mg tablet 5 mg PO MOWEFR High Cholesterol 01/31/24 03/12/24 History
warfarin 4 mg tablet 4 mg PO SUMOWEFRSA@1800 Blood Clot 01/31/24 03/12/24 History
Prevention/Tx
warfarin 5 mg tablet 5 mg PO TUTH@1800 Blood Clot 01/31/24 03/12/24 History
Prevention/Tx
carvedilol 3.125 mg tablet 3.125 mg PO BID #60 tabs 02/10/24 03/12/24 Rx
furosemide 80 mg tablet 80 mg PO DAILY #60 tabs 02/10/24 03/12/24 Rx
pantoprazole 40 mg tablet,delayed 40 mg PO DAILY #30 tabs 02/10/24 03/12/24 Rx
release
spironolactone 25 mg tablet 12.5 mg (1/2 x 25 mg) PO DAILY #30 02/10/24 03/12/24 Rx
tabs
acetaminophen 500 mg tablet 1,000 mg PO Q6HPRN PRN mild pain 03/12/24 03/12/24 History
(Tylenol Extra Strength)
valsartan 80 mg tablet 80 mg PO DAILY Blood Pressure 03/12/24 03/12/24 History
vitamins A,C,R-fgbm-dshjhw 4,296 1 cap PO DAILY Supplement 03/12/24 03/12/24 History
mcg-226 mg-90 mg capsule
(PreserVision AREDS)
Review of Systems
-
History Source: Patient
Respiratory: Cough and Trouble Breathing
Abdomen/GI: Other (abdominal bloating)
Physical Exam
Vital Signs
Temp Pulse Resp BP Pulse Ox
99.3 F 80 30 94/57 92
03/13/24 07:00 03/13/24 08:38 03/13/24 07:56 03/13/24 08:38 03/13/24 07:56
Lab Results
03/13/24 04:36
03/13/24 04:36
Uxr-U-Pmqfiterxvp Pept 9650 pg/ml 03/12/24 15:49
Physical Exam
General: No Apparent Distress
HEENT: Normocephalic and Anicteric
Respiratory: Other (on O2 by NC)
Cardiac: Regular Rhythm (AV paced)
Musculoskeletal: Edema (trace BLE edema)
Skin: Warm and Dry
Neuro: AO x 3
Psych: Calm
Impression / Plan
-
SOB, hypoxia: severe- requiring increased O2 by NC
-likely multifactorial with PNA, ILD, CHF
-requiring increased O2 by NC
-plans below
Ilffe-jw-pdhvesl HFrEF:
-recent echo as noted EF 35%
-MRA and ARB held with borderline BP's. Will hold Coreg as well for now.
-BNP elevated, abdominal bloating noted, weight up from previous admit
-on SGLT2 inhibitor
-last admit tolerated Lasix 60 mg IV BID- will order today- already got lasix this AM. IV lasix requires intensive monitoring.
PNA:
-on ABX -per IM
ILD:
-pulm to follow
-steroids given
Permanent AFIB:
-rate-controlled
-on warfarin. INR is therapeutic. Continue warfarin and follow INR's.
CAD:
-stable without CP
ICD in place, with recent intervention as noted in HPI:
-stable
-follow telemetry
Data Reviewed
-
EKG: Tracing Personally Visualized and interpreted (AV paced )
Radiology: Report Reviewed by me (Cardiomegaly. Stable. Slightly progressed findings suggesting mild bilateral pneumonia. CHF cannot be excluded.)
Medical Tests (Nuc Med, Echo etc): Report Reviewed by me (Echo 02/09/24: EF 35%. Dilated RV with reduced systolic function. Moderate tricuspid regurgitation. Estimated pulmonary artery pressure of 43 mmHg.)
Labs: Labs Reviewed by me
[2024-03-13] MEDS: SOLU-MEDROL PF 60 MG IV ×2 (11:03→23:07)
[2024-03-13] MEDS: VANCOCIN 535 MG IV (11:05)
--- NOTE | 2024-03-13 11:30 | PTCARENOTE ---
Pt OOB in chair, using urinal independently to void ramiro urine. visiting- updated on pt's present condition and plan of care. Call celeste w/in pt reach. No changes from previous assessment findings.
--- NOTE | 2024-03-13 12:32 | CON.ID ---
Consultation
-
Date/Time Consultation Requested: March 13, 2024 0859
Date/Time Consultation Performed: March 13, 2024 1240
Requesting Provider: Dr. Ashwini Souza
Performing Provider: Dr. Dina Mackay
Reason for Consultation: Possible recurrent pneumonia
Chief Complaint / Past History
Chief Complaint
Worsening shortness of breath
History of Present Illness
History obtained from the patient as well as from his at bedside. He is a 83-year-old male with history of pulmonary fibrosis under observation, atrial fibrillation, CAD, cardiomyopathy with ICD, pulmonary hypertension who was last
hospitalized from February 01 to February 09 with acute hypoxemic respiratory failure multifactorial including acute on chronic CHF, pulmonary fibrosis exacerbation, possible pneumonia for which he completed a course of ceftriaxone and doxycycline in
the hospital. He was discharged to home on 4 to 5 L of home oxygen and steroid taper which he completed. Patient was in his usual state of health until about 4 days ago he developed worsening shortness of breath. Patient reports positive sinus
congestion which made his dry cough worse with shortness of breath. Per had 2 episodes of chills at home. No fever. Patient denies headache or sore throat. No nausea vomiting abdominal pain or diarrhea. No dysuria or flank pain. No ill
contacts. He is not up-to-date with his RSV vaccine. Positive mild weight gain. He presented to the ER yesterday. White count 11.5. He was hypoxic O2 sat in the 80s. He is currently on high flow oxygen. Vancomycin and cefepime started in the
ER. Chest x-ray shows mild progression of the previous lower lobe infiltrates. BNP 9650.
Past History
Additional Past Medical History:
Pulmonary fibrosis
hypertension
Atrial fibrillation s/p ablation
CAD status post stent
Heart failure with reduced EF
ICD placement
Pulmonary hypertension
HTN
Osteoarthritis
Hernia repair 2002
Lung Surgery/Thoracotomy 1986
Allergy History:
Cephalosporins Allergy (Verified 03/12/24 15:47)
Nausea / Vomiting
latex Allergy (Verified 03/12/24 15:47)
Blisters
penicillin G Allergy (Verified 03/12/24 15:47)
Nausea / Vomiting
Penicillins Allergy (Verified 03/12/24 15:47)
Nausea / Vomiting
Medications Reviewed: Yes
Current Antibiotics:
Cefepime
Vancomycin
Methylprednisolone
Social History
Tobacco: Former Smoker
Alcohol: None
Drug: None
Personal:
Living: With Family ()
Family History
Family History: Not Pertinent
Review of Systems
Review of Systems
General: Chills and Change in Appetite
HEENT: Sinus Problems; Negative Headache or Pharyngitis
Cardiovascular: Edema
Respiratory: Dyspnea and Cough; Negative Sputum Production
Gasteroenterology: Negative Nausea, Vomiting or Diarrhea
Genital / Urological: Negative Dysuria or Flank Pain
Endocrine: Weakness
Skin / Hair / Nails: Negative Rash
Neurological: Negative Dizziness
All systems: All other systems were reviewed and were negative
Vital Signs
Temp Pulse Resp BP Pulse Ox
98.0 F 80 32 94/57 96
03/13/24 11:00 03/13/24 11:11 03/13/24 11:11 03/13/24 08:38 03/13/24 11:11
Physical Exam
Physical Exam
Constitutional: No Acute Distress and Comfortable
Head: Other (No frontal or maxillary sinus tenderness)
Eyes: No Conjunctival Hemorrhage and Sclera Anicteric
Cardiovascular: Regular Rate and S1/S2
Pulmonary: Coarse (coarse crackles at bases)
Gastrointestinal: Soft, Non Tender, Non Distended and Normal Bowel Sounds
Genito-Urinary: Negative CVA Tenderness
Extremities: Edema (1+)
Neurological: AO x 3
Lab / Diagnostic Study Results
03/13/24 04:36
03/13/24 04:36
Abs Immat Gran (auto) 0.1 10^3/uL (0-0.05) H 03/12/24 15:49
Absolute Neuts (auto) 9.3 10^3/uL (1.4-6.5) H 03/12/24 15:49
Absolute Lymphs (auto) 1.2 10^3/uL (1.2-3.4) 03/12/24 15:49
Absolute Monos (auto) 0.9 10^3/uL (0.1-0.6) H 03/12/24 15:49
Absolute Basos (auto) 0.0 10^3/uL (0-0.2) 03/12/24 15:49
Immature Gran % 1.1 % (0-0.5) H 03/12/24 15:49
Neutrophils % 80.4 % (42.2-75.2) H 03/12/24 15:49
Lymphocytes % 10.2 % (20.5-51.1) L 03/12/24 15:49
Monocytes % 7.7 % (1.7-9.3) 03/12/24 15:49
Eosinophils % 0.3 % (0-6) 03/12/24 15:49
Basophils % 0.3 % (0-2) 03/12/24 15:49
ESR Cancelled 03/12/24 22:15
PT 27.9 Sec (11.4-14.6) H 03/13/24 04:36
INR 2.61 03/13/24 04:36
Procalcitonin 0.54 ng/ml (0.0-0.25) H 03/12/24 15:49
Microbiology Results
Micro:
03/13/24 11:55 Nasal Screen MRSA (PCR) - Pending
Nose
03/12/24 18:30 Influenza Types A & B ([facility]ANG) - Final
Nasal Swab Negative for Influenza A & B, NAAT
Negative results must be combined with clinical observations
and patient history.
Nucleic Acid Amplification test (NAAT)performed on the
[email or web address] platform.
03/12/24 18:20 Blood Culture - Pending
Blood/Venous
03/12/24 18:21 Blood Culture - Pending
Blood/Venous
03/12/24 CXR: Cardiomegaly. Stable. Slightly progressed findings suggesting mild bilateral pneumonia. CHF cannot be excluded.
02/07/24 CXR: There is moderate groundglass and linear interstitial airspace disease throughout the lower two thirds of the right lung as well as at the left lung base consistent with pneumonia and similar to that seen on the 02/02/2024 CT examination
Assessment / Plan
# Acute on chronic hypoxemic respiratory failure, HFL02
# Acute on chronic heart failure, on furosemide
# Pulmonary fibrosis, now on steroid
# URI sxs
# Possible viral over bacterial PNA
- Repeat procal in am, if decrease/resolve, dc abx's.
- Check RSV
- Continue supportive care
# Condtitions PIZZA BAKER
Pulmonary fibrosis
hypertension
Atrial fibrillation s/p ablation
CAD status post stent
Heart failure with reduced EF
ICD placement
Pulmonary hypertension
HTN
Osteoarthritis
Hernia repair 2002
Lung Surgery/Thoracotomy 1986
--- NOTE | 2024-03-13 12:50 | PTCARENOTE ---
Pt OOB in chair since visit from PT/OT. Pt on Midflow O2 at 15l/min w/ 100% NRB mask. Pox 97%. Pt asking to 'take this off (NRB)' to eat lunch. With removal of NRB, Pox down to 84%. Pt denies SOB. NRB reapplied and pt encouraged to take deep
breaths- Pox gradually improved to 95%. Dr Luis notified and order for Hiflow received- Resp Therapy notified.
[2024-03-13] MEDS: LASIX 40 MG IV (13:22)
--- NOTE | 2024-03-13 13:59 | CM ---
Patient seen bedside with , initial assessment completed. Patient resides with in a two story home, five steps to enter. Patient denies DME for ambulation, has home O2 through [employer]. Patient reports [facility] in past, denies SNF. Patient
confirms PCP Mendel Parks, pharmacy [facility], confirms prescription coverage. CM discussed recommendation of VN upon discharge, patient and undecided at this time, would like to consider closer to discharge. CM will continue to
follow for all discharge planning needs.
Plan; home with , offer VN, watch for new O2 needs closer to d/c.
--- NOTE | 2024-03-13 17:45 | PTCARENOTE ---
Pt napping in bed- woken to name. No complaints. POx 96% on Hiflow. Has been voiding using urinal since Lasix administered w/ urine noted to be less ramiro in color w/ each void. gone home for evening. Pt stated intent to order dinner although
reports appetite 'is not the best'.
[2024-03-13] MEDS: ProAmatine 5 MG PO (18:11)
[2024-03-13] MEDS: COUMADIN 4 MG PO (18:11)
[2024-03-13] MEDS: LASIX 60 MG IV (19:51)
[2024-03-13] MEDS: STERILE WATER FOR INJECTION 10 ML IV (23:07)
[2024-03-14] VITALS (34 sets, daily range): BP systolic 94–137; BP diastolic 59–90; BMI 28.0
--- NOTE | 2024-03-14 02:14 | PTCARENOTE ---
Received pt at 1900 resting in bed, AAOx3, without complaints. On high flow NC 50L, 90%. Spo2 94-97%. Lungs with crackles bibasilar L > R. No complaints of SOB. AV paced on tele, HR 80. BP 90-100/60-70. + pulses. Trace LE edema. + bowel sounds.
Voiding yellow urine in urinal after IV lasix. Skin c/d/i. New PIV placed #20 L hand. Pt. resting calmly
[2024-03-14 05:22] LABS: Hematocrit 34.2 % (39.0-52.0); Hemoglobin 12.1 g/dL (13.0-18.0); Mean Corp Hgb Conc. 35.4 g/dL (33.0-37.0); Mean Corpuscular Hgb 31.9 pg (27.0-31.0); Mean Corpuscular Volume 90.2 fL (80.0-94.0); Mean Platelet Volume 9.3 fL (7.4-10.4); Platelet Count 279 10^3/uL (130-400); Red Blood Cell Count 3.79 10^6/uL (4.70-6.10); White Blood Cell Count 17.5 10^3/uL (4.8-10.8)
[2024-03-14 05:33] LABS: Blood Urea Nitrogen 37 mg/dl (9-20); Calcium 8.3 mg/dl (8.4-10.2); Carbon Dioxide 24 mmol/L (22-30); Chloride 100 mmol/L (98-107); Estimated Creatinine Clearance 64 ml/min; Glucose 167 mg/dl (70-99); Potassium 3.6 mmol/L (3.5-5.1); Sodium 139 mmol/L (135-145); eGFR > 60.00
[2024-03-14 05:34] LABS: INR 4.78; PT 44.1 Sec (11.4-14.6)
[2024-03-14] MEDS: VANCOCIN 535 MG IV (06:00)
--- NOTE | 2024-03-14 07:02 | W.PN.HOSP.TC ---
Today's Communication/Plan
-
wean O2 supplementation as tolerated
out of bed to chair
cont abx as per ID
cont diuresis as per Cardio
Midodrine blood pressure support
PT/OT
Assessment / Plan
Assessment / Plan
Physical Exam
General: no acute distress appears comfortable at this time
HEENT: Moist mucous membranes, PERRLA Hard of Hearing
Respiratory: bibasilar crackles but seems improved from prior examination
Cardiac: S1/S2, Regular Rhythm and Murmur (II/ MICHAEL)
GI: Soft, Non Tender, Non Distended and Normal Bowel Sounds
Musculoskeletal: No Clubbing, No Cyanosis, No edema
Neuro: AO x 3
A/P: Patient is an 83y M with PMH significant for ILD and CHF who presents to ED complaining of SOB and cough x 3-4 days.
Acute on Chronic Hypoxemic Respiratory Failure
- IMU admit
- Etiology likely multifactorial, multiple issues as below
- wean O2 as tolerated but maintain saturation goal 92%
- Patient was discharged to home on 4-5 lpm - currently requiring Hi Flow
Bibasilar Pneumonia / Pneumonitis
- Leukocytosis Procal elevation
- Recent cough, nasal / sinus congestion
- Cont IV cefipime, ID eval appreciated
- Nebs, chest PT, mucolytics, etc.
- COVID / Flu negative in the ED.
ILD
- During recent admission, dyspnea and hypoxemia persisted despite abx and IV diuresis - patient ultimately required IV steroids for any improvement.
- Has since completed outpatient PO steroid taper.
- IV solumedrol 60 mg Q12H
- Pulmonary eval appreciated
Acute on Chronic HFrEF
- Weight increased since recent hospitalization/discharge
- BNP elevated, auscultation consistent with fluid overload
- Exam / CXR somewhat difficult to follow given known ILD.
-Diuresis limited by hypotension, Cardio eval appreciated cont IV diuresis
-Coreg Aldactone Valsartan on hold as below
-daily weights I/O
Hypotension
- BP 77/44 on arrival - improved with 500cc of volume.
- Hold valsartan which was restarted after last admission.
- Hold spironolactone
- Initially Coreg was resumed with holding parameters, subsequently placed on hold as per cardio
-midodrine 5 mg TID started w/ holding parameters SBP<120, subsequent improvement in BP noted. Consider taper to 2.5 TID if BP consistently improves
ASCVD
- Stable. No current chest pain.
- Continue Plavix, statin
Permanent Atrial Fibrillation
Supratherapeutic INR>3
- Stable. Continue carvedilol with holding parameters.
- PPM /AICD in place.
- Initially Coumadin continued INR goal 2-3, subsequently placed on hold d/t supratherapeutic INR
DVT Prophylaxis: Coumadin on hold Supratherapeutic INR
Code Status: DNR
discussed with patient and patient's Jocelin
I spent a total of 50 minutes with the patient or on the floor. More than 50% of this time involved counseling and coordination of care.
Anticipated Discharge: > 48 hours
Subjective/Interval History
-
Date of Service: March 14, 2024
Seen and examined at bedside in no acute distress resting comfortably in bed. Stable respiratory status but on high flow. Reports poor appetite
Objective Data
-
Labs:
Laboratory Results
03/14/24
05:09
WBC 17.5 H
Hgb 12.1 L
Hct 34.2 L
Plt Count 279
PT 44.1 H
INR 4.78 D
Sodium 139
Potassium 3.6
Chloride 100
Carbon Dioxide 24
BUN 37 H
Creatinine 1.0
Glucose 167 H
Calcium 8.3 L
Vital Signs:
Vital Signs
Temp Pulse Resp BP Pulse Ox
97.5 F 83 22 107/79 97
03/14/24 03:00 03/14/24 06:00 03/14/24 06:00 03/14/24 06:00 03/14/24 06:00
I&O
03/13/24 03/14/24 03/15/24
06:59 06:59 06:59
Intake Total 1969
Output Total 1200 / 1200 2024
Balance -1200 / -1200 -55 / -55
[2024-03-14] MEDS: DUONEB 3 ML INH ×3 (07:37→17:58)
--- NOTE | 2024-03-14 08:26 | W.PN.PUL3 ---
Today's Communication / Plan
-
Aggressive diuresis
Empiric antibiotics; ID on board
DuoNebs QID
Up OOB as tolerated however monitor for ventricular ectopy although he is AV paced (he had nonsustained VT today after getting up out of bed to the chair which then spontaneously resolved)
Cardiology recs appreciated
Midodrine
Maintain MAP >65
Mucolytics with Mucinex
Continue with Coumadin with goal INR 2�3
Continue with high flow nasal cannula and wean down FiO2 + flow as tolerated while maintaining SpO2 >90-94%
Pulmonary service will continue to follow along
Assessment
-
Assessment: 83-year-old male with a PMHx of chronic HFrEF, chronic respiratory failure on 3-4 L/min nasal cannula, IPF, A-fib on Coumadin, mixed hyperlipidemia, mitral valve regurgitation, history of left-sided thoracotomy, history of hayfever,
glaucoma and osteoarthritis who presents with worsening shortness of breath. He reports he uses 4 L/min O2 [id number]. EMS found patient's O2 saturation to be 86% on 4 L/min. When he arrived to the ER he was not 92% on 6 L/min, with BP
85/48, heart rate 80, breathing at 20 breaths/minute and afebrile to 98.6 �F. Patient reports a dry cough and no recent fever. Patient was recently hospitalized here at from 01/31 - 02/10/2024 and treated with antibiotics, diuretics + steroids.
He was discharged home on oxygen (which was new), prednisone taper and increased dose of Lasix. He was doing well until about 4 days prior to arrival with worsening cough, shortness of breath and sinus congestion. He also noticed some worsening
ankle swelling. No recent sick contacts reported. Currently, initial labs were significant for leukocytosis to 11.6, Hb 13.4, ESR 49, INR 2.46, serum sodium 134, glucose 129, T. bili 2.1, procalcitonin 0.54, and proBNP 9650. Of note, COVID 19
antigen was negative. In the ER he was given cefepime/vancomycin, and IVF with 500 cc NS 0.9% bolus. He was admitted to the IMU and pulmonary consulted for additional management/recommendations.
Chronic conditions SAL[employer] DEVELOPMENT [employer]: Chronic HFrEF, ILD (IPF), chronic respiratory failure on home O2 at 3-4 L/min ATC, traction bronchiectasis, A-fib on warfarin, history of VT, mixed hyperlipidemia, RBBB, MVR, history of thoracotomy (left side) due to benign
lung nodule, history of hayfever, glaucoma, osteoarthritis
Impression:
#Acute on chronic respiratory failure with hypoxia now on high-flow nasal cannula likely due to acute decompensated heart failure and possibly pneumonia
#Acute HFrEF exacerbation
#Hx of ILD/pulmonary fibrosis with prior CTD workup unrevealing
#Leukocytosis
#Elevated proBNP
#Anemia
#Elevated T. bili (chronic)
#Chronic anticoagulation with Coumadin therapeutic INR
#A-fib on Coumadin
#History of severe restrictive lung defect (T% predicted, FVC 74% predicted with DLco: 39% via PFT from 01/27/2023)
Plan:
- CXR on 03/12/2024 is concerning for volume overload likely due to acute decompensated heart failure
- proBNP is 9650 which is the highest that it has been since December 2023
- Continue aggressive IV diuresis as BP tolerates and maintain net negative fluid balance as tolerated with strict I/O; trend sCr, sNa and UOP
- Procalcitonin is mildly elevated at 0.54 and increased to 0.7 today (03/14) so would continue with antibiotics given that we are unable to rule out pneumonia on current CXR
- If further lung parenchyma visualization is needed then would check CT chest especially if we are unable to wean down O2 or if he deteriorates
- Continue broad spectrum ABx (cefepime); IV vanco DC'd as MRSA swab negative
- DuoNebs QID
- Considering he has ILD and has previously improved with steroids, continue systemic steroids (SoluMedrol 60mg IV q12hr) and wean as he clinically improves
- Follow-up blood cultures (collected 03/12/2024 � [facility]); collect sputum culture if patient able to produce a decent sample; urine antigens for Legionella + strep pneumonia both negative
- ID consulted and recs appreciated
- Heart rate control with goal <110
- replete K>4, Mg>2
- Cardiology consulted and recs appreciated
- Maintain SpO2 >90-94% with high flow nasal cannula and wean down FiO2 + flow as tolerated
- Incentive spirometer encouraged
- Maintain euglycemia with goal BG >100 and <180
- prn nebulized bronchodilators - not currently bronchospastic
- DVT ppx: VKA
Pulmonary service will continue to follow along. Outpatient follow-up will be arranged; he has an upcoming appointment on 04/09/2024 at 4:[address] Davis - he was advised to keep that appt.
Data:
CXR 03/12/2024:
Cardiomegaly. Stable.
Slightly progressed findings suggesting mild bilateral pneumonia. CHF cannot be excluded.
Outpatient [facility] data:
PFT:
������PFT 01/27/23-FEV1 2.47-86%, FVC 2.9-72%, TLC 56%, RV 36%, DLCO 39%, DLCO/VA 69%. Mild to moderate restriction and moderate reduction in diffusing capacity.
Spirometry 04/29/23-FEV1 2.12-74%, FVC 2.62-65%. Moderate restriction.
6 MWT:
������6 minute walk test 01/27/23-Ambulating 90 feet with desaturation britany 96% of maximum heart rate of 109.
Dyspnea scale score 0. No supplemental oxygen required.
6MWT 03/03/24: At rest, O2 95% on room air, heart rate 75. After 2 minutes of ambulation, O2 dropped to 87%. Patient required 4 L O2 to keep O2 above 88%.� Max heart rate 106. 3/10 on dyspnea scale. Ambulated 600 feet.
FENO:
������FeNO 01/27/23- 23ppb.
Total time spent today was 52 minutes for this encounter. Time includes reviewing laboratory test/imaging results, reviewing pertinent medical records, obtaining and reviewing medical history, performing an appropriate exam, ordering medications,
tests and procedures. Time also includes documentation of this encounter, coordinating patient care and communicating with other healthcare professionals. Total time does not include separately billed tests performed on this date of service.
Subjective Data
-
Date of Service:
Date of Service: March 14, 2024
Chief Complaint: Pulmonary Follow Up
Subjective:
Patient seen and evaluated today at bedside. Currently on high flow nasal cannula at 90% FiO2, 50 L/min. He says his shortness of breath is better. Currently, heart rate 82, saturating 94% and BP 108/68. He has a mild dry cough. He denies chest
pain, SHORT, nausea, vomiting, fevers or chills. Afebrile overnight.
Review of Systems
General: Other (Negative unless mentioned above)
Objective Data
Data Reviewed
Vital Signs / I&O / Oxygen:
Vital Signs
Temp Pulse Resp BP Pulse Ox
98.3 F 84 28 114/67 92
03/14/24 07:33 03/14/24 08:54 03/14/24 07:40 03/14/24 08:54 03/14/24 07:40
Intake and Output
03/13/24 03/14/24 03/15/24
06:59 06:59 06:59
Intake Total 1969
Output Total 1200 / 1200 2024
Balance -1200 / -1200 -55 / -55
SaO2 92
Nasal Cannula flow liters per 50
minute
Physical Exam
General: Respiratory Distress (negative), Comfortable, Chills (negative) and Sweats (negative)
HEENT: Normocephalic and Anicteric
Cardiovascular: S1-S2, Murmur (negative) and Peripheral Edema (Trace lower extremity edema bilaterally)
Respiratory: Wheeze (negative), Crackles (Bilaterally), Rhonchi (negative), Non-Labored Respirations and Other (on high flow nasal cannula)
GI: Soft, Non Distended, Non Tender and Normal Bowel Sounds
Neurology: AO x 3 and Tremors (negative)
Skin: Warm, Dry, Cyanosis (negative) and Jaundice (negative)
Labs/Micro/Reports
Lab Data
03/14/24 05:09
03/14/24 05:09
Laboratory Results
03/14/24
05:09
PT 44.1 H
INR 4.78 D
Microbiology
03/12/24 18:20 Blood/Venous Blood Culture - Preliminary
No Growth in 24 hours- Final report to follow
03/12/24 18:21 Blood/Venous Blood Culture - Preliminary
No Growth in 24 hours- Final report to follow
03/13/24 14:56 Urine Legionella Urinary Antigen - Final
Negative for Legionella pneumophila Serogroup 1 antigen.
A negative result does not rule out the possiblity of
Legionella infection due to other serogroups or species of
Legionella. Clinical correlation is recommended.
03/13/24 14:56 Urine Streptococcus pneumoniae Antigen (M - Final
Negative for Streptococcus pneumoniae antigen.
A negative result does not exclude infection with
Streptococcus pneumoniae. Clinical correlation is
recommended.
03/13/24 11:55 Nose Nasal Screen MRSA (PCR) - Final
MRSA not detected - performed by PCR methodology.
03/12/24 18:30 Nasal Swab Influenza Types A & B ([facility]ANG) - Final
Negative for Influenza A & B, NAAT
Negative results must be combined with clinical observations
and patient history.
Nucleic Acid Amplification test (NAAT)performed on the
[employer] platform.
[2024-03-14] MEDS: ProAmatine 5 MG PO ×3 (08:53→18:19)
[2024-03-14] MEDS: PLAVIX 75 MG PO (08:53)
[2024-03-14] MEDS: FARXIGA 10 MG PO (08:54)
[2024-03-14] MEDS: MAXIPIME 2000 MG IV ×3 (08:54→23:50)
[2024-03-14] MEDS: LASIX 60 MG IV ×2 (08:54→16:55)
[2024-03-14] MEDS: STERILE WATER FOR INJECTION 10 ML IV ×3 (08:54→23:50)
[2024-03-14] MEDS: MUCINEX 600 MG PO ×2 (08:54→19:33)
--- NOTE | 2024-03-14 08:58 | W.PN.ID1 ---
Date of Service
Date of Service: March 14, 2024
Today's Communication
Continue cefepime for now.
DC Vancomycin.
Assessment / Plan
# Acute on chronic hypoxemic respiratory failure, HFL02
# Acute on chronic heart failure, on furosemide
# Pulmonary fibrosis, now on steroid
# URI sxs
# Probable PNA
- Repeat procal trended up from 0.54 to 0.70
- RSV pending
- MRSA scree neg -> dc Vancomycin
- Continue cefepime
- Increase in leukocytosis due to steroid.
# Conditions WINTER INTERN
Pulmonary fibrosis
hypertension
Atrial fibrillation s/p ablation
CAD status post stent
Heart failure with reduced EF
ICD placement
Pulmonary hypertension
HTN
Osteoarthritis
Hernia repair 2002
Lung Surgery/Thoracotomy 1986
Chief Complaint
-: Pneumonia
Subjective / Review of Systems
SOB improving.
Dry cough improving.
Vital Signs / Physical Exam
Vital Signs
Vital Signs
Temp Pulse Resp BP Pulse Ox
98.3 F 84 28 114/67 92
03/14/24 07:33 03/14/24 08:54 03/14/24 07:40 03/14/24 08:54 03/14/24 07:40
Physical Exam
Constitutional: No Acute Distress and Comfortable
Cardiovascular: Irregular Rate
Pulmonary: Coarse (crackles at bases)
Gastrointestinal: Soft, Non Tender, Non Distended and Normal Bowel Sounds
Extremities: Negative Edema
Neurological: AO x 3
Objective Data
Lab Data
Lab Results
03/14/24 05:09
03/14/24 05:09
ESR Cancelled 03/12/24 22:15
PT 44.1 Sec (11.4-14.6) H 03/14/24 05:09
INR 4.78 D 03/14/24 05:09
APTT 43.2 Sec (23.4-35.0) H 03/12/24 16:36
Estimated Creat Clear 64 ml/min 03/14/24 05:09
Total Bilirubin 2.1 mg/dl (0.2-1.3) H 03/12/24 15:49
AST 43 U/L (17-59) 03/12/24 15:49
ALT 29 U/L (0-50) 03/12/24 15:49
Alkaline Phosphatase 115 U/L (38-126) 03/12/24 15:49
Most recent labs reviewed.
Micro Results:
03/14/24 08:06 Respiratory Syncytial Virus Culture - Pending
Nasalpharynx
03/12/24 18:20 Blood Culture - Preliminary
Blood/Venous No Growth in 24 hours- Final report to follow
03/12/24 18:21 Blood Culture - Preliminary
Blood/Venous No Growth in 24 hours- Final report to follow
03/13/24 14:56 Legionella Urinary Antigen - Final
Urine Negative for Legionella pneumophila Serogroup 1 antigen.
A negative result does not rule out the possiblity of
Legionella infection due to other serogroups or species of
Legionella. Clinical correlation is recommended.
Streptococcus pneumoniae Antigen (M - Final
Negative for Streptococcus pneumoniae antigen.
A negative result does not exclude infection with
Streptococcus pneumoniae. Clinical correlation is
recommended.
03/13/24 11:55 Nasal Screen MRSA (PCR) - Final
Nose MRSA not detected - performed by PCR methodology.
03/12/24 18:30 Influenza Types A & B (UMANG) - Final
Nasal Swab Negative for Influenza A & B, NAAT
Negative results must be combined with clinical observations
and patient history.
Nucleic Acid Amplification test (NAAT)performed on the
[employer] platform.
03/12/24 CXR: Cardiomegaly. Stable. Slightly progressed findings suggesting mild bilateral pneumonia. CHF cannot be excluded.
02/07/24 CXR: There is moderate groundglass and linear interstitial airspace disease throughout the lower two thirds of the right lung as well as at the left lung base consistent with pneumonia and similar to that seen on the 02/02/2024 CT examination
[2024-03-14] MEDS: TRUSOPT 2% OPHTHALMIC SOLUTION 1 DROP BOTH EYES ×2 (09:00→19:34)
--- NOTE | 2024-03-14 10:21 | W.PN.CD ---
Today's Communication / Plan
-
Continue IV lasix
Standing weights if able
Possible PO lasix tomorrow
Impression / Plan
-
A/P: 83 y/o male with CAD with CAD (PCI/stent RCA and Lcx), HFrEF, VT, ICD in place, permanent AFIB on warfarin, dyslipidemia, and RBBB/LAFB. HE was hospitalized last month with acute hypoxic respiratory failure with CHF, pulm fibrosis, and PNA. He
is here again with SOB, requiring increased O2 by NC.
SOB, hypoxia: severe- requiring increased O2 by NC
-likely multifactorial with PNA, ILD, CHF
-requiring increased O2 by NC
-plans below
Qaygh-mw-zsqqbeu HFrEF:
-recent echo as noted EF 35%
-MRA and ARB held with borderline BP's. Will hold Coreg as well for now.
-BNP elevated, abdominal bloating noted, weight up from previous admit
-on SGLT2 inhibitor
- Lasix 60 mg IV BID
PNA:
-on ABX -per IM
ILD:
-pulm to follow
-steroids given
Permanent AFIB:
-rate-controlled
-on warfarin. INR is therapeutic. Continue warfarin and follow INR's.
CAD:
-stable without CP
ICD in place, with recent intervention as noted in HPI:
-stable
-follow telemetry
Physical Exam
Vital Signs/Labs
Vital Signs
Temp Pulse Resp BP Pulse Ox
98.3 F 84 28 114/67 92
03/14/24 07:33 03/14/24 08:54 03/14/24 07:40 03/14/24 08:54 03/14/24 07:40
03/13/24 03/14/24 03/15/24
06:59 06:59 06:59
Actual Weight 208 lb 15.971 oz 206 lb 9.17 oz
03/14/24 05:09
03/14/24 05:09
PT 44.1 Sec (11.4-14.6) H 03/14/24 05:09
INR 4.78 D 03/14/24 05:09
APTT 43.2 Sec (23.4-35.0) H 03/12/24 16:36
Magnesium 2.0 mg/dl (1.6-2.3) 03/14/24 05:09
03/12/24
15:49
Tjs-B-Ohwhdgnlwza Pept 9650
Physical Exam
Constitutional: No acute distress
EENT: Anicteric and Other (NC in place )
Cardiovascular: Rhythm & rate is regular and Pedal edema present (TRIVIAL)
Respiratory: Respiratory effort normal, Wheeze Present and Crackles Present
GI: Soft
Neuro/Psych: Alert and Oriented
Data Reviewed
-
Date of Service: March 14, 2024
EKG: Tracing Personally Visualized and interpreted (paced)
Echo: Report Reviewed by me
Labs: Labs Reviewed by me
[2024-03-14] MEDS: SOLU-MEDROL PF 60 MG IV ×2 (10:29→22:09)
[2024-03-14] MEDS: COREG 3.125 MG PO ×2 (10:50→19:33)
--- NOTE | 2024-03-14 10:55 | PTCARENOTE ---
Pt sat at edge of bed and assisted w/ AM hygiene. Denied HEART although increased WOB noted w/ activity, RR upper 30's-low 40's. Pt to chair at his request w/ supervision- Pox low 81% on Hiflow O2 - 100% NRB mask applied and Resp Therapy in room and
increased Hiflow to 60L/100% w/ Pox improved to 96% With increased activity and hypoxia- pt noted to have increased ventricular ectopy w/ AV pacing- bigeminal polymorphic PVC and 2-4 beats VT. Pt denies CP, reports 'I feel it (heart) pounding
sometimes' . BP 137/75. HR mid 80's. Dr Luis on unit and notified- in room to evaluate pt- order for KCl replacement received and administered to pt. TT to Dr Ken w/ update on pt's rhythm- order to resume Coreg and administered per JUN. Pt
continues to sit OOB in chair- RR low 30's, POx 96% Will continue to monitor
[2024-03-14] MEDS: KLOR-CON 40 MEQ PO (10:56)
[2024-03-14] MEDS: DUONEB INH (11:14)
--- NOTE | 2024-03-14 13:38 | PTCARENOTE ---
Pt continues to sit OOB in chair, visiting w/ . Only rare PVC noted on monitor. POx 100% on 60l/100% Hiflow.
--- NOTE | 2024-03-14 17:32 | PTCARENOTE ---
Pt returned to bed from chair. Remains on Hiflow 60L/100%. Pox down to 78% when eating- 100% NRB reapplied w/ Pox improved to 98%. Pt denies any SOB w/ hypoxia but notably tachypneic w/ RR mid 30's and using accessory muscles to breathe.
--- NOTE | 2024-03-14 20:12 | PTCARENOTE ---
Received pt resting in bed, AAOx3. Denies pain. AV paced on tele with PVCs, HR 80s. BP 119/70. + pulses, no edema. On Hi flow NC 60L/100%. Required NRB mask after he voided in urinal in bed due to sats mid 80s. Recovered into mid 90s with NRB. When
repositioning himself in bed slightly, desats to mid-high 80s also. Off NRB now and spo2 93%. 3/4 up L lung and R base with crackles. + bowel sounds. Regular diet, poor appetite. FR 1440ml. Voiding in urinal yellow urine. L hand #20 capped.
Encouraged rest. Assisted w/ denture care.
[2024-03-14] MEDS: XALATAN OPHTHALMIC SOLUTION 1 DROP BOTH EYES (22:09)
[2024-03-15] VITALS (25 sets, daily range): BP systolic 0–126; BP diastolic 0–88; BMI 27.7
[2024-03-15] MEDS: MORPHINE SULFATE 1 MG IV (04:31)
--- NOTE | 2024-03-15 04:47 | PTCARENOTE ---
Pt. tachypneic most of the night, RR 30s. Pt. does not appear in distress and does not report SOB or any pain. Spo2 90-94% on HiFlow when at rest. With movement or talking, desats to high 80s and requires NRB to recover. Discussed with NATHALIE Luna.
1mg morphine ordered to help with tachypnea. Administered. Pt. stated 'I know my end is coming soon.' Pt. states he will talk to his this morning when she comes in and discuss a plan. Support given, pt. reassured. AM labs drawn. Pt. resting
calmly.
[2024-03-15 05:04] LABS: Hematocrit 35.2 % (39.0-52.0); Hemoglobin 12.5 g/dL (13.0-18.0); Mean Corp Hgb Conc. 35.5 g/dL (33.0-37.0); Mean Corpuscular Hgb 32.1 pg (27.0-31.0); Mean Corpuscular Volume 90.3 fL (80.0-94.0); Mean Platelet Volume 9.7 fL (7.4-10.4); Platelet Count 290 10^3/uL (130-400); Red Cell Dist. Width 15.5 % (11.5-14.5); White Blood Cell Count 20.1 10^3/uL (4.8-10.8)
[2024-03-15 05:14] LABS: PT 94.2 Sec (11.4-14.6)
[2024-03-15 05:20] LABS: INR > 8.0
[2024-03-15 05:30] LABS: ALT (SGPT) 29 U/L (0-50); AST (SGOT) 42 U/L (17-59); Albumin 3.1 g/dl (3.5-5.0); Alkaline Phosphatase 158 U/L (38-126); Blood Urea Nitrogen 46 mg/dl (9-20); Calcium 8.8 mg/dl (8.4-10.2); Carbon Dioxide 24 mmol/L (22-30); Chloride 101 mmol/L (98-107); Direct Bilirubin 0.4 mg/dl (0.0-0.4); Estimated Creatinine Clearance 64 ml/min; Glucose 171 mg/dl (70-99); Magnesium 2.1 mg/dl (1.6-2.3); Phosphorus 4.7 mg/dl (2.5-4.5); Potassium 4.2 mmol/L (3.5-5.1); Sodium 139 mmol/L (135-145); Total Bilirubin 1.4 mg/dl (0.2-1.3); Total Protein 5.7 g/dl (6.3-8.2); eGFR > 60.00
--- NOTE | 2024-03-15 05:33 | PTCARENOTE ---
INR >8 on AM labs. NATHALIE Luna notified. No s/s bleeding. PO Vit K ordered.
[2024-03-15 05:34] LABS: NT-proBNP 10200 pg/ml
[2024-03-15] MEDS: MEPHYTON 5 MG PO (05:45)
--- NOTE | 2024-03-15 07:15 | PTCARENOTE ---
Bedside handoff. Pt tolerating HFNC w/NRB mask. Pulse ox 90%. Orthopnea, shallow breathing, mouth breathing noted. He was encouraged to remember to take frequent slow deep breaths to recruit his alveoli. He demonstrated his deep breaths. Breath
sounds posteriorly dim and CTA. Dry intermittent cough. Voiding clear ramiro urine. Safe environment maintained.
[2024-03-15] MEDS: DUONEB 3 ML INH ×4 (07:41→19:49)
--- NOTE | 2024-03-15 07:58 | W.PN.INTV ---
Today's Communication / Plan
Recommendations
Supplemental oxygen
Increase activity
Bowel regiment
Diuresis
No change in steroids
Hold Coumadin
Prognosis guarded- updated
Assessment
-
83-year-old male with a PMHx of chronic HFrEF, chronic respiratory failure on 3-4 L/min nasal cannula, IPF, A-fib on Coumadin, mixed hyperlipidemia, mitral valve regurgitation, history of left-sided thoracotomy, history of hayfever, glaucoma and
osteoarthritis who presents with worsening shortness of breath. He reports he uses 4 L/min O2 gukyef-gpn-fsrsh. EMS found patient's O2 saturation to be 86% on 4 L/min. When he arrived to the ER he was not 92% on 6 L/min, with BP 85/48, heart rate
80, breathing at 20 breaths/minute and afebrile to 98.6 �F. Patient reports a dry cough and no recent fever. Patient was recently hospitalized here at from 01/31 - 02/10/2024 and treated with antibiotics, diuretics + steroids. He was discharged
home on oxygen (which was new), prednisone taper and increased dose of Lasix. He was doing well until about 4 days prior to arrival with worsening cough, shortness of breath and sinus congestion. He also noticed some worsening ankle swelling. No
recent sick contacts reported. Currently, initial labs were significant for leukocytosis to 11.6, Hb 13.4, ESR 49, INR 2.46, serum sodium 134, glucose 129, T. bili 2.1, procalcitonin 0.54, and proBNP 9650. Of note, COVID 19 antigen was negative.
In the ER he was given cefepime/vancomycin, and IVF with 500 cc NS 0.9% bolus. He was admitted to the IMU and pulmonary consulted for additional management/recommendations.
Chronic conditions ANALYTICAL LEAD: Chronic HFrEF, ILD (IPF), chronic respiratory failure on home O2 at 3-4 L/min ATC, traction bronchiectasis, A-fib on warfarin, history of VT, mixed hyperlipidemia, RBBB, MVR, history of thoracotomy (left side) due to benign
lung nodule, history of hayfever, glaucoma, osteoarthritis
Impression:
#Acute on chronic respiratory failure with hypoxia now on high-flow nasal cannula likely due to acute decompensated heart failure and possibly pneumonia
#Acute HFrEF exacerbation
#Hx of ILD/pulmonary fibrosis with prior CTD workup unrevealing
#Leukocytosis
#Elevated proBNP
#Anemia
#Elevated T. bili (chronic)
#Chronic anticoagulation with Coumadin therapeutic INR
#A-fib on Coumadin
#History of severe restrictive lung defect (T% predicted, FVC 74% predicted with DLco: 39% via PFT from 01/27/2023)
Plan:
Respiratory status still extremely tenuous-easily desaturates, on maximum supplemental oxygen
Continue supplemental oxygen-high flow and nonrebreather-attempt to wean
Aspiration precautions
Mucus clearing devices encouraged-incentive spirometry and flutter
Consider vest therapy or percussion if mucous plugging is suspected-low suspicion at this point
Nebulizers as needed
Steroids
Follow chest x-ray
Cultures reviewed
Procalcitonin mildly elevated
Empiric antibiotics-on cefepime, vancomycin discontinued
MRSA screen negative
Follow leukocytosis
Infectious disease following-correspondence reviewed
Diuresis as tolerated
Monitor renal function, electrolytes, intake/output, lower extremity edema and weight
Replace electrolytes as needed
Cardiology following-correspondence reviewed
Atrial fibrillation rate control
On Coumadin-INR elevated-hold, vitamin K, follow
DVT prophylaxis-on Coumadin, INR elevated
Nutrition
Begin to mobilize/out of bed
Dr. Davis reviewed with on multidisciplinary rounds 03/15/2024-updated current clinical situation, deteriorating lung status, severely guarded prognosis and if continues to deteriorate consider comfort care
Outpatient follow-up will be arranged; he has an upcoming appointment on 04/09/2024 at 4:[address] Davis - he was advised to keep that appt.
Reviewed the patient's pertinent medical records including radiographs, microbiology, laboratory evaluations, and discussion with primary team, consultants, pharmacy, nutrition, physical therapy, case management, charge nurse, critical care
nursing, and respiratory therapy.
Data:
CXR on 03/12/2024 is concerning for volume overload likely due to acute decompensated heart failure
Outpatient [facility] data:
PFT:
������PFT 01/27/23-FEV1 2.47-86%, FVC 2.9-72%, TLC 56%, RV 36%, DLCO 39%, DLCO/VA 69%. Mild to moderate restriction and moderate reduction in diffusing capacity.
Spirometry 04/29/23-FEV1 2.12-74%, FVC 2.62-65%. Moderate restriction.
6 MWT:
������6 minute walk test 01/27/23-Ambulating 90 feet with desaturation britany 96% of maximum heart rate of 109.
Dyspnea scale score 0. No supplemental oxygen required.
6MWT 03/03/24: At rest, O2 95% on room air, heart rate 75. After 2 minutes of ambulation, O2 dropped to 87%. Patient required 4 L O2 to keep O2 above 88%.� Max heart rate 106. 3/10 on dyspnea scale. Ambulated 600 feet.
FENO:
������FeNO 01/27/23- 23ppb.
.
Subjective Dataa
Subjective Data
Date of Service:
Date of Service: March 15, 2024
Chief Complaint: Pipe Coremaker Follow Up and Pulmonary Follow Up
Subjective:
Continues to desaturate with minimal activity, denies any chest congestion or productive cough, offers no complaints of chest pain, abdominal pain, or increased lower extremity swelling
Review of Systems
General: Other (Per HPI)
Objective Data
Data Reviewed
Vital Signs / I&O / Oxygen:
Vital Signs
Temp Pulse Resp BP Pulse Ox
98.5 F 79 30 125/78 95
03/15/24 04:45 03/15/24 07:43 03/15/24 07:43 03/15/24 06:00 03/15/24 07:44
Intake and Output
03/14/24 03/15/24 03/16/24
06:59 06:59 06:59
Intake Total 1969 1440 / 1440
Output Total 2024 / 2099
Balance -55 / -55 -660 / -660
SaO2 95
Nasal Cannula flow liters per 50
minute
Physical Exam
General: Respiratory Distress (Moderate)
HEENT: Normocephalic, Anicteric and Moist Mucous Membranes
Cardiovascular: Regular Rhythm
Respiratory: Crackles (Basilar), Rhonchi (n), Non-Labored Respirations (n), Accessory Resp Muscle Use (Mild) and Stridor (n)
GI: Soft, Non Distended and Non Tender
Neurology: Awake, Alert and No Motor Deficits
Skin: Warm, Good Color, Cyanosis (n), Jaundice (n) and Rash (n)
Labs/Micro/Reports
Lab Data
03/15/24 04:39
03/15/24 04:39
Laboratory Results
03/15/24
04:39
PT 94.2 H
INR > 8.0 H* D
Microbiology
03/12/24 18:21 Blood/Venous Blood Culture - Preliminary
No Growth in 48 hours- Final report to follow
03/12/24 18:20 Blood/Venous Blood Culture - Preliminary
No Growth in 48 hours- Final report to follow
03/14/24 08:06 Nasalpharynx Respiratory Syncytial Virus Culture - Final
Negative for Respiratory Syncytial Virus.
A false negative result may be obtained with a specimen
collected early in the acute phase. If symptoms persist, a
new specimen should be tested.
03/13/24 14:56 Urine Legionella Urinary Antigen - Final
Negative for Legionella pneumophila Serogroup 1 antigen.
A negative result does not rule out the possiblity of
Legionella infection due to other serogroups or species of
Legionella. Clinical correlation is recommended.
03/13/24 14:56 Urine Streptococcus pneumoniae Antigen (M - Final
Negative for Streptococcus pneumoniae antigen.
A negative result does not exclude infection with
Streptococcus pneumoniae. Clinical correlation is
recommended.
03/13/24 11:55 Nose Nasal Screen MRSA (PCR) - Final
MRSA not detected - performed by PCR methodology.
03/12/24 18:30 Nasal Swab Influenza Types A & B ([facility]) - Final
Negative for Influenza A & B, NAAT
Negative results must be combined with clinical observations
and patient history.
Nucleic Acid Amplification test (NAAT)performed on the
[employer] platform.
--- NOTE | 2024-03-15 08:01 | W.PN.CD ---
Today's Communication / Plan
-
restarting low dose ARB, monitor BP
continue diuresis, has a few more kg to go
Impression / Plan
-
A/P: 83 y/o male with CAD with CAD (PCI/stent RCA and Lcx), HFrEF, VT, ICD in place, permanent AFIB on warfarin, dyslipidemia, and RBBB/LAFB. HE was hospitalized last month with acute hypoxic respiratory failure with CHF, pulm fibrosis, and PNA. He
is here again with SOB, requiring increased O2 by NC.
SOB, hypoxia: severe- requiring increased O2 by NC
-likely multifactorial with PNA, ILD, CHF
-requiring increased O2 by NC
-plans below
Bekjj-mp-bswhcpy HFrEF:
-recent echo as noted EF 35%
-continuing home coreg and SGLT2i
-MRA and ARB were held with borderline BP's. BP better and now nearing euvolemia. Will restart ARB today low dose
-BNP elevated, abdominal bloating noted, weight was up from previous discharge in January by 7kg, now only 2 kg over that dry weight
-cont. Lasix 60 mg IV BID
PNA:
-on ABX -per IM
ILD:
-pulm to follow
-steroids given
Permanent AFIB:
-rate-controlled
-on warfarin. INR is therapeutic. Continue warfarin and follow INR's.
CAD:
-stable without CP
ICD in place, with recent intervention as noted in HPI:
-stable
-follow telemetry
Physical Exam
Vital Signs/Labs
Vital Signs
Temp Pulse Resp BP Pulse Ox
36.9 C 79 30 125/78 95
03/15/24 04:45 03/15/24 07:43 03/15/24 07:43 03/15/24 06:00 03/15/24 07:44
03/14/24 03/15/24 03/16/24
06:59 06:59 06:59
Actual Weight 93.7 kg 92.9 kg
03/15/24 04:39
03/15/24 04:39
PT 94.2 Sec (11.4-14.6) H 03/15/24 04:39
INR > 8.0 H* D 03/15/24 04:39
APTT 43.2 Sec (23.4-35.0) H 03/12/24 16:36
Magnesium 2.1 mg/dl (1.6-2.3) 03/15/24 04:39
03/12/24 03/15/24
15:49 04:39
Vdo-Y-Oycbjzebnpn Pept 9650 10402
Physical Exam
Constitutional: No acute distress
Cardiovascular: Rhythm & rate is regular, Pedal edema is absent, JVD pressure is normal (JVD not seen sitting upright), Systolic murmur absent and Diastolic murmur absent
Respiratory: Respiratory effort normal and Other (distant lungs sounds)
Neuro/Psych: AO x 3
Data Reviewed
-
Date of Service: March 15, 2024
Medical Decision Making: Reviewed Test Results
EKG: Tracing Personally Visualized and interpreted and Report Reviewed by me
Echo: Tracing Personally Visualized and interpreted and Report Reviewed by me
X-Ray/CT/US/MRI/NUC/PET: Image Personally Visualized and interpreted and Report Reviewed by me
Labs: Labs Reviewed by me
--- NOTE | 2024-03-15 08:18 | W.PN.HOSP.TC ---
Addendum entered and electronically signed by Marc Neely MD 03/16/24 10:44:
Moderate protein calorie malnutrition of acute illness
Original Note:
Today's Communication/Plan
-
IV Lasix. IV antibiotics. High flow oxygen.
Assessment / Plan
Assessment / Plan
Physical Exam
General: no acute distress
HEENT: Moist mucous membranes, PERRLA Hard of Hearing
Respiratory: bibasilar crackles, no wheezes
Cardiac: S1/S2, Regular Rhythm and Murmur (II/ MICHAEL)
GI: Soft, Non Tender, Non Distended and Normal Bowel Sounds
Musculoskeletal: No Clubbing, No Cyanosis, No edema
Neuro: AO x 3
A/P: Patient is an 83y M with PMH significant for ILD and CHF who presents to ED complaining of SOB and cough x 3-4 days.
Acute on Chronic Hypoxemic Respiratory Failure
- Etiology likely multifactorial, multiple issues as below
- wean O2 as tolerated but maintain saturation goal 92%
- Patient was discharged to home on 4-5 lpm - currently requiring Hi Flow
-Discussed with at bedside today 03/15
-Overall guarded prognosis
Bibasilar Pneumonia / Pneumonitis
- Leukocytosis Procal elevation
- Recent cough, nasal / sinus congestion
- Cont IV cefipime, ID eval appreciated
- Nebs, chest PT, mucolytics, etc.
- COVID / Flu negative in the ED.
ILD
- During recent admission, dyspnea and hypoxemia persisted despite abx and IV diuresis - patient ultimately required IV steroids for any improvement.
- Has since completed outpatient PO steroid taper.
- IV solumedrol 60 mg Q12H
- Pulmonary eval appreciated
Acute on Chronic HFrEF
- Weight increased since recent hospitalization/discharge
- BNP elevated, auscultation consistent with fluid overload
- Exam / CXR somewhat difficult to follow given known ILD.
-Diuresis limited by hypotension, Cardio eval appreciated cont IV diuresis
-Coreg Aldactone Valsartan on hold as below but might be able to restart valsartan
-daily weights I/O
-Discussed with cardiology today on 03/15
Hypotension
- BP 77/44 on arrival - improved with 500cc of volume.
- Hold valsartan which was restarted after last admission.
- Hold spironolactone
- Initially Coreg was resumed with holding parameters, subsequently placed on hold as per cardio
-midodrine 5 mg TID started w/ holding parameters SBP<120, subsequent improvement in BP noted. Consider taper to 2.5 TID if BP consistently improves
ASCVD
- Stable. No current chest pain.
- Continue Plavix, statin
Permanent Atrial Fibrillation
Supratherapeutic INR>3
- Stable. Continue carvedilol with holding parameters.
- PPM /AICD in place.
- Initially Coumadin continued INR goal 2-3, subsequently placed on hold d/t supratherapeutic INR and vitamin K given (INR >8 today)
DVT Prophylaxis: Coumadin on hold Supratherapeutic INR
Code Status: DNR
I spent a total of 50 minutes with the patient or on the floor.
Anticipated Discharge: > 48 hours
Subjective/Interval History
-
Date of Service: March 15, 2024
Patient remains on high flow oxygen. Afebrile.
Objective Data
-
Labs:
Laboratory Results
03/15/24
04:39
WBC 20.1 H
Hgb 12.5 L
Hct 35.2 L
Plt Count 290
PT 94.2 H
INR > 8.0 H* D
Sodium 139
Potassium 4.2
Chloride 101
Carbon Dioxide 24
BUN 46 H
Creatinine 1.0
Glucose 171 H
Calcium 8.8
Total Bilirubin 1.4 H
AST 42
ALT 29
Alkaline Phosphatase 158 H
Vital Signs:
Vital Signs
Temp Pulse Resp BP Pulse Ox
98.5 F 79 30 125/78 95
03/15/24 04:45 03/15/24 07:43 03/15/24 07:43 03/15/24 06:00 03/15/24 07:44
I&O
03/14/24 03/15/24 03/16/24
06:59 06:59 06:59
Intake Total 1969 / 1969 1440 / 1440
Output Total 2024
Balance -55 / -55 -660 / -660
[2024-03-15] MEDS: LASIX 60 MG IV ×2 (09:39→16:34)
[2024-03-15] MEDS: MUCINEX 600 MG PO (09:39)
[2024-03-15] MEDS: ProAmatine 5 MG PO ×3 (09:40→17:06)
[2024-03-15] MEDS: FARXIGA 10 MG PO (09:46)
[2024-03-15] MEDS: COREG 3.125 MG PO (09:46)
[2024-03-15] MEDS: PLAVIX 75 MG PO (09:47)
[2024-03-15] MEDS: STERILE WATER FOR INJECTION 10 ML IV ×2 (09:47→16:37)
[2024-03-15] MEDS: MAXIPIME 2000 MG IV ×2 (09:47→16:37)
[2024-03-15] MEDS: SOLU-MEDROL PF 60 MG IV (09:50)
[2024-03-15] MEDS: CRESTOR 5 MG PO (09:50)
[2024-03-15] MEDS: TRUSOPT 2% OPHTHALMIC SOLUTION 1 DROP BOTH EYES (10:16)
[2024-03-15] MEDS: SENOKOT-S 1 TABLET PO (12:40)
--- NOTE | 2024-03-15 12:57 | W.PN.ID1 ---
Date of Service
Date of Service: March 15, 2024
Today's Communication
Add Azithromycin to Cefepime.
Assessment / Plan
# Acute on chronic hypoxemic respiratory failure
# Acute on chronic heart failure, on furosemide
# Pulmonary fibrosis, now on steroid
# URI sxs
# PNA
- Repeat procal trended up from 0.54 to 0.70
- RSV negative
- MRSA screen neg -> dc'd Vancomycin
- Increase O2 requirement on HFL + NRB
- Continue cefepime (d4)
- Add empiric azithromycin. QTc normal
Azithromycin can interact with warfarin. However his warfarin is currently on hold INR>8.
- Increase in leukocytosis due to steroid.
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
Pulmonary fibrosis
hypertension
Atrial fibrillation s/p ablation
CAD status post stent
Heart failure with reduced EF
ICD placement
Pulmonary hypertension
HTN
Osteoarthritis
Hernia repair 2002
Lung Surgery/Thoracotomy 1986
Chief Complaint
-: Pneumonia
Subjective / Review of Systems
SOB and cough stable.
Vital Signs / Physical Exam
Vital Signs
Vital Signs
Temp Pulse Resp BP Pulse Ox
97.8 F 84 35 101/70 91
03/15/24 11:32 03/15/24 12:34 03/15/24 11:04 03/15/24 12:34 03/15/24 12:42
Physical Exam
Constitutional: No Acute Distress and Comfortable
Cardiovascular: Regular Rate and S1/S2
Pulmonary: Coarse (bases)
Gastrointestinal: Soft, Non Distended and Normal Bowel Sounds
Neurological: AO x 3
Objective Data
Lab Data
Lab Results
03/15/24 04:39
03/15/24 04:39
ESR Cancelled 03/12/24 22:15
PT 94.2 Sec (11.4-14.6) H 03/15/24 04:39
INR > 8.0 H* D 03/15/24 04:39
APTT 43.2 Sec (23.4-35.0) H 03/12/24 16:36
Estimated Creat Clear 64 ml/min 03/15/24 04:39
Total Bilirubin 1.4 mg/dl (0.2-1.3) H 03/15/24 04:39
AST 42 U/L (17-59) 03/15/24 04:39
ALT 29 U/L (0-50) 03/15/24 04:39
Alkaline Phosphatase 158 U/L (38-126) H 03/15/24 04:39
Most recent labs reviewed.
Micro Results:
03/12/24 18:21 Blood Culture - Preliminary
Blood/Venous No Growth in 48 hours- Final report to follow
03/12/24 18:20 Blood Culture - Preliminary
Blood/Venous No Growth in 48 hours- Final report to follow
03/14/24 08:06 Respiratory Syncytial Virus Culture - Final
Nasalpharynx Negative for Respiratory Syncytial Virus.
A false negative result may be obtained with a specimen
collected early in the acute phase. If symptoms persist, a
new specimen should be tested.
03/13/24 14:56 Legionella Urinary Antigen - Final
Urine Negative for Legionella pneumophila Serogroup 1 antigen.
A negative result does not rule out the possiblity of
Legionella infection due to other serogroups or species of
Legionella. Clinical correlation is recommended.
Streptococcus pneumoniae Antigen (M - Final
Negative for Streptococcus pneumoniae antigen.
A negative result does not exclude infection with
Streptococcus pneumoniae. Clinical correlation is
recommended.
03/13/24 11:55 Nasal Screen MRSA (PCR) - Final
Nose MRSA not detected - performed by PCR methodology.
03/12/24 18:30 Influenza Types A & B ([facility]) - Final
Nasal Swab Negative for Influenza A & B, NAAT
Negative results must be combined with clinical observations
and patient history.
Nucleic Acid Amplification test (NAAT)performed on the
[employer] platform.
03/12/24 CXR: Cardiomegaly. Stable. Slightly progressed findings suggesting mild bilateral pneumonia. CHF cannot be excluded.
02/07/24 CXR: There is moderate groundglass and linear interstitial airspace disease throughout the lower two thirds of the right lung as well as at the left lung base consistent with pneumonia and similar to that seen on the 02/02/2024 CT examination
--- NOTE | 2024-03-15 13:01 | PTCARENOTE ---
Stool softener given. Pt with c/o abdominal fullness. Poor appetite. We discussed high protein food selections that require little mastication thus preserving his oxygen requirements. remains at the bedside.
[2024-03-15] MEDS: ZITHROMAX 500 MG PO (13:18)
--- NOTE | 2024-03-15 14:30 | PTCARENOTE ---
Supportive care provided to the pt and his . He had an outburst with his which is uncharacteristic for him. I expressed that more than likely it was the corticosteroid causing the mood swing. was visibly upset. I stayed with them for
several minutes with them both then provided privacy so they could talk.
--- NOTE | 2024-03-15 14:47 | CM ---
CM following re: discharge planning.
Discussed in Rounds, reviewed pt's chart, met with pt. Per Rounds meeting, pt tolerating 50 L HFNC with FIO2 100% and w/NRB mask, continue supportive care.
PT and OT evaluations noted - home PT recommended. Pt is known to [facility].
PT and OT will re-evaluate the pt to confirm a level of care at discharge.
D/C plan: uncertain at this time and will depend on pt's progresses
--- NOTE | 2024-03-15 16:23 | PTCARENOTE ---
OOB for 6 hours. Took several minutes for his pulse oximetry to recover from standing and pivoting. Desaturated to 84% with Max HFNC w/15 liters NRB mask. RR 40. Lungs CTA, diminished in the bases.
--- NOTE | 2024-03-15 18:40 | PTCARENOTE ---
With the patient' permission the son was provided an update on his father's condition and the plan of care. Supportive care provided.
--- NOTE | 2024-03-15 19:30 | PTCARENOTE ---
Patient awake and alert, saturating 82% on 50L/100% high flow oxygen. Patient not wearing NRB 100% mask, replaced, sats improved to 90%. I introduced myself to patient. His resp rate 36-44/min. He denies pain. Emotional support and encouragement
provided. At 1999 patient attempted to sit at the edge of bed, trying to void, very HEART, unable to void, saturating in the 60%s with activity. At 2014, patient found to have agonal breathing then apneic, very pale, unable to obtain BP, AV paced 80
on CM but unable to auscultate HB, unable to find pulse. Nurse Practitioner [place] notified. Patient pronounced at 2026.
--- NOTE | 2024-03-15 20:37 | W.PN.DEATH ---
Pronouncement of
-
Called to see patient to pronounce.
No spontaneous heart tones or respirations noted.
Patient not responsive to verbal stimuli.
Patient is pronounced .
Time of : 20:27
Date of : 03/15/24
Cause of : hypoxic respiratory failure d/t decompensated heart failure, pneumonia and interstitial lung disease
Family Notified: Yes (rocky-)
--- NOTE | 2024-03-15 21:00 | PTCARENOTE ---
Patient family at bedside, mourning. Emotional support and encouragement provided. Allowed to grieve. At 2225, noted that patient family has left. Patient family took all patient belongings home. [facility] contacted. [place] [facility] [place]
2230. [place] [facility] [place].
--- NOTE | 2024-03-16 07:56 | W.DCSUMMARY ---
Discharge Summary
Discharge Data
Date of Admission: 03/12/24
Date of Discharge: 03/15/24
-
Pending Results: No
Hospital Course
Patient 83 years old male with history of CAD, HFrEF, V. tach, ICD in place, permanent A-fib on warfarin, hyperlipidemia, right bundle branch block and left anterior fascicular block, pulmonary fibrosis, presented to the hospital shortness of breath
and worsening hypoxia. Patient was started on IV Lasix, broad-spectrum IV antibiotics, IV steroids, and oxygen supplementation. Cardiology and pulmonary were consulted. ID was consulted as well. Despite aggressive regimen patient remained on
high flow oxygen and did not exhibit any signs of improvement. Discussions took place and relayed poor prognosis to patient and family. Unfortunately patient on 03/15/2024.
Discharge Plan
-
Patient Disposition:
Date/Time
Date/Time: 03/15/24 23:03
Discharge Date and Time
Discharge Date/Time: 03/15/24 23:03
Print Language: AUSTRAL[place]
--- NOTE | 2024-03-16 10:21 | PN.CDI ---
CDI
- -
CDI:
Physician Documentation Request
Admit Date: 03/12/24 20:47
Dear Doctor Chin,
Please review the following and provide your response in the progress notes.
Clinical Indicators:
[employer] Ha[employer], 03/15
#wt: CBW 204lbs 12.951 oz (BMI 27.7-overweight) 03/15.
#...As per current clinical data pt denied wt loss or decreased intake.
#...observed with some fat and muscle wasting.
#...pt meets AND/ASPEN moderate protein calories malnutrition of acute illness
Based on the above information and your assessment, which of the following most accurately represents the patient's nutritional status?
Moderate protein calorie malnutrition of acute illness
Other (please specify)
[place] Criteria ([facility] 2017)
2 or more criteria must be present for either
non severe or severe malnutrition
Note that the criteria differs related to the
presence of an acute or chronic illness
Acute Illness
Energy Intake Non Severe: <75% for >7 days
Severe: <50% for >5 days
Weight Loss Non Severe: 1-2% over 1 week
5% over 1 month
7.5% over 3 months
1 year N/A
Severe: >2% over 1 week
>5% over 1 month
>7.5% over 3 months
1 year N/A
Body Fat Non Severe: Mild Decrease
Severe: Moderate Decrease
Muscle Mass Non Severe: Mild Decrease
Severe: Moderate Decrease
Use of terms such as suspected, likely, concern for, or probable (associated with a specific diagnosis that is being evaluated, monitored, or treated as if it exists) are acceptable and can be coded in the inpatient setting, when documented at the
time of discharge.
Thank you,
Aliyah Mclain RN BSN CCDS
CDI Specialist
please contact via tiger text
Please use your independent medical judgment in providing your response.
== END 2024-03-15 23:03 | disposition expired | DRG 193 ==
LOC: ICU 20:47
PROVIDERS: Emergency Medicine; Internal Medicine; ADMITTING PHYSICIAN Hospitalist; ATTENDING PHYSICIAN Hospitalist; CONSULT PHYSICIAN Internal Medicine Cardiovascular Disease; CONSULT PHYSICIAN Internal Medicine Critical Care Medicine; CONSULT PHYSICIAN Internal Medicine Infectious Disease; EMERGENCY PHYSICIAN Emergency Medicine; FAMILY PHYSICIAN Family Medicine
DX: J18.9 Pneumonia, unspecified organism (principal); I50.23 Acute on chronic systolic (congestive) heart failure; J96.21 Acute and chronic respiratory failure with hypoxia; I48.21 Permanent atrial fibrillation; E44.0 Moderate protein-calorie malnutrition; Z11.52 Encounter for screening for COVID-19; Z99.81 Dependence on supplemental oxygen; J84.10 Pulmonary fibrosis, unspecified; I11.0 Hypertensive heart disease with heart failure; Z79.01 Long term (current) use of anticoagulants; Z95.5 Presence of coronary angioplasty implant and graft; I25.10 Atherosclerotic heart disease of native coronary artery without angina pectoris; I27.20 Pulmonary hypertension, unspecified; M19.90 Unspecified osteoarthritis, unspecified site; Z66 Do not resuscitate; Z79.02 Long term (current) use of antithrombotics/antiplatelets; Z87.891 Personal history of nicotine dependence; Z68.27 Body mass index [BMI] 27.0-27.9, adult
CPT/HCPCS: 71045; 80048; 80053; 82248; 82805; 83735; 83880; 84100; 84145; 85025; 85027; 85610; 85652; 85730; 87040; 87449; 87502; 87641; 87807; 87811; 87899; 93005; 94640; 96361; 96374; 96375; 97162; 97166; 99291